=== PATIENT | female | born 1975 | race Two or more races ===

== ENCOUNTER 2020-03-28 20:01 | Emergency (ER) | payer MEDICAID, SELFPAY ==
[2020-03-28 20:16] VITALS: BP 134/70; PULSE 110; RESP 18; TEMP 36.2; O2SAT 98; BMI 27.4
--- NOTE | 2020-03-28 22:28 | XR_ITS ---
EXAMINATION: XR SOFT TISSUE NECK CLINICAL INDICATION: Foreign body, Fishbone. COMPARISON: None TECHNIQUE: 2 views of the soft tissue neck were obtained. FINDINGS: Soft tissue films of the neck demonstrate a normal larynx, pharynx and upper trachea. No soft tissue swelling or opaque foreign body is demonstrated. There is disc height narrowing and vertebral endplate spurring C5-C6 IMPRESSION: Unremarkable examination.
[2020-03-29 00:52] VITALS: BP 122/62; PULSE 101; RESP 15; TEMP 37; O2SAT 99
--- NOTE | 2020-03-29 00:56 | CT_ITS ---
EXAMINATION: CT SOFT TISSUE NECK WITHOUT CONTRAST CLINICAL INFORMATION: Pain, foreign body sensation right side COMPARISON: 03/28/2020 TECHNIQUE: Helical imaging was performed in the axial plane with generation of coronal and sagittal reformatted images. This CT examination was performed using dose optimization techniques as appropriate, variously including the following: *Automated exposure control *Adjustment of mA and/or kV according to patient size (this includes techniques or standardized protocols for targeted exams where dose is matched to indication/reason for exam; i.e. extremities or head) *Use of iterative reconstruction technique DLP: 535 mGy-cm FINDINGS: There is subtle tiny hyperdensity along the superficial medial aspect of the right palatine tonsil as seen on image 90/266 of series 3 for which a tiny foreign body cannot be excluded. This is a somewhat linear configuration when viewed on coronal images, and there is slight asymmetric prominence of the right palatine tonsil. No cervical adenopathy is identified. The parotid glands are homogeneous in attenuation. The submandibular glands are normal. No suspicious contour abnormality is seen within the oral cavity or pharyngeal mucosal space. The laryngeal structures are normal. The parapharyngeal fat is preserved. The carotid sheath vasculature opacify normally. No extra mucosal soft tissue mass or fluid collection is seen. No retropharyngeal fluid collection is seen. The thyroid gland is normal. The mastoid air cells are well-aerated. Partially visualized mucous retention cyst in the right maxillary sinus. The temporomandibular joints are normal. Endplate osteophytes are present in the cervical spine at C5-C6. The imaged portions of the brain parenchyma are unremarkable. IMPRESSION: Subtle tiny hyperdensity along the superficial aspect of the right palatine tonsil, which could reflect a tiny foreign body.
--- NOTE | 2020-03-29 00:58 | ED.SKABFB ---
HPI - Skin/Abscess/Foreign Bdy General Chief complaint: Skin/Abscess/Foreign Body Stated complaint: throat problem Time Seen by Provider: 03/29/20 00:56 Source: patient Mode of arrival: ambulatory Limitations: no limitations History of Present Illness HPI narrative: patient comes in complaining of a mole foreign body sensation on the right side of the neck. Patient states that 18:00 she swallowed a fishbone. Patient has ongoing sensation of the bone being stuck in her throat on the right side. Patient states that she tried swallowing bread, meld, eating bananas, drinking plenty of water but no results. MD complaint: foreign body Onset (ago): hour(s) Severity: mild Related Data Allergies Allergy/AdvReac Type Severity Reaction Status Date / Time sulfamethoxazole Allergy Unknown LIP Verified 03/29/20 03:29 [From BACTRIM] SWELLING trimethoprim [From BACTRIM] Allergy Unknown LIP Verified 03/29/20 03:29 SWELLING Review of Systems Review of Systems: Constitutional : No Weight loss, No Fever, No Chills, No Night Sweats, No Fatigue, No Malaise ENT/Mouth : No Hearing loss, No Ear Pain, No Nasal Congestion, No Sinus Pain, No Hoarseness, Mild pain on this right side of the throat with foreign body sensation, No Rhinorrhea, No Swallowing Difficulty Eyes: No Eye Pain, No Swelling, No Redness, No Foreign Body, No Discharge, No Vision Changes Cardiovascular : No Chest Pain, No SOB, No Dyspnea on Exertion, No Orthopnea, No Edema, No Palpitations Respiratory : No Cough, No Sputum, No Wheezing, No Smoke Exposure, No Dyspnea Gastrointestinal : No Nausea, No Vomiting, No Diarrhea, No Constipation, No abdominal Pain, No Hematochezia, No Melena Genitourinary : no irregular bleeding, No Dysuria, No Urinary Frequency, No Hematuria, No Urinary Incontinence, No Urgency, No Flank Pain, No Urinary Flow Changes, No Hesitancy Musculoskeletal : No joint pain, No Myalgias, No Joint Swelling Skin : No Skin Lesions, No rash Neuro : No Weakness, No Numbness, No Paresthesias, No Loss of Consciousness, No Dizziness, No Headache Psych : No Anxiety/Panic, No Depression, No SI/HI/AH/VH, No Social Issues, Heme/Lymph: No Bruising, No Bleeding,No Lymphadenopathy Endocrine : No Polyuria, No Polydipsia, No Temperature Intolerance [facility] Social History Social History Alcohol intake: never Smoking Status: Never smoker Use of substances other than those prescribed or required for medical reasons: No Advance Directives: No Advance Directives Information Provided: No Physical Exam Vital Signs: Vital Signs: Vital Signs Temp Pulse Resp BP Pulse Ox 03/29/20 00:52 98.6 F 101 H 15 122/62 99 03/28/20 20:16 97.2 F 110 H 18 134/70 98 Body Mass Index 27.4 Appearance: Alert. Oriented X3. No acute distress. Eyes: Pupils equal, round and reactive to light. ENT: Pharynx normal. Neck: Normal inspection. Neck supple. No lymph nodes noted. No crepitus CVS: Normal heart rate and rhythm. Pulses normal. Normal S1 and S2 Respiratory: No respiratory distress. Breath sounds normal. No Wheezing. No rales Abdomen: Soft and nontender. No rigidity. No distention. good BS x4 Skin: Skin warm and dry. Normal skin color. Normal skin turgor. Extremities: No lower extremity edema. No lower extremity edema. No Lacerations. No Rash Neuro: Oriented X 3. No motor deficit. No sensory deficit. Moving all extermities. No slurred speech. Course Reevaluation(s) Reevaluation #1: patient's x-ray shows no foreign body, patient is still complaining of a foreign body sensation, states something is poking her in her neck on the right side MDM - Skin/Abscess/Foreign Bdy MDM Narrative Medical decision making narrative: I discussed the CT scan with the patient, on physical exam she does not have anything visible on the tonsils. Patient instructed to follow-up with ENT, patient was provided with the phone number for follow-up. Medical Records Attestation: I reviewed the patient's medical records. Lab Data Attestation: I reviewed the patient's lab results. Imaging Data soft tissues of the neck CT scan: Radiologist's impression: Subtle tiny hyperdensity along the superficial aspect of the right palatine tonsil, which could reflect a tiny foreign body. Discharge Plan Discharge Clinical Impression: Feeling of foreign body in throat Patient Disposition: Home, Self-Care Instructions: Foreign Body in Pharynx (ED) Additional Instructions: please follow-up with the ears nose and throat doctor. [facility], phone number [phone] Interventions: ED Discharge Assessment Last Done: 03/29/20 03:31 Print Language: Romansh
[2020-03-29] MEDS: Lidocaine HCl Viscous 2 % 15 ML SOLUTION MUCOUS MEM (03:40)
== END 2020-03-29 03:55 | disposition home or self-care (01) ==
PROVIDERS: Emergency Provider Emergency Medicine
DX: R09.89 Other specified symptoms and signs involving the circulatory and respiratory systems (principal)
CPT/HCPCS: 70360; 70490; 99284

== ENCOUNTER 2020-05-30 11:49 | Outpatient (REF) | payer MEDICAID, SELFPAY | END 2020-05-30 11:50 | disposition home or self-care (01) | LOC: HO.LAB 11:49 | PROVIDERS: Visit Provider Internal Medicine | DX: Z20.828 Contact with and (suspected) exposure to other viral communicable diseases (principal) | CPT/HCPCS: C9803; U0003 ==

== ENCOUNTER 2020-06-01 10:44 | Emergency (ER) | payer MEDICAID, SELFPAY ==
[2020-06-01 10:50] VITALS: BP 136/84; PULSE 100; RESP 18; TEMP 37; O2SAT 99; BMI 29.2
--- NOTE | 2020-06-01 10:53 | ED_ITS ---
HPI - Skin/Abscess/Foreign Bdy General Chief complaint: Skin/Abscess/Foreign Body Stated complaint: rash 3 days Time Seen by Provider: 06/01/20 10:52 Source: patient Mode of arrival: ambulatory Limitations: no limitations History of Present Illness HPI narrative: 45 y/o female presenting with red, raised itching rash on her arms and legs for the last 3 days. She states she gets this rash occasionally but it usually is not this bad. She reports it starting on her left forearm and then spreading to her right arm and both of her upper and lower legs. No lesions on her abdomen, back or face. She has been taking Benadryl, Claritin, Zyrtex with no relief. She denies new soaps, detergents, lotions, creams or perfumes. She has a dog that she has had for >1 year. She denies SOB or wheezing. MD complaint: rash Onset (ago): day(s) (3) Tetanus up to date: unsure Location: LUE, RUE, LLE and RLE Severity: similar to previous episodes Severity scale (1-10): 7 Quality: burning and pruritic Pain Consistency: constant Relieving factors: cold therapy and medication Exacerbating factors: palpation Associated symptoms: denies other symptoms Treatments prior to arrival: Benadryl Related Data Previous Rx's Medication Instructions Recorded prednisone 60 mg PO DAILY #15 tab 06/01/20 Allergies Allergy/AdvReac Type Severity Reaction Status Date / Time sulfamethoxazole Allergy Unknown LIP Verified 06/01/20 10:50 [From BACTRIM] SWELLING trimethoprim [From BACTRIM] Allergy Unknown LIP Verified 06/01/20 10:50 SWELLING Review of Systems Review of Systems: Constitutional: No Fever, No Chills ENT/Mouth: No sore throat,, No Swallowing Difficulty Eyes: No Eye Pain, No Swelling, No Redness Cardiovascular: No Chest Pain, No SOB Respiratory: No Cough, No Wheezing, No dyspnea Gastrointestinal: No Nausea, No Vomiting, No Diarrhea, No abdominal Pain Musculoskeletal: No joint pain, No Myalgias Skin: +Skin Lesions, + rash Heme/Lymph: No Bruising PMFSH Social History Social History Alcohol intake: never Smoking Status: Never smoker Advance Directives: No Advance Directives Information Provided: No Physical Exam Vital Signs: Vital Signs: Last Vital Signs Temp 98.6 F 06/01/20 10:50 Pulse 100 06/01/20 10:50 Resp 18 06/01/20 10:50 BP 136/84 06/01/20 10:50 Pulse Ox 99 06/01/20 10:50 Body Mass Index 29.2 Appearance: Alert. Oriented X3. No acute distress. HEENT: normal inspection CVS: Normal heart rate and rhythm. No murmur appreciated. Respiratory: No respiratory distress. Lung sounds CTAB. Skin: Skin warm and dry. Normal skin color. Normal skin turgor. No rashes. Extremities: bilateral forearms with large erythematous circular raised lesions, confluent with mild excoriations, no pustules. Bilateral upper thighs with small raised circular erythematous lesions as well. No truck or back lesions. Neuro: Oriented X 3. Non-focal Course Course Course Narrative: 45 y/o female with recurrent erythematous, pruritis rash on extremities worsening over last 3 days. Unclear etiology. History of the same. Will treat with burst of prednisone and refer to Music Therapy Teacher for further workup. No respiratory complaints, no cellulitis. Stable for discharge. MDM - Skin/Abscess/Foreign Bdy Differential Diagnosis Differential diagnosis: Likely urticaria, allergic reaction to drug, cellulitis, eczema and contact dermatitis Critical Care Time Critical Care Time Critical Care Time: No Discharge Plan Discharge Clinical Impression: Contact dermatitis Qualifiers: Contact dermatitis type: unspecified Contact dermatitis trigger: unspecified trigger Qualified Code(s): L25.9 - Unspecified contact dermatitis, unspecified cause Patient Disposition: Home, Self-Care Instructions: Dermatitis (ED) Additional Instructions: Continue to take Benadryl every 6-8 hours as needed for itching. Continue to take Claritin or Zyrtec every day until resolved. Topical Benadryl spray or lotion may also help with itching. Take the prescribed steroids as directed. Recommend follow up with an crime data specialist for further workup. Prescriptions: New prednisone 20 mg tablet 60 mg PO DAILY Qty: 15 RF: 0 Referrals: Mango Fraire DO [Physician] - 2 days Discharge Date/Time: 06/01/20 11:11
== END 2020-06-01 11:11 | disposition home or self-care (01) ==
PROVIDERS: Emergency Provider Emergency Medicine Emergency Medical Services
DX: L25.9 Unspecified contact dermatitis, unspecified cause (principal); Z79.899 Other long term (current) drug therapy
CPT/HCPCS: 99283

== ENCOUNTER 2020-12-24 13:57 | Emergency (ER) | payer MEDICAID, SELFPAY ==
--- NOTE | ~2020-12-24 | CT_ITS ---
EXAMINATION: CT ABDOMEN AND PELVIS WITH CONTRAST CLINICAL INFORMATION: Right-sided pain COMPARISON: 07/01/2018 TECHNIQUE: Multidetector volumetric images were obtained from the superior aspect of the liver through the pubic symphysis following administration 85 mL of Omnipaque 350 intravenous contrast. Sagittal and coronal reformatted images were obtained on the technologist's workstation. Oral contrast: No This CT examination was performed using dose optimization techniques as appropriate, variously including the following: *Automated exposure control *Adjustment of mA and/or kV according to patient size (this includes techniques or standardized protocols for targeted exams where dose is matched to indication/reason for exam; i.e. extremities or head) *Use of iterative reconstruction technique DLP: 749 mGy-cm FINDINGS: LUNG BASES: The visualized lung bases are unremarkable. LIVER, GALLBLADDER, AND BILIARY TREE: Changes of diffuse hepatic steatosis. No biliary dilatation. Tiny gallstones within the gallbladder lumen. No acute inflammatory changes. PANCREAS: Unremarkable. SPLEEN: Unremarkable. ADRENAL GLANDS: Unremarkable. KIDNEYS AND URETERS: The kidneys are normal in size, shape, and attenuation. No hydronephrosis, hydroureter, or calculi seen. No perinephric stranding. BLADDER: Unremarkable. GASTROINTESTINAL TRACT: Relative thickening of the right colon and transverse colon consistent with nonspecific colitis. Scattered diverticula without acute inflammatory changes. Normal appendix. No small bowel pathology. ABDOMINAL WALL: No significant hernia is appreciated. LYMPH NODES: Normal. VASCULAR: Unremarkable. PELVIC VISCERA: Ovarian follicles noted bilaterally. OSSEOUS STRUCTURES: Unremarkable. CT/CT abdomen pelvis w con IMPRESSION: 1. Colon is decompressed but stable there are findings suspicious for right-sided colonic wall thickening consistent with nonspecific mild colitis. Appearance is similar to baseline. 2. Normal appendix. 3. No obstructive uropathy. No stones.
[2020-12-24 14:21] VITALS: BP 113/63; PULSE 82; RESP 18; TEMP 36.7; O2SAT 99; BMI 30.2
[2020-12-24 16:46] LABS: MANUAL DIFF FLAG NO
[2020-12-24 16:47] LABS: Basophils Percent Auto 0.2 % (0-2); Eosinophils Absolute Auto 0.1 X10*3/uL (0.0-0.4); Eosinophils Percent Auto 0.6 % (0-4); Hematocrit 38.8 % (37-47); Hemoglobin 12.6 g/dl (12.0-16.0); Imm Gran Abs Auto 0.04 X10*3/uL (0.00-0.03); Imm Gran Pct Auto 0.4 % (0.0-0.4); Lymphocytes Percent Auto 19.6 % (20-40); Mean Corpuscular HGB Conc 32.5 g/dl (31.0-35.0); Mean Corpuscular Hemoglobin 26.8 pg (27.0-33.0); Mean Corpuscular Volume 82.4 fL (80-98); Mean Platelet Volume 10.6 fL (9.4-12.3); Monocytes Absolute Auto 0.9 X10*3/uL (0.1-1.2); Monocytes Percent Auto 8.8 % (2-11); Neutrophils Absolute Auto 7.3 X10*3/uL (2.0-8.3); Neutrophils Percent Auto 70.4 % (45-73); Platelet Count 300 X10*3/uL (160-400); Red Blood Count 4.71 X10*6/uL (4.20-5.50); Red Cell Distribution Width 12.7 % (11.0-16.0); White Blood Count 10.3 X10*3/uL (4.8-10.8)
[2020-12-24 17:15] LABS: Alanine Aminotransferase 32 U/L (0-31); Albumin Level 4.2 g/dL (3.5-5.0); Alkaline Phosphatase 66 U/L (39-117); Anion Gap 13 (12-20); Aspartate Amino Transferase 26 U/L (5-31); Bilirubin Total 0.4 mg/dL (0.0-1.0); Blood Urea Nitrogen 9 mg/dL (9-16); Calcium 9.5 mg/dL (8.4-10.2); Carbon Dioxide 24 mmol/L (22-29); Chloride 106 mmol/L (96-108); Creatinine Clr Calc Pharmacy 105.7; Estimated Glomerular Filt Rate > 60; Glucose Random 97 mg/dL (60-115); Potassium 4.2 mmol/L (3.3-5.1); Sodium 139 mmol/L (135-145); Total Protein 7.5 g/dL (6.5-8.0)
--- NOTE | 2020-12-24 17:19 | ED_ITS ---
HPI - Abdominal Pain General Chief Complaint: Abdominal Pain Stated Complaint: FLANK PAIN Time Seen by Provider: 12/24/20 17:17 Source: patient Limitations: no limitations History of Present Illness HPI narrative: This is a 45-year-old female who complains of pain in her right flank for about a week, with worsening today. She notes some pain in her right abdomen. She says the pain overall is not bad, maybe a 5/10. Pain is dull and constant. She has noted urinary frequency but denies any dysuria. She denies fever. She denies any nausea or vomiting. She has not had any constipation or diarrhea. Related Data Previous Rx's Medication Instructions Recorded prednisone 60 mg PO DAILY #15 tab 06/01/20 Allergies Allergy/AdvReac Type Severity Reaction Status Date / Time sulfamethoxazole Allergy Unknown LIP Verified 06/01/20 10:50 [From BACTRIM] SWELLING trimethoprim [From BACTRIM] Allergy Unknown LIP Verified 06/01/20 10:50 SWELLING Review of Systems Review of Systems Yes all other systems are reviewed and are negative Constitutional: Reports as per HPI and Denies fever(s) Eyes: Reports as per HPI and Reports no additional eye complaints Reports system reviewed and no additional complaints, except as documented, Reports as per HPI, Denies nasal congestion, Denies nasal discharge and Denies sore throat Cardiovascular: Reports as per HPI, Denies chest pain and Denies dyspnea Respiratory: Reports as per HPI, Denies cough and Denies dyspnea Gastrointestinal: Reports as per HPI, Reports abdominal pain, Denies diarrhea and Denies vomiting Genitourinary: Reports as per HPI, Denies hematuria, Denies dysuria and Reports flank pain Comments: Urinary frequency Musculoskeletal: Reports no additional musculoskeletal complaints and Denies numbness Skin/Breast: Reports as per HPI and Denies rash Reports as per HPI, Denies focal weakness, Denies numbness and Denies Sensory deficit (Neuro) Psychiatric: Reports no additional psychiatric complaints and Reports as per HPI Endocrine: Reports no additional endocrine complaints and Reports as per HPI Hematologic/Lymphatic: Reports no additional hematologic/lymphatic complaints, Reports as per HPI and Reports other (No peripheral edema) Physical Exam Vital Signs: Vital Signs: Last Vital Signs Temp 98.1 F 12/24/20 14:21 Pulse 74 12/24/20 17:20 Resp 16 12/24/20 20:01 BP 128/76 12/24/20 17:20 Pulse Ox 99 12/24/20 17:20 Body Mass Index 30.2 Const: General: cooperative, no acute distress and alert Orientation/consciousness: patient oriented x3 HENMT: Head: Yes normal to inspection Eyes: General: appearance normal, both eyes and all related structures Eyelids: Yes eyelids normal Conjunctivae: conjunctivae normal Pupils: Equal, round and reactive pupils present Neck: Neck: Yes normal visual inspection and Yes supple Chest: Chest palpation & inspection: normal inspection of the chest Resp: Effort & Inspection: normal respiratory effort Auscultation: clear to auscultation bilaterally Cardio: Rate: regular rate Rhythm: regular rhythm Heart sounds: S1 normal heart sound present, S2 normal heart sound present, no gallops, no murmurs and no rubs GI: Palpation (GI): Soft to palpation, Tenderness to palpation present (GI) (Mild tenderness right lower quadrant, also right CVA) and Other GI palpation findings present (Non-distended) Auscultation: normal bowel sounds Skin: General skin exam: no rashes or lesions noted Neuro: General: patient oriented x3, no focal motor deficits and CN's II-XI intact bilaterally Cranial nerves: Yes Equal, round and reactive pupils present Cognition (Neuro): normal cognition Motor exam (neuro): 5/5 motor strength present throughout Sensory Exam: No Sensory deficit (Neuro) Extrem: General: Yes normal to inspection and Yes no pedal edema Psych: Appearance: grossly normal Affect: normal affect MDM - Abdominal Pain MDM Narrative Medical decision making narrative: Patient with right flank and some right lower quadrant pain, developing gradually over a week. Patient only mild tenderness on exam. Patient does not appear ill. Patient had urinary frequency but no other urinary symptoms. Urinalysis was negative. For this reason CT scan was done, given the mild right lower quadrant pain and tenderness, but was negative for any acute pathology except for mild thickening of the right colon, similar to a prior exam. Patient has not had any diarrhea or fever, doubt colitis clini toribio. Recommend ibuprofen and/or acetaminophen for pain, follow-up with the primary care physician, may need GI referral if pain persists Medical Records Attestation: I reviewed the patient's medical records. Lab Data Attestation: I reviewed the patient's lab results. Result diagrams: 12/24/20 16:36 12/24/20 16:36 Labs: Lab Results 12/24/20 12/24/20 12/24/20 Range/Units 16:36 16:36 17:19 WBC 10.3 (4.8-10.8) X10*3/uL RBC 4.71 (4.20-5.50) X10*6/uL Hgb 12.6 (12.0-16.0) g/dl Hct 38.8 (37-47) % MCV 82.4 (80-98) fL MCH 26.8 L (27.0-33.0) pg MCHC 32.5 (31.0-35.0) g/dl RDW 12.7 (11.0-16.0) % Plt Count 300 (160-400) X10*3/uL MPV 10.6 (9.4-12.3) fL Immature Gran % (Auto) 0.4 (0.0-0.4) % Neut % (Auto) 70.4 (45-73) % Lymph % (Auto) 19.6 L (20-40) % Whitley % (Auto) 8.8 (2-11) % Eos % (Auto) 0.6 (0-4) % Baso % (Auto) 0.2 (0-2) % Lymph # (Auto) 2.0 (1.2-4.9) X10*3/uL Whitley # (Auto) 0.9 (0.1-1.2) X10*3/uL Eos # (Auto) 0.1 (0.0-0.4) X10*3/uL Baso # (Auto) 0.0 (0.0-0.2) X10*3/uL Abs Immat Gran (auto) 0.04 H (0.00-0.03) X10*3/uL Absolute Neuts (auto) 7.3 (2.0-8.3) X10*3/uL Absolute Nucleated RBC 0.000 (0.0-0.012) X10*3/uL Nucleated RBC % (auto) 0.0 (0.0-0.2) /100WBC Sodium 139 (135-145) mmol/L Potassium 4.2 (3.3-5.1) mmol/L Chloride 106 (96-108) mmol/L Carbon Dioxide 24 (22-29) mmol/L Anion Gap 13 (12-20) BUN 9 (9-16) mg/dL Creatinine 0.65 (0.5-1.4) mg/dL Estim Creat Clear Calc 105.7 Estimated GFR > 60 Random Glucose 97 (60-115) mg/dL Calcium 9.5 (8.4-10.2) mg/dL Total Bilirubin 0.4 (0.0-1.0) mg/dL AST 26 (5-31) U/L ALT 32 H (0-31) U/L Alkaline Phosphatase 66 (39-117) U/L Total Protein 7.5 (6.5-8.0) g/dL Albumin 4.2 (3.5-5.0) g/dL Urine Color YELLOW Urine Appearance CLEAR Urine pH 6.0 (5.0-8.0) Ur Specific Britt 1.015 (1.005-1.025) Urine Protein NEG (NEG-TRACE) MG/DL Urine Glucose (UA) NEG (NEG) MG/DL Urine Ketones NEG (NEG) MG/DL Urine Blood TRACE (NEG) Urine Nitrite NEG (NEG) Ur Leukocyte Esterase NEG (NEG) Urine RBC 1-4 (0) /HPF Urine WBC 0-2 (0-4) /HPF Ur Squamous Epith Cells 1+ /LPF Urine Bacteria TRACE /LPF Imaging Data CT abdomen and pelvis with IV contrast: Radiologist's impression: 1. Colon is decompressed but stable there are findings suspicious for right-sided colonic wall thickening consistent with nonspecific mild colitis. Appearance is similar to baseline. 2. Normal appendix. 3. No obstructive uropathy. No stones. Discharge Plan Discharge Clinical Impression: Acute right flank pain Patient Disposition: Home, Self-Care Instructions: Abdominal Pain (ED), Flank Pain (ED) Additional Instructions: Use Tylenol or ibuprofen for pain. Drink plenty of fluids. Return for any new or worsened symptoms such as worse abdominal pain, fever. Follow-up with a primary care physician. If you have persistent pain you may need referral to a [employer] promotional sales. Prescriptions: No Action prednisone 20 mg tablet 60 mg PO DAILY Qty: 15 RF: 0 Referrals: Carmelo Dow MD [Physician] - 5 days [facility] Social History Social History Alcohol intake: never Advance Directives: No Advance Directives Information Provided: No
[2020-12-24 17:20] VITALS: BP 128/76; PULSE 74; RESP 16; O2SAT 99
[2020-12-24 17:26] LABS: Glucose Urine UA NEG (NEG); Leukocyte Esterase Urine NEG (NEG); Nitrite Urine NEG (NEG); Specific Gravity - Urine 1.015 (1.005-1.025); Urine Blood TRACE (NEG); Urine Ketones NEG (NEG); Urine Protein NEG (NEG-TRACE)
[2020-12-24] MEDS: Morphine Sulfate 4 MG/ML CARTRIDGE IVPUSH (17:27)
[2020-12-24] MEDS: Ketorolac Tromethamine 30 MG/ML VIAL IVPUSH (17:27)
[2020-12-24 17:31] LABS: Appearance Urine CLEAR; Color Urine YELLOW
[2020-12-24 17:39] LABS: Bacteria Urine TRACE /LPF; Squamous Epithelial Cell Urine 1+ /LPF; WBC Urine 0-2 /HPF (0-4)
[2020-12-24] MEDS: iohexoL 350 MG/ML 100 ML INFUS..BTL IV (19:11)
[2020-12-24 20:01] VITALS: RESP 16
== END 2020-12-24 20:29 | disposition home or self-care (01) ==
PROVIDERS: Emergency Provider Emergency Medicine
DX: R10.9 Unspecified abdominal pain (principal)
CPT/HCPCS: 36415; 74177; 80053; 81001; 85025; 96374; 96375; 99284; J1885; J2270; Q9967

== ENCOUNTER 2021-03-27 18:18 | Emergency (ER) | payer MEDICAID, SELFPAY ==
--- NOTE | 2021-03-27 18:34 | PC.NURSE ---
patient was not seen in triage, pt was brought to triage on ems stretcher, met pt in doorway and they left. pt left without being seen or triaged by this nurse.
[2021-03-27 18:35] VITALS: BP 128/78; PULSE 90; O2SAT 90
== END 2021-03-27 18:29 ==
PROVIDERS: Emergency Provider Emergency Medicine
DX: M25.539 Pain in unspecified wrist (principal)

== ENCOUNTER 2021-08-20 14:57 | Emergency (ER) | payer MEDICAID, SELFPAY ==
[2021-08-20 15:03] VITALS: BP 126/63; PULSE 86; RESP 18; TEMP 36.6; O2SAT 98; BMI 29.0
--- NOTE | 2021-08-20 15:36 | ED.BACK ---
HPI - Back Pain/Injury General Chief Complaint: Back Pain/Injury Stated Complaint: lower back pain Time Seen by Provider: 08/20/21 15:36 Source: patient Mode of arrival: ambulatory Limitations: no limitations History of Present Illness HPI Narrative: Patient is a 46-year-old female with past medical history of depression, cholelithiasis, obesity. She presents emergency department for evaluation of lower back pain. She states while bending forward today to pick her grandchild she felt a sudden burning pain across her lower back. The burning pain has subsided and is now aching, and made worse with any movement. Denies recent fevers, chills, burning with micturition, urinary frequency/urgency/hesitancy, bladder or bowel dysfunction, numbness or tingling of the perineum or bilateral legs. Denies any recent surgical procedures, any known immune compromising conditions, personal history of cancer, or IV drug usage. MD elicited complaint: back pain Related Data Previous Rx's Medication Instructions Recorded prednisone 20 mg tablet 60 mg PO DAILY #15 tab 06/01/20 tramadol 50 mg tablet 50 mg PO BID PRN #10 tab 08/20/21 Allergies Allergy/AdvReac Type Severity Reaction Status Date / Time sulfamethoxazole Allergy Unknown LIP Verified 06/01/20 10:50 [From BACTRIM] SWELLING trimethoprim [From BACTRIM] Allergy Unknown LIP Verified 06/01/20 10:50 SWELLING Review of Systems Review of Systems: Constitutional: No weight loss, fever, chills, weakness or fatigue. HEENT: No visual loss, blurred vision, double vision. No hearing loss, sneezing, congestion, runny nose or sore throat. Skin: No rash or itching. Cardiovascular: No chest pain, chest pressure or chest discomfort. No palpitations or pedal edema. Respiratory: No shortness of breath, cough or sputum production. Gastrointestinal: No anorexia, nausea, vomiting or diarrhea. No abdominal pain or blood in stool. Genitourinary: No burning micturition. No urinary frequency or incontinence. Neurologic: No headache, dizziness, syncope, unilateral weakness, ataxia, numbness or tingling in the extremities. No change in bowel or bladder control. Musculoskeletal: + Back pain as noted in HPI. No joint pain or stiffness. Hematologic: No bleeding or bruising. Lymphatics: No enlarged lymph nodes. Psychiatric:No depression or anxiety. Endocrine: No reports of sweating. No cold or heat intolerance. No polyuria or polydipsia. [facility] Past Medical History Attestation statement: The following information was validated with the patient. Source: old records reviewed Surgical History History of tubal ligation Social History Social History Alcohol intake: never Advance Directives: No Advance Directives Information Provided: No Patient : No Physical Exam Vital Signs: Vital Signs: Last Vital Signs Temp 98 F 08/20/21 15:03 Pulse 86 08/20/21 15:03 Resp 18 08/20/21 15:03 BP 126/63 08/20/21 15:03 Pulse Ox 98 08/20/21 15:03 BMI result Body Mass Index 29.0 Vital signs have been reviewed as normal and appeared to be correct. Blood pressure normal.? Heart rate normal.? Respiration rate normal. Temperature normal.? Oxygen saturation normal. Appearance: Alert.?Oriented to person, place and time. No acute distress.?Normal affect. Eyes: Pupils equal, round and reactive to light.? ENT: Pharynx normal.?? Neck: Normal inspection.? Neck supple.?? CVS: Heart sounds normal. Normal heart rate and rhythm.? Pulses normal; bilateral radial pulses 2+, bilateral posterior tibial/dorsalis pedis pulses 2+.? Respiratory: No respiratory distress.? Lung sounds clear to auscultation bilaterally?? Abdomen: Soft and non-tender. Normoactive bowel sounds. No pulsatile mass.?? Skin: Skin warm and dry.? Normal skin color.? Normal skin turgor.?? Extremities: No lower extremity edema.? No calf ttp? Back: + mild paraspinal muscular tenderness from lumbar region to coccyx. No CVA tenderness. No midline spinal tenderness, step-off's, or deformity. Full ROM intact in bilateral lower extremities. Straight leg test negative on right; Straight leg test negative on left. No rashes, lesions, areas of induration or fluctuance, or signs of infection noted. Neuro: Moves all extremities spontaneously. 5/5 strength in hip extension/flexion, abduction, adduction. Sensation to light touch intact bilaterally. Patellar and Achilles reflex 2+ bilaterally. No ataxia, gait normal and steady. No focal neuro deficits. Course Course Course Narrative: Patient is a 46-year-old female being evaluated for acute lumbar pain after bending forward today. Pain seems most consistent with muscular pain, although cannot completely exclude herniated disc. On neurological exam there are no deficits. Not consistent with spinal fracture, spinal infection, epidural abscess, AAA, epidural abscess, or dissection. No high risk past medical history including incontinence, fever, immunosuppression, recent surgery or lumbar puncture, coagulopathy, significant trauma, recent unintentional weight loss, pulsatile mass, history of cancer, history of TB, history of IV drug use that would warrant MRI or CT. Not consistent with ectopic , pyelonephritis, urinary tract infection, renal calculi, pelvic infection, appendicitis, diverticulitis. On exam no concern for cauda equina syndrome. No imaging is currently indicated at this time. Plan to order Toradol IM, and Flexeril and re-evaluate pain after, disposition pending results. Reevaluation(s) Reevaluation #1: Patient reports minimal improvement in her pain after receiving Toradol and Flexeril, discussed with patient alternative options including tramadol, and the addictive nature of this medication should only be used for severe pain Plan for discharge home with short course of tramadol, and follow-up with primary care provider on 1-3 days, discussed reasons to return to the emergency department, and patient agreed with plan. MDM - Back Pain/Injury Medical Records Attestation: I reviewed the patient's medical records. Discharge Plan Discharge Clinical Impression: Strain of lumbar region Patient Disposition: Home, Self-Care Instructions: Acute Low Back Pain (ED), Lower Back Exercises (ED) Additional Instructions: You were evaluated in the emergency department for your lower back pain. Your pain is most consistent with a musculoskeletal nature. You should engage in regular exercise and gentle stretching for increased motion to the lower back. You can apply a heating pad or ice pack for 15 minutes every 2-3 hours as needed. Recommend follow-up with your primary care provider in 1-3 days, you may need to consider a course of physical therapy. You can use Tylenol or ibuprofen as needed for pain. You have been given a new prescription for tramadol, this is an opiate medication, and can be addictive, you should not drive after taking this medication. Please free to return to the emergency department for any new or worsening symptoms or concerns. Prescriptions: New tramadol 50 mg tablet 50 mg PO BID PRN (Reason: pain) Qty: 10 0RF No Action prednisone 20 mg tablet 60 mg PO DAILY Qty: 15 0RF Interventions: ED Discharge Assessment Last Done: 08/20/21 17:56 Discharge Date/Time: 08/20/21 17:57
[2021-08-20] MEDS: Ketorolac Tromethamine 30 MG/ML VIAL IM (15:57)
[2021-08-20] MEDS: Cyclobenzaprine HCl 10 MG TABLET PO (15:57)
[2021-08-20] MEDS: traMADoL HCL 50 MG TABLET PO (17:01)
== END 2021-08-20 17:57 | disposition home or self-care (01) ==
PROVIDERS: Emergency Provider Emergency Medicine
DX: S39.012A Strain of muscle, fascia and tendon of lower back, initial encounter (principal); X50.0XXA Overexertion from strenuous movement or load, initial encounter; Y93.89 Activity, other specified; Y92.039 Unspecified place in apartment as the place of occurrence of the external cause; Y99.9 Unspecified external cause status
CPT/HCPCS: 96372; 99284; J1885

== ENCOUNTER 2021-10-24 08:32 | Emergency (ER) | payer MEDICAID, SELFPAY ==
[2021-10-24 08:46] VITALS: BP 150/99; PULSE 110; RESP 18; TEMP 37.1; O2SAT 99; BMI 29.2
[2021-10-24 09:33] LABS: COVID-19 Test Negative (Negative)
[2021-10-24 09:35] LABS: IDNOW Serial# 55D5AD1C; Influenza A Negative (Negative); Influenza B2 Negative (Negative)
--- NOTE | 2021-10-24 10:32 | ED.URI ---
HPI - URI/Sore Throat General Chief Complaint: Upper Respiratory Symptoms Stated Complaint: cough running nose lung pain Time Seen by Provider: 10/24/21 10:32 Source: patient and family ( at bedside) Mode of arrival: ambulatory Limitations: no limitations History of Present Illness HPI Narrative: 46-year-old female with a past medical history of obesity and depression presenting to the ED with her at bedside with similar complaints today presents to the ED with subjective fevers, chills, fatigue, malaise, intermittent headaches, nasal congestion/rhinorrhea with a productive cough with clear/yellow colored sputum and bilateral chest wall pain when she coughs. She reports that she is vaccinated to COVID. She is not vaccinated to the flu. She denies any measured fevers, dizziness, neck pain/stiffness, trouble swallowing or breathing, chest pain or shortness of breath, dyspnea on exertion, orthopnea, palpitations, paresthesias, nausea/vomiting/diarrhea constipation, abdominal pain, back pain, dysuria, rashes, lower extremity edema or calf tenderness or any other symptoms complaints or concerns at this time. MD elicited complaint: fever, cough, sore throat, rhinorrhea and nasal congestion Onset (ago): day(s) (4) Consistency: constant and progressively worsening Severity: mild Description of mucous: clear, watery and yellow Able to tolerate fluids by mouth: Yes Exacerbating factors: other (Coughing/deep breathing) Relieving factors: nothing Context: sick contacts ( has similar symptoms although no other sick contacts that they are aware of) Associated symptoms: fever, chills, myalgias, headache, rhinorrhea, nasal congestion and cough Treatments prior to arrival: none Related Data Previous Rx's Medication Instructions Recorded prednisone 20 mg tablet 60 mg PO DAILY #15 tab 06/01/20 tramadol 50 mg tablet 50 mg PO BID PRN #10 tab 08/20/21 albuterol sulfate 90 mcg/actuation 1 inh INHALATION QID PRN #8.5 g 10/24/21 aerosol inhaler azithromycin 250 mg tablet See Rx Instructions .ROUTE 10/24/21 .COMPLEX #6 tab codeine 10 mg-guaifenesin 100 mg/5 5 ml PO Q6H PRN #120 ml 10/24/21 mL oral liquid (Guaifenesin AC) prednisone 20 mg tablet 40 mg PO DAILY 5 Days #10 tab 10/24/21 Allergies Allergy/AdvReac Type Severity Reaction Status Date / Time sulfamethoxazole Allergy Unknown LIP Verified 06/01/20 10:50 [From BACTRIM] SWELLING trimethoprim [From BACTRIM] Allergy Unknown LIP Verified 06/01/20 10:50 SWELLING Review of Systems Review of Systems: Constitutional : + subjective fevers/chills/fatigue/malaise, No Weight loss, No Night Sweats ENT/Mouth : + nasal congestion/rhinorrhea, No Hearing loss, No Ear Pain, No Sinus Pain, No Hoarseness, No sore throat, No Swallowing Difficulty Eyes: No Eye Pain, No Swelling, No Redness, No Foreign Body, No Discharge, No Vision Changes Cardiovascular : No Chest Pain, No SOB, No Dyspnea on Exertion, No Orthopnea, No Edema, No Palpitations Respiratory : + Cough, + Sputum, No Wheezing, No Smoke Exposure, No Dyspnea Gastrointestinal : No Nausea, No Vomiting, No Diarrhea, No Constipation, No abdominal Pain, No Hematochezia, No Melena Genitourinary : no irregular bleeding, No Dysuria, No Urinary Frequency, No Hematuria, No Urinary Incontinence, No Urgency, No Flank Pain, No Urinary Flow Changes, No Hesitancy Musculoskeletal : No joint pain, + Myalgias, No Joint Swelling Skin : No Skin Lesions, No rash Neuro : No Weakness, No Numbness, No Paresthesias, No Loss of Consciousness, No Dizziness, No Headache Psych : No Anxiety/Panic, No Depression, No SI/HI/AH/VH, No Social Issues, Heme/Lymph: No Bruising, No Bleeding,No Lymphadenopathy Endocrine : No Polyuria, No Polydipsia, No Temperature Intolerance Yes all other systems are reviewed and are negative [facility] Past Medical History Attestation statement: The following information was validated with the patient. Surgical History History of tubal ligation Social History Social History Alcohol intake: never Advance Directives: No Advance Directives Information Provided: No Physical Exam Vital Signs: Vital Signs: Last Vital Signs Temp 98.8 F 10/24/21 08:46 Pulse 110 H 10/24/21 08:46 Resp 18 10/24/21 08:46 BP 150/99 H 10/24/21 08:46 Pulse Ox 99 10/24/21 08:46 BMI result Body Mass Index 29.2 vital signs have been reviewed as normal and appeared to be correct. Blood pressure 150/99. Heart rate 110 Respiration rate normal. Temperature normal. Oxygen saturation normal. Appearance: Alert. Oriented X3. No acute distress. Head: Normal external exam. Normocephalic. Atraumatic. Eyes: PERRLA. EOMI. Conjunctiva and sclera normal. Eyelids normal. ENT: EAC normal. TM's Normal. Pharynx normal. Uvula midline. Moist mucous membranes. No lesions/ulcerations or masses noted on the tongue. Normal voice. No trismus noted. No drooling noted. No muffled voice noted. Neck: Normal inspection. Neck supple. FROM. No adenopathy. Thyroid Normal. No meningeal signs. No neck mass noted. CVS: Normal heart rate and rhythm. Heart sound normal. Pulses normal throughout. No murmurs/rales/gallops. Respiratory: No respiratory distress. Painless inspiration. Breath sounds normal. No wheezes/rales/rhonchi noted. Chest nontender. No crepitus is noted. No signs of trauma noted. No accessory muscle usage noted or decreased air movement noted. Abdomen: Soft and nontender. Bowel sounds normal in all 4 quadrants. No distention noted. No organomegaly noted. No visible injury noted. Back: Full range of motion noted. Skin: Skin warm and dry. Normal skin color. Normal skin turgor. No rashes/lesions/lacerations noted. Extremities: No lower extremity edema. No calf tenderness is noted. Extremities exhibit normal range of motion and nontender. Neuro: Oriented X 3. No motor deficit. No sensory deficit. Reflexes normal. Normal steady gait. No focal neuro deficits noted. CN's II-XII intact bilaterally? Vascular: + radial pulses/+ 2 distal pedal pulses/+2 dorsalis pedis b/l. Normal cap refill. No cyanosis noted to upper extremity nails and lower extremity toes nails. Course Course Course Narrative: Patient negative for COVID/influenza. Although patient's who is at bedside is actually positive for influenza A. On exam they are alert and oriented x3. Not in any acute distress. Vital signs are stable within normal limits. Lungs clear to auscultation.CV RRR. No lower extremity edema noted. No additional labs or imaging indicated at this time. Will DC home with antibiotics and symptomatic treatment instructions return if any new or worsening symptoms to follow up with primary care provider. Patient and understand and agree this plan. MDM - URI/Sore Throat Medical Records Attestation: I reviewed the patient's medical records. Lab Data Attestation: I reviewed the patient's lab results. Labs: Lab Results 10/24/21 10/24/21 Range/Units 08:48 08:48 COVID-19 ([facility]TAG[facility]ACIA) Negative (Negative) COVID-19 Clin Com See Note Influenza Type A (TARA) Negative (Negative) Influenza Type B (TARA) Negative (Negative) Influenza A & B Note See Note Discharge Plan Discharge Clinical Impression: Bronchitis, Exposure to influenza Patient Disposition: Home, Self-Care Instructions: Acute Bronchitis (ED) Prescriptions: New azithromycin 250 mg tablet See Rx Instructions .ROUTE .COMPLEX Qty: 6 0RF Rx Instructions: take 500 mg today (day 1), then 250 mg for 4 days (days 2-5) prednisone 20 mg tablet 40 mg PO DAILY 5 Days Qty: 10 0RF codeine-guaifenesin [Guaifenesin AC] 10-100 mg/5 mL liquid 5 ml PO Q6H PRN (Reason: cold symptoms) Qty: 120 0RF albuterol sulfate 90 mcg/actuation HFA aerosol inhaler 1 inh inhalation QID PRN (Reason: shortness of breath or wheezing) Qty: 8.5 0RF No Action prednisone 20 mg tablet 60 mg PO DAILY Qty: 15 0RF tramadol 50 mg tablet 50 mg PO BID PRN (Reason: pain) Qty: 10 0RF Referrals: Stacy Boyd MD [Primary Care Provider] - 2 days Print Language: Angolan
== END 2021-10-24 10:54 | disposition home or self-care (01) ==
PROVIDERS: Emergency Provider Emergency Medicine; PCP Internal Medicine
DX: J40 Bronchitis, not specified as acute or chronic (principal); R50.9 Fever, unspecified; M79.10 Myalgia, unspecified site; R05.9 Cough, unspecified; R51.9 Headache, unspecified; Z20.822 Contact with and (suspected) exposure to COVID-19; Z79.899 Other long term (current) drug therapy
CPT/HCPCS: 87502; 87635; 99283

== ENCOUNTER 2021-10-26 10:20 | Emergency (ER) | payer MEDICAID, SELFPAY ==
[2021-10-26 10:22] VITALS: BP 139/76; PULSE 88; RESP 19; TEMP 36.1; O2SAT 98; BMI 29.2
--- NOTE | 2021-10-26 11:10 | ED_ITS ---
HPI - Skin/Abscess/Foreign Bdy General Chief complaint: Allergic Reaction Stated complaint: hives Time Seen by Provider: 10/26/21 11:10 Source: patient Mode of arrival: ambulatory Limitations: no limitations History of Present Illness HPI narrative: 46 y/o femjason presenting to the ER with hives x2 days. She reports a history of recurrent hives since 2018 and is working on getting a referral to an certified travel counselor. She reports the most current eruption of her rash started 2 days ago. The rash started after she started taking azithromycin, prednisone and Robitussin with codeine for bronchitis on 10/24. She stopped taking the medications yesterday after the rash developed. She reports itching and raised red lesions on her arms and legs. She has not taken any Benadryl yet today. She not take her prescribed prednisone yet today either. She denies any swelling of her lips or face. No airway involvement. No fever or chills. complaint: rash Onset (ago): day(s) (2) Tetanus up to date: unsure Location: LUE, RUE, LLE and RLE Severity: moderate Quality: pruritic Pain Consistency: constant Relieving factors: none Exacerbating factors: none Context: new medication and recent antibiotic Associated symptoms: itching and cough Treatments prior to arrival: none and corticosteroid Related Data Previous Rx's Medication Instructions Recorded prednisone 20 mg tablet 60 mg PO DAILY #15 tab 06/01/20 tramadol 50 mg tablet 50 mg PO BID PRN #10 tab 08/20/21 albuterol sulfate 90 mcg/actuation 1 inh INHALATION QID PRN #8.5 g 10/24/21 aerosol inhaler azithromycin 250 mg tablet See Rx Instructions .ROUTE 10/24/21 .COMPLEX #6 tab codeine 10 mg-guaifenesin 100 mg/5 5 ml PO Q6H PRN #120 ml 10/24/21 mL oral liquid (Guaifenesin AC) prednisone 20 mg tablet 40 mg PO DAILY 5 Days #10 tab 10/24/21 prednisone 20 mg tablet 60 mg PO DAILY 4 Days #12 tab 10/26/21 Allergies Allergy/AdvReac Type Severity Reaction Status Date / Time sulfamethoxazole Allergy Unknown LIP Verified 06/01/20 10:50 [From BACTRIM] SWELLING trimethoprim [From BACTRIM] Allergy Unknown LIP Verified 06/01/20 10:50 SWELLING Review of Systems Review of Systems: Constitutional: No Fever, No Chills ENT/Mouth: No sore throat, No Swallowing Difficulty Cardiovascular: No Chest Pain, No SOB, No Orthopnea, No Edema Respiratory: No Cough, No Sputum, No Wheezing, No dyspnea Gastrointestinal: No Nausea, No Vomiting Musculoskeletal: No joint pain, No Myalgias Skin: No Skin Lesions, + rash Neuro: No Weakness, No Dizziness, No Headache Psych: + Anxiety/Panic, No Depression Heme/Lymph: No Bruising, No Lymphadenopathy [facility] Past Medical History Surgical History History of tubal ligation Social History Social History Alcohol intake: never Advance Directives: No Advance Directives Information Provided: No Physical Exam Vital Signs: Vital Signs: Last Vital Signs Temp 97 F 10/26/21 10:22 Pulse 88 10/26/21 10:22 Resp 19 10/26/21 10:22 BP 139/76 10/26/21 10:22 Pulse Ox 98 10/26/21 10:22 BMI result Body Mass Index 29.2 Appearance: Alert. Oriented X3. No acute distress. HEENT: normal inspection. No swelling of the face or lips. Normal voice. CVS: Normal heart rate and rhythm. Pulses normal. Respiratory: No respiratory distress. Lungs are clear throughout. Skin: Skin warm and dry. Normal skin color. Normal skin turgor. There is a raised, erythematous, pruritic, urticarial type rash located on all 4 extremities, mostly the upper thighs and forearms. There are also some scattered areas of her right shoulder yes right ear lobe is also erythematous. There is no surrounding erythema, open excoriations or bleeding. No pustules or vesicles. Extremities: Urticarial type rash present on all 4 extremities, as described above. Normal range of motion. No swelling. No evidence of superimposed infection. Neuro: Oriented X 3. Grossly normal, nonfocal Course Course Course Narrative: 46-year-old female with a history of chronic urticaria, recent diagnosis of bronchitis was just started on azithromycin and Robitussin with codeine presents to the ER with new onset urticaria x2 days. She thinks the rash may have started after she started taking her antibiotic and cough medication, so she sto pped them yesterday. She reports today the rash is worsening. She has not taken Benadryl on a day and half. Examination reveals urticarial type rash on all 4 extremities, pruritic in nature. She has no airway involvement or facial involvement. Will plan to stop the azithromycin as well as the Robitussin with codeine, possible allergic reaction although she has a history of chronic and recurrent urticaria. Her primary care physician is working on getting her to see an certified travel counselor. Will continue oral prednisone, at increased dose for the next 4 days. Given a dose of oral prednisone and Benadryl now. She is stable for discharge home with plan for continued prednisone and increase of her Benadryl. Critical Care Time Critical Care Time Critical Care Time: No Discharge Plan Discharge Clinical Impression: Urticaria Patient Disposition: Home, Self-Care Instructions: Urticaria (ED) Additional Instructions: STOP the Azitrhomycin antibiotic. STOP the cough medication as well. STOP the previously prescribed Prednisone and start taking Prednisone 60 mg for the next 4 days, starting tomorrow. Increase your Benadryl to 50 mg every 6-8 hours until the rash is resolved. Continue taking Zyrtec. You can also try Benadryl spray or hydrocortizone 1% ointment to help with itching. Recommend following up with your doctor and an Cost Coordinator. If you develop new or worsening symptoms call 911 or come back to the ER for further evaluation. Prescriptions: New prednisone 20 mg tablet 60 mg PO DAILY 4 Days Qty: 12 0RF No Action prednisone 20 mg tablet 60 mg PO DAILY Qty: 15 0RF tramadol 50 mg tablet 50 mg PO BID PRN (Reason: pain) Qty: 10 0RF azithromycin 250 mg tablet See Rx Instructions .ROUTE .COMPLEX Qty: 6 0RF Rx Instructions: take 500 mg today (day 1), then 250 mg for 4 days (days 2-5) prednisone 20 mg tablet 40 mg PO DAILY 5 Days Qty: 10 0RF codeine-guaifenesin [Guaifenesin AC] 10-100 mg/5 mL liquid 5 ml PO Q6H PRN (Reason: cold symptoms) Qty: 120 0RF albuterol sulfate 90 mcg/actuation HFA aerosol inhaler 1 inh inhalation QID PRN (Reason: shortness of breath or wheezing) Qty: 8.5 0RF Referrals: Stacy Boyd MD [Primary Care Provider] - (Recurrent urticaria)
[2021-10-26] MEDS: diphenhydrAMINE HCL 25 MG TABLET 50 MG PO (11:50)
[2021-10-26] MEDS: predniSONE 20 MG TABLET 60 MG PO (11:50)
== END 2021-10-26 12:07 | disposition home or self-care (01) ==
PROVIDERS: Emergency Provider Emergency Medicine; PCP Internal Medicine
DX: L50.9 Urticaria, unspecified (principal)
CPT/HCPCS: 99283; Q0163

== ENCOUNTER 2022-01-31 21:27 | Emergency (ER) | payer MEDICAID, SELFPAY ==
[2022-01-31 21:48] VITALS: BP 129/74; PULSE 79; RESP 16; TEMP 36.6; O2SAT 99; BMI 29.2
--- NOTE | 2022-01-31 22:23 | ED.GENADULT ---
HPI - General Adult General Chief complaint: General Medical Stated complaint: Left side neck and shoulder pain Time Seen by Provider: 01/31/22 22:15 Source: patient Limitations: no limitations History of Present Illness HPI narrative: This is a 46-year-old female who yesterday had slipped on some water on the floor and jerked her body in order not to fall. She did not fall or catch herself on anything but she has had pain in her left posterior shoulder, left base of the neck since the slip occurred. Patient denies any numbness or tingling in her arms or legs. She notes the pain is worse with turning her head to the left. She denies any chest pain or shortness of breath. She did not hit her head. She did try ibuprofen this morning. Related Data Previous Rx's Medication Instructions Recorded prednisone 20 mg tablet 60 mg PO DAILY #15 tabs 06/01/20 tramadol 50 mg tablet 50 mg PO BID PRN pain #10 tabs 08/20/21 albuterol sulfate 90 mcg/actuation 1 inh inhalation QID PRN shortness 10/24/21 aerosol inhaler of breath or wheezing #8.5 grams azithromycin 250 mg tablet See Rx Instructions PO .COMPLEX #6 10/24/21 tabs codeine 10 mg-guaifenesin 100 mg/5 5 ml PO Q6H PRN cold symptoms #120 10/24/21 mL oral liquid (Guaifenesin AC) mL prednisone 20 mg tablet 40 mg PO DAILY rash 5 days #10 tabs 10/24/21 prednisone 20 mg tablet 60 mg PO DAILY 4 days #12 tabs 10/26/21 diazepam 5 mg tablet (Valium) 5 mg PO TID PRN muscle spasm #10 01/31/22 tabs ibuprofen 600 mg tablet 600 mg PO Q6H PRN pain #30 tabs 01/31/22 Allergies Allergy/AdvReac Type Severity Reaction Status Date / Time sulfamethoxazole Allergy Unknown LIP Verified 01/31/22 21:47 [From BACTRIM] SWELLING trimethoprim [From BACTRIM] Allergy Unknown LIP Verified 01/31/22 21:47 SWELLING Review of Systems Constitutional: Constitutional: Denies fever(s) Cardiovascular: Cardiovascular: Reports as per HPI Respiratory: Respiratory: Reports as per HPI Musculoskeletal: Musculoskeletal: Reports as per HPI Neurologic: Reports as per HPI [facility] Past Medical History Surgical History History of tubal ligation Social History Social History Alcohol intake: never Advance Directives: No Advance Directives Information Provided: No Physical Exam ED Vital Signs: Vital Signs - 24 hr 01/31/22 21:48 Temperature 97.9 F Pulse Rate 79 Respiratory Rate 16 Blood Pressure 129/74 Pulse Oximetry 99 Oxygen Delivery Method Room Air BMI result Body Mass Index 29.2 Const General: no acute distress Orientation/consciousness: patient oriented x3 HENMT Head: Yes normal to inspection General nose exam: Normal external nose present Mouth: moist mucous membranes Throat: Yes posterior oropharynx normal, Yes tonsils normal and Yes uvula midline Eyes Eyelids: Yes eyelids normal Conjunctivae: conjunctivae normal Pupils: Equal, round and reactive pupils present Neck Neck: Yes supple Resp Effort & Inspection: normal respiratory effort Auscultation: clear to auscultation bilaterally Cardio Rate: regular rate Rhythm: regular rhythm Heart sounds: S1 normal heart sound present, S2 normal heart sound present, no gallops, no murmurs and no rubs GI Inspection: No distended Palpation (GI): Soft to palpation and nontender Auscultation: normal bowel sounds Back/Spine/Pelvis Other: No cervical spine tenderness. Tender paraspinally at the left base the neck and posterior shoulder Skin General skin exam: other (Warm and dry) Neuro General: patient oriented x3 and CN's II-XI intact bilaterally Cranial nerves: Yes Equal, round and reactive pupils present Extrem General: Yes no pedal edema Psych Affect: normal affect Attitude: cooperative Discharge Plan Discharge Clinical Impression: Strain of neck muscle Patient Disposition: Home, Self-Care Instructions: Spasmodic Torticollis (ED) Additional Instructions: Use heat alternating with ice. Use ibuprofen and Valium as prescribed. Follow up with your primary care physician as needed. Prescriptions: New ibuprofen 600 mg tablet 600 mg PO Q6H PRN (Reason: pain) Qty: 30 0RF diazepam [Valium] 5 mg tablet 5 mg PO TID PRN (Reason: muscle spasm) Qty: 10 0RF No Action prednisone 20 mg tablet 60 mg PO DAILY Qty: 15 0RF prednisone 20 mg tablet 60 mg PO DAILY 4 Days Qty: 12 0RF tramadol 50 mg tablet 50 mg PO BID PRN (Reason: pain) Qty: 10 0RF azithromycin 250 mg tablet See Rx Instructions .ROUTE .COMPLEX Qty: 6 0RF Rx Instructions: take 500 mg today (day 1), then 250 mg for 4 days (days 2-5) prednisone 20 mg tablet 40 mg PO DAILY 5 Days Qty: 10 0RF codeine-guaifenesin [Guaifenesin AC] 10-100 mg/5 mL liquid 5 ml PO Q6H PRN (Reason: cold symptoms) Qty: 120 0RF albuterol sulfate 90 mcg/actuation HFA aerosol inhaler 1 inh inhalation QID PRN (Reason: shortness of breath or wheezing) Qty: 8.5 0RF
[2022-01-31] MEDS: diazePAM 2 MG TABLET 6 MG PO (22:43)
[2022-01-31] MEDS: Ibuprofen 600 MG TABLET PO (22:43)
--- NOTE | 2022-01-31 22:44 | PC.NURSE ---
medicated per provider order.
== END 2022-01-31 22:47 | disposition home or self-care (01) ==
PROVIDERS: Emergency Provider Emergency Medicine; PCP Internal Medicine
DX: S16.1XXA Strain of muscle, fascia and tendon at neck level, initial encounter (principal); X50.1XXA Overexertion from prolonged static or awkward postures, initial encounter; Y93.89 Activity, other specified; Y92.039 Unspecified place in apartment as the place of occurrence of the external cause; Y99.9 Unspecified external cause status
CPT/HCPCS: 99283

== ENCOUNTER 2023-01-10 10:43 | Outpatient (REF) | payer MEDICAID, SELFPAY ==
--- NOTE | ~2023-01-10 | MM_ITS ---
EXAMINATION: MM SCREENING DIGITAL BREAST TOMOSYNTHESIS, BILATERAL CLINICAL INFORMATION: Screening. Asymptomatic. The lifetime risk of breast cancer based on the Tyrer-Cuzick Model is 6.8%. COMPARISON: Mammography: This is a baseline examination TECHNIQUE: Digital breast tomosynthesis is performed in both the craniocaudal and mediolateral oblique views along with computer-aided detection (CAD). Synthesized 2D images are generated from the tomosynthesis. FINDINGS: There are scattered areas of fibroglandular density (ACR BI-RADS breast composition Category b). There are 2 groups of calcification in the upper outer quadrant of the right breast. They lie at middle and posterior depths. Additional mammographic imaging magnification is advised. The remainder of the right breast is normal. There is a subareolar focal asymmetry of the left breast. Additional mammographic imaging of this finding is advised. The remainder of the right breast is normal. MM/MM tomosynthesis screening BI IMPRESSION: 2 groups of calcifications in the right breast warrant additional mammographic imaging magnification. Subareolar focal asymmetry of the left breast warrants additional mammographic imaging. Sonography may be performed at the discretion of the diagnostic radiologist. ASSESSMENT: BI-RADS BI-RADS 0 - Incomplete: Needs additional Imaging. RECOMMENDATION: 1. Additional views of both breasts. 2. Targeted ultrasound if warranted after review of the additional views. 3. Radiology department staff will contact the patient for additional imaging. Additional Imaging required This examination should not preclude the clinical evaluation of a suspicious palpable abnormality. This patient's information was entered into a reminder system with a target due date for their next mammogram.
== END 2023-01-10 10:44 | disposition home or self-care (01) ==
LOC: HO.MAMMO 10:43
PROVIDERS: PCP Internal Medicine; Visit Provider Internal Medicine
DX: Z12.31 Encounter for screening mammogram for malignant neoplasm of breast (principal)
CPT/HCPCS: 77063; 77067

== ENCOUNTER → 2023-01-10 11:45 | Outpatient (BNV) | payer MEDICAID, SELFPAY | PROVIDERS: PCP Internal Medicine; Visit Provider Radiology Diagnostic Radiology | DX: Z12.31 Encounter for screening mammogram for malignant neoplasm of breast (principal) | CPT/HCPCS: 77063; 77067 ==

== ENCOUNTER 2023-03-06 12:35 | Outpatient (REF) | payer MEDICAID, SELFPAY ==
--- NOTE | ~2023-03-06 | US_ITS ---
EXAMINATION: MM DIAGNOSTIC DIGITAL BREAST TOMOSYNTHESIS, LEFT US BREAST LIMITED, LEFT MAMMOGRAPHY: CLINICAL INFORMATION: Callback diagnostic exam for 2 groups of calcification in the right breast, and subareolar focal asymmetry of the left breast. COMPARISON: Mammography: Performed concurrently, as well as 01/02/2023. TECHNIQUE: Digital breast tomosynthesis is performed in the right 2-D magnification CC views, MLO views, and ML views x2. In addition 3-D spot compression left CC and MLO views were performed, as well as a full-field left mediolateral view, along with computer-aided detection (CAD). Synthesized 2D images are generated from the tomosynthesis. FINDINGS: The breasts are heterogeneously dense, which may obscure small masses (ACR BI-RADS breast composition Category c). RIGHT BREAST: There are 2 groups of suspicious pleomorphic calcifications in the right breast, one located centrally, mid depth, and the second located in the outer slightly inferior right breast, posterior one third. Stereotactic biopsy of both sites recommended. LEFT BREAST: In the immediately retroareolar left breast, there is an in oval mass slightly lateral and superior to the left nipple, measuring 1.5 x 1.0 cm, circumscribed, and isodense. Just posterior to this is a similar smaller circumscribed mass measuring 0.8 cm in diameter. These will both be evaluated with ultrasound. ULTRASOUND: CLINICAL INFORMATION: Evaluate left retroareolar masses. COMPARISON: None TECHNIQUE: Targeted sonographic evaluation was performed left breast retroareolar region using a high frequency linear transducer. Selected archived documentation. FINDINGS: LEFT BREAST: There is a 1.4 x 0.6 x 1.5 cm retroareolar 3:00 mass which is hypoechoic, with good through transmission, slightly lobulated margins, and mild internal color Doppler flow. This is most likely a fibroadenoma, although remains indeterminant. Given size, ultrasonographic biopsy recommended. Immediately posterior to this is a smaller mass measuring 6 mm in diameter with similar characteristics, also likely a fibroadenoma. The patient would prefer a 6 month follow-up on this finding as opposed to another biopsy in this region. This seems a reasonable request, and 6 month interval follow-up will be recommended for the smaller mass. Findings and recommendations were discussed with the patient in detail about both breasts. US/US breast LT limited mamm only IMPRESSION: 2 site stereotactic biopsy right breast for grouped calcifications centrally and laterally as described above. 1 site ultrasound-guided biopsy retroareolar left breast hypoechoic circumscribed mass measuring 1.5 cm in maximal diameter. Smaller 0.6 cm mass in the more posterior retroareolar region will be followed in 6 months via ultrasound. OVERALL ASSESSMENT: Mammography: BI-RADS 4 - Suspicious finding Ultrasound: BI-RADS 4 - Suspicious finding RECOMMENDATION: Biopsy recommended
== END 2023-03-06 12:36 | disposition home or self-care (01) ==
LOC: HO.MAMMO 12:35
PROVIDERS: PCP Internal Medicine; Visit Provider Internal Medicine
DX: R92.1 Mammographic calcification found on diagnostic imaging of breast (principal); N64.89 Other specified disorders of breast
CPT/HCPCS: 76642; 77062; 77066

== ENCOUNTER → 2023-03-06 13:00 | Outpatient (BNV) | payer MEDICAID, SELFPAY | PROVIDERS: PCP Internal Medicine; Visit Provider Radiology Diagnostic Radiology | DX: R92.1 Mammographic calcification found on diagnostic imaging of breast (principal); D24.2 Benign neoplasm of left breast | CPT/HCPCS: 76642; 77062; 77066 ==

== ENCOUNTER 2023-03-17 08:32 | Outpatient (AMB) | payer MEDICAID, SELFPAY ==
--- NOTE | 2023-03-17 08:35 | A.OFFVIS_ITS ---
Intake Vital Signs 03/17/23 08:38 Height 5 ft 2 in Weight 138 lb BMI 25.2 BP 121/66 Blood Pressure Location Rt brachial Position Sitting Pulse 75 Intake Visit Reasons: LT US guided Bx R.A density, Rt Stereo Bx UOQ cals Intake Note: Patient here for Lt US guided bx ad Rt stereo bx for UOQ calc. C/o breast tenderness since recent mammo in 03-06-23. No personal or family hx of breast ca. Psychological Anthropologist Required: No Accompanied by: mother Sendy Esteban. Allergies sulfamethoxazole [From BACTRIM] Allergy (Unknown, Verified 03/17/23 08:41) LIP SWELLING trimethoprim [From BACTRIM] Allergy (Unknown, Verified 03/17/23 08:41) LIP SWELLING Medication List - Last Reviewed 03/17/23 by CONNIE Mckeon albuterol sulfate 90 mcg/actuation 1 inh inhalation QID PRN HPI HPI Comments History of Present Illness Details Patient presents with her mother for evaluation of recent screening mammogram and ultrasound findings. Patient has no breast complaints or issues or self. She does not do regular breast exams but has annual breast exams. She denies any mass, discharge, skin changes, or her other breast symptoms. Chart was reviewed patient evaluated. Right mammogram demonstrates 2 areas of microcalcifications of concern. Left mammogram/ultrasound demonstrated lesion of the left breast of concern as well. [facility] Medical History (Updated 03/17/23 @ 08:43 by CONNIE Mckeon) Hx of fracture of forearm Surgical History (Updated 03/17/23 @ 08:51 by Pancho Jimenez MD) History of tubal ligation Physical Exam Vital Signs: Last Vital Signs Pulse 75 03/17/23 08:38 BP 121/66 03/17/23 08:38 BMI result Body Mass Index 25.2 Chest Other: Breast exam bilaterally demonstrates no evidence of any mass, discharge, adenopathy, or skin changes. Negative cervical periclavicular axillary adenopathy bilaterally. Assessment & Plan Assessment & Plan (1) Breast calcification, right: Code(s): R92.1 - Mammographic calcification found on diagnostic imaging of breast Plan: Patient is scheduled for stereotactic biopsy right breast x2 and ultrasound- guided biopsy left breast x1. Patient will see me in proximal weeks time to review the results of the above- mentioned interventions and direct further therapy based on these. (2) Breast mass, left: Code(s): N63.20 - Unspecified lump in the left breast, unspecified quadrant Orders: Orders US breast ndl core biopsy LT Today N63.20 - Unspecified lump in the left breast, unspecified quadrant MM stereotactic biopsy RT Today R92.1 - Mammographic calcification found on diagnostic imaging of breast MM stereotactic biopsy RT Today N63.20 - Unspecified lump in the left breast, unspecified quadrant, R92.1 - Mammographic calcification found on diagnostic imaging of breast Coding Level of Care Code New Pt Level 5 (91025) Diagnoses Breast calcification, right R92.1 Breast mass, left N63.20
[2023-03-17 08:38] VITALS: BP 121/66; PULSE 75; BMI 25.2
== END 2023-03-17 08:53 | disposition home or self-care (01) ==
PROVIDERS: PCP Internal Medicine; Visit Provider Surgery
DX: R92.1 Mammographic calcification found on diagnostic imaging of breast (principal); N63.20 Unspecified lump in the left breast, unspecified quadrant
CPT/HCPCS: 99204

== ENCOUNTER 2023-03-17 08:56 | Outpatient (REF) | payer MEDICAID, SELFPAY ==
--- NOTE | ~2023-03-17 | MM_ITS ---
PROCEDURE: US GUIDED BREAST BIOPSY, LEFT CLINICAL INFORMATION: Oval hypoechoic vascular mass retroareolar left breast, 3:00 axis, measuring 1.5 x 1.4 x 0.6 cm, circumscribed with good through transmission, probable fibroadenoma but recommended for sampling due to size. COMPARISON: 03/06/2023 ultrasound and mammography. PROCEDURAL DETAILS: The details of the procedure, as well as the risks, benefits, and alternatives to the procedure were explained to the patient in detail and all of her questions were answered, after which written informed consent was obtained. Site and side were confirmed. Prior to the procedure, sonography revealed the 3:00 retroareolar oval circumscribed hypoechoic mass with good through transmission. A time-out was performed, the lesion intended for biopsy was targeted, and the skin of the left breast was then marked, prepped and draped in the usual sterile fashion. Using sonographic guidance, sterile technique, and 1% lidocaine without epinephrine for local anesthesia, multiple core biopsies were obtained through the targeted area with a 14G spring loaded [employer] core biopsy device. There was real-time confirmation of appropriate needle passage. Sampling was documented. At the completion of tissue sampling, a single butterfly-shaped metallic clip was deposited at the biopsy site. There was no evidence of immediate complication. SPECIMEN: An appropriate sample was obtained. DIGITAL POST-PROCEDURE MAMMOGRAPHY: Breast density: The tissue is heterogeneously dense which may obscure small masses. BI-RADS version 5, category C. There are no new mammographic findings demonstrated. The postprocedure 2-view direct digital mammogram reveals satisfactory and accurate positioning of the biopsy clip. No evidence of hematoma. The patient tolerated the procedure well and, after assuring adequate hemostasis, was discharged in good condition after reviewing postbiopsy breast care instructions. Final pathology results are pending. MM/MM tomosynthesis diagnostic LT IMPRESSION: 1. No immediate complication from ultrasound-guided percutaneous biopsy left breast 3:00 retroareolar mass. 2. Ultrasound was used to localize and guide marker clip placement. 3. The 2-view direct digital postprocedure mammogram reveals satisfactory and accurate positioning of the biopsy clip. There is no evidence of hematoma. 4. Final pathology results are pending. A separate report with final recommendations will be issued once these results are made available. 5. A smaller 6 mm oval circumscribed hypoechoic mass with good through transmission immediately posterior to the biopsied left 3:00 retroareolar mass will be followed in 6 months via ultrasound, presumably a benign fibroadenoma.
--- NOTE | ~2023-03-17 | MM_ITS ---
EXAMINATION: MM DIAGNOSTIC DIGITAL MAMMOGRAPHY, RIGHT CLINICAL INFORMATION: Patient scheduled for 2 site stereotactic right breast biopsy, and on upon further views, calcifications on prior diagnostic images appeared to possibly layer. We repeated the right ML mag view after a 2 minute duration to assess for further layering. COMPARISON: Mammography: 03/06/2023, 01/10/2023. TECHNIQUE: Digital mammography is performed in the following views: Right magnification 90 degree ML view FINDINGS: The breasts are heterogeneously dense, which may obscure small masses (ACR BI-RADS breast composition Category c). Upon review of the right 90 degree ML magnification view after 2 minutes in compression, it is noted that both anterior groups of calcifications are clearly layer, and are clearly milk of calcium. These findings are benign. Hence stereotactic biopsy of these groups was canceled. A more benign-appearing small posterior group of rounded calcifications barely meets biopsy criteria and also has a benign appearance. This will be followed in 6 months with standard magnification views. Findings and recommendations discussed with the patient in detail, with cancellation of 2 site stereotactic right-sided biopsy due to the above findings. MM/MM added views RT IMPRESSION: Benign calcifications anterior right breast. Probably benign tiny group of calcifications posterior right breast along the nipple line, 9:00 axis. Six-month interval follow-up recommended for assessment of stability to include standard magnification views. ASSESSMENT: BI-RADS BI-RADS 3 - Probably benign finding(s) - 6 month follow-up suggested RECOMMENDATION: 6 Month F/U This patient's information was entered into a reminder system with a target due date for their next mammogram.
[2023-03-17] MEDS: Sodium Bicarbonate 8.4% 50 MEQ/50 ML VIAL SUBCUT (10:48)
[2023-03-17] MEDS: Lidocaine HCl 1 % 20 ML VIAL 9 ML SUBCUT (10:49)
== END 2023-03-17 08:57 | disposition home or self-care (01) ==
LOC: HO.MAMMO 08:56
PROVIDERS: PCP Internal Medicine; Visit Provider Surgery
DX: N63.25 Unspecified lump in the left breast, overlapping quadrants (principal)
CPT/HCPCS: 19083; 77061; 77065; 88305

== ENCOUNTER → 2023-03-17 09:00 | Outpatient (BNV) | payer MEDICAID, SELFPAY | PROVIDERS: PCP Internal Medicine; Visit Provider Radiology Diagnostic Radiology | DX: R92.1 Mammographic calcification found on diagnostic imaging of breast (principal); D24.2 Benign neoplasm of left breast | CPT/HCPCS: 19083; 77061; 77066 ==

== ENCOUNTER 2023-03-25 09:02 | Outpatient (AMB) | payer MEDICAID, SELFPAY ==
--- NOTE | 2023-03-25 09:06 | MHC.OFFVIS ---
Intake Vital Signs 03/25/23 09:07 Height 5 ft 2 in Weight 137 lb BMI 25.1 BP 132/66 Blood Pressure Location Rt brachial Position Sitting Pulse 68 Intake Visit Reasons: Follow Up LT US Bx R, Rt Stereo Bx Intake Note: Patient here to f/u lt breast us guided stereo bx. Reports incision healing well. Denies bleeding or discomfort. Certified Lactation Educator Required: No Accompanied by: Mother Allergies sulfamethoxazole [From BACTRIM] Allergy (Unknown, Verified 03/25/23 09:08) LIP SWELLING trimethoprim [From BACTRIM] Allergy (Unknown, Verified 03/25/23 09:08) LIP SWELLING HPI HPI Comments History of Present Illness Details Patient presents with her mother and daughter. Status post stereotactic biopsy left breast. She has no wound post biopsy issues or complaints. Pathology is benign. [facility] Medical History Hx of fracture of forearm Surgical History History of tubal ligation Physical Exam Vital Signs: Last Vital Signs Pulse 68 03/25/23 09:07 BP 132/66 03/25/23 09:07 BMI result Body Mass Index 25.1 Chest Other: Breast exam negative. Biopsy site well healed. Assessment & Plan Assessment & Plan (1) Breast mass, left: Code(s): N63.20 - Unspecified lump in the left breast, unspecified quadrant Plan Current plan is to get a post procedure surveillance mammogram in 6 months time and see the patient after that, and then schedule her for regular surveillance. Coding Level of Care Code Est Pt Level 4 (54760) Diagnoses Breast mass, left N63.20
[2023-03-25 09:07] VITALS: BP 132/66; PULSE 68; BMI 25.1
== END 2023-03-25 09:19 | disposition home or self-care (01) ==
PROVIDERS: PCP Internal Medicine; Visit Provider Surgery
DX: N63.20 Unspecified lump in the left breast, unspecified quadrant (principal)
CPT/HCPCS: 99214

== ENCOUNTER → 2023-03-25 09:02 | Outpatient (BNVA) | payer MEDICAID, SELFPAY | PROVIDERS: PCP Internal Medicine; Visit Provider Surgery | DX: N63.20 Unspecified lump in the left breast, unspecified quadrant (principal); Z98.890 Other specified postprocedural states | CPT/HCPCS: 99212 ==

== ENCOUNTER 2023-09-15 12:11 | Outpatient (REF) | payer MEDICAID, SELFPAY ==
--- NOTE | ~2023-09-15 | XR_ITS ---
EXAMINATION: XR WRIST, RIGHT CLINICAL INFORMATION: Wrist pain, fracture status post ORIF COMPARISON: Finger radiographs 03/14/2011. TECHNIQUE: Four views of the right wrist. FINDINGS: No acute fracture or dislocation. Remote ulnar styloid avulsion fracture new from prior. Interval ORIF of the right wrist in anatomic alignment. No evidence of hardware fracture or complication. Joint spaces are maintained. Soft tissues are unremarkable. XR/XR wrist RT min 3V IMPRESSION: 1. Remote ulnar styloid avulsion fracture new from prior. Interval ORIF of the right wrist in anatomic alignment. No evidence of hardware fracture or complication.
== END 2023-09-15 12:12 | disposition home or self-care (01) ==
LOC: HO.HHCX 12:11
PROVIDERS: Visit Provider Internal Medicine
DX: M25.531 Pain in right wrist (principal)
CPT/HCPCS: 73110

== ENCOUNTER 2023-09-19 14:08 | Outpatient (REF) | payer MEDICAID, SELFPAY ==
--- NOTE | ~2023-09-19 | US_ITS ---
EXAMINATION: US DIAGNOSTIC ULTRASOUND BREAST, LEFT CLINICAL INFORMATION: Follow-up probably benign small mass posterior to the biopsied larger fibroadenoma left breast 3:00 axis retroareolar. COMPARISON: 03/06/2023 ultrasound, 03/17/2023 ultrasound guided core biopsy. TECHNIQUE: Ultrasound of the left breast is performed with real-time haines scale imaging and color Doppler. Attention was given to the 3:00 axis retroareolar. FINDINGS: There is a stable 6 mm oval mass just deep to the larger biopsied hypoechoic oval mass (pathology was fibroadenoma) at the 3:00 axis left breast retroareolar location. This is also likely a small fibroadenoma and is stable/unchanged. There is through transmission. No vascular flow. This finding remains probably benign. Results are discussed with the patient at time of visit. US/US breast LT limited mamm only IMPRESSION: Probably benign 6 mm oval mass 3:00 axis left breast retroareolar, just deep to the biopsied larger fibroadenoma. The smaller mass remains probably benign and is also likely a fibroadenoma. Recommend six-month follow-up with targeted left breast ultrasound when the patient is due for bilateral screening. ASSESSMENT: BI-RADS 3 - Probably benign finding(s) - 6 month follow-up suggested RECOMMENDATION: 6 Month F/U
--- NOTE | ~2023-09-19 | MM_ITS ---
EXAMINATION: MM DIAGNOSTIC DIGITAL BREAST TOMOSYNTHESIS, RIGHT CLINICAL INFORMATION: Follow-up calcifications posterior right breast. COMPARISON: Mammography: 03/17/2023, 03/06/2023, 01/02/2023, TECHNIQUE: Digital right breast tomosynthesis is performed in both the craniocaudal and mediolateral oblique views along with computer-aided detection (CAD). Synthesized 2D images are generated from the tomosynthesis. In addition, 2-D spot compression right ML view was obtained. FINDINGS: There are scattered areas of fibroglandular density (ACR BI-RADS breast composition Category b). There are 2 small groups of layering milk of calcium in the anterior mid right breast, as seen previously. These are benign. The more posterior group of which this was a follow-up do not persist as a discrete group of calcifications and appear to have partially resolved. Only 2 punctate calcifications are present, not meeting biopsy threshold. These are almost certainly benign. There are no new suspicious findings in the right breast. MM/MM tomosynthesis diagnostic RT IMPRESSION: There are no findings suspicious for malignancy in the right breast. Calcifications in the right breast are benign, and no further follow-up is deemed necessary. Recommend the patient return to routine annual screening. ASSESSMENT: BI-RADS BI-RADS 2 - Benign Findings RECOMMENDATION: 1 year F/U Results were provided to the patient at time of visit by the technologist. This patient's information was entered into a reminder system with a target due date for their next mammogram.
== END 2023-09-19 14:09 | disposition home or self-care (01) ==
LOC: HO.MAMMO 14:08
PROVIDERS: PCP Internal Medicine; Visit Provider Internal Medicine
DX: R92.1 Mammographic calcification found on diagnostic imaging of breast (principal); R92.2 Inconclusive mammogram
CPT/HCPCS: 76642; 77061; 77065

== ENCOUNTER → 2023-09-19 15:00 | Outpatient (BNV) | payer MEDICAID, SELFPAY | PROVIDERS: PCP Internal Medicine; Visit Provider Radiology Diagnostic Radiology | DX: R92.1 Mammographic calcification found on diagnostic imaging of breast (principal); N63.25 Unspecified lump in the left breast, overlapping quadrants | CPT/HCPCS: 76642; 77061; 77065 ==

== ENCOUNTER 2023-10-03 10:34 | Outpatient (AMB) | payer MEDICAID, SELFPAY ==
[2023-10-03 10:43] VITALS: BMI 25.1
--- NOTE | 2023-10-03 10:43 | A.OFFVIS_ITS ---
Vital Signs 10/03/23 10:43 Height 5 ft 2 in Weight 137 lb BMI 25.1 Intake Visit Reasons: Closed nondisplaced fx of styloid process RT ulna Intake Note: Lizzie 48 yr old right hand dominant female presents today with her mother for her right hand evaluation. States about 2 years ago while putting away groceries she fell at home. She fracture her right ulna styloid and had to have surgery. States she had on and off pain through the last 2 years but has worsen in the last 6 months. States her pain radiates to her elbow at times, has on and off numbness in her ring and pinky finger. She wears a brace that provides little relief. Allergies sulfamethoxazole [From BACTRIM] Allergy (Unknown, Verified 10/03/23 10:44) LIP SWELLING trimethoprim [From BACTRIM] Allergy (Unknown, Verified 10/03/23 10:44) LIP SWELLING Medication List - Last Reconciled 10/03/23 by Carlie Jaramillo PA-C albuterol sulfate 90 mcg/actuation 1 inh inhalation QID PRN HPI HPI Closed nondisplaced fx of styloid process RT ulna: Details: 48-year-old right hand dominant female who presents to the office today with her mother for evaluation of right ulna injury. She reports she sustained a fall at home while putting away groceries about 2 years ago and went under a right ulna styloid surgery at [facility]. She states she has intermittent pain in her wrist for 2 years which has been worse for about 6 months. Her pain occasionally radiates to her elbow and she experiences intermittent numbness in her ring and pinky finger. She wears a hand brace with mild relief. She had attended physical therapy in the past which provided her relief until recently. 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 No erythema or swelling. ROM full without pain. Tenderness over the lateral epicondyle and pain with resisted wrist extension. Positive Tinel?s over the carpal tunnel. NVI. Results Reviewed Results Reviewed: xrays of the right wrist obtained on 09/15/23 show intact orthopedic hardware Assessment & Plan Assessment & Plan (1) Right elbow tendonitis: Code(s): M77.8 - Other enthesopathies, not elsewhere classified Category: Medical Plan An order for occupational therapy was placed to work on ROM, stretching and strengthening of the right elbow. I also put in an EMG/nerve conduction study to evaluate the etiology of her numbness. I also stress the importance of modifications of activities to help with her pain. She will see me back to discuss the results once the results are back. Orders: Orders OT Evaluation and Treatment Today M77.8 - Other enthesopathies, not elsewhere classified NE electromyogram (EMG) Today R20.0 - Anesthesia of skin, R20.2 - Paresthesia of skin NE nerve conduction velocity Today R20.0 - Anesthesia of skin, R20.2 - Paresthesia of skin Patient Instructions: Scribed for Carlie Jaramillo PA-C, by Onel Hurtado medical operations supervisor, on 10/03/2023 at 10:45 AM JOCELIN. Carlie Green PA-C, have personally reviewed and agree with the information entered by the scribe.
== END 2023-10-03 11:18 | disposition home or self-care (01) ==
PROVIDERS: PCP Internal Medicine; Visit Provider Physician Assistant
DX: M77.8 Other enthesopathies, not elsewhere classified (principal)
CPT/HCPCS: 99203

== ENCOUNTER → 2023-10-03 10:34 | Outpatient (BNVA) | payer MEDICAID, SELFPAY | PROVIDERS: PCP Internal Medicine; Visit Provider Physician Assistant | DX: M77.8 Other enthesopathies, not elsewhere classified (principal) | CPT/HCPCS: 99212 ==

== ENCOUNTER 2023-10-13 08:45 | Outpatient (AMB) | payer MEDICAID, SELFPAY ==
[2023-10-13 08:52] VITALS: BP 119/66; PULSE 73; BMI 27.4
--- NOTE | 2023-10-13 08:52 | A.OFFVIS_ITS ---
Vital Signs 10/13/23 08:52 Height 5 ft 2 in Weight 150 lb BMI 27.4 BP 119/66 Blood Pressure Location Rt brachial Position Sitting Pulse 73 Intake Visit Reasons: 6 month f/u breast mass Intake Note: Patient here for 6m f/u Lt br mass. Lt br st bx: 03-17-2023. Patient c/o: denies any changes to breasts. MM/ Lt br US: 09-19-2023. Assistant Attorney General Required: No Accompanied by: mother Sendy Esteban Allergies sulfamethoxazole [From BACTRIM] Allergy (Unknown, Verified 10/13/23 08:54) LIP SWELLING trimethoprim [From BACTRIM] Allergy (Unknown, Verified 10/13/23 08:54) LIP SWELLING Medication List - Last Reconciled 10/13/23 by Pancho Jimenez MD albuterol sulfate 90 mcg/actuation 1 inh inhalation QID PRN HPI Comments Details: Patient presents for follow-up. Status post recent mammogram which was within normal limits. She presents with her mother. She has no breast issues or complaints. She does do occasional breast exams. 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 No periclavicular axillary or cervical adenopathy bilaterally. GI Other: Abdomen corpulent, soft, benign Assessment & Plan Assessment & Plan (1) Breast calcification, right: Code(s): R92.1 - Mammographic calcification found on diagnostic imaging of breast Category: Surgical Plan Current plan is see the patient in 1 year's time were follow-up mammography. She is encouraged to a self-breast exam. All questions answered. She will see me as noted above or p.r.n. Orders: Orders MM diagnostic mammo BI 6 Months R92.1 - Mammographic calcification found on diagnostic imaging of breast Coding Level of Care Code Est Pt Level 4 (31177) Diagnoses Breast calcification, right R92.1
== END 2023-10-13 09:01 | disposition home or self-care (01) ==
PROVIDERS: PCP Internal Medicine; Referring Provider Internal Medicine; Visit Provider Surgery
DX: R92.1 Mammographic calcification found on diagnostic imaging of breast (principal)
CPT/HCPCS: 99214

== ENCOUNTER → 2023-10-13 08:45 | Outpatient (BNVA) | payer MEDICAID, SELFPAY | PROVIDERS: PCP Internal Medicine; Visit Provider Surgery | DX: R92.1 Mammographic calcification found on diagnostic imaging of breast (principal) | CPT/HCPCS: 99212 ==

== ENCOUNTER 2023-10-23 12:48 | Outpatient (REF) | payer MEDICAID, SELFPAY ==
--- NOTE | 2023-10-23 12:54 | EMG_ITS ---
Chief complaint: Right elbow and wrist pain Reason for referral: Evaluate for entrapment neuropathy Referred by: Carlie CAR Procedure done: Right upper extremity NCS/EMG Precautions and/or limitations: None The limb temperature was monitored continuously and remained between 32-36 degrees C during the performance of the NCS. Nerve Conduction Studies Anti Sensory Summary Table ?Stim Site NR Onset (ms) Norm Onset (ms) Peak (ms) Norm Peak (ms) O-P Amp (?V) Norm O-P Amp Site1 Site2 Delta-0 (ms) Dist (cm) Rajiv (m/s) Norm Rajiv (m/s) Right Median Anti Sensory (2nd Digit) Wrist ? 2.4 3.2 <3.6 48.2 >10 Wrist 2nd Digit 2.4 14.0 58 Right Ulnar Anti Sensory (5th Digit) Wrist ? 1.9 2.5 <3.7 17.6 >15.0 Wrist 5th Digit 1.9 14.0 74 Motor Summary Table ?Stim Site NR Onset (ms) Norm Onset (ms) O-P Amp (mV) Norm O-P Amp iAmp (mV) Amp (1st) (%) Site1 Site2 Delta-0 (ms) Dist (cm) Rajiv (m/s) Norm Rajiv (m/s) Right Median Motor (Abd Poll Brev) Wrist ? 3.0 <3.9 12.7 >4.5 16.0 100.0 Elbow Wrist 3.5 20.0 57 >45 Elbow ? 6.5 12.5 15.6 98.4 Right Ulnar Motor (Abd Dig Minimi) Wrist ? 2.3 <3.0 8.5 >5 10.9 100.0 B Elbow Wrist 3.2 18.0 56 >45 B Elbow ? 5.5 8.1 10.7 95.3 A Elbow B Elbow 1.4 10.0 71 >45 A Elbow ? 6.9 7.7 10.2 90.6 Comparison Summary Table ?Stim Site NR Peak (ms) Norm Peak (ms) P-T Amp (?V) Site1 Site2 Delta-P (ms) Norm Delta (ms) Right Median/Radial Dig I Comparison (Digit 1 - 10cm) Median ? 2.7 <2.9 77.5 Median Radial 0.4 Radial ? 2.3 <2.8 27.1 EMG ?Side Muscle Nerve Root Ins Act Fibs Psw Amp Dur Poly Recrt Int Pat Comment Right 1stDorInt Ulnar C8-T1 Nml Nml Nml Nml Nml 0 Nml Complete Right FlexCarRad Median C6-7 Nml Nml Nml Nml Nml 0 Nml Complete Right Biceps Musculocut C5-6 Nml Nml Nml Nml Nml 0 Nml Complete Right Triceps Radial C6-7-8 Nml Nml Nml Nml Nml 0 Nml Complete Right Deltoid Axillary C5-6 Nml Nml Nml Nml Nml 0 Nml Complete FINDINGS: All motor and sensory nerves tested showed normal latencies, amplitudes and conduction velocities. Concentric needle EMG was performed in selected muscles of the right upper extremity. Study did not reveal signs of electric abnormalities as shown in the table below. IMPRESSION: 1. This is a normal study. 2. There is no electrodiagnostic evidence for median neuropathy, ulnar neuropathy, brachial plexopathy, or cervical radiculopathy. Thank you for your kind referral. Mireya Barrera MD, ROXANA Board Certified, [place] Board of Physical Medicine and Rehabilitation (ABPMR) Board Certified, [place] Board of Electrodiagnostic Medicine (ABEM) CODIN [id number] MTDD
== END 2023-10-23 12:49 | disposition home or self-care (01) ==
LOC: HO.NEURO 12:48
PROVIDERS: PCP Internal Medicine; Visit Provider Physician Assistant
DX: R20.0 Anesthesia of skin (principal); R20.2 Paresthesia of skin
CPT/HCPCS: 95886; 95909

== ENCOUNTER → 2023-10-23 12:54 | Outpatient (BNV) | payer MEDICAID, SELFPAY | PROVIDERS: PCP Internal Medicine; Visit Provider Physical Medicine & Rehabilitation | DX: M25.521 Pain in right elbow (principal); M25.531 Pain in right wrist | CPT/HCPCS: 95886; 95909 ==

== ENCOUNTER 2023-11-19 11:00 | Outpatient (RCR) | payer MEDICAID, SELFPAY ==
--- NOTE | 2023-10-29 13:33 | MHC.OT.EP ---
[address] [phone] Occupational Therapy Plan of Care Patient Name: Lizzie Esteban Date of Evaluation: 10/29/23 Diagnosis: R wrist & elbow pain Pain Location: Radial & ulnar side of wrist which radiates to her R elbow (lateral and medial) 2/10 Tony 8/10 at worst in the last week due to overuse at the end of the day Pain Score: Pain Scale Used: Now 2-3/10 at worst (end of day) 7/10 Aggravating Factors: Overuse of her wrist; pt reports performing ADLs and IADLs w/ out modifications and pushing through the pain Alleviating Factors: Pt reports sometimes she takes tylenol to alleviate sx;s Assessment: Pt is a 48 yr. old R hand dominant female who reports an original injury 2 + years ago of a R distal radius fracture. She reports having ORIF surgery and then completing skilled OT therapy. She returned to her PLOF (too soon) and now has pain along the ulnar and radial side of her wrist which has worsened over the last year. Pt reports she has been overusing her hand and wrist despite the pain,. She had an EMG which was negative. She has pain w/ AROM and resistive ROM of her R wrist. She has a (+) Brandon dunn and reported pain w/ palpation of her 1st DC, as well as the ulnar side of her wrist (increased pain w/ wrist extension). She has no pain reported w/ palpation of her carpal bones today. Pt has been referred to skilled OT therapy for increased ROM (pain free), strength, and functional use of her dominant wrist and hand 2 visits a week for 4 weeks Frequency and Duration: The patient will be seen 2 visits wk. 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 Thank you once again for your referral.
== END 2024-01-02 09:10 | disposition home or self-care (01) ==
LOC: HO.OT 11:00
PROVIDERS: Absent Provider Physician Assistant; PCP Internal Medicine; Referring Provider Physician Assistant; Visit Provider Internal Medicine
DX: M77.8 Other enthesopathies, not elsewhere classified (principal)
CPT/HCPCS: 97110; 97112; 97140; 97166; 97535

== ENCOUNTER 2023-12-01 14:52 | Outpatient (AMB) | payer MEDICAID, SELFPAY ==
--- NOTE | 2023-12-01 15:10 | A.OFFVIS_ITS ---
Vital Signs 12/01/23 15:16 Height 5 ft 2 in Weight 150 lb BMI 27.4 Intake Visit Reasons: F/U, Nerve Conduction study R wrist/elbow Intake Note: Lizzie is a 48 year old female who presents today for a EMG review of her right wrist. Patient reports no changes in her symptoms. Allergies sulfamethoxazole [From BACTRIM] Allergy (Unknown, Verified 12/01/23 15:16) LIP SWELLING trimethoprim [From BACTRIM] Allergy (Unknown, Verified 12/01/23 15:16) LIP SWELLING Medication List - Last Reconciled 12/01/23 by Carlie Jaramillo PA-C albuterol sulfate 90 mcg/actuation 1 inh inhalation QID PRN HPI HPI F/U, Nerve Conduction study R wrist/elbow: Details: 48-year-old female who returns to the office today for an EMG review of right wrist. She states she has no changes in her symptoms since the last visit. 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 Mild Tenderness over the medial aspect of the elbow and Positive Tinel?s along the cubital tunnel.? He has good ROM of the elbow, no pain with supination or pronation. Negative Tinel?s along the carpal tunnel. Numbness and tingling over the ulnar nerve distribution of the left hand.? Able to make a full fist and fully extend all fingers. Results Reviewed Results Reviewed: IMPRESSION: 1. This is a normal study. 2. There is no electrodiagnostic evidence for median neuropathy, ulnar neuropathy, brachial plexopathy, or cervical radiculopathy. Assessment & Plan Assessment & Plan (1) Right elbow tendonitis: Code(s): M77.8 - Other enthesopathies, not elsewhere classified Category: Medical Plan Given her persistent symptoms and negative EMG results I would like her to meet with Dr. Rea to determine further treatment options and see if she is a candidate for cubital tunnel or not. She is content with this plan and will follow-up as planned. Patient Instructions: Scribed for Carlie Jaramillo PA-C, by Onel Hurtado medical records auditor, on 12/01/2023 at 2:45 PM EST.? I, Carlie Jaramillo PA-C, have personally reviewed and agree with the information entered by the scribe. Coding Level of Care Code Est Pt Level 3 (08239) Diagnoses Right elbow tendonitis M77.8
[2023-12-01 15:16] VITALS: BMI 27.4
== END 2023-12-01 15:46 | disposition home or self-care (01) ==
PROVIDERS: PCP Internal Medicine; Visit Provider Physician Assistant
DX: M77.8 Other enthesopathies, not elsewhere classified (principal)
CPT/HCPCS: 99213

== ENCOUNTER → 2023-12-01 14:52 | Outpatient (BNVA) | payer MEDICAID, SELFPAY | PROVIDERS: PCP Internal Medicine; Visit Provider Physician Assistant | DX: M77.8 Other enthesopathies, not elsewhere classified (principal) | CPT/HCPCS: 99212 ==

== ENCOUNTER 2023-12-03 22:40 | Emergency (ER) | payer MEDICAID, SELFPAY ==
--- NOTE | ~2023-12-03 | CT_ITS ---
EXAMINATION: CT ABDOMEN AND PELVIS WITHOUT CONTRAST CLINICAL INFORMATION: Flank pain. COMPARISON: 12/24/2020 TECHNIQUE: Multidetector volumetric imaging was performed from the superior aspect of the liver through the pubic symphysis. Sagittal and coronal reformatted images were obtained on the technologist's workstation. This CT examination was performed using dose optimization techniques as appropriate, variously including the following: *Automated exposure control *Adjustment of mA and/or kV according to patient size (this includes techniques or standardized protocols for targeted exams where dose is matched to indication/reason for exam; i.e. extremities or head) *Use of iterative reconstruction technique DLP: 549 mGy-cm FINDINGS: LUNG BASES: The visualized lung bases are unremarkable. LIVER, GALLBLADDER, AND BILIARY TREE: The liver is normal in size, shape, and attenuation. No focal hepatic lesion or biliary ductal dilatation is present. Numerous small gallstones are noted. PANCREAS: Unremarkable. SPLEEN: Unremarkable. ADRENAL GLANDS: Unremarkable. KIDNEYS AND URETERS: The kidneys are normal in size, shape, and attenuation. No hydronephrosis, hydroureter, or calculi seen. No perinephric stranding. BLADDER: Unremarkable. GASTROINTESTINAL TRACT: The small and large bowel are unremarkable. The appendix is unremarkable. ABDOMINAL WALL: No significant hernia is appreciated. LYMPH NODES: Normal. VASCULAR: Unremarkable. PELVIC VISCERA: Unremarkable. OSSEOUS STRUCTURES: Unremarkable. CT/CT abdomen pelvis wo IV con IMPRESSION: 1. No significant abnormality. 2. Cholelithiasis. Fleischner guidelines were followed.
--- NOTE | ~2023-12-03 | XR_ITS ---
EXAMINATION: XR CHEST CLINICAL INFORMATION: Chest pain. COMPARISON: 10/18/2014. TECHNIQUE: Frontal view of the chest was obtained. FINDINGS: No significant abnormality is noted involving the heart, lungs, mediastinum, bony thorax or soft tissues. XR/XR chest 1V IMPRESSION: Unremarkable examination.
[2023-12-03 22:41] VITALS: BP 116/66; PULSE 86; RESP 20; TEMP 36.4; O2SAT 100; BMI 29.3
--- NOTE | 2023-12-03 22:41 | ECG_ITS ---
Test Reason : CHEST PAIN Blood Pressure : / mmHG Vent. Rate : 089 BPM Atrial Rate : 089 BPM P-R Int : 176 ms QRS Dur : 086 ms QT Int : 370 ms P-R-T Axes : 049 042 033 degrees QTc Int : 450 ms Normal sinus rhythm Normal ECG When compared with ECG of 18-OCT-2014 10:59, No significant change was found Referred By: Generic ED Physician Electronically Signed By:Bang Higuera
[2023-12-03 23:02] LABS: MANUAL DIFF FLAG NO
[2023-12-03 23:05] LABS: Basophils Percent Auto 0.1 % (0-2); Eosinophils Percent Auto 0.1 % (0-4); Hematocrit 36.5 % (37.0-47.0); Hemoglobin 12.5 g/dl (12.0-16.0); Imm Gran Abs Auto 0.05 X10*3/uL (0.00-0.03); Imm Gran Pct Auto 0.4 % (0.0-0.4); Lymphocytes Absolute Auto 0.6 X10*3/uL (1.2-4.9); Lymphocytes Percent Auto 4.4 % (20-40); Mean Corpuscular HGB Conc 34.2 g/dl (31.0-35.0); Mean Corpuscular Hemoglobin 27.2 pg (27.0-33.0); Mean Corpuscular Volume 79.5 fL (80.0-98.0); Mean Platelet Volume 10.4 fL (9.4-12.3); Monocytes Absolute Auto 0.7 X10*3/uL (0.1-1.2); Monocytes Percent Auto 5.2 % (2-11); Neutrophils Absolute Auto 12.4 x10*3/uL (2.0-8.3); Neutrophils Percent Auto 89.8 % (45-73); Platelet Count 301 X10*3/uL (160-400); Red Blood Count 4.59 X10*6/uL (4.20-5.50); Red Cell Distribution Width 13.1 % (11.0-16.0); White Blood Count 13.8 X10*3/uL (4.8-10.8)
[2023-12-03 23:21] LABS: Anion Gap 12 (12-20); Blood Urea Nitrogen 13 mg/dL (9-16); Calcium 8.9 mg/dL (8.4-10.2); Carbon Dioxide 22 mmol/L (22-29); Chloride 109 mmol/L (96-108); Creatinine Clr Calc Pharmacy 102.4; Estimated Glomerular Filt Rate > 60; Glucose Random 143 mg/dL (60-115); Potassium 3.8 mmol/L (3.3-5.1); Sodium 139 mmol/L (135-145)
--- NOTE | 2023-12-03 23:26 | ED.GENADULT ---
HPI - General Adult General Chief complaint: General Medical Stated complaint: Chest pain Time Seen by Provider: 12/03/23 23:26 Source: patient Mode of arrival: ambulatory Limitations: no limitations History of Present Illness ED Provider: nehemias TUCKER narrative: Patient's history of tiny gallstone healthy comes here for pain in the left upper abdomen , started about 2 hours prior to arrival had multiple episodes of vomiting which started 1st then the pain , vomited about 15 times in last 2hrs also had 4 loose bowels no fever no chills patient never had similar pain in the past no history of kidney stone no urinary complaints Related Data Previous Rx's ?Medication ?Instructions ?Recorded albuterol sulfate 90 mcg/actuation 1 inh inhalation QID PRN shortness 10/24/21 aerosol inhaler of breath or wheezing #8.5 grams ondansetron 4 mg disintegrating 4 mg PO Q6-8H PRN nausea and 12/04/23 tablet vomiting #7 tabs Allergies Allergy/AdvReac Type Severity Reaction Status Date / Time sulfamethoxazole Allergy Unknown LIP Verified 12/03/23 22:50 [From BACTRIM] SWELLING trimethoprim [From BACTRIM] Allergy Unknown LIP Verified 12/03/23 22:50 SWELLING Review of Systems Review of Systems: Yes all other systems are reviewed and are negative PMFSH Past Medical History Medical History Hx of fracture of forearm Surgical History History of tubal ligation Social History Social History Advance Directives: No Advance Directives Information Provided: Yes Do you have a plan to hurt others: No Plan Current occupational status: employed 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 Oriented X3. In moderate distress. Eyes: No pallor or icterus ENT: Pharynx normal. Oral Mucosa moist Neck: Normal inspection. Neck supple. CVS: Normal heart rate and rhythm. Pulses normal. Respiratory: No respiratory distress. Equal air entry bilateral, no wheezing/rales/rhonchi Abdomen: Soft and tenderness left upper quadrant with guarding no rebound tenderness Bowel sounds are present, no mass palpable, L CVA tenderness Skin: Skin warm and dry. Normal skin color. Normal skin turgor. Extremities: No lower extremity edema. No calf tenderness Neuro: Oriented X 3. Medications Administered Discontinued Medications Generic Name Dose Route Start Last Admin Trade Name Karol PRN Reason Stop Dose Admin Sodium Chloride 1,000 mls @ 999 mls/hr 12/03/23 23:31 12/04/23 00:52 Ns IV 12/04/23 00:31 Infused .Q1H1M ONE Infusion Morphine Sulfate 4 mg 12/03/23 23:31 12/04/23 00:04 Morphine Sulfate 4 Mg/Ml Cartridge IVPUSH 12/03/23 23:32 4 mg ONCE ONE Administration Protocol Ondansetron HCl 4 mg 12/03/23 23:31 12/04/23 00:04 Ondansetron Hcl 4 Mg/2 Ml Vial IVPUSH 12/03/23 23:32 4 mg ONCE ONE Administration Medical Decision Making Medical Decision Making [facility] Narrative: Patient has acute vomiting with abdominal pain workup is negative CT scan negative for acute patient felt better after IV fluids and pain medication taking p.o. fluids will discharge patient home on Zofran Differential Diagnosis Differential Diagnoses: The differential diagnosis associated with the presentation includes Gastroenteritis/pancreatitis/kidney stone/UTI/gallstone Lab Data [facility] Lab Attestation statement: I reviewed the patient's lab results. 12/03/23 22:57 12/03/23 22:57 Labs: Lab Results 12/03/23 12/03/23 Range/Units 22:57 23:45 WBC 13.8 H (4.8-10.8) X10*3/uL RBC 4.59 (4.20-5.50) X10*6/uL Hgb 12.5 (12.0-16.0) g/dl Hct 36.5 L (37.0-47.0) % MCV 79.5 L (80.0-98.0) fL MCH 27.2 (27.0-33.0) pg MCHC 34.2 (31.0-35.0) g/dl RDW 13.1 (11.0-16.0) % Plt Count 301 (160-400) X10*3/uL MPV 10.4 (9.4-12.3) fL Immature Gran % (Auto) 0.4 (0.0-0.4) % Neut % (Auto) 89.8 H (45-73) % Lymph % (Auto) 4.4 L (20-40) % [place] % (Auto) 5.2 (2-11) % Eos % (Auto) 0.1 (0-4) % Baso % (Auto) 0.1 (0-2) % Lymph # (Auto) 0.6 L (1.2-4.9) X10*3/uL [place] # (Auto) 0.7 (0.1-1.2) X10*3/uL Eos # (Auto) 0.0 (0.0-0.4) X10*3/uL Baso # (Auto) 0.0 (0.0-0.2) X10*3/uL Abs Immat Gran (auto) 0.05 H (0.00-0.03) X10*3/uL Absolute Neuts (auto) 12.4 H (2.0-8.3) x10*3/uL Absolute Nucleated RBC 0.000 (0.0-0.012) X10*3/uL Nucleated RBC % (auto) 0.0 (0.0-0.2) /100WBC Sodium 139 (135-145) mmol/L Potassium 3.8 (3.3-5.1) mmol/L Chloride 109 H (96-108) mmol/L Carbon Dioxide 22 (22-29) mmol/L Anion Gap 12 (12-20) BUN 13 (9-16) mg/dL Creatinine 0.64 (0.5-1.4) mg/dL Estim Creat Clear Calc 102.4 Estimated GFR > 60 Random Glucose 143 H (60-115) mg/dL Calcium 8.9 D (8.4-10.2) mg/dL Total Bilirubin 0.8 (0.0-1.0) mg/dL Direct Bilirubin 0.3 (0.0-0.5) mg/dL AST 13 (5-31) U/L ALT 12 (0-31) U/L Alkaline Phosphatase 60 (39-117) U/L Troponin I High Sens < 2.7 (<3.5-17.0) ng/L Total Protein 7.7 (6.5-8.0) g/dL Albumin 4.1 (3.5-5.0) g/dL Lipase 23 (8-78) U/L Urine Color Yellow Urine Appearance Clear Urine pH 7.5 (5.0-9.0) Ur Specific [place] 1.025 (1.005-1.025) Urine Protein Trace (Neg-Trace) mg/dL Urine Glucose (UA) Negative (Negative) mg/dL Urine Ketones 80 (Negative) mg/dL Urine Blood Trace H (Negative) Urine Nitrite Negative (Negative) Ur Leukocyte Esterase Negative (Negative) Urine RBC 6-10 H (0-2) /HPF Urine WBC 0-5 (0-5) /HPF Ur Squamous Epith Cells 0-2 (0-2) /HPF Urine Bacteria None Seen (None Seen) Hyaline Casts 0-2 (0-2) /LPF Independent Interpretation I performed an independent interpretation of an: CT Scan Radiology Impression Discussion of test interpretation with radiology: I have reviewed the radiologist's reading. Radiologist Impression: [place] [id number] CT Scan Report Signed Patient: Lizzie Esteban MR#: [id number] : 1975 Acct:[id number] Age/Sex: 48 / F ADM Date: 12/03/23 Loc: .ED Attending Dr: Ordering Physician: Dinesh Amezquita MD Date of Service: 12/03/23 Procedure(s): CT abdomen pelvis wo IV con Accession Number(s): [id number] cc: Stacy Boyd MD; Dinesh Amezquita MD~ EXAMINATION: CT ABDOMEN AND PELVIS WITHOUT CONTRAST CLINICAL INFORMATION: Flank pain. COMPARISON: 12/24/2020 TECHNIQUE: Multidetector volumetric imaging was performed from the superior aspect of the liver through the pubic symphysis. Sagittal and coronal reformatted images were obtained on the technologist's workstation. This CT examination was performed using dose optimization techniques as appropriate, variously including the following: *Automated exposure control *Adjustment of mA and/or kV according to patient size (this includes techniques or standardized protocols for targeted exams where dose is matched to indication/reason for exam; i.e. extremities or head) *Use of iterative reconstruction technique DLP: 549 mGy-cm FINDINGS: LUNG BASES: The visualized lung bases are unremarkable. LIVER, GALLBLADDER, AND BILIARY TREE: The liver is normal in size, shape, and attenuation. No focal hepatic lesion or biliary ductal dilatation is present. Numerous small gallstones are noted. PANCREAS: Unremarkable. SPLEEN: Unremarkable. ADRENAL GLANDS: Unremarkable. KIDNEYS AND URETERS: The kidneys are normal in size, shape, and attenuation. No hydronephrosis, hydroureter, or calculi seen. No perinephric stranding. BLADDER: Unremarkable. GASTROINTESTINAL TRACT: The small and large bowel are unremarkable. The appendix is unremarkable. ABDOMINAL WALL: No significant hernia is appreciated. LYMPH NODES: Normal. VASCULAR: Unremarkable. PELVIC VISCERA: Unremarkable. OSSEOUS STRUCTURES: Unremarkable. CT/CT abdomen pelvis wo IV con IMPRESSION: 1. No significant abnormality. 2. Cholelithiasis. Fleischner guidelines were followed. Discharge Plan Discharge Clinical Impression: Acute gastroenteritis Patient Disposition: Home, Self-Care Instructions: Gastroenteritis (ED) Additional Instructions: Drink plenty of fluids Medication for nausea as prescribed Follow with your PCP if not better Prescriptions: New ondansetron 4 mg tablet,disintegrating 4 mg PO Q6-8H PRN (Reason: nausea and vomiting) Qty: 7 0RF No Action albuterol sulfate 90 mcg/actuation HFA aerosol inhaler 1 inh inhalation QID PRN (Reason: shortness of breath or wheezing) Qty: 8.5 0RF Print Language: Omani
[2023-12-03 23:31] LABS: Troponin-I High Sensitivity < 2.7 ng/L (<3.5-17.0)
[2023-12-03 23:35] LABS: Alanine Aminotransferase 12 U/L (0-31); Albumin Level 4.1 g/dL (3.5-5.0); Alkaline Phosphatase 60 U/L (39-117); Aspartate Amino Transferase 13 U/L (5-31); Bilirubin Direct 0.3 mg/dL (0.0-0.5); Bilirubin Total 0.8 mg/dL (0.0-1.0); Lipase 23 U/L (8-78); Total Protein 7.7 g/dL (6.5-8.0)
[2023-12-03 23:40] VITALS: BP 121/67; PULSE 76; RESP 18; TEMP 36.7; O2SAT 99
--- NOTE | 2023-12-03 23:41 | MHC.EDTECH ---
Hourly rounds and vitals completed,patient ambulated to the bathroom with a steady gait,urine sample obtained and sent to lab.
[2023-12-03] MEDS: 0.9 % Sodium Chloride 1,000 ML 999 ML IV (23:59)
[2023-12-04] MEDS: Morphine Sulfate 4 MG/ML CARTRIDGE IVPUSH (00:04)
[2023-12-04] MEDS: ondansetron HCL 4 MG/2 ML VIAL IVPUSH (00:04)
[2023-12-04 00:09] LABS: Appearance Urine Clear; Color Urine Yellow; Glucose Urine UA Negative (Negative); Leukocyte Esterase Urine Negative (Negative); Nitrite Urine Negative (Negative); PH 7.5 (5.0-9.0); Specific Gravity - Urine 1.025 (1.005-1.025); UMIC TRIGGER UACC YES; Urine Blood Trace (Negative); Urine Ketones 80 mg/dL (Negative); Urine Protein Trace mg/dL (Neg-Trace)
[2023-12-04 00:10] LABS: Bacteria Urine None Seen (None Seen); Hyaline Casts Urine 0-2 /LPF (0-2); Squamous Epithelial Cell Urine 0-2 /HPF (0-2); WBC Urine 0-5 /HPF (0-5)
[2023-12-04 01:50] VITALS: BP 121/67; PULSE 76; RESP 18; TEMP 36.7; O2SAT 99
--- OUTSIDE RECORDS SUMMARY | 2023-12-11 06:07 | XMS_ITS | Continuity of Care Document ---
Author Organization [facility] florian Address [address] [place] [address] [address] [place] [address]- Care Team Providers Care Group Supervisor Yard Name Role Phone Oliver NIXON, Stacy Samuel Primary Care Physician Encounter [facility] [place] Date(s): 09/06/21 - 10/06/[address] [place], [place] [address] Attending Physician: Admtr, Ar8 Admitting Physician: Admtr, Ar8 Referring Physician: Admtr, Ar8 Allergies, Adverse Reactions, Alerts Substance Reaction Severity Status Bactrim Unknown Active Immunizations Given and Recorded Vaccine Date Status Refusal Reason SARS-CoV-2 (COVID-19) mRNA BNT-162b2 vac 11/10/20 Given SARS-CoV-2 (COVID-19) mRNA BNT-162b2 vac 10/20/20 Given Medications Colace sodium 100 mg oral capsule 100 mg, 1, capsule, By Mouth, 2 times a day, PRN, # 20 capsule, Refills 0, Tot. Refills 0, Maintenance, for constipation, 04/04/21 13:38:00 EDT, Route to Pharmacy Electronically, [facility]/pharmacy #[id number], Partial fill upon patient request if the prescriptio... Start Date: 04/04/21 Status: Ordered
--- OUTSIDE RECORDS SUMMARY | 2023-12-11 06:07 | XMS_ITS | Continuity of Care Document ---
Author Organization [facility] Rigoberto florian Address [address] [place] [address] [address] [place] [address]- Care Team Providers Care Chief Engineering Division Name Role Phone Stacy Boyd MD Primary Care Physician Encounter [facility] Date(s): 04/19/21 - 06/16/21 [facility] [address] [place], [place] [address] Attending Physician: Halley Luna MD Referring Physician: Stacy Boyd MD Allergies, Adverse Reactions, Alerts Substance Reaction Severity [...] 04/04/21 13:38:00 EDT, Route to Pharmacy Electronically, [facility]/pharmacy #[id number], Partial fill upon patient request if the prescriptio... Start Date: 04/04/21 Status: Ordered
--- OUTSIDE RECORDS SUMMARY | 2023-12-11 06:07 | XMS_ITS | Continuity of Care Document ---
Author Organization [facility] Rigoberto florian Address [address] [place] [address] [address] [place] [address]- Care Team Providers Care Account Assistant Name Role Phone Oliver NIXON, Stacy Samuel Primary Care Physician Encounter [facility] Date(s): 03/28/21 - 05/05/21 [facility] [address] [place], [place] [address] Attending Physician: Halley Luna MD Referring Physician: Not on Staff, Referring MD Allergies, Adverse Reactions, Alerts Substance Reaction [...] 04/04/21 13:38:00 EDT, Route to Pharmacy Electronically, [facility]/pharmacy #[id number], Partial fill upon patient request if the prescriptio... Start Date: 04/04/21 Status: Ordered
--- OUTSIDE RECORDS SUMMARY | 2023-12-11 06:07 | XMS_ITS | Continuity of Care Document ---
Author Organization [facility] Rigoberto florian Address [address] [place] [address] [address] [place] [address]- Care Team Providers Care Pattern Worker Name Role Phone Stacy oByd MD Primary Care Physician [place] [facility] 04/19[place]21 - 04/26/21 [facility] [address] [place], [place] [address] Attending Physician: Halley Luna MD Referring Physician: [...] 04/04/21 13:38:00 EDT, Route to Pharmacy Electronically, [facility]/pharmacy #[id number], Partial fill upon patient request if the prescriptio... Start Date: 04/04/21 Status: Ordered Vital Signs Most recent to oldest [Reference Range]: 1 Height 15 cm (04/19/21 11:14 AM) Weight 71.8 kg (04/19/21 11:14 AM) Temperature [96.8-100.4 DegF] 97.1 DegF (04/19/21 11:14 AM) Temperature Route Temporal (04/19/21 11:14 AM) Dry Weight 71.8 kg (04/19/21 11:14 AM) Weight Obtained Via Standing scale (04/19/21 11:14 AM) Dry Weight Obtained Via Standing scale (04/19/21 11:14 AM)
--- OUTSIDE RECORDS SUMMARY | 2023-12-11 06:07 | XMS_ITS | Continuity of Care Document ---
Author Organization [facility] Address [address] [place] [address]- Care Team Providers Care Minilab Operator Name Role Phone Not on Staff, PCP Primary Care Physician Unavail able Encounter [facility] Date(s): 03/27/21 - 03/27/[address] [address]- Encounter Diagnosis Radius fracture(Final) - 03/27/21 Discharge Disposition: A-D/C Home Attending Physician: Madelaine Nelson MD Admitting Physician: Madelaine Nelson MD Referring Physician: Not on Staff, Referring MD Allergies, Adverse Reactions, Alerts No Known Medication Allergies Immunizations Given and Recorded Vaccine Date Status Refusal Reason SARS-CoV-2 (COVID-19) mRNA BNT-162b2 vac 11/10/20 Given SARS-CoV-2 (COVID-19) mRNA BNT-162b2 vac 10/20/20 Given Medications Dilaudid Inj 1 mg, Injection, IV Push Slowly, Every 15 minutes for 3 doses/times, PRN for Pain , Moderate, and SBP greater than 100, STAT, 03/27/21 20:19:00 EDT, Stop date Limited # of times Start Date: 03/27/21 Status: Ordered Results Radiology Reports * Exam Date Time Procedure Performing Provider Status 03/27/21 10:06 PM Wrist Comp Min 3 Views Right Viviana Boucher; Natanael (Verified) Notes: (Wrist Comp Min 3 Views Right) Reason For Exam: Post-Reduction RESULT: Wrist Comp Min 3 Views Right Wrist Comp Min 3 Views Right INDICATION: Fall on outstretched hand, wrist deformity, post reduction COMPARISON: X-ray from earlier today TECHNIQUE: AP, lateral and oblique views. FINDINGS: Cast overlies much of the imaged extremity. Improved alignment of previously reported comminuted intra-articular distal radial fracture, with persistent dorsal displacement by up to 0.4 cm but no significant angulation. IMPRESSION: Improved alignment of the comminuted intraarticular distal radial fracture, with persistent mild dorsal displacement but reduction in angulation. I have personally reviewed the images and I agree with this report. WSN: [id number] Ordering Physician: Sal Agosto Dictated By: Jese Ivan DO Dictated Date/Time: 03/27/21 10:10 p Reviewed By: Elia Sifuentes MD Signed By: Elia Sifuentes MD Signed Date/Time: 03/27/21 10:15 pm Transcribed By: ALTAGRACIA Transcribed Date/Time: 03/27/21 10:09 pm * Exam Date Time Procedure Performing Provider Status 03/27/21 7:34 PM Wrist Comp Min 3 Views Right Fernanda Pichardo; Natanael (Verified) Notes: (Wrist Comp Min 3 Views Right) Reason For Exam: Pain RESULT: Wrist Comp Min 3 Views Right Wrist Comp Min 3 Views Right Hx of Present Illness: Fell on outstretched hand. Right wrist deformed.; Reason: Pain; Clinical Question(s): Fracture COMPARISON: None. FINDINGS: There is a comminuted, impacted, dorsally-angulated and displaced intra-articular fracture of the distal right radius. Soft tissue swelling of the dorsal right wrist is noted. The distal right ulna is intact. IMPRESSION: Comminuted intra-articular fracture of the distal right radius width dorsal displacement and angulation. Soft tissue swelling. WSN: [id number] Ordering Physician: Madelaine Nelson Dictated By: Raman Drake MD Dictated Date/Time: 03/27/21 7:39 pm Reviewed By: Raman Darke MD Signed By: Raman Drake MD Signed Date/Time: 03/27/21 7:39 pm Transcribed By: ALTAGRACIA Transcribed Date/Time: 03/27/21 7:37 pm Vital Signs Most recent to oldest [Reference Range]: 1 2 3 Oxygen Saturation [94-100 %] 98 % (03/27/21 10:36 PM) 100 % (03/27/21 9:18 PM) 100 % (03/27/21 6:53 PM) Pulse Rate [55-90 bpm] 89 bpm (03/27/21 10:36 PM) 106 bpm *H* (03/27/21 9:18 PM) 90 bpm (03/27/21 6:53 PM) Blood Pressure [90-138/55-84 mm Hg] 124/62mm Hg (03/27/21 10:36 PM) 135/71mm Hg (03/27/21 9:18 PM) 105/88mm Hg (03/27/21 6:55 PM) Respiratory Rate [16-30 br/min] 16 br/min (03/27/21 10:36 PM) 18 br/min (03/27/21 9:18 PM) 18 br/min (03/27/21 9:15 PM) Temperature [96.8-100.4 DegF] 98.2 DegF (03/27/21 6:55 PM) Mode of Delivery (Oxygen) Room air (03/27/21 10:36 PM) Room air (03/27/21 9:18 PM) Room air (03/27/21 6:53 PM) Blood pressure sites Arm, left (03/27/21 10:36 PM) Arm, left (03/27/21 9:18 PM) Arm, right (03/27/21 6:55 PM) Temperature Route Oral (03/27/21 6:55 PM)
--- OUTSIDE RECORDS SUMMARY | 2023-12-11 06:07 | XMS_ITS | Continuity of Care Document ---
Author Organization [facility] florian Address [address] [place] [address] [address] [place] [address]- Care Team Providers Care Recycling Collections Driver Name Role Phone Oliver NIXON, Stacy Samuel Primary Care Physician Encounter [facility] Date(s): 06/14/21 - 10/06/21 [facility] [address] [place], [place] [address] Attending Physician: Halley Luna MD Allergies, Adverse Reactions, Alerts Substance Reaction [...] 04/04/21 13:38:00 EDT, Route to Pharmacy Electronically, [facility]/pharmacy #[id number], Partial fill upon patient request if the prescriptio... Start Date: 04/04/21 Status: Ordered
--- OUTSIDE RECORDS SUMMARY | 2023-12-11 06:07 | XMS_ITS | Continuity of Care Document ---
Author Organization [facility] Rigoberto florian Address [address] [place] [address] [address] [place] [address]- Care Team Providers Care Equities Analyst Name Role Phone Stacy Boyd MD Primary Care Physician Encounter [facility] [place] Date(s): 03/29/21 - 04/05/21 [facility] [address] [place] [address]- Attending Physician: Halley Luna MD Referring Physician: Not on Staff, Referring MD Allergies, Adverse Reactions, Alerts Substance Reaction Severity Status Bactrim Unknown Active Immunizations Given and Recorded Vaccine Date Status Refusal Reason SARS-CoV-2 (COVID-19) mRNA BNT-162b2 vac 11/10/20 Given SARS-CoV-2 (COVID-19) mRNA BNT-162b2 vac 10/20/20 Given Medications acetaminophen-HYDROcodone 325 mg-5 mg oral tablet 1 tablet, By Mouth, Every 6 hours, PRN Pain , Severe, for 5 days, # 18 tablet, 0 Refills, Acute 04/09/21 13:37:00 EDT, 04/04/21 13:37:00 EDT, Tablet, [facility]/pharmacy #[id number], Partial fill upon patient request if the prescription is for a schedule II opioid... Start Date: 04/04/21 Stop Date: 04/09/21 Status: Ordered Colace sodium 100 mg oral capsule 100 mg, 1, capsule, By Mouth, 2 times a day, PRN, # 20 capsule, Refills 0, Tot. Refills 0, Maintenance, for constipation, 04/04/21 13:38:00 EDT, Route to Pharmacy Electronically, [facility]acy [facility][id number], Partial fill upon patient request if the prescriptio... Start Date: 04/04/21 Status: Ordered Vital Signs Most recent to oldest [Reference Range]: 1 2 Weight 68 kg (03/29/21 1:34 PM) Temperature [96.8-100.4 DegF] 95.6 DegF *L* (03/29/21 1:34 PM) 95.6 DegF *L* (03/29/21 1:32 PM) Temperature Route Temporal (03/29/21 1:34 PM) Temporal (03/29/21 1:32 PM) Dry Weight 68 kg (03/29/21 1:34 PM) Weight Obtained Via Standing scale (03/29/21 1:34 PM) Dry Weight Obtained Via Standing scale (03/29/21 1:34 PM)
--- OUTSIDE RECORDS SUMMARY | 2023-12-11 06:07 | XMS_ITS | Continuity of Care Document ---
Author Organization [facility] Address [address] [place] [address]- Care Team Providers Care Leach Tank Tender Name Role Phone Stacy Body MD Primary Care Physician [place] [facility] 04/04/21 - 04/04/[address] [address]- Discharge Disposition: A-D/C Home Attending Physician: Halley Luna MD Admitting Physician: Halley Luna MD Referring Physician: Halley Luna MD Allergies, Adverse Reactions, [...] 04/09/21 13:37:00 EDT, 04/04/21 13:37:00 EDT, Tablet, [facility]/pharmacy #[id number], Partial fill upon patient request if [...] to oldest [Reference Range]: 1 2 3 Height 15 cm (04/04/21 10:42 AM) Oxygen Saturation [94-100 %] 97 % (04/04/21 3:30 PM) 96 % (04/04/21 3:00 PM) 96 % (04/04/21 2:30 PM) Pulse Rate [55-90 bpm] 84 bpm (04/04/21 10:42 AM) Blood Pressure [90-138/55-84 mm Hg] 132/60mm Hg (04/04/21 3:30 PM) 132/60mm Hg (04/04/21 3:00 PM) 157/55mm Hg *H* (04/04/21 2:30 PM) Respiratory Rate [16-30 br/min] 18 br/min (04/04/21 3:30 PM) 16 br/min (04/04/21 3:00 PM) 19 br/min (04/04/21 2:30 PM) Temperature [96.8-100.4 DegF] 98.2 DegF (04/04/21 3:30 PM) 97.8 DegF (04/04/21 2:00 PM) 97.4 DegF (04/04/21 1:40 PM) Liters per Minute 5 L/min (04/04/21 2:15 PM) 5 L/min (04/04/21 2:00 PM) 5 L/min (04/04/21 1:50 PM) Mode of Delivery (Oxygen) Room air (04/04/21 3:30 PM) Room air (04/04/21 3:00 PM) Room air (04/04/21 2:30 PM) Blood pressure sites Arm, left (04/04/21 3:30 PM) Arm, left (04/04/21 3:00 PM) Arm, left (04/04/21 2:30 PM) Temperature Route Temporal (04/04/21 3:30 PM) Temporal (04/04/21 2:00 PM) Temporal (04/04/21 1:40 PM) Dry Weight 70.7 kg (04/04/21 10:42 AM) Dry Weight Obtained Via Standing scale (04/04/21 10:42 AM)
--- OUTSIDE RECORDS SUMMARY | 2023-12-11 06:07 | XMS_ITS | Continuity of Care Document ---
Author Organization [facility] Rigoberto florian Address [address] [place] [address] [address] [place] [address]- Care Team Providers Care Quill Reamer Name Role Phone Stacy Boyd MD Primary Care Physician [place] [facility] [place] 06[place]21/[place] [facility] [address] [place], [place] [address] Attending Physician: Halley Luna MD [...] 04/04/21 13:38:00 EDT, Route to Pharmacy Electronically, [facility]/pharmacy #[id number], Partial fill upon patient request if the prescriptio... Start Date: 04/04/21 Status: Ordered Vital Signs Most recent to oldest [Reference Range]: 1 Height 15 cm (06/14/21 10:00 AM) Weight 71 kg (06/14/21 10:00 AM) Temperature [96.8-100.4 DegF] 96.9 DegF (06/14/21 10:00 AM) Temperature Route Temporal (06/14/21 10:00 AM) Dry Weight 71 kg (06/14/21 10:00 AM) Dry Weight Obtained Via Standing scale (06/14/21 10:00 AM)
== END 2023-12-04 01:51 | disposition home or self-care (01) ==
PROVIDERS: Student in an Organized Health Care Education/Training Program; Emergency Provider Internal Medicine; PCP Internal Medicine
DX: K52.9 Noninfective gastroenteritis and colitis, unspecified (principal); R10.12 Left upper quadrant pain
CPT/HCPCS: 36415; 71045; 74176; 80048; 80076; 81001; 81003; 83690; 84484; 85025; 93005; 96361; 96374; 96375; 99284; J2270; J2405

== ENCOUNTER → 2023-12-03 22:41 | Outpatient (BNV) | payer MEDICAID, SELFPAY | PROVIDERS: Emergency Provider Internal Medicine; PCP Internal Medicine; Visit Provider Internal Medicine Cardiovascular Disease | DX: R07.9 Chest pain, unspecified (principal) | CPT/HCPCS: 93010 ==

== ENCOUNTER 2023-12-09 09:09 | Outpatient (AMB) | payer MEDICAID, SELFPAY ==
--- NOTE | 2023-12-09 09:13 | MHC.OFFVIS ---
Vital Signs 12/09/23 09:20 Height 5 ft 2 in Weight 158 lb 4.67 oz BMI 28.9 BP 114/58 L Blood Pressure Location Lt brachial Position Sitting Pulse 64 Pulse Source Pulse Oximeter Pulse Oximetry (%) 97 Oxygen Delivery Method Room Air Intake Visit Reasons: pre colonoscopy Intake Note: Lizzie presents in office today for a scheduled initial assessment / colo scrn; CC; Lizzie was seen recently in the [facility] ED 12/04/2023 for gastroenteritis. Pt reports having a lot of abdominal pain recently, UQ B/L but worse on the left. Pt also reports that her BMs have been irregular for the last few weeks. Pt reports having intermittent diarrhea and constipation. Pt denies any noticeable melena. Pt denies any previous hx of colo s/p. Director Of Institutional Giving Required: Yes Director Of Institutional Giving Services: Director Of Institutional Giving Offered & Declined Allergies sulfamethoxazole [From BACTRIM] Allergy (Unknown, Verified 12/09/23 09:19) LIP SWELLING trimethoprim [From BACTRIM] Allergy (Unknown, Verified 12/09/23 09:19) LIP SWELLING HPI HPI pre colonoscopy: Details: 48 year old? female is here today for pre colonoscopy screening.? Patient was sent to us by her PCP.? This is her first colonoscopy screening.? Denies any personal or family history of gastrointestinal disease, colon polyps, or CRC.? Denies history of difficulty with sedation or anesthesia in the past.? Negative for history of sleep apnea.? Denies any history of cardiac, renal, pulmonary, or hepatic disease.?? No history of infectious? diseases like hepatitis A, B, C, HIV or tuberculosis.? Patient is not on any anticoagulation. Patient reports epigastric pain postprandially. Patient also feel bloated and full frequently after meals. Patient is not on any PPI or H2 tina. Reports constipation. No bowel movements for 2-3 days. Patient feels postprandial abdominal bloating. Mainly eats Maced[place] food. Patient does not eat fiber. Does not drink enough fluids. Patient denies any nausea or vomiting reports dyspepsia without dysphagia or odynophagia. Patient denies melena, hematochezia, unintentional weight loss or ribbon like stools. 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 / [employer] Review of Systems Const Denies weight gain and Denies weight loss ENT Reports no additional complaints, Denies dysphagia and Denies odynophagia Card Reports no additional complaints Resp Reports no additional complaints GI Denies abdominal pain, Denies belching, Denies melena, Reports bloating, Reports constipation, Reports GI cramping, Denies dysphagia, Denies excessive flatus, Reports dyspepsia, Reports heartburn, Denies diarrhea, Denies loose stools, Denies nausea, Denies odynophagia and Denies vomiting Reports no additional complaints Musc Reports no additional complaints Neuro Reports no additional complaints Psych Reports no additional complaints Endo Reports no additional complaints Physical Exam Vital Signs: Last Vital Signs Pulse 64 12/09/23 09:20 BP 114/58 L 12/09/23 09:20 Pulse Ox 97 12/09/23 09:20 Oxygen Delivery Method Room Air 12/09/23 09:20 BMI result Body Mass Index 28.9 Const General: healthy appearing, no acute distress and well developed Nutritional Appearance: well nourished Orientation/consciousness: patient oriented x3 Resp Effort & Inspection: normal respiratory effort, able to speak in complete sentences, no tracheal deviation and symmetric chest movement Auscultation: clear to auscultation bilaterally Cardio Rate: regular rate GI Inspection: Yes normal to inspection and No distended Palpation (GI): Soft to palpation, not firm, nontender and No hepatosplenomegaly present Auscultation: normal bowel sounds General: Yes no CVA tenderness Back/Spine/Pelvis Back: no CVA tenderness Skin General skin exam: elasticity normal, turgor normal and dry skin Neuro General: patient oriented x3 Psych Appearance: grossly normal Mental Status: mental status grossly normal Results Reviewed Results Reviewed: ABDOMINAL ULTRASOUND 12/03/23 FINDINGS: LUNG BASES: The visualized lung bases are unremarkable. LIVER, GALLBLADDER, AND BILIARY TREE: The liver is normal in size, shape, and attenuation. No focal hepatic lesion or biliary ductal dilatation is present. Numerous small gallstones are noted. PANCREAS: Unremarkable. SPLEEN: Unremarkable. ADRENAL GLANDS: Unremarkable. KIDNEYS AND URETERS: The kidneys are normal in size, shape, and attenuation. No hydronephrosis, hydroureter, or calculi seen. No perinephric stranding. BLADDER: Unremarkable. GASTROINTESTINAL TRACT: The small and large bowel are unremarkable. The appendix is unremarkable. ABDOMINAL WALL: No significant hernia is appreciated. LYMPH NODES: Normal. VASCULAR: Unremarkable. PELVIC VISCERA: Unremarkable. OSSEOUS STRUCTURES: Unremarkable. Assessment & Plan Assessment & Plan (1) Screen for colon cancer: Code(s): Z12.11 - Encounter for screening for malignant neoplasm of colon (2) GERD (gastroesophageal reflux disease): Code(s): K21.9 - Gastro-esophageal reflux disease without esophagitis Qualifiers: Esophagitis presence: esophagitis presence not specified Qualified Code(s): K21.9 - Gastro-esophageal reflux disease without esophagitis (3) Cholelithiasis: Code(s): K80.20 - Calculus of gallbladder without cholecystitis without obstruction Category: Medical Qualifiers: Cholelithiasis location: gallbladder Cholecystitis presence: without cholecystitis Biliary obstruction: without biliary obstruction Qualified Code(s): K80.20 - Calculus of gallbladder without cholecystitis without obstruction (4) Constipation: Code(s): K59.00 - Constipation, unspecified (5) Postprandial abdominal bloating: Code(s): R14.0 - Abdominal distension (gaseous) Plan Patient denies any cardiac or respiratory symptoms.? Patient reports postprandial epigastric pain with almost anything that she eats. Patient reports feeling full early. Patient reports constipation. Not moving her bowels daily. Sometimes no BM for 2-3 days. Cramping left upper and left lower quadrant. History of cholelithiasis. Patient seen in the ER on for epigastric pain. Patient will return in 2 months to go over colonoscopy prep. Patient will start taking omeprazole before breakfast. Patient will avoid dietary triggers and late night snacking. Staying upright for minimum 3 hours after meals discussed with patient. Patient will take Senokot in the evening to help her move her bowels. Increase fluid intake and activity to promote better bowel motility. Patient will call the office if she will have any GI concerning symptoms. She is agreeable to this plan and verbalizes understanding of instructions. She was given the opportunity to ask questions and all questions answered. Thank you for allowing me participate in her care Medications: New omeprazole 20 mg PO DAILY 30 caps 3RF K21.9 - Gastro-esophageal reflux disease without esophagitis sennosides (Natural Senna Laxative) 17.2 mg (2 x 8.6 mg) PO BEDTIME 60 tabs 3RF constipation K59.00 - Constipation, unspecified Coding Level of Care Code New Pt Level 4 (80416) Diagnoses Screen for colon cancer Z12.11 Gastroesophageal reflux disease, unspecified whether esophagitis present K21.9 Esophagitis presence: esophagitis presence not specified Calculus of gallbladder without cholecystitis without obstruction K80.20 Cholelithiasis location: gallbladder Cholecystitis presence: without cholecystitis Biliary obstruction: without biliary obstruction Constipation K59.00 Postprandial abdominal bloating R14.0 Time Spent (min) 45 Comment 30 minutes spent with patient and additional 15 minutes spent reviewing her records
[2023-12-09 09:20] VITALS: BP 114/58; PULSE 64; O2SAT 97; BMI 28.9
== END 2023-12-09 10:23 | disposition home or self-care (01) ==
PROVIDERS: PCP Internal Medicine; Visit Provider Nurse Practitioner Family
DX: Z12.11 Encounter for screening for malignant neoplasm of colon (principal); K21.9 Gastro-esophageal reflux disease without esophagitis; K80.20 Calculus of gallbladder without cholecystitis without obstruction; K59.00 Constipation, unspecified; R14.0 Abdominal distension (gaseous); Z01.818 Encounter for other preprocedural examination
CPT/HCPCS: 99204

== ENCOUNTER → 2023-12-09 09:09 | Outpatient (BNVA) | payer MEDICAID, SELFPAY | PROVIDERS: PCP Internal Medicine; Visit Provider Nurse Practitioner Family | DX: Z01.818 Encounter for other preprocedural examination (principal); K21.9 Gastro-esophageal reflux disease without esophagitis; K80.20 Calculus of gallbladder without cholecystitis without obstruction; R14.0 Abdominal distension (gaseous) | CPT/HCPCS: 99212 ==

== ENCOUNTER 2024-02-03 10:19 | Outpatient (AMB) | payer MEDICAID, SELFPAY ==
--- NOTE | 2024-02-03 10:39 | A.OFFVIS_ITS ---
Vital Signs 02/03/24 10:40 Height 5 ft 2 in Weight 163 lb 2.273 oz BMI 29.8 BP 106/54 L Blood Pressure Location Lt brachial Position Sitting Pulse 73 Intake Visit Reasons: 2 month follow up Intake Note: Lizzie presents in the office as a 2 month follow up. CC: She states that she is feeling okay and not having any concerns at this time. Allergies sulfamethoxazole [From BACTRIM] Allergy (Unknown, Verified 02/03/24 10:42) LIP SWELLING trimethoprim [From BACTRIM] Allergy (Unknown, Verified 02/03/24 10:42) LIP SWELLING HPI HPI 2 month follow up: Details: LAST VISIT: Screen for colon cancer GERD (gastroesophageal reflux disease) Cholelithiasis Constipation Postprandial abdominal bloating Plan Patient denies any cardiac or respiratory symptoms.? Patient reports postprandial epigastric pain with almost anything that she eats. Patient reports feeling full early. Patient reports constipation. Not moving her bowels daily. Sometimes no BM for 2-3 days. Cramping left upper and left lower quadrant. History of cholelithiasis. Patient seen in the ER on for epigastric pain. Patient will return in 2 months to go over colonoscopy prep. Patient will start taking omeprazole before breakfast. Patient will avoid dietary triggers and late night snacking. Staying upright for minimum 3 hours after meals discussed with patient. Patient will take Senokot in the evening to help her move her bowels. Increase fluid intake and activity to promote better bowel motility. Patient will call the office if she will have any GI concerning symptoms. She is agreeable to this plan and verbalizes understanding of instructions. She was given the opportunity to ask questions and all questions answered. ? Thank you for allowing me participate in her care Medications New omeprazole 20 mg PO DAILY 30 caps 3RF K21.9 sennosides (Natural Senna Laxative) 17.2 mg (2 x 8.6 mg) PO BEDTIME 60 tabs 3RF constipation K59.00 TODAY'S VISIT Patient is here today for follow-up and to discuss going for colonoscopy. Patient has colonoscopy and upper endoscopy booked in April. Patient reports that she is taking omeprazole daily and her symptoms for the most part are good. Patient reports that in the last 3 days she has been having acid reflux at night time. Patient does admit to be eating pizza late at night. Patient denies any nausea or vomiting. Denies dyspepsia, dysphagia or odynophagia. Patient reports to be moving her bowels better now that she is taking Senokot. Patient denies melena, hematochezia, unintentional weight loss or ribbon like stools. Patient denies any abdominal pain or discomfort. Patient denies any issues with anesthesia in the past. No history of sleep apnea. Not on any anticoagulation medication. No family history of colorectal cancer. 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 Review of Systems Const Denies weight gain and Denies weight loss ENT Reports no additional complaints, Denies dysphagia and Denies odynophagia Card Reports no additional complaints Resp Reports no additional complaints GI Denies abdominal pain, Denies belching, Denies melena, Reports bloating, Reports constipation, Reports GI cramping, Denies dysphagia, Denies excessive flatus, Reports dyspepsia, Reports heartburn, Denies diarrhea, Denies loose stools, Denies nausea, Denies odynophagia and Denies vomiting Reports no additional complaints Musc Reports no additional complaints Neuro Reports no additional complaints Psych Reports no additional complaints Endo Reports no additional complaints Physical Exam Vital Signs: Last Vital Signs Pulse 73 02/03/24 10:40 BP 106/54 L 02/03/24 10:40 BMI result Body Mass Index 13.5 Const General: healthy appearing and no acute distress Nutritional Appearance: well nourished Orientation/consciousness: patient oriented x3 Resp Effort & Inspection: normal respiratory effort, able to speak in complete sentences, no tracheal deviation and symmetric chest movement Auscultation: clear to auscultation bilaterally Cardio Rate: regular rate GI Inspection: Yes normal to inspection and No distended Palpation (GI): Soft to palpation, not firm, nontender and No hepatosplenomegaly present Auscultation: normal bowel sounds General: Yes no CVA tenderness Back/Spine/Pelvis Back: no CVA tenderness Skin General skin exam: elasticity normal, turgor normal and dry skin Neuro General: patient oriented x3 Psych Appearance: grossly normal Mental Status: mental status grossly normal Assessment & Plan Assessment & Plan (1) Cholelithiasis: Code(s): K80.20 - Calculus of gallbladder without cholecystitis without obstruction Category: Medical Qualifiers: Biliary obstruction: without biliary obstruction Cholecystitis presen ce: without cholecystitis Cholelithiasis location: gallbladder Qualified Code(s): K80.20 - Calculus of gallbladder without cholecystitis without obstruction (2) Screen for colon cancer: Code(s): Z12.11 - Encounter for screening for malignant neoplasm of colon (3) GERD (gastroesophageal reflux disease): Code(s): K21.9 - Gastro-esophageal reflux disease without esophagitis Qualifiers: Esophagitis presence: esophagitis presence not specified Qualified Code(s): K21.9 - Gastro-esophageal reflux disease without esophagitis (4) Constipation: Code(s): K59.00 - Constipation, unspecified Qualifiers: Constipation type: slow transit constipation Qualified Code(s): K59.01 - Slow transit constipation (5) Postprandial abdominal bloating: Code(s): R14.0 - Abdominal distension (gaseous) Plan Continue omeprazole daily. Avoid dietary triggers and late night snacking. Staying upright for minimum 3 hours after meals discussed with patient. Patient will take Pepcid on as needed basis at bedtime. What to expect before during and after procedure discussed with patient. She can continue taking Senokot at this time daily or on as needed basis. Discussed the importance of good bowel prep and clear liquid diet day before procedure. I will see patient after the procedure, sooner on as needed basis. Patient is agreeable to this plan and verbalizes understanding of instructions. She was given the opportunity to ask questions and all questions answered. Thank you for allowing me to participate in her care Medications: New polyethylene glycol 3350 (Miralax) As directed by gastroenterology department at [facility] 238 grams PO ONCE 238 grams 0RF Z12.11 - Encounter for screening for malignant neoplasm of colon bisacodyl (Dulcolax (bisacodyl)) take 4 tabs at noon the day before your colonoscopy 20 mg (4 x 5 mg) PO ONCE 1 day 4 tabs 0RF Z12.11 - Encounter for screening for malignant neoplasm of colon Refilled sennosides (Natural Senna Laxative) 17.2 mg (2 x 8.6 mg) PO BEDTIME 60 tabs 3RF constipation K59.00 - Constipation, unspecified omeprazole 20 mg PO DAILY 30 caps 3RF K21.9 - Gastro-esophageal reflux disease without esophagitis Coding Level of Care Code Est Pt Level 3 (82144) Diagnoses Calculus of gallbladder without cholecystitis without obstruction K80.20 Biliary obstruction: without biliary obstruction Cholecystitis presence: without cholecystitis Cholelithiasis location: gallbladder Screen for colon cancer Z12.11 Gastroesophageal reflux disease, unspecified whether esophagitis present K21.9 Esophagitis presence: esophagitis presence not specified Slow transit constipation K59.01 Constipation type: slow transit constipation Postprandial abdominal bloating R14.0 Time Spent (min) 30 Comment 20 minutes spent with patient and additional 10 minutes spent reviewing her records
[2024-02-03 10:40] VITALS: BP 106/54; PULSE 73; BMI 29.8
== END 2024-02-03 11:30 | disposition home or self-care (01) ==
LOC: HO.HGI 10:19
PROVIDERS: PCP Internal Medicine; Visit Provider Nurse Practitioner Family
DX: K80.20 Calculus of gallbladder without cholecystitis without obstruction (principal); Z12.11 Encounter for screening for malignant neoplasm of colon; K21.9 Gastro-esophageal reflux disease without esophagitis; K59.01 Slow transit constipation; R14.0 Abdominal distension (gaseous)
CPT/HCPCS: 99213

== ENCOUNTER → 2024-02-03 10:19 | Outpatient (BNVA) | payer MEDICAID, SELFPAY | PROVIDERS: PCP Internal Medicine; Visit Provider Nurse Practitioner Family | DX: Z12.11 Encounter for screening for malignant neoplasm of colon (principal); K21.9 Gastro-esophageal reflux disease without esophagitis; K80.20 Calculus of gallbladder without cholecystitis without obstruction; K59.01 Slow transit constipation; R14.0 Abdominal distension (gaseous) | CPT/HCPCS: 99212 ==

== ENCOUNTER 2024-02-04 09:47 | Outpatient (AMB) | payer MEDICAID, SELFPAY ==
--- NOTE | 2024-02-04 10:25 | A.OFFVIS_ITS ---
Vital Signs 02/04/24 10:26 Height 5 ft 2 in Weight 163 lb BMI 29.8 Intake Visit Reasons: OV-CTS Eval syndrome-left wrist Intake Note: Lizzie is a 48 yo right hand dominant female who presents today for evaluation of RIGHT wrist pain. Patient explains her left hand does bother her a bit but she is mainly concerned about the right hand. Patient reports numbness and tingling that occurs most days, on and off. Patient reports she is able to occupational therapy aide and squeeze. Denies locking of finger. Patient states pain is worse when she overuses her right hand. Reports prior injury to the right hand for which she had surgery, about 2 years ago. Per patient she has plates and screws. Patient did PT for the right hand but stopped going because her pain is worsening. EMG of the right side done 10/23/23. Patient takes Motrin PRN. Allergies sulfamethoxazole [From BACTRIM] Allergy (Unknown, Verified 02/04/24 10:31) LIP SWELLING trimethoprim [From BACTRIM] Allergy (Unknown, Verified 02/04/24 10:31) LIP SWELLING HPI HPI OV-CTS Eval syndrome-left wrist: Details: Lizzie is a 48 year old right hand dominant [place] speaking woman who presents with complaints of right hand pain & numbness. She speaks some guatemalan and was able to participate without a assembler installer general today. She complains of numbness in her ring & small fingers, as well as the ulnar aspect of her hand. Symptoms intermittent, several times weekly, worse at night. She finds her numbness worse with activities. She denies any locking or catching She has been seen by JOCELINE Sexton for right elbow tendinitis & small finger numbness. She has tried PT in the past but stopped as she found this painful. She has been trying to perform exercises at home She reports a hx of a previous wrist surgery in 2021, at an outside clinic. She is unsure what specific surgery, but says she has retained hardware. 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 Review of Systems Const All systems reviewed & are unremarkable except as noted in HPI and below Physical Exam Vital Signs: BMI result Body Mass Index 29.8 Const General: cooperative, healthy appearing and no acute distress Orientation/consciousness: patient oriented x3 HEENT Head: Yes normocephalic and Yes atraumatic Eyes EOM: EOMs intact bilaterally Resp Effort & Inspection: normal respiratory effort and able to speak in complete sentences Cardio Jugular venous distension: no JVD Skin General skin exam: turgor normal Rashes: no rashes Neuro General: patient oriented x3 Extrem Other: Evaluation of Right Upper Extremity: The patient is alert, oriented, and in no acute distress Neuro: Median, Ulnar, Radial nerves motor and sensory intact and sensation is normal to the tips of all digits today in clinic No thenar or intrinsic wasting Good APB muscle belly firing and good finger cross Vascular: Cap refill brisk ROM: She can make a fist and extend all her digits No locking or catching Skin: No lacerations or abrasions. General: No Ecchymosis. No Erythema or evidence of infection. She has an ache in the ulnar side of her elbow and forearm Longitudinal incision over the volar aspect of the distal radius from a repair Nerve Conduction Study: IMPRESSION: 1. This is a normal study. 2. There is no electrodiagnostic evidence for median neuropathy, ulnar neuropathy, brachial plexopathy, or cervical radiculopathy. Mireya Barrera MD, ROXANA 10/23/23 Psych Appearance: grossly normal Affect: normal affect Attitude: cooperative Assessment & Plan Assessment & Plan (1) Numbness of right hand: Code(s): R20.0 - Anesthesia of skin Category: Medical Plan Assessment & Plan: 1. Right hand numbness In the ulnar nerve distribution Symptoms intermittent & occasional, worse at night or with activities NCS from 10/23/23 negative for cubital tunnel syndrome I educated her about this condition I discussed operative and non-operative treatment options I recommend activity modification at this time and she be mindful of her sensation She should avoid hyperflexion of her elbow, or leaning on her elbow She will follow up in 2-3 months, if her symptoms increase in frequency or severity she can follow up sooner. We may consider a repeat NCS at her next appointment Scribed for Viviana Rea, MD by Omid Houston, medical records clerk, on 02/04/24 at 11:20 AM, EST. Coding Level of Care Code Est Pt Level 3 (92168) Diagnoses Numbness of right hand R20.0
[2024-02-04 10:26] VITALS: BMI 29.8
== END 2024-02-04 11:23 | disposition home or self-care (01) ==
PROVIDERS: PCP Internal Medicine; Referring Provider Internal Medicine; Visit Provider Orthopaedic Surgery
DX: R20.0 Anesthesia of skin (principal)
CPT/HCPCS: 99213

== ENCOUNTER → 2024-02-04 09:47 | Outpatient (BNVA) | payer MEDICAID, SELFPAY | PROVIDERS: PCP Internal Medicine; Visit Provider Orthopaedic Surgery | DX: R20.0 Anesthesia of skin (principal) | CPT/HCPCS: 99212 ==

== ENCOUNTER 2024-03-19 11:25 | Outpatient (REF) | payer MEDICAID, SELFPAY ==
[2024-03-19 13:11] LABS: Hematocrit 38.6 % (37.0-47.0); Hemoglobin 12.5 g/dl (12.0-16.0)
[2024-03-19 13:34] LABS: Estimated Average Glucose 103 mg/dL; Hemoglobin A1C 99.3521 umol/L; Hemoglobin A1c % 5.2 % (<6.0); Total Hemoglobin (HGBA1C) 3004.6559 umol/L
[2024-03-19 14:05] LABS: Anion Gap 13 (12-20); Blood Urea Nitrogen 9 mg/dL (9-16); Calcium 9.8 mg/dL (8.4-10.2); Carbon Dioxide 25 mmol/L (22-29); Chloride 106 mmol/L (96-108); Estimated Glomerular Filt Rate > 60; Glucose Random 100 mg/dL (60-115); Potassium 4.3 mmol/L (3.3-5.1); Sodium 140 mmol/L (135-145)
[2024-03-19 14:38] LABS: Free T4 (Free Thyroxine) 1.06 ng/dL (0.71-1.85); T4 Thyroxine 8.3 ug/dL (4.5-12.0); Thyroid Stimulating Hormone 2.11 uIU/mL (0.32-4.0); Vitamin D 25-OH Total 35.8 ng/mL (>30)
[2024-03-22 02:08] LABS: TS Negative Control Passed; TS Panel A 0; TS Panel B 0; TS Positive Control Passed; TSpotTB Negative (Negative)
[2024-03-22 04:11] LABS: Syphilis Screen Nonreactive (Nonreactive)
[2024-03-22 04:32] LABS: HBS Num1 0.28 mIU/mL (0-7.99); HBc Num1 0.18 S/CO (0.00-0.79); HBsAGNum1 0.26 S/CO (0.00-0.99); HIV AB/AG Nonreactive (Nonreactive); HIV Num 1 0.05 S/CO (0.00-0.99); Hepatitis A Antibody IgM 0.15 Index (0-0.79); Hepatitis B Core Antibody Nonreactive (Nonreactive); Hepatitis B Surface Antigen Negative (Negative); ~HepC Num1 0.11 S/CO (0.00-0.79); ~Hepatitis A Antibody IgM Nonreactive (Nonreactive); ~Hepatitis B Surface Antibody NONREACTIVE (Nonreactive); ~Hepatitis C Antibody Nonreactive (Nonreactive)
[2024-03-22 20:29] LABS: Triiodothyronine T3 Total 138 ng/dL (76-181)
== END 2024-03-19 11:26 | disposition home or self-care (01) ==
LOC: HO.HHCL 11:25
PROVIDERS: Visit Provider Internal Medicine
DX: Z00.00 Encounter for general adult medical examination without abnormal findings (principal); R53.83 Other fatigue; Z11.3 Encounter for screening for infections with a predominantly sexual mode of transmission; R73.9 Hyperglycemia, unspecified
CPT/HCPCS: 36415; 80048; 82306; 83036; 84436; 84439; 84443; 84480; 84481; 85014; 85018; 86481; 86704; 86706; 86709; 86780; 86803; 87340; 87389

== ENCOUNTER 2024-03-31 10:35 | Outpatient (REF) | payer MEDICAID, SELFPAY ==
--- NOTE | ~2024-03-31 | MM_ITS ---
EXAMINATION: MM DIAGNOSTIC DIGITAL BREAST TOMOSYNTHESIS, BILATERAL US BREAST LIMITED, LEFT MAMMOGRAPHY: CLINICAL INFORMATION: Patient due for six-month ultrasound follow-up of 7 mm mass (for 1 year stability) posterior to a larger previously biopsied fibroadenoma in the retroareolar left breast. Patient also due for yearly. COMPARISON: Mammography: 09/19/2023, 03/17/2023, 03/06/2023, 01/10/2023 (BI-RADS 0). Ultrasound-guided left breast biopsy 03/17/2023 (benign fibroadenoma). Left breast ultrasounds 09/19/2023, 03/06/2023. TECHNIQUE: Digital breast tomosynthesis is performed in both the craniocaudal and mediolateral oblique views along with computer-aided detection (CAD). Synthesized 2D images are generated from the tomosynthesis. FINDINGS: There are scattered areas of fibroglandular density (ACR BI-RADS breast composition Category b). There is a stable subareolar mass with internal biopsy clip, consistent with previously biopsied fibroadenoma. Posterior to this there is a stable and unchanged smaller 7 mm mass. There are calcifications in the upper outer quadrant of the right breast, which are benign milk of calcium, previously worked up. Otherwise there are no suspicious masses, suspicious grouped calcifications, or areas of architectural distortion in either breast. The parenchymal pattern is stable from prior exams. There is no skin or axillary abnormality. ULTRASOUND: CLINICAL INFORMATION: Follow-up for 7 mm probably benign mass 3:00 axis, 1 cm from the nipple, posterior to a previously biopsied fibroadenoma. This will be a one-year follow-up. COMPARISON: Ultrasound-guided left breast biopsy 03/17/2023 (benign fibroadenoma). Left breast ultrasounds 09/19/2023, 03/06/2023. TECHNIQUE: Targeted sonographic evaluation left breast was performed using a high frequency linear transducer. Attention was given to the retroareolar region 3:00 axis. Selected archived documentation. FINDINGS: LEFT BREAST: There is a stable and unchanged oval hypoechoic nodule measuring 6 x 3 x 4 mm at the 3:00 axis of the left breast, 1 cm from the nipple, directly posterior to the previously biopsied fibroadenoma which is also stable size and appearance. There are no additional abnormalities identified. MM/MM tomosynthesis diagnostic BI IMPRESSION: -There are no findings suspicious for malignancy in either breast. -There are benign findings as above bilaterally. -7 mm oval mass remains probably benign into the 3:00 axis left breast, 1 cm from the nipple. One-year follow-up ULTRASOUND recommended (to establish two-year stability and benignity) when the patient is due for bilateral mammography. OVERALL ASSESSMENT: Mammography: BI-RADS 3 - Probably benign finding(s) - 12 month follow-up suggested Ultrasound: BI-RADS 3 - Probably benign finding(s) - 12 month follow-up suggested RECOMMENDATION: 12 month diagnostic follow up This patient's information was entered into a reminder system with a target due date for their next mammogram. Electronically signed by: Varun Ruiz MD 03/31/2024 12:23 PM EDT
== END 2024-03-31 10:36 | disposition home or self-care (01) ==
LOC: HO.MAMMO 10:35
PROVIDERS: Absent Provider Surgery; PCP Internal Medicine; Visit Provider Internal Medicine
DX: R92.2 Inconclusive mammogram (principal)
CPT/HCPCS: 76642; 77062; 77066

== ENCOUNTER → 2024-03-31 11:30 | Outpatient (BNV) | payer MEDICAID, SELFPAY | PROVIDERS: Absent Provider Surgery; PCP Internal Medicine; Visit Provider Radiology Diagnostic Radiology | DX: D24.2 Benign neoplasm of left breast (principal); R92.1 Mammographic calcification found on diagnostic imaging of breast | CPT/HCPCS: 76642; 77062; 77066 ==

== ENCOUNTER 2024-05-04 08:12 | Day surgery (SDC) | payer MEDICAID, SELFPAY ==
[2024-04-30 08:10] VITALS: BMI 29.8
--- NOTE | 2024-04-30 14:34 | HO.ANESPROP2 ---
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 Allergies Allergy/AdvReac Type Severity Reaction Status Date / Time sulfamethoxazole Allergy Unknown LIP Verified 02/04/24 10:31 [From BACTRIM] SWELLING trimethoprim [From BACTRIM] Allergy Unknown LIP Verified 02/04/24 10:31 SWELLING Home Medications ?Medication ?Instructions ?Recorded ?Confirmed ?Last Taken ?Type diphenhydramine HCl 25 mg capsule mg PO 12/09/23 Unknown History (Banophen) ergocalciferol (vitamin D2) 1,250 1,250 mcg PO QWEEK 12/09/23 Unknown History mcg (50,000 unit) capsule loratadine 10 mg tablet 10 mg PO DAILY PRN allergies 12/09/23 Unknown History triamcinolone acetonide 0.1 % appl topical 12/09/23 Unknown History topical cream cyclobenzaprine 5 mg tablet 5 mg PO BEDTIME PRN neck pain 02/03/24 Unknown History lidocaine-prilocaine 2.5 %-2.5 % topical BID PRN pain 02/03/24 Unknown History topical cream naproxen 500 mg tablet 500 mg PO BID PRN pain 02/03/24 Unknown History Exam Height,Weight and Vital Signs: Height 5 ft 2 in Weight 73.998 kg Assessment and Plan Assessment Anesthesia Assessment: Chart Reviewed
[2024-05-04 09:02] VITALS: BP 125/72; PULSE 95; RESP 18; TEMP 36.8; O2SAT 98
[2024-05-04] MEDS: Lactated Ringers 1,000 ML 100 ML IVCONT (09:13)
--- NOTE | 2024-05-04 10:02 | HO.ANESPROP2 ---
[facility] Active Problems Active Problems: All Active Problems Numbness of right hand (Acute) Cholelithiasis (Acute) Right elbow tendonitis (Acute) Breast calcification, right (Acute) Breast mass, left (Acute) Depression (Acute) Gallstones (Acute) Obesity (Acute) Past Medical History Medical History Cholelithiasis Hx of fracture of forearm Functional capacity: independent ambulation Patient : No Family History Family history of problems with anesthesia: No Surgical History Surgical History History of tubal ligation History of Problems with Anesthesia: No Social History Social History Advance Directives: No Advance Directives Information Provided: Yes Current occupational status: employed 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 Allergies Allergy/AdvReac Type Severity Reaction Status Date / Time sulfamethoxazole Allergy Unknown LIP Verified 02/04/24 10:31 [From BACTRIM] SWELLING trimethoprim [From BACTRIM] Allergy Unknown LIP Verified 02/04/24 10:31 SWELLING Active Medications: Current Medications Lactated Ringer's (Lr) 1,000 mls @ 100 mls/hr IVCONT .Q10H MAINE Last Admin: 05/04/24 09:13 Dose: 100 mls/hr Home Medications ?Medication ?Instructions ?Recorded ?Confirmed ?Last Taken ?Type diphenhydramine HCl 25 mg capsule mg PO 12/09/23 Unknown History (Banophen) ergocalciferol (vitamin D2) 1,250 1,250 mcg PO QWEEK 12/09/23 Unknown History mcg (50,000 unit) capsule loratadine 10 mg tablet 10 mg PO DAILY PRN allergies 12/09/23 Unknown History triamcinolone acetonide 0.1 % appl topical 12/09/23 Unknown History topical cream cyclobenzaprine 5 mg tablet 5 mg PO BEDTIME PRN neck pain 02/03/24 Unknown History lidocaine-prilocaine 2.5 %-2.5 % topical BID PRN pain 02/03/24 Unknown History topical cream naproxen 500 mg tablet 500 mg PO BID PRN pain 02/03/24 Unknown History Exam Height,Weight and Vital Signs: Height 5 ft 2 in Weight 73.998 kg Last Vital Signs Temp 98.3 F 05/04/24 09:02 Pulse 95 05/04/24 09:02 Resp 18 05/04/24 09:02 BP 125/72 05/04/24 09:02 Pulse Ox 98 05/04/24 09:02 O2 Del Method Room Air 05/04/24 09:02 Airway Mallampati Class: II TM Dist: >3cm Neck ROM: Full Heart: RRR Lungs: CTA Assessment and Plan Assessment Anesthesia Assessment: Anesthesia Plan Discussed and Chart Reviewed Final Anesthetic Review Family History of Problems with Anesthesia: No History of Problems with Anesthesia: No NPO: Yes ASA Class: II Final Preanesthetic Review: Meds/Allgs Chart Reviewed, Consent Obtained/Reviewed and Anes Risks/Benef Reviewed Patient Risk: Low Procedure Risk: Low Anesthetic Plan Anesthetic Plan: MAC: Disposition: Standard PACU
--- NOTE | 2024-05-04 10:16 | MHC.SHP ---
Pre-Procedural Eval Section A - 24 Hr Update-Section A only Date of Service: 05/04/24 Section B - Complete if H&P > 30 days Chief Complaint: GERD, Screening Details of Present Illness: Cholelithiasis Hx of fracture of forearm Surgical History History of tubal ligation Present Medications: see Short Stay Collaborative assessment Allergies: Allergies Allergy/AdvReac Type Severity Reaction Status Date / Time sulfamethoxazole Allergy Unknown LIP Verified 02/04/24 10:31 [From BACTRIM] SWELLING trimethoprim [From BACTRIM] Allergy Unknown LIP Verified 02/04/24 10:31 SWELLING Review of Systems Review of Systems Comment: 10 point ROS negative Exam Surgical H&P Exam: Normal: HEENT, Normal: Heart, Normal: Lungs, Normal: Extremities, Normal: Abdomen, Normal: Skin and Normal: Neurological Plan Diagnosis/Plan: Unchanged I have reviewed the history and physical and performed a pertinent physical examination on my patient. No changes have occurred unless specified. Time Spent With Patient Time: Total time managing care of this patient today ____ minutes.
[2024-05-04 11:30] VITALS: BP 127/75; PULSE 80; RESP 16; TEMP 36.3; O2SAT 98
--- NOTE | 2024-05-04 11:33 | P.OPN-COLO_ITS ---
Colonoscopy Operative Note Operative Note Date of Service: 05/04/24 Narrative: Procedure: Upper endoscopy and colonoscopy Indication: GERD, screening Endoscopist: Anne Street MD Anesthesia Provider: Dr Ginette Escobar Anesthesia type: MAC Instrument: [id number] and [id number] EGD Procedure:?? The procedure, indications, preparation and potential complications were reviewed with the patient, who indicated understanding and gave written informed consent to proceed with the help of a traffic i manager. The endoscope was introduced through the mouth, and advanced to the 2nd part of the duodenum. The mucosa was carefully examined on slow withdrawal of the endoscope. The patient tolerated the procedure well. There were no immediate complications.? EGD Findings:? * Esophagus:? Normal esophageal mucosa was noted. The Z-line was at 39 cm. Cold forceps biopsies were taken from middle and lower esophagus to rule out eosinophilic esophagitis. * Stomach:? Normal gastric mucosa. Retroflexion was performed in the cardia. Random cold forceps biopsies were taken from the stomach. * Duodenum:? Normal duodenal mucosa. Cold forceps biopsies were taken from the duodenal bulb and 2nd portion of the duodenum to rule out celiac sprue. Colonoscopy Procedure:? The patient was then turned for the colonoscopy. A digital rectal exam was performed which was normal.? A distal attachment cap was affixed to the tip of the scope and the colonoscope was then inserted through the anus and advanced through the colon and advanced to the cecum at 70 cm and terminal ileum.? Appendiceal orifice and ileocecal valve were identified. Mucosa was carefully examined under high definition white light as the instrument was slowly withdrawn in a retrograde panoramic fashion. Retroflexion was performed in ascending colon and rectum. The procedure was not difficult. The quality of the prep was BBPS: 2+3+2 = adequate Withdrawal time 9 minutes Limitations: No limitations Findings: Mucosa: Normal colon and terminal ileum mucosa. Protruding lesions: * 1 sessile polyp of size 3 mm in sigmoid colon. Cold forceps polypectomy was performed. The polyp was completely removed and retrieved. * Small internal hemorrhoids without stigmata of recent bleeding. Impression: 1. Normal esophagus (biopsy) 2. Normal stomach (biopsy) 3. Normal duodenum (biopsy) 4. Normal colon and terminal ileum mucosa 5. One polyp removed 5. Internal hemorrhoids Recommendations:?? * GERD appears well controlled on current regimen as no erosive esophagitis on exam. If pt continues to report sx, consider Kwok study. * Follow-up path results * Avoid NSAIDs * H Pylori treatment if biopsies + * Repeat colonoscopy for CRC screening in 7-10 years.
[2024-05-04 11:45] VITALS: BP 128/74; PULSE 82; RESP 16; O2SAT 98
[2024-05-04 12:00] VITALS: BP 113/65; PULSE 81; RESP 16; TEMP 36.3; O2SAT 98
== END 2024-05-04 12:26 | disposition home or self-care (01) ==
PROVIDERS: PCP Internal Medicine; Visit Provider Internal Medicine
PROC: (CPT 43239; principal; 2024-05-04 10:10)
DX: K21.9 Gastro-esophageal reflux disease without esophagitis (principal); Z12.11 Encounter for screening for malignant neoplasm of colon; K63.5 Polyp of colon; K57.30 Diverticulosis of large intestine without perforation or abscess without bleeding; K64.8 Other hemorrhoids
CPT/HCPCS: 43239; 45380; 88305; J2003; J2704

== ENCOUNTER → 2024-05-04 08:12 | Outpatient (BNV) | payer MEDICAID, SELFPAY | PROVIDERS: PCP Internal Medicine; Visit Provider Internal Medicine | DX: Z12.11 Encounter for screening for malignant neoplasm of colon (principal); K63.5 Polyp of colon; K64.8 Other hemorrhoids; K21.9 Gastro-esophageal reflux disease without esophagitis | CPT/HCPCS: 43239; 45380 ==

== ENCOUNTER 2024-05-17 09:33 | Outpatient (AMB) | payer MEDICAID, SELFPAY ==
--- NOTE | 2024-05-17 09:39 | A.OFFVIS_ITS ---
Vital Signs 05/17/24 09:43 Weight 165 lb BP 120/74 Blood Pressure Location Rt brachial Position Sitting Pulse 78 Intake Visit Reasons: Breast exam~ discuss US results Intake Note: Patient here for follow up breast exam. Recent Lt br US and MM 03-31-2024. Patient c/o: no concerns. Denies lumps, nipple discharge, rash. Yrly mammo & br US scheduled on 04-05-2025. Commercial Installer Required: No Accompanied by: Feli daughter Allergies sulfamethoxazole [From BACTRIM] Allergy (Unknown, Verified 05/17/24 09:43) LIP SWELLING trimethoprim [From BACTRIM] Allergy (Unknown, Verified 05/17/24 09:43) LIP SWELLING HPI Comments Details: Patient presents for follow-up status post right breast biopsy. Pathology is benign. She has no breast issues or complaints. Patient presents with a family member. 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 Benign. 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 She is encouraged to do occasional breast exams. All questions answered. 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
[2024-05-17 09:43] VITALS: BP 120/74; PULSE 78
== END 2024-05-17 09:51 | disposition home or self-care (01) ==
PROVIDERS: PCP Internal Medicine; Visit Provider Surgery
DX: D24.9 Benign neoplasm of unspecified breast (principal)
CPT/HCPCS: 99213

== ENCOUNTER → 2024-05-17 09:33 | Outpatient (BNVA) | payer MEDICAID, SELFPAY | PROVIDERS: PCP Internal Medicine; Visit Provider Surgery | DX: D24.9 Benign neoplasm of unspecified breast (principal); Z98.890 Other specified postprocedural states | CPT/HCPCS: 99212 ==

== ENCOUNTER 2024-05-18 12:12 | Outpatient (AMB) | payer MEDICAID, SELFPAY ==
--- NOTE | 2024-05-18 12:15 | A.OFFVIS_ITS ---
Vital Signs 05/18/24 12:16 Height 5 ft 2 in Weight 166 lb 3.657 oz BMI 30.4 BP 104/50 L Blood Pressure Location Lt brachial Position Sitting Pulse 78 Pulse Source Pulse Oximeter Pulse Oximetry (%) 99 Oxygen Delivery Method Room Air Intake Visit Reasons: s/p egd/colon Intake Note: Relevant Flags or Indicators ? Requires Parole Officer? Rosalba Samuel presents in office today for a scheduled s/p double FUV. Relevant GI Sx or significant changes since last visit? No significant changes per pt. Parole Officer Required: Yes Parole Officer Services: Parole Officer Offered & Declined Parole Officer Name: Family Allergies sulfamethoxazole [From BACTRIM] Allergy (Unknown, Verified 06/12/24 08:09) LIP SWELLING trimethoprim [From BACTRIM] Allergy (Unknown, Verified 06/12/24 08:09) LIP SWELLING HPI HPI s/p egd/colon: Details: LAST VISIT: Cholelithiasis Screen for colon cancer GERD (gastroesophageal reflux disease) Constipation Postprandial abdominal bloating Plan Continue omeprazole daily. Avoid dietary triggers and late night snacking. Staying upright for minimum 3 hours after meals discussed with patient. Patient will take Pepcid on as needed basis at bedtime. What to expect before during and after procedure discussed with patient. She can continue taking Senokot at this time daily or on as needed basis. Discussed the importance of good bowel prep and clear liquid diet day before procedure. I will see patient after the procedure, sooner on as needed basis. Patient is agreeable to this plan and verbalizes understanding of instructions. She was given the opportunity to ask questions and all questions answered. ? Thank you for allowing me to participate in her care Medications New polyethylene glycol 3350 (Miralax) As directed by gastroenterology department at [facility] 238 grams PO ONCE 238 grams 0RF Z12.11 bisacodyl (Dulcolax (bisacodyl)) take 4 tabs at noon the day before your colonoscopy 20 mg (4 x 5 mg) PO ONCE 1 day 4 tabs 0RF Z12.11 Refilled sennosides (Natural Senna Laxative) 17.2 mg (2 x 8.6 mg) PO BEDTIME 60 tabs 3RF constipation K59.00 omeprazole 20 mg PO DAILY 30 caps 3RF K21.9 ENDOSCOPY AND COLONOSCOPY: EGD Findings:? * Esophagus:? Normal esophageal mucosa was noted. The Z-line was at 39 cm. Cold forceps biopsies were taken from middle and lower esophagus to rule out eosin ophilic esophagitis. * Stomach:? Normal gastric mucosa. Retroflexion was performed in the cardia. Random cold forceps biopsies were taken from the stomach. * Duodenum:? Normal duodenal mucosa. Cold forceps biopsies were taken from the duodenal bulb and 2nd portion of the duodenum to rule out celiac sprue. Colonoscopy Procedure:? The patient was then turned for the colonoscopy. A digital rectal exam was performed which was normal.? A distal attachment cap was affixed to the tip of the scope and the colonoscope was then inserted through the anus and advanced through the colon and advanced to the cecum at 70 cm and terminal ileum.? Appendiceal orifice and ileocecal valve were identified. Mucosa was carefully examined under high definition white light as the instrument was slowly withdrawn in a retrograde panoramic fashion. Retroflexion was performed in ascending colon and rectum. The procedure was not difficult. The quality of the prep was BBPS: 2+3+2 = adequate Withdrawal time 9 minutes Limitations: No limitations Findings: Mucosa: Normal colon and terminal ileum mucosa. Protruding lesions: * 1 sessile polyp of size 3 mm in sigmoid colon. Cold forceps polypectomy was performed. The polyp was completely removed and retrieved. * Small internal hemorrhoids without stigmata of recent bleeding.Impression: 1. Normal esophagus (biopsy) 2. Normal stomach (biopsy) 3. Normal duodenum (biopsy) 4. Normal colon and terminal ileum mucosa 5. One polyp removed 5. Internal hemorrhoids Recommendations:?? * GERD appears well controlled on current regimen as no erosive esophagitis on exam. If pt continues to report sx, consider Kwok study. * Follow-up path results * Avoid NSAIDs * H Pylori treatment if biopsies + * Repeat colonoscopy for CRC screening in 7-10 years. PATHOLOGY: Diagnosis A. Esophagus, lower, biopsy: Squamous epithelium within normal limits; no inflammation seen. B. Esophagus, middle, biopsy: Squamous epithelium within normal limits; no inflammation seen. C. Colon, sigmoid, polypectomy: Colonic mucosa with prominent lymphoid aggregate TODAY'S VISIT Patient is here today for follow-up and to discuss upper endoscopy colonoscopy results. Patient had normal endoscopy no esophagitis, gastritis or duodenitis found. Sigmoid polypectomy showed colonic mucosa with lymphoid aggregate. No dysplasia found. Patient denies any ill effects from the prep, anesthesia or procedure itself. Patient has no family history of CRC. Patient denies melena, hematochezia, unintentional weight loss or ribbon like stools. Patient denies any dyspepsia, dysphagia or odynophagia. Patient reports that she for the most part feeling well. Uses omeprazole daily and her symptoms of acid reflux are suppressed for the most part. Patient is taking senna and she is able to move her bowels. Patient denies any GI concerning symptoms today. 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 Review of Systems Const Denies weight gain and Denies weight loss ENT Reports no additional complaints, Denies dysphagia and Denies odynophagia Card Reports no additional complaints Resp Reports no additional complaints GI Denies abdominal pain, Denies belching, Denies melena, Denies bloating, Denies change in bowel habits, Denies dysphagia, Denies excessive flatus, Denies dyspepsia, Denies heartburn, Denies diarrhea, Denies loose stools, Denies nausea, Denies odynophagia and Denies vomiting Reports no additional complaints Musc Reports no additional complaints Neuro Reports no additional complaints Psych Reports no additional complaints Endo Reports no additional complaints Physical Exam Vital Signs: Last Vital Signs Pulse 78 05/18/24 12:16 BP 104/50 L 05/18/24 12:16 Pulse Ox 99 05/18/24 12:16 Oxygen Delivery Method Room Air 05/18/24 12:16 BMI result Body Mass Index 30.4 Const General: healthy appearing and no acute distress Nutritional Appearance: obese Orientation/consciousness: patient oriented x3 Resp Effort & Inspection: normal respiratory effort, able to speak in complete sentences, no tracheal deviation and symmetric chest movement Auscultation: clear to auscultation bilaterally Cardio Rate: regular rate GI Inspection: Yes normal to inspection, No distended and Yes obesity Palpation (GI): Soft to palpation, not firm, nontender and No hepatosplenomegaly present Auscultation: normal bowel sounds General: Yes no CVA tenderness Back/Spine/Pelvis Back: no CVA tenderness Skin General skin exam: elasticity normal, turgor normal and dry skin Neuro General: patient oriented x3 Psych Appearance: grossly normal Mental Status: mental status grossly normal Assessment & Plan Assessment & Plan (1) Cholelithiasis: Code(s): K80.20 - Calculus of gallbladder without cholecystitis without obstruction Category: Medical Qualifiers: Cholelithiasis location: gallbladder Cholecystitis presence: without cholecystitis Biliary obstruction: without biliary obstruction Qualified Code(s): K80.20 - Calculus of gallbladder without cholecystitis without obstruction (2) GERD (gastroesophageal reflux disease): Code(s): K21.9 - Gastro-esophageal reflux disease without esophagitis Qualifiers: Esophagitis presence: esophagitis presence not specified Qualified Code(s): K21.9 - Gastro-esophageal reflux disease without esophagitis (3) Constipation: Code(s): K59.00 - Constipation, unspecified Qualifiers: Constipation type: slow transit constipation Qualified Code(s): K59.01 - Slow transit constipation (4) Postprandial abdominal bloating: Code(s): R14.0 - Abdominal distension (gaseous) Plan Colonoscopy in asymptomatic adult without family history of CRC in 10 years. Continue senna on as-needed basis. Increase fluid intake and activity to promote better bowel motility. Continue low FODMAP diet avoid dietary triggers and late night snacking. Staying upright for minimum 3 hours after meals discussed with patient. Continue omeprazole daily. Follow-up in 6 months. Patient will call if she will have any GI concerning symptoms. She is agreeable to this plan and verbalizes understanding of instructions. She was given the opportunity to ask questions and all questions answered. Thank you for allowing me to participate in her care Coding Level of Care Code Est Pt Level 3 (66483) Diagnoses Calculus of gallbladder without cholecystitis without obstruction K80.20 Cholelithiasis location: gallbladder Cholecystitis presence: without cholecystitis Biliary obstruction: without biliary obstruction Gastroesophageal reflux disease, unspecified whether esophagitis present K21.9 Esophagitis presence: esophagitis presence not specified Slow transit constipation K59.01 Constipation type: slow transit constipation Postprandial abdominal bloating R14.0 Time Spent (min) 30 Comment 20 minutes spent with patient and additional 10 minutes spent reviewing her records
[2024-05-18 12:16] VITALS: BP 104/50; PULSE 78; O2SAT 99; BMI 30.4
== END 2024-05-18 13:25 | disposition home or self-care (01) ==
PROVIDERS: PCP Internal Medicine; Visit Provider Nurse Practitioner Family
DX: K80.20 Calculus of gallbladder without cholecystitis without obstruction (principal); K21.9 Gastro-esophageal reflux disease without esophagitis; K59.01 Slow transit constipation; R14.0 Abdominal distension (gaseous)
CPT/HCPCS: 99213

== ENCOUNTER → 2024-05-18 12:12 | Outpatient (BNVA) | payer MEDICAID, SELFPAY | PROVIDERS: PCP Internal Medicine; Visit Provider Nurse Practitioner Family | DX: K21.9 Gastro-esophageal reflux disease without esophagitis (principal); K80.20 Calculus of gallbladder without cholecystitis without obstruction; K59.01 Slow transit constipation; R14.0 Abdominal distension (gaseous); Z98.890 Other specified postprocedural states | CPT/HCPCS: 99212 ==

== ENCOUNTER 2024-06-12 07:51 | Emergency (ER) | payer MEDICAID, SELFPAY ==
[2024-06-12 08:08] VITALS: BMI 25.6
[2024-06-12 08:11] VITALS: BP 127/69; PULSE 82; RESP 18; TEMP 36.6; O2SAT 99
--- NOTE | 2024-06-12 09:06 | ED_ITS ---
HPI - General Adult General Chief complaint: Allergic Reaction Stated complaint: allergies ? Time Seen by Provider: 06/12/24 09:01 Source: patient Mode of arrival: ambulatory Limitations: no limitations History of Present Illness ED Provider: Sidra Christianson PA-C HPI narrative: Patient is a 49 year old assigned female at with a history of depression, fibroadenoma of the breast, gallstones, and urticaria presenting to the emergency department today with urticaria. Patient states that she has had a week of hives to both of her arms and legs. Patient states that she has followed up with an animal daycare provider for this and they tell her she has a long list of allergies that cause this. Patient states that she is using topical creams, taking Benadryl, and using a daily allergy medicine but the symptoms persist. Patient denies any dizziness, lightheadedness, abdominal pain, nausea, vomiting, fever, chills, blurry vision, double vision, loss of vision, chest pain, difficulty breathing, shortness of breath, back pain, night sweats, pain with urination, increased urinary frequency, increased urinary urgency, blood in her urine or stool, syncope or a near syncopal episode, recent trauma or falls, bowel incontinence, bladder incontinence, or any other complaints at this time. Onset (ago): week(s) (1) Relieving factors: none Exacerbating factors: none Associated symptoms: rash Treatments prior to arrival: other (creams, benadryl, allergy medicine) Related Data Home Medications ?Medication ?Instructions ?Recorded ?Confirmed diphenhydramine HCl 25 mg capsule mg PO 12/09/23 05/17/24 (Banophen) ergocalciferol (vitamin D2) 1,250 1,250 mcg PO QWEEK 12/09/23 05/17/24 mcg (50,000 unit) capsule loratadine 10 mg tablet 10 mg PO DAILY PRN allergies 12/09/23 05/17/24 triamcinolone acetonide 0.1 % appl topical 12/09/23 05/17/24 topical cream cyclobenzaprine 5 mg tablet 5 mg PO BEDTIME PRN neck pain 02/03/24 05/17/24 lidocaine-prilocaine 2.5 %-2.5 % topical BID PRN pain 02/03/24 05/17/24 topical cream naproxen 500 mg tablet 500 mg PO BID PRN pain 02/03/24 05/17/24 Previous Rx's ?Medication ?Instructions ?Recorded ondansetron 4 mg disintegrating 4 mg PO Q6-8H PRN nausea and 12/04/23 tablet vomiting #7 tabs omeprazole 20 mg capsule,delayed 20 mg PO DAILY #30 caps 02/03/24 release sennosides 8.6 mg tablet (Natural 17.2 mg (2 x 8.6 mg) PO BEDTIME 02/03/24 Senna Laxative) constipation #60 tabs prednisone 20 mg tablet See Rx Instructions .Route 06/12/24 .COMPLEX 12 days #26 tabs Allergies Allergy/AdvReac Type Severity Reaction Status Date / Time sulfamethoxazole Allergy Unknown LIP Verified 06/12/24 08:09 [From BACTRIM] SWELLING trimethoprim [From BACTRIM] Allergy Unknown LIP Verified 06/12/24 08:09 SWELLING Review of Systems Constitutional: Constitutional: Reports no additional constitutional complaints, Denies chills, Denies fever(s) and Denies night sweats Eyes: Eyes: Reports no additional eye complaints, Denies blurry vision, Denies change in vision, Denies diplopia, Denies eye discharge, Denies loss of vision and Denies eye pain ENT: Denies dizziness Cardiovascular: Cardiovascular: Reports no additional cardiovascular complaints, Denies chest pain, Denies lightheadedness, Denies Loss of Consciousness and Denies dyspnea Respiratory: Respiratory: Reports no additional respiratory complaints and Denies dyspnea Gastrointestinal: Gastrointestinal: Reports no additional gastrointestinal complaints, Denies abdominal pain, Denies melena, Denies hematochezia, Denies change in bowel habits and Denies change in stool character Genitourinary: Genitourinary: Denies hematuria, Denies urinary frequency, Denies dysuria, Denies urinary incontinence, Denies urinary hesitancy and Denies urinary urgency Musculoskeletal: Musculoskeletal: Reports no additional musculoskeletal complaints, Denies numbness and Denies tingling Integumentary/Breasts: Skin/Breast: Reports rash Neurologic: Denies dizziness, Denies loss of vision, Denies numbness and Denies tingling Psychiatric: Psychiatric: Reports no additional psychiatric complaints Endocrine: Endocrine: Reports no additional endocrine complaints Hematologic/Lymphatic: Hematologic/Lymphatic: Reports no additional h ematologic/lymphatic complaints Allergic/Immunologic: Allergic/Immunologic: Reports no additional allergic/immunologic complaints [facility] Past Medical History Attestation statement: The following information was validated with the patient. 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 [employer] Physical Exam ED Vital Signs: Vital Signs - 24 hr 06/12/24 08:11 06/12/24 09:36 Temperature 97.9 F 97.9 F Pulse Rate 82 82 Respiratory Rate 18 18 Blood Pressure 127/69 127/69 Pulse Oximetry 99 98 Oxygen Delivery Method Room Air Room Air BMI result Body Mass Index 25.6 Const General: cooperative, no acute distress, alert and awake Nutritional Appearance: well nourished Orientation/consciousness: patient oriented x3 Limitations: no limitations HENMT Head: Yes normal to inspection and Yes atraumatic Ears: hearing grossly normal bilaterally and external ears normal General nose exam: Normal external nose present, no nasal discharge noted and no epistaxis Face and sinus: Yes normal facial exam, No abrasion and No laceration Mouth: Normal oral and palatal mucosa present, no drooling and no muffled voice Eyes General: appearance normal, both eyes and all related structures Periorbital: periorbital findings normal Eyelids: Yes eyelids normal Conjunctivae: conjunctivae normal Pupils: Equal, round and reactive pupils present EOM: EOMs intact bilaterally Neck Neck: Yes normal visual inspection, Yes full ROM and Yes no lymphadenopathy Chest Chest palpation & inspection: normal inspection of the chest Resp Effort & Inspection: normal respiratory effort and able to speak in complete sentences GI Inspection: Yes normal to inspection Skin Other: urticaria present to the posterior bilateral arms and legs Neuro General: patient oriented x3 and moves all extremities Cranial nerves: Yes Equal, round and reactive pupils present Cognition (Neuro): normal cognition Extrem General: Yes normal to inspection, Yes full ROM and Yes capillary refill normal Psych Appearance: grossly normal Mental Status: mental status grossly normal Affect: normal affect Attitude: cooperative Thought process: Normal thought process present Thought content: Normal thought content present Insight: Good insight present (Psych) Medications Administered Discontinued Medications Generic Name Dose Route Start Last Admin Trade Name Karol PRN Reason Stop Dose Admin Methylprednisolone Sodium Succinate 60 mg 06/12/24 09:20 06/12/24 09:34 Methylprednisolone Sod Succ 125 Mg/2 Ml Vial IM 06/12/24 09:21 60 mg ONCE ONE Administration Medical Decision Making Medical Decision Making MDM Narrative: Patient is a 49 year old assigned female at with a history of depression, fibroadenoma of the breast, gallstones, and urticaria presenting to the emergency department today with urticaria. Patient's physical exam was as noted in the physical exam portion of this note. I explained my physical exam findings to the patient. I answered all questions asked by the patient. I stressed the importance of the patient taking her medication as directed (either prescribed or as the over the counter packaging recommends). I stressed the importance of the patient following up with her primary care provider and back up with her animal daycare provider as well as journaling exposures. I stressed the importance of the patient returning to the emergency department immediately if her symptoms were to worsen or if she were to develop any dizziness, shortness of breath, difficulty breathing, chest pain, blurry vision, loss of vision, nausea, vomiting, abdominal pain, fever, chills, back pain, or any other complaints. Patient verbalized agreement and understanding with this treatment plan and discharge. Differential Diagnosis Differential Diagnoses: The differential diagnosis associated with the presentation includes Idiopathic urticaria Urticaria MAST Admission/Observation Consideration of admission/observation: Escalation of care including admissio n/observation considered Patient would have been admitted to the hospital had her clinical presentation warranted hospital admission. Discharge Plan Discharge Clinical Impression: Urticaria Patient Disposition: Home, Self-Care Instructions: Urticaria (ED) Additional Instructions: Follow up with your primary care provider. Return to the emergency department immediately if your symptoms worsen or if you develop any dizziness, shortness of breath, difficulty breathing, chest pain, blurry vision, loss of vision, nausea, vomiting, abdominal pain, fever, chills, back pain, or any other complaints. Yamile?seguimiento?con moura m?dico de atenci?n primaria. Acuda inmediatamente al servicio de urgencias si stephanie s?ntomas empeoran o si presenta falta de aliento, dificultad para respirar, dolor tor?cico, mareos, aturdimiento, dolor de espalda, dolor abdominal, fiebre, escalofr?os o cualquier otro s?ntoma. Prescriptions: New prednisone 20 mg tablet See Rx Instructions .ROUTE .COMPLEX 12 Days Qty: 26 0RF Rx Instructions: 20 mg orally, Take 3 tablets for 5 days THEN; Take 2 tablets for 4 days THEN; Take 1 tablet for 3 days No Action ondansetron 4 mg tablet,disintegrating 4 mg PO Q6-8H PRN (Reason: nausea and vomiting) Qty: 7 0RF loratadine 10 mg tablet 10 mg PO DAILY PRN (Reason: allergies) triamcinolone acetonide 0.1 % cream topical diphenhydramine HCl [Banophen] 25 mg capsule PO ergocalciferol (vitamin D2) 1,250 mcg (50,000 unit) capsule 1,250 mcg PO QWEEK lidocaine-prilocaine 2.5-2.5 % cream topical BID PRN (Reason: pain) naproxen 500 mg tablet 500 mg PO BID PRN (Reason: pain) cyclobenzaprine 5 mg tablet 5 mg PO BEDTIME PRN (Reason: neck pain) omeprazole 20 mg capsule,delayed release(DR/EC) 20 mg PO DAILY Qty: 30 3RF sennosides [Natural Senna Laxative] 8.6 mg tablet 17.2 mg PO BEDTIME Qty: 60 3RF Referrals: Stacy Boyd MD [Primary Care Provider] - Interventions: ED Discharge Assessment Last Done: 06/12/24 09:36 Discharge Date/Time: 06/12/24 09:37 Print Language: Khmer
[2024-06-12] MEDS: methylPREDNISolone Sod Succ 125 MG/2 ML VIAL 60 MG IM (09:34)
[2024-06-12 09:36] VITALS: BP 127/69; PULSE 82; RESP 18; TEMP 36.6; O2SAT 98
== END 2024-06-12 09:37 | disposition home or self-care (01) ==
PROVIDERS: Emergency Provider Emergency Medicine; PCP Internal Medicine
DX: L50.9 Urticaria, unspecified (principal)
CPT/HCPCS: 96372; 99282; 99284; J2919

== ENCOUNTER 2024-06-24 13:20 | Outpatient (REF) | payer MEDICAID, SELFPAY | END 2024-06-24 13:21 | disposition home or self-care (01) | LOC: HO.HHCL 13:20 | PROVIDERS: Visit Provider Internal Medicine | DX: Z13.89 Encounter for screening for other disorder (principal) ==

== ENCOUNTER 2024-06-25 09:17 | Outpatient (REF) | payer MEDICAID, SELFPAY ==
[2024-06-25 11:59] LABS: C Reactive Protein 0.95 mg/dL (< or = 0.50); Cholesterol 214 mg/dL (<200); HDL Cholesterol 58 mg/dL (>40); LDL Cholesterol Calculated 141 mg/dL (<100); Triglycerides 77 mg/dL (<150)
[2024-06-25 12:14] LABS: Reflex LDLD? No
[2024-06-25 12:27] LABS: Erythrocyte Sedimentation Rate 17 MM/HR (0-20)
[2024-06-30 06:29] LABS: Immunoglobulin E 162 kU/L (<OR=114)
== END 2024-06-25 09:18 | disposition home or self-care (01) ==
LOC: HO.HHCL 09:17
PROVIDERS: Visit Provider Internal Medicine
DX: L50.9 Urticaria, unspecified (principal)
CPT/HCPCS: 36415; 80061; 82785; 85652; 86140

== ENCOUNTER → 2024-07-20 14:55 | Outpatient (BNV) | payer MEDICAID, SELFPAY | PROVIDERS: Visit Provider Radiology Diagnostic Radiology | DX: R07.89 Other chest pain (principal) | CPT/HCPCS: 71046 ==

== ENCOUNTER 2024-09-24 13:27 | Outpatient (REF) | payer MEDICAID, SELFPAY ==
--- OUTSIDE RECORDS SUMMARY | 2024-09-24 13:49 | XMS_ITS | Encounter Summary ---
Author Organization [employer] Address [address] [place] [address] Care Team Providers Care Purchasing/Receiving Name Role Phone Stacy Boyd MD Primary Care Provider + Encounter Details Date Type Department Care Team ([facility] st Contact Info) Description 03/27/2023 Orders Only [facility] MEDICINE [address] [place], [place] [id number] Provider, MD Griselda Social History Tobacco Use Types Packs/Day Years Used Date Smoking Tobacco: Never Smokeless Tobacco: Never Alcohol Use Standard Drinks/Week Comments Never 0 (1 standard drink = 0.6 oz pur e alcohol) PHQ-2 Answer Date Recorded Patient Health Questionnaire-2 Score 0 09/26/2022 Housing Stability Answer Date Recorded What is your housing situation today? I have melanie cuellar 03/26/[address] you li ve. Do you have problems with any of the following? None of the above 03/26/2023 Food Insecurity Answer Date Recorded Within the past 12 months, y ou worried that your food would run out before you got money to buy more: Never True 03/26/2023 Within the past 12 months,th e food you bought just didn't last and you didn't have enough money to get more: Never True 04/2023 Transportation Answer Date Recorded In the past 12 months, has l ack of transportation kept you from medical appts, meetings, work or from getting things needed for daily living? No 03/26/2023 Utilities Answer Date Recorded In the past 12 months, has t he electric, gas, oil or water company threatened to shut off services in your home? No 03/26/2023 Depression Answer Date Recorded Patient Health Questionnaire-2 Score 0 09/26/2022 Comments Unknown Sex and Gender Information Value Date Recorded Sex Assigned at Female 04/15/2022 10:16 AM EDT Legal Sex Female 10:16 AM EDT Gender Identity Female 04/15/2022 10:16 AM EDT Sexual Orientation Straight 04/15/2022 10 :16 AM EDT documented as of this encounter Plan of Treatment Not on file documented as of this encounter Procedures Procedure Name Priority Date/Time Associated Diagnosis Comments US BREAST BIOPSY LEFT Routine 03/17/2023 documented in this encounter Results * US Breast Biopsy Left (03/17/2023) Anatomical Region Laterality Modality Ultrasound us Historical Provider MD T[facility] US PROCEDURES Final R esult documented in this encounter Visit Diagnoses Not on filedocumented in this encounter Care Teams Purchasing/Receiving Relationship Specialty Start Date End Date Stacy Boyd MD [address] [place] [id number] PCP - General Family Medicine 05/20/16 documented as of this encounter
--- OUTSIDE RECORDS SUMMARY | 2024-09-24 13:49 | XMS_ITS | Clinical Summary ---
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 45 g 3 Active cyclobenzaprine (Flexeril) 5 MG tablet Take 1 tab orally at bedtime prn neck pain 15 tablet 4 Active lidocaine-prilo claire (Emla) 2.5-2.5 % cream Apply topically bid on affected area prn pain 30 g 1 4 Active diphenhydrAMINE (BENADryl) 25 MG capsuleIndicati ons:Urticaria 1-2 capsules by mouth as needed up to every 6 hours for rash, itching 45 capsule 5 Active omeprazole (PriLOSEC) [address] capsule TAKE 1 CAPSULE BY MOUTH EVERY DAY 90 capsule 5 Active levocetirizine (Xyzal) 5 MG tabletIndicatio ns:Urticaria/ [employer] As[employer]er Jacek Tejada 5 mg in the evening. Active valACYclovir (Valtrex) 1 g tablet Take 2 tablets (2,000 mg) by mouth 1 (one) time for 1 dose. 2 tablet 3 5 09/25/19 25 Active valACYclovir (Valtrex) 1 g tablet Take 1 tablet (1,000 mg) by mouth 2 times daily for 7 days. 14 tablet 5 09/21/19 25 Active Problems Problem Noted Date Diagnosed Date Herpes stomatitis 09/13/2024 Assessment & Plan (09/13/2024 11:11 AM EDT): First episode, start valacyclovir 1G x 7 days FAZAL. Mouthwash with honey and water, can use Orajel to affected area AC meals. If symptoms recur, she needs to notify or come to walk In Center FAZAL. Follow-up with PCP Class 1 obesity due to exces s calories with serious comorbidity and body mass index (BMI) of 31.0 to 31.9 in adult 08/19/2024 Assessment & Plan (08/19/2024 2:25 PM EST): Discussed re weight reduction options including exercise, life style modifications, diet. Recommended to decrease soda and sugary beverage consumption, increase protein intake with meals (at least 1 portion of protein with each meal) to assist with satiety, increase dietary fiber Recommended at least 150 min/week of moderate intensity exercise. Declined/wants a referral to dietitian today, follow-up in 6 months. Tiredness 03/19/2024 Assessment & Plan (03/19/2024 11:00 AM EDT): R/o IFG Order labs and follow up with me after labs. Encounter for preventive health examination 09/2023 Assessment & Plan (03/19/2024 11:03 AM EDT): Discussed with patient re increase fresh fruit and vegetable intake. Counseled re moderate exercise as tolerated, up to 20min/d Patient feels safe at home. PAP smear: UTD, next one due 2027 Mammogram: UTD, next one due 2024 Eye exam: Overdue, has appt 03/22/2024 CRC screen: has appointment in a few weeks. Lipids/FBS: UTD, next one due 09/2024 Vaccinations: She will get TD today, declined flue and covid, will get at earliest convenience. Will order TB test all other immunizations UTD. Dental visit: Overdue, advised to make an appointment with dentist. 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 Assessment & Plan (09/15/2023 9:21 AM EDT): S/p left breast biopsy on March 2023 Continue routine mammogram Right wrist pain 09/15/2023 Assessment & Plan (03/19/2024 10:59 AM EDT): Residual from fracture. Prescription for right wrist brace sent again to DME supplier, gave information to follow up with supplier. Use brace for most activities that involve lifting and driving if needed. 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 Order X-rays of right wrist. Right rist immobilized with splint; recommended to use qhc and prn for pain during the daytime. Refer to OT. Breast calcification, right 09/15/2023 Assessment & Plan (06/24/2024 2:11 PM EST): S/P mammogram birads 3 on 03/31/24, needs FU yearly + breast US x 2 years. Assessment & Plan (09/15/2023 10:26 AM EDT): Will need diagnostic and Ultrasound every 6 months x 2 years. Hyperglycemia 09/15/2023 Assessment & Plan (03/19/2024 11:00 AM EDT): R/o IFG I have discussed with patient regarding increasing physicial activity and decrease calorie intake I'll check FBS with next set of labs. To check RBS at next visit. FU with me in 6 months. Assessment & Plan (09/15/2023 10:26 AM EDT): RBS last year was 110. Will recheck RBS and HbA1C. Screening mammogram for breast cancer 12/11/2022 Encounter for cervical Pap smear with pelvic exa m 12/11/2022 Assessment & Plan (12/11/2022 9:38 AM EDT): Pelvic exam today wnl FU pap smear results/HPV/STI testing and will call back PRN positive results or FU in 6 months Pt feels safe at home no concern for DV Counseled regarding STI prevention If today's pap smear/co testing is normal next one will be due in 5 years. Stress incontinence of urine 12/11/2022 Assessment & Plan (12/11/2022 9:38 AM EDT): I gave information about kegel's exercise and FU in PRN Skin rash 11/21/2022 Assessment & Plan (11/21/2022 9:18 AM EDT): Pt with 7 days of herpetiform rash in left arm w no systemic symptoms and no pain associated only itching -appears most likely dermatitis and given no chronic GI symptoms reported and no hx of anemia celiac dx seems unlikely so no concern for herpetiform dermatitis , low concern for herpes zoster with no pain -advised pt to try triamcinolone cream BID x 7 to 10 days -alarm signs and symptoms discussed in case needs to come back to [facility] -also will hold on valacyclovir given no suspicion for herpes zoster and given already on day 7 of symptoms -so not indicated -advised to cover area and avoid sun exposure -pt has already schedule apt w her PCP for end of this month -can monitor rash then Closed fracture of forearm 09/25/2022 Assessment & Plan (09/26/2022 12:45 PM EDT): Resolved. No need for further fu will scheduled appointment for PAP smear with me Colitis 09/25/2022 Dental calculus 09/19/2022 Periodontal disease 09/19/2022 Gingival bleeding 09/19/2022 Localized gingival recession 09/19/2022 Dizziness 06/21/2022 Sweating abnormality 06/21/2022 Urticaria 12/29/2017 Assessment & Plan (09/13/2024 11:12 AM EDT): On the right thigh, recurrent, mild. Call alterations supervisor to restart medications as needed Assessment & Plan (08/19/2024 2:22 PM EST): Seen by alterations supervisor already, OV note to follow, not available to me at this time. Doing well on Xyzal, use Benadryl as needed severe urticaria. Follow-up with alterations supervisor Assessment & Plan (06/24/2024 2:11 PM EST): Will give med pack today and pt to continue on Zyrtec daily + Benadryl QHS PRN urticaria. Refer to alterations supervisor. Order labs and FU with me in 1 month. Assessment & Plan (09/26/2022 12:45 PM EDT): Partially controlled. continue loratidine + benadryl FU with alterations supervisor Vitamin D deficiency 09/16/2014 Assessment & Plan (09/26/2022 12:46 PM EDT): Check vit d levels FU with me to discuss supplementation Recurrent major depressive episodes, moderate Resolved Problems Problem Noted Date Diagnosed Date Resolved Date Decreased vision in both eyes 09/15/2023 03/22/2024 Assessment & Plan (09/15/2023 10:17 AM EDT): Referral placed to Ophthalmology. Encounters Date Type Department Care Team Description 09/24/2024 12:00 PM EDT Office Visit [facility] [address] [place] [id number] Stacy Boyd MD Oral ulcer (Primary Dx) 09/24/2024 Travel 09/22/[address] [phone] Stacy Boyd MD Chart prep 09/21/2024 Patient Outreach [address] [address] Stacy Boyd MD Care Coordination (C3/CM Outreach) 09/13/2024 11:20 AM EDT Office Visit [facility] [address] [place] [phone] Stacy Boyd MD Herpes stomatitis (Primary Dx); Urticaria 09/08/2024 Patient Outreach [facility] [address] [place] [phone] Stacy Boyd MD Care Coordination (Outreach) 08/27/2024 Population Health Risk Score [facility] Department [address] [place] [phone] Provider, Population Health Generic 08/25/2024 Patient Outreach [facility] [address] [place] [address] Stacy Boyd MD Care Coordination (Outreach) 08/19/2024 9:00 AM EST Office Visit [address] [address] Stacy Boyd MD Urticaria (Primary Dx); Class 1 obesity due to excess calories with serious comorbidity and body mass index (BMI) of 31.0 to 31.9 in adult; Exercise counseling; Dietary counseling; Decreased vision in both eyes 08/19/2024 Travel 08/17/[address] [address] Stacy Boyd MD Chart prep 08/12/2024 Telephone [facility] [address] [place] [address] Stacy Boyd MD Care Coordination (C3 initial assessment/ enrollment) 08/10/2024 Patient Outreach [facility] [address] [place] [address] Stacy Boyd MD Care Coordination (Outreach) 08/06/2024 Patient Outreach [facility] [address] [place] [address] Stacy Boyd MD Care Coordination (Outreach) 07/28/2024 Patient Outreach [facility] [address], [place] [phone] Stacy Boyd MD Care Coordination (Outreach) 07/21/2024 Patient Outreach [facility] [address] [place] [address] Stacy Boyd MD Care Coordination (Outreach) 07/20/2024 1:40 PM EST Office Visit [facility] [address] [place], [place] [phone] Any Martin MD Precordial pain (Primary Dx) 07/13/2024 Telephone [facility] [address] [place], [place] [phone] Stacy Boyd MD Results from Last 3 Months Immunizations Name Administration Dates Next Due Hep B, adult 09/27/2011,04/19/2009,02/14/2009 Pfizer Covid-19 Vaccine 12+ 01/09/2022,,10/20/2020 Pfizer Covid-19 Vaccine 12+ demetrius-sucrose (Burnett Cap) 01/09/2022 Tdap 03/19/2024,10/25/2013 Social History Tobacco Use Types Packs/Day Years Used Date Smoking Tobacco: Never Smokeless Tobacco: Never Tobacco Cessation:Counseling Given: Not Answered Alcohol Use Standard Drinks/Week Comments Never 0 (1 standard drink = 0.6 oz pur e alcohol) Alcohol Answer Date Recorded Frequency of Alcohol Consumption Not on file 09/15/2023 Average Number of Drinks Not on file 024 Frequency of Binge Drinking Not on file 06/2023 Score 0 09/15/2023 Depression Answer Date Recorded Patient Health Questionnaire-9 Score 0 09/15/2023 Patient Health Questionnaire-9 Score 0 09/15/2023 Last PHQ-9: Questionnaire Data Not on file 0 09/15/2023 Housing Stability Answer Date Recorded What is your housing situation today? I have melanie cuellar 04/02/[address] you li ve. Do you have problems with any of the following? None of the above 04/02/2023 Food Insecurity Answer Date Recorded Within the past 12 months, y ou worried that your food would run out before you got money to buy more: Never True 04/02/2023 Within the past 12 months,th e food you bought just didn't last and you didn't have enough money to get more: Never True Transportation Answer Date Recorded In the past 12 months, has l ack of transportation kept you from medical appts, meetings, work or from getting things needed for daily living? No 04/02/2023 Utilities Answer Date Recorded In the past 12 months, has t he electric, gas, oil or water company threatened to shut off services in your home? No 04/02/2023 Depression Answer Date Recorded Patient Health Questionnaire-2 Score 0 09/15/2023 Internet Access Answer Date Recorded Internet Access Q1 Yes 06/17/2024 Internet Access Q2 Not on file 06/17/2024 Comments No Sex and Gender Information Value Date Recorded Sex Assigned at Female 04/15/2022 10:16 AM EDT Legal Sex Female 10:16 AM EDT Gender Identity Female 04/15/2022 10:16 AM EDT Sexual Orientation Straight 04/15/2022 10 :16 AM EDT Last Filed Vital Signs Vital Sign Reading Time Taken Comments Blood Pressure 123/70 09/24/2024 12:03 PM EDT Pulse 81 09/24/2024 12:03 PM EDT Temperature 36.6 ??C (97.8 ??F) 09/24/2024 12:03 PM E DT Respiratory Rate 20 09/24/2024 12:03 PM EDT Oxygen Saturation 98% 09/24/2024 12:03 PM EDT Inhaled Oxygen Concentration - - Weight 77.7 kg (171 lb 6 oz) 09/24/2024 12:03 PM EDT Height 157.5 cm (5' 2 ) 09/24/2024 12:03 PM EDT Body Mass Index 31.34 09/24/2024 12:03 PM EDT Plan of Treatment Health Maintenance Due Date Last Done Comments CT Colonography 1977 FIT DNA/Cologuard 1977 FIT 1977 FOBT 1975 Sigmoidoscopy 1977 Alcohol/Substance Use Screening 1989 Dental Oral Exam 01/15/2023 07/17/2022 Dental Prophylaxis 03/22/2023 09/19/2022 Dental X-Ray: Bitewings 07/18/2023 07/17/2022 COVID-19 Vaccine ( season) 2024 01/09/2022, 01/09/2022, 11/10/2020, Additional history exists Influenza Vaccine (#1) 2024 Depression Screening 09/14/2024 09/15/2023, 09/15/19 24 Diagnostic Breast Imaging 09/29/20242023, 03/31/2024, 09/19/2023, Additional history exists Dental X-Ray: Full Mouth 07/18/2025 07/17/2022 SDOH Screening 07/28/2025 07/28/2024 Family Planning (PISQ) 08/19/2025 08/19/2024 Tobacco Screening 09/24/2025 09/24/2024 Zoster Vaccines (1 of 2) 2027 Cervical Cancer Screening 12/12/2027 HPV/Cotest 12/12/2027 12/11/2022, 12/11/2022 Pap Smear 12/12/2027 12/11/2022, 11/15, 12/11/2022 Lipid Panel 06/25/2029 06/25/2024 DTaP/Tdap/Td Vaccines (3 - Td or Tdap) 03/19/2034 03/19/2024, 10/25/2013 Colonoscopy 05/04/2034 05/04/2024 Colorectal Cancer Screening 05/04/2034 RSV Patients and Patients Aged 60 years or older (1 - 1-dose 75+ series) 2052 Hepatitis B Vaccines Completed 09/27/2011, 04/19/2009, 02/14/2009 HIV Screening Completed 03/19/2024 Hepatitis C Screening Completed 03/19/2024 HIB Vaccines Aged Out No longer eligi ble based on patient's age to complete this topic HPV Vaccines Aged Out No longer eligi ble based on patient's age to complete this topic Hepatitis A Vaccines Aged Out No long er eligible based on patient's age to complete this topic IPV Vaccines Aged Out No longer eligi ble based on patient's age to complete this topic Meningococcal Vaccine Aged Out No victorino db eligible based on patient's age to complete this topic Pneumococcal Vaccine: Pediatrics (0 to 5 Years) and At-Risk Patients (6 to 49) Years) Aged Out No longer eligible based on patient's age to complete this topic RSV under 20 months Aged Out No longe r eligible based on patient's age to complete this topic Rotavirus Vaccines Aged Out No longer eligible based on patient's age to complete this topic Procedures Procedure Name Priority Date/Time Associated Diagnosis Comments ECG 12-LEAD Routine 07/20/2024 4:42 PM EST Precordial pain POCT HEMOGLOBIN Routine 07/20/2024 3:00 PM EST Precordial pain XR CHEST 2 VIEWS STAT 07/20/2024 2:55 PM EST Precordial pain LIPID PANEL WITH REFLEX TO DIRECT LDL Routine 06/25/2024 9:18 AM EST Urticaria HM COLONOSCOPY Routine 05/04/2024 BI US BREAST LIMITED LEFT Routine 03/31/2024 11:15 AM EDT HEPATITIS PANEL, GENERAL Routine 03/19/2024 11:25 AM EDT Screen for STD (sexually transmitted disease) HIV 1/2 ANTIGEN/ANTIBODY, FOURTH GENERATION W/RFL Routine 03/19/2024 11:25 AM EDT Screen for STD (sexually transmitted disease) THINPREP IMAGING PAP AND HPV MRNA E6/E7 WITH REFLEX TO HPV 16,18/45 Routine 12/11/2022 9:20 AM EDT Encounter for cervical Pap smear with pelvic exam PROPHYLAXIS - ADULT Routine 09/19/2022 1 0:00 AM EDT Dental calculus Periodontal disease Gingival bleeding Localized gingival recession INTRAORAL - COMPLETE SERIES OF RADIOGRAPHIC IMAGES Routine 07/17/2022 9:30 AM EST Periodontal disease Dental calculus Dental caries COMPREHENSIVE ORAL EVALUATION - NEW OR ESTABLISHED PATIENT Routine 07/17/2022 9:30 AM EST Periodontal disease Dental calculus Dental caries from Last 3 Months or Most Recently Relevant to Health Maintenance Results * ECG 12 lead (07/20/2024 4:42 PM EST) Narrative Any Martin MD - 07/20/2024 4:42 PM EST Sinus rhythm at 80 bpm with one PVC us Any Martin MD ECG ORDERABLES Final Result * (ABNORMAL) POCT Hemoglobin (07/20/2024 3:00 PM EST) [facility] Hemoglobin 10.0(A) 12.0 - 15.0 Blood 07/20/2024 3:00 PM EST us Any Martin MD POINT OF CARE TEST ENTER/EDIT ORDERABLES Final Result * XR Chest 2 Views (07/20/2024 2:55 PM EST) Anatomical Region Laterality Modality Chest Radiographic Cindy ging 07/20/2024 2:55 PM EST Narrative 07/20/2024 3:53 PM EST ?[facility] ?[address] ?[place] [address] ?XRay Report ? Signed ? Patient: Lizzie Esteban ?MR#: [id number] ?? [id number] ? : 1975 ?Acct:[id number] ? Age/Sex: 49 / F ?ADM Date: 07/20/24 ? Loc: HO.HHCX ? Attending Dr: Any Martin MD ? Ordering Physician: Any Martin MD ?? Date of Service: 07/20/24 ?? Procedure(s): XR chest 2V ?? Accession Number(s): [id number] ? cc: Any Martin MD ? EXAMINATION: ??XR CHEST 2 VIEWS ? HISTORY: Constant substernal chest pressure ? COMPARISON: Comparison is made with the prior examination dated ?? 12/03/2023. ? FINDINGS: ??PA and lateral views of the chest are submitted. The lungs ?? are expanded and clear. ??There is no pleural effusion, pneumothorax, or ?? pulmonary vascular congestion. ??The heart is normal in size. ??There is ?? mild degenerative disc disease of the spine. ? XR/XR chest 2V ?? IMPRESSION: ?? No acute cardiopulmonary abnormality. ? Electronically signed by: ??Carmelo Lujan MD ??07/20/2024 03:50 PM EST ?? RP ? Dictated By: ?Carmelo Lujan MD ? Signed By: ?<Electronically signed by Carmelo Lujan MD in OV> ?07/20/24 1550 ? DD/ 1455 ? TD/TT: 07/20/24 1500 ? Electrician Wiring: ? Procedure Note Donotuseinterpreter, Image - 07/20/[address] [address] XRay Report Signed Patient: Lizzie Esteban LMR#: [id number] : 1975Acct:[id number] Age/Sex: 49 / FADM Date: 07/20/24 Loc: HO.HHCX Attending Dr: Any Martin MD Ordering Physician: Any Martin MD Date of Service: 07/20/24 Procedure(s): XR chest 2V Accession Number(s): [id number] cc: Any Martin MD EXAMINATION: XR CHEST 2 VIEWS HISTORY: Constant substernal chest pressure COMPARISON: Comparison is made with the prior examination dated 12/03/2023. FINDINGS: PA and lateral views of the chest are submitted. The lungs are expanded and clear. There is no pleural effusion, pneumothorax, or pulmonary vascular congestion. The heart is normal in size. There is mild degenerative disc disease of the spine. XR/XR chest 2V IMPRESSION: No acute cardiopulmonary abnormality. Electronically signed by: Carmelo Lujan MD 07/20/2024 03:50 PM EST Dictated By: Carmelo Lujan MD Signed By: <Electronically signed by Carmelo Lujan MD in OV> 07/20/24 1550 DD/ 1455 TD/TT: 07/20/24 1500 Electrician Wiring: Any Martin MD IMG XR PROCEDURES Final Resul t * (ABNORMAL) Lipid Panel with Reflex to Direct LDL (06/25/2024 9:18 AM EST) Triglycerides 77 <150 mg/dL [facility] Comment:Desirable Triglyceri de: less than 150 mg/dLBorderline High Triglyceride 150-199 mg/dLHigh Triglyceride: 200-499 mg/dLVery High Triglyceride: greater than or equal to 5OO mg/dL Cholesterol 214(H) <200 mg/dL [facility] Comment:Desirable Cholestero l: less than 200 mg/dLBorderline High Cholesterol: 200-239 mg/dLHigh Cholesterol: greater than 239 mg/dL LDL Cholesterol Calculated 141(H) <100 mg/dL [facility] Comment:Desirable LDL: less than 100 mg/dLNear Optimal/Above Optimal LDL: 110- 129 mg/dLBorderline High LDL: 130-159 mg/dLHigh LDL: 160-189 mg/dLVery High LDL: greater than or equal to 190 mg/dL HDL Cholesterol 58 >40 mg/dL [facility] Comment:Desirable HDL: great er than 40 mg/dL Note: This HDL assay may give artificially low results in patients with liver disease. Blood 06/25/2024 9:18 AM EST 06/25/2024 11:34 AM EST us Stacy Boyd MD LAB BLOOD ORDERABLES Fin al Result Performing Organization Address [facility] de Phone Number [facility] [address] [place] [address] [phone] * Colonoscopy (05/04/2024) Colonoscopy Normal Normal [facility] Comment:benign polyp us Stacy Boyd MD HEALTH MAINTENANCE Final Result Performing Organization Address [facility] Co de Phone Number [facility] [address] [place] [address] [phone] * BI US Breast Limited Left (03/31/2024 11:15 AM EDT) Anatomical Region Laterality Modality Breast Left Ultrasound 03/31/2024 11:1 5 AM EDT Narrative 03/31/2024 12:26 PM EDT ? [facility] ? [address] ?[place] [address] ? Ultrasound Report ? Signed ? Patient: Carlito,Geetha ?MR#: [id number] ?? [id number] ? : 1975 ?Acct:[id number] ? Age/Sex: 48 / F ?ADM Date: 03/31/24 ? Loc: HO.MAMMO ? Attending Dr: Stacy Boyd MD ? Ordering Physician: Stacy Boyd MD ?? Date of Service: 03/31/24 ?? Procedure(s): US breast LT limited mamm only ?? Accession Number(s): [id number] ? cc: Stacy Boyd MD ? EXAMINATION: ?? MM DIAGNOSTIC DIGITAL BREAST TOMOSYNTHESIS, BILATERAL ?? US BREAST LIMITED, LEFT ? MAMMOGRAPHY: ?? CLINICAL INFORMATION: ? Patient due for six-month ultrasound follow-up of 7 mm mass (for 1 year ?? stability) posterior to a larger previously biopsied fibroadenoma in ?? the retroareolar left breast. Patient also due for yearly. ? COMPARISON: ?? Mammography: 09/19/2023, 03/17/2023, 03/06/2023, 01/10/2023 (BI-RADS 0). ?? Ultrasound-guided left breast biopsy 03/17/2023 (benign fibroadenoma). ?? Left breast ultrasounds 09/19/2023, 03/06/2023. ? TECHNIQUE: ?? Digital breast tomosynthesis is performed in both the craniocaudal and ?? mediolateral oblique views along with computer-aided detection (CAD). ?? Synthesized 2D images are generated from the tomosynthesis. ? FINDINGS: ?? There are scattered areas of fibroglandular density (ACR BI-RADS breast ?? composition Category b). ? There is a stable subareolar mass with internal biopsy clip, consistent ?? with previously biopsied fibroadenoma. Posterior to this there is a ?? stable and unchanged smaller 7 mm mass. There are calcifications in the ?? upper outer quadrant of the right breast, which are benign milk of ?? calcium, previously worked up. ? Otherwise there are no suspicious masses, suspicious grouped ?? calcifications, or areas of architectural distortion in either breast. ?? The parenchymal pattern is stable from prior exams. There is no skin or ?? axillary abnormality. ? ULTRASOUND: ?? CLINICAL INFORMATION: ?? Follow-up for 7 mm probably benign mass 3:00 axis, 1 cm from the ?? nipple, posterior to a previously biopsied fibroadenoma. This will be a ?? one-year follow-up. ? COMPARISON: ?? Ultrasound-guided left breast biopsy 03/17/2023 (benign fibroadenoma). ?? Left breast ultrasounds 09/19/2023, 03/06/2023. ? TECHNIQUE: ?? Targeted sonographic evaluation left breast was performed using a high ?? frequency linear transducer. Attention was given to the retroareolar ?? region 3:00 axis. ??Selected archived documentation. ? FINDINGS: ? LEFT BREAST: ?? There is a stable and unchanged oval hypoechoic nodule measuring 6 x 3 ?? x 4 mm at the 3:00 axis of the left breast, 1 cm from the nipple, ?? directly posterior to the previously biopsied fibroadenoma which is ?? also stable size and appearance. ? There are no additional abnormalities identified. ? US/US breast LT limited mamm only ?? IMPRESSION: ?? -There are no findings suspicious for malignancy in either breast. ? -There are benign findings as above bilaterally. ? -7 mm oval mass remains probably benign into the 3:00 axis left breast, ?? 1 cm from the nipple. One-year follow-up ULTRASOUND recommended (to ?? establish two-year stability and benignity) when the patient is due for ?? bilateral mammography. ? OVERALL ASSESSMENT: ?? Mammography: BI-RADS 3 - Probably benign finding(s) - 12 month ?? follow-up suggested ?? Ultrasound: BI-RADS 3 - Probably benign finding(s) - 12 month follow-up ?? suggested ? RECOMMENDATION: ?? 12 month diagnostic follow up ? This patient's information was entered into a reminder system with a ?? target due date for their next mammogram. ? Electronically signed by: ??Varun Ruiz MD ??03/31/2024 12:23 PM EDT RP ? Dictated By: ?Varun Ruiz MD ? Signed By: ?<Electronically signed by Varun Ruiz MD in OV> ?10/16/24 1223 ? DD/DT: /16/24 1115 ? TD/TT: 03/31/24 1127 ? Electrician Wiring: ? Procedure Note Donotuseinterpreter, Image - 03/31/2024 [facility] [address] [place], [place] [address] Ultrasound Report Signed Patient: Lizzie Esteban LMR#: [id number] : 1975Acct:[id number] Age/Sex: 48 / FADM Date: 03/31/24 Loc: HO.MAMMO Attending Dr: Stacy Boyd MD Ordering Physician: Stacy Boyd MD Date of Service: 03/31/24 Procedure(s): US breast LT limited mamm only Accession Number(s): [id number] cc: Stacy Boyd MD EXAMINATION: MM DIAGNOSTIC DIGITAL BREAST TOMOSYNTHESIS, BILATERAL US BREAST LIMITED, LEFT MAMMOGRAPHY: CLINICAL INFORMATION: Patient due for six-month ultrasound follow-up of 7 mm mass (for 1 year stability) posterior to a larger previously biopsied fibroadenoma in the retroareolar left breast. Patient also due for yearly. COMPARISON: Mammography: 09/19/2023, 03/17/2023, 03/06/2023, 01/10/2023 (BI-RADS 0). Ultrasound-guided left breast biopsy 03/17/2023 (benign fibroadenoma). Left breast ultrasounds 09/19/2023, 03/06/2023. TECHNIQUE: Digital breast tomosynthesis is performed in both the craniocaudal and mediolateral oblique views along with computer-aided detection (CAD). Synthesized 2D images are generated from the tomosynthesis. FINDINGS: There are scattered areas of fibroglandular density (ACR BI-RADS breast composition Category b). There is a stable subareolar mass with internal biopsy clip, consistent with previously biopsied fibroadenoma. Posterior to this there is a stable and unchanged smaller 7 mm mass. There are calcifications in the upper outer quadrant of the right breast, which are benign milk of calcium, previously worked up. Otherwise there are no suspicious masses, suspicious grouped calcifications, or areas of architectural distortion in either breast. The parenchymal pattern is stable from prior exams. There is no skin or axillary abnormality. ULTRASOUND: CLINICAL INFORMATION: Follow-up for 7 mm probably benign mass 3:00 axis, 1 cm from the nipple, posterior to a previously biopsied fibroadenoma. This will be a one-year follow-up. COMPARISON: Ultrasound-guided left breast biopsy 03/17/2023 (benign fibroadenoma). Left breast ultrasounds 09/19/2023, 03/06/2023. TECHNIQUE: Targeted sonographic evaluation left breast was performed using a high frequency linear transducer. Attention was given to the retroareolar region 3:00 axis. Selected archived documentation. FINDINGS: LEFT BREAST: There is a stable and unchanged oval hypoechoic nodule measuring 6 x 3 x 4 mm at the 3:00 axis of the left breast, 1 cm from the nipple, directly posterior to the previously biopsied fibroadenoma which is also stable size and appearance. There are no additional abnormalities identified. US/US breast LT limited mamm only IMPRESSION: -There are no findings suspicious for malignancy in either breast. -There are benign findings as above bilaterally. -7 mm oval mass remains probably benign into the 3:00 axis left breast, 1 cm from the nipple. One-year follow-up ULTRASOUND recommended (to establish two-year stability and benignity) when the patient is due for bilateral mammography. OVERALL ASSESSMENT: Mammography: BI-RADS 3 - Probably benign finding(s) - 12 month follow-up suggested Ultrasound: BI-RADS 3 - Probably benign finding(s) - 12 month follow-up suggested RECOMMENDATION: 12 month diagnostic follow up This patient's information was entered into a reminder system with a target due date for their next mammogram. Electronically signed by: Varun Ruiz MD 03/31/2024 12:23 PM EDT Dictated By: Varun Ruiz MD Signed By: <Electronically signed by Varun Ruiz MD in OV> 03/31/24 1223 DD/ 1115 TD/TT: 03/31/24 1127 Electrician Wiring: us Stacy Boyd MD IMG US PROCEDURES Final Result * Hepatitis Panel, General (03/19/2024 11:25 AM EDT) Hepatitis A IgM Nonreactive Nonreactive [facility] Comment:IgM antibodies to FUNES V not detected; does not exclude earlyacute or recovered HAV infection. ~Hepatitis B Surface Antibody NONREACTIVE Nonreactive [facility] Comment:Nonreactive: < 8.00 mIU/mL Hepatitis B Core Antibody Nonreactive Nonreactive [facility] Hepatitis C Antibody Nonreactive Nonreactive [facility] Comment:Antibodies to HCV no t detected; does not exclude early acuteHCV infection. Hepatitis B Surface Ag Negative Negative [facility] Blood 03/19/2024 11:2 5 AM EDT 03/19/2024 12:57 PM EDT Stacy Boyd MD LAB BLOOD ORDERABLES Fin al Result Performing Organization Address [facility] Co de Phone Number [facility] [address] [place] [phone] * HIV-1/2 Antigen and Antibodies, Fourth Generation, with Reflexes (03/19/2024 11:25 AM EDT) HIV AB/AG Nonreactive Nonreactive [facility] Comment:HIV-1 p24 Ag and/or HIV-1/HIV-2 Ab not detected.A test result that is nonreactive does not exclude thepossibility of exposure to or infection with HIV-1 and/orHIV-2. Nonreactive results in this assay for individualswith prior exposure to HIV-1 and/or HIV-2 may be due toantigen and antibody levels that are below the limit ofdetection of this assay.The [employer] HIV Ag/Ab Combo assay result andsupplemental assay results should be interpreted inconjunction with the patient's clinical presentation,history and other laboratory results. If the results areinconsistent with clinical evidence, additional testing issuggested to confirm the result. Blood Venous blood specimen / Unknown 03/19/2024 11:25 AM EDT 03/19/2024 12:57 PM EDT us Stacy Boyd MD LAB BLOOD ORDERABLES Fin al Result Performing Organization Address City/[facility]/ZIP Co de Phone Number [facility] [address] [place] [phone] * Thinprep TIS PAP And HPV mRNA E6/E7 With Reflex To HPV 16,18/45 (12/11/2022 9:20 AM EDT) Clinical Information: Routine exam [facility] LMP: NONE GIVEN [facility] [place] [facility] Prev. PAP: NONE GIVEN [facility] [place] [employer] Prev. BX: NO [facility] [place] [facility] SOURCE: None given [facility] [place] [facility] Statement Of Adequacy: [facility] [employer] Comment: Satisfactory for evaluation. Endocervical/transformation zone component present. Interpretation/ Result: Negative for intraepithelial lesion or malignancy. [facility] [facility] COMMENT: This Pap test has been evaluated with computer assisted technology. [facility] Cytotechnologis t: [facility] Comment: BK,CT(ASCP) CT screening location: [address] (Always Message) [facility] Comment: EXPLANATORY NOTE: The Pap is a screening test for cervical cancer. It is not a diagnostic test and is subject to false negative and false positive results. It is most reliable when a satisfactory sample, regularly obtained, is submitted with relevant clinical findings and history, and when the Pap result is evaluated along with historic and current clinical information. HPV nRNA E6/E7 Not Detected Not Detected [facility] Comment: Methodology: Travel Clerk-Mediated Amplification This assay detects E6/E7 viral messenger RNA (mRNA) from 14 high-risk HPV types (16,18,31,33,35,39,45,51,52,56,58,59,66,68). Cervical sources are required for HPV testing. If a vaginal source from a patient who has had a total hysterectomy with removal of cervix was submitted, please contact the testing laboratory for alternative testing options. For additional information, please refer to http://education.WellMet[employer]/faq/ZXL808s3 (This link if provided for information/ educational purposes only.) Genital 12/11/2022 9:20 AM EDT 12/12/2022 1:15 AM EDT Stacy Boyd MD LAB PATHOLOGY ORDERABLES Final Result [facility] [address] [facility], [facility], [place] [address] [facility] [address] [place] [address] from Last 3 Months or Most Recently Relevant to Health Maintenance Insurance [facility] C3 HSN FULL DENTAL-[facility] MEDICAID STAND ADULT Care Teams Peoplesoft Financial Developer Relationship Specialty Start Date End Date Stacy Boyd MD [address] [place] [phone] PCP - General Family Medicine 05/20/16
--- OUTSIDE RECORDS SUMMARY | 2024-09-24 13:49 | XMS_ITS | Clinical Summary ---
Author Organization [facility] ity Address [address] [place] [address] Care Team Providers Care Clinical Services Consultant Name Role Phone Unavailable Primary Care Provider Unavailabl e Social History Tobacco Use Types Packs/Day Years Used Date Smoking Tobacco: Never Assessed Comments Unknown Sex and Gender Information Value Date Recorded Sex Assigned at Not on file Legal Sex Female 4:55 AM EST Gender Identity Not on file Sexual Orientation Not on file Plan of Treatment Health Maintenance Due Date Last Done Comments Breast Cancer Screening 1975 DTaP,Tdap,and Td Vaccines (1 - Tdap) 1996 Hepatitis B Vaccines (1 of 3 - 19+ 3-dose series) 1996 Cervical Cancer Screening: P ap Smear 1998 Colorectal Cancer Screening: Colonoscopy 07/15/2023 Depression Screening 07/15/2023 HIV Screening 07/15/2023 Hepatitis C Screening 07/15/2023 Social Influencers of Health Screening 07/15/2023 COVID-19 Vaccine ( - 2023-2 5 season) 2024 Influenza Vaccine (Season Ended) 2025 HIB Vaccines Aged Out No longer eligi [...] on patient's age to complete this topic MMR Vaccines Aged Out No longer eligi ble based on patient's age to complete this topic Meningococcal ACWY Vaccine Aged Out N o longer eligible based on patient's age to complete this topic Meningococcal B Vaccine Aged Out No l onger eligible based on patient's age to complete this topic Pneumococcal Vaccine: Pediat rics (0 to 5 Years) and At-Risk Patients (6 to 64 Years) Aged Out No longer eligible b ased on patient's age to complete this topic RSV Immunization Patients Un effie 20 months Aged Out No longer eligible b ased on patient's age to complete this topic Varicella Vaccines Aged Out No longer eligible based on patient's age to complete this topic
--- OUTSIDE RECORDS SUMMARY | 2024-09-24 13:49 | XMS_ITS | Encounter Summary ---
Author Organization [employer] Address [address] [place] [address] Care Team Providers Care Yard Supervisor Name Role Phone Stacy Boyd MD Primary Care Provider + Encounter Details Date Type Department Care Team (Latest Contact Info) Description 09/24/2024 Travel Social History Tobacco Use Types Packs/Day Years [...] on file documented as of this encounter Visit Diagnoses Not on filedocumented in this encounter Additional Health Concerns Assessment Noted Time PHQ-9 Depression Total Score: 0 09/15/19 24 9:28 AM EDT documented as of this encounter Care Teams Yard Supervisor Relationship Specialty Start Date End Date Stacy Boyd MD [address] [place] [address] PCP - General Family Medicine 05/20/16 documented as of this encounter
--- OUTSIDE RECORDS SUMMARY | 2024-09-24 13:49 | XMS_ITS | Encounter Summary ---
Author Organization [facility] Address [address] [facility] [address]t [place] [address] Care Team Providers Care Cementer Hand Name Role Phone Stacy Boyd MD Primary Care Provider + Encounter Details Date Type Department Care Team (Late st Contact Info) Description 10/18/2022 Abstract [facility] [address] [place], [place] [phone] Maria Eugenia Alba [address] [place] [phone] Social History Tobacco Use Types Packs/Day Years Used Date Smoking Tobacco: Never Smokeless Tobacco: Never Alcohol Use Standard Drinks/Week Comments Never 0 (1 standard drink = 0.6 oz pur e alcohol) PHQ-2 Answer Date Recorded Patient Health Questionnaire-2 Score 0 09/26/2022 Depression Answer Date Recorded Patient Health Questionnaire-2 Score 0 09/26/2022 Comments Unknown Sex and Gender Information Value Date Recorded Sex Assigned at Female 04/15/2022 10:16 AM EDT Legal Sex Female 10:16 AM EDT Gender Identity Female 04/15/2022 10:16 AM EDT Sexual Orientation Straight 04/15/2022 10 :16 AM EDT COVID-19 Exposure Response Date Recorded In the last 10 days, have yo u been in contact with someone who was confirmed or suspected to have Coronavirus/COVID-19? No / Unsure 09/26/2022 11:37 AM EDT documented as of this encounter Plan of Treatment Not on file documented as of this encounter Visit Diagnoses Not on filedocumented in this encounter Care Teams Cementer Hand Relationship Specialty Start Date End Date Stacy Boyd MD [address] [place] [address] PCP - General Family Medicine 05/20/16 documented as of this encounter
--- OUTSIDE RECORDS SUMMARY | 2024-09-24 13:49 | XMS_ITS | Encounter Summary ---
Author Organization [employer] [facility] Address [address] [facility] 7t [place] [address] Care Team Providers Care Packaging Machine Supplies Distributor Name Role Phone Stacy Boyd MD Primary Care Provider + Encounter Details Date Type Department Care Team (Late st Contact Info) Description 10/04/2022 Abstract [facility] [address] [place], [place] [phone] Maria Eugenia Alba [address] [place] [address] Social History Tobacco Use Types Packs/Day Years [...] on filedocumented in this encounter Care Teams Packaging Machine Supplies Distributor Relationship Specialty Start Date End Date Stacy Boyd MD [address] [place] [address] PCP - General Family Medicine 05/20/16 documented as of this encounter
--- OUTSIDE RECORDS SUMMARY | 2024-09-24 13:49 | XMS_ITS | Encounter Summary ---
Author Organization [employer] Address [address] [place] [address] Care Team Providers Care Fly Tier Name Role Phone Stacy Boyd MD Primary Care Provider + Reason for Visit * Reason Onset Date Comments Chart prep 09/22/2024 Encounter Details Date Type Department Care Team ([facility] st Contact Info) Description 09/22/2024 Telephone [facility] [address] [place], [place] [phone] Stacy Boyd MD [address] [place] [address] Chart prep Social History Tobacco Use Types Packs/Day Years Used Date Smoking Tobacco: Never Smokeless Tobacco: Never Alcohol Use Standard Drinks/Week Comments Never 0 (1 standard drink = 0.6 oz pur e alcohol) Alcohol Answer Date Recorded Frequency of Alcohol Consumption Not on file 09/15/2023 Average Number of Drinks Not on file 024 Frequency of Binge Drinking Not on file 0406/2023 Score 0 09/15/2023 Depression Answer Date Recorded [...] AM EDT documented as of this encounter Miscellaneous Notes * Telephone Encounter - Feli Colón [place] - 09/22/2024 11:01 AM EDT Chart Prep Labs: done Images: done Vaccines due: yes Referrals: complete Screenings: not applicable Overdue care gaps: Not applicable documented in this encounter Plan of Treatment Not on file documented as of this encounter Visit Diagnoses Not on filedocumented in this encounter Additional Health Concerns Assessment Noted Time PHQ-9 Depression Total Score: 0 09/15/19 24 9:28 AM EDT documented as of this encounter Care Teams Fly Tier Relationship Specialty Start Date End Date Stacy Boyd MD [address] [place] [phone] PCP - General Family Medicine 05/20/16 documented as of this encounter
--- OUTSIDE RECORDS SUMMARY | 2024-09-24 13:49 | XMS_ITS | Encounter Summary ---
Author Organization [employer] Address [address] [place] [address] Care Team Providers Care Rn Med Surg Name Role Phone Stacy Boyd MD Primary Care Provider + Reason for Visit * Reason Comments Follow-up Encounter Details Date Type Department Care Team ([facility] st Contact Info) Description 09/24/2024 12:00 PM EDT Office Visit [facility] [address] [place], [place] [phone] Stacy Boyd MD [address] [place] [address] Oral ulcer (Primary Dx) Social History Tobacco Use Types Packs/Day Years [...] AM EDT documented as of this encounter Last Filed Vital Signs Vital Sign Reading [...] Mass Index 31.34 09/24/2024 12:03 PM EDT documented in this encounter Plan of Treatment Scheduled Orders Name Type Priority Associated Diagnoses Orde r Schedule Herpes Simplex Virus 1 and 2 (IgG), Type-Specific Antibodies Lab Routine Oral ulcer Expected: 09/24/2024 (Approximate), Expires: 09/24/2025 Herpes Simplex Virus 1/2 Antibody (IgM), IFA with Reflex to Titer, Serum Lab Routine Oral ulcer Expected: 09/24/2024 (Approximate), Expires: 09/24/2025 Syphilis Screen Lab Routine Oral ulcer Expected: 09/24/2024 (Approximate), Expires: 09/24/2025 documented as of this encounter Visit Diagnoses Diagnosis Oral ulcer- Primary Other and unspecified diseases of the oral soft tissues documented in this encounter Additional Health Concerns Assessment Noted Time PHQ-9 Depression Total Score: 0 09/15/19 24 9:28 AM EDT documented as of this encounter Care Teams Rn Med Surg Relationship Specialty Start Date End Date Stacy Boyd MD [address] [place] [phone] PCP - General Family Medicine 05/20/16 documented as of this encounter
--- OUTSIDE RECORDS SUMMARY | 2024-09-24 13:49 | XMS_ITS | Encounter Summary ---
Author Organization [employer] Address [address] [place] [address] Care Team Providers Care Proposal Manager Writer Name Role Phone Stacy Boyd MD Primary Care Provider + Reason for Visit * Reason Comments Care Coordination C3/CM Outreach Encounter Details Date Type Department Care Team (Latest Contact Info) Description 09/21/2024 Patient Outreach [facility] [address] [place], [place] [phone] Stacy Boyd MD [address] [place], [place] [phone] Care Coordination (C3/CM Outreach) Social History Tobacco Use Types Packs/Day Years [...] the past 12 months, has t he Cyan, gas, oil or water Pollen threatened to shut off services in your [...] AM EDT documented as of this encounter Progress Notes * Mary Jo Palmer - 09/21/2024 10:27 AM EDT CHW Mary Jo Palmer placed outbound call to patient to follow up on SDOH needs. Patient's name, and address confirmed. Patient states is doing well. No further questions or concerns. CHW reinforced direct contact information or CM for any additional questions or concerns and extended clinic hours on Mondays and Wednesdays, and Walk-In Urgent Care Located in [facility]. Patient provided with after-hours line for [facility], , which offer night time triage service and option to transfer to collections assistant provider if needed. Patient verbalizes understanding, and able to repeat back to adjusto writer operator. A follow up call willbe placed within 10 days, patient agrees with plan. documented in this encounter Plan of Treatment Not on file documented as of this encounter Visit Diagnoses Not on filedocumented in this encounter Additional Health Concerns Assessment Noted Time PHQ-9 Depression Total Score: 0 09/15/19 24 9:28 AM EDT documented as of this encounter Care Teams Proposal Manager Writer Relationship Specialty Start Date End Date Stacy Boyd MD [address] [place] [address] PCP - General Family Medicine 05/20/16 documented as of this encounter
[2024-09-27 07:54] LABS: Syphilis Screen Nonreactive (Nonreactive)
[2024-09-27 22:13] LABS: Herpes Simplex Type 2 IgG <0.90 index
== END 2024-09-24 13:28 | disposition home or self-care (01) ==
LOC: HO.HHCL 13:27
PROVIDERS: Visit Provider Internal Medicine
DX: K12.1 Other forms of stomatitis (principal)
CPT/HCPCS: 36415; 86695; 86696; 86780

== ENCOUNTER 2024-12-05 09:16 | Emergency (ER) | payer MEDICAID, SELFPAY ==
[2024-12-05 09:27] VITALS: BP 114/74; PULSE 71; RESP 16; TEMP 36; O2SAT 98; BMI 26.8
--- NOTE | 2024-12-05 10:13 | ED_ITS ---
HPI - Neck Pain/Injury General Chief Complaint: Neck Pain/Injury Stated Complaint: arm/back pain Time Seen by Provider: 12/05/24 09:32 Source: patient Mode of arrival: ambulatory Limitations: language barrier History of Present Illness ED Provider: HPI Narrative: 49-year-old woman was bending down and then felt sharp pain in her left upper back over the trapezius and along her shoulder blade, no numbness or tingling in her hands, no chest pain or shortness of breath. Tongan-speaking court interpreter was utilized MD complaint: neck pain Related Data Home Medications ?Medication ?Instructions ?Recorded ?Confirmed diphenhydramine HCl 25 mg capsule mg PO 12/09/2305/17 (Banophen) ergocalciferol (vitamin D2) 1,250 1,250 mcg PO QWEEK 0 12/09/23 05/17/24 mcg (50,000 unit) capsule loratadine 10 mg tablet 10 mg PO DAILY PRN allergies 12/09/23 05/17/24 triamcinolone acetonide 0.1 % appl topical 12/09/23 topical cream cyclobenzaprine 5 mg tablet 5 mg PO BEDTIME PRN neck p ain 02/03/24 05/17/24 lidocaine-prilocaine 2.5 %-2.5 % topical BID PRN pain 02/03/24 05/17/24 topical cream naproxen 500 mg tablet 500 mg PO BID PRN pain 02/0205/17/24 Previous Rx's ?Medication ?Instructions ?Recorded ondansetron 4 mg disintegrating 4 mg PO Q6-8H PRN naus ea and 12/04/23 tablet vomiting #7 tabs omeprazole 20 mg capsule,delayed 20 mg PO DAILY #30 ca ps 02/03/24 release sennosides 8.6 mg tablet (Natural 17.2 mg (2 x 8.6 mg) PO BEDTIME 02/03/24 Senna Laxative) constipation #60 tabs prednisone 20 mg tablet See Rx Instructions .Route 1 08/13/23 .COMPLEX 12 days #26 tabs diazepam 2 mg tablet (Valium) 2 mg PO TID PRN spasms 2 days #6 12/05/24 tabs lidocaine 5 % topical patch 1 patch topical DAILY #15 ea 12/05/24 naproxen 500 mg tablet 500 mg PO BID 5 days #10 tab s 12/05/24 Allergies Allergy/AdvReac Type Severity Reaction Status Date / Time sulfamethoxazole (From Allergy Unknown LIP Verified 12/05/24 09:29 BACTRIM) SWELLING trimethoprim (From BACTRIM) Allergy Unknown LIP Verified 12/05/24 09:29 SWELLING Review of Systems Constitutional: Constitutional: Reports as per HPI [facility] Past Medical History Medical History Cholelithiasis Hx of fracture of forearm Surgical History History of tubal ligation Social History Social History Advance Directives: No Advance Directives Information Provided: No Current occupational status: employed 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 Physical Exam Vital Signs: Vital Signs: Last Vital Signs Temp 96.8 F 12/05/24 09:27 Pulse 71 12/05/24 09:27 Resp 16 12/05/24 09:27 BP 114/74 12/05/24 09:27 Pulse Ox 98 12/05/24 09:27 O2 Del Method Room Air 12/05/24 09:27 BMI result Body Mass Index 26.8 Const: Other: * Gen: ?Overall well-appearing patient * HEENT: PERRLA, EOMI, MMM, * Neck: Decreased range of motion with limited rotation to the right * CV: RRR, no obvious murmurs appreciated * Resp: ?No wheezing rales rhonchi no stridor moving air well * MSK: Full range of motion of both shoulders, significant tenderness along left upper trapezius and along the border of her shoulder blade no back pain tenderness no step-offs no rashes in the area * Skin: Warm, dry, intact, * Neuro: ?Alert and oriented x3, moving upper and lower extremities symmetrically, no obvious facial asymmetry noted Medical Decision Making Medical Decision Making MDM Narrative: Presenting with torticollis without any further trauma I do not feel that with the necessitate further imaging such as CT of the cervical spine, this is not cardiac related, she has reproducible trigger points all along her left side, verbal consent with the japanese interpreter was obtained for trigger point injections Procedure: 5 trigger points identified along the border of her scapula and trapezius, area was cleaned with alcohol and injected 2% lidocaine without epinephrine to a total of 10 cc, patient tolerated procedure well, there was no bleeding, she felt relief of pain Discharge Plan Discharge Clinical Impression: Acquired torticollis Instructions: Neck Pain (ED) Additional Instructions: Ice packs and heat packs to the area, Naprosyn 500 mg twice a day Tylenol 975 mg for additional pain control, lidocaine patches to the area that hurts the most, and Valium as a muscle relaxer, we will make you drowsy take it and then laid down with a heat pack to rest, gentle [id number] exercises with the neck to prevent stiffness, for additional pain control re-evaluation follow up with the PCP you may need physical therapy if this does not improve in the next week or so Prescriptions: New diazepam [Valium] 2 mg tablet 2 mg PO TID PRN (Reason: spasms) 2 Days Qty: 6 0RF naproxen 500 mg tablet 500 mg PO BID 5 Days Qty: 10 0RF lidocaine 5 % adhesive patch,medicated 1 patch topical DAILY Qty: 15 0RF Rx Instructions: leave on most painful area for up to 12 hrs No Action ondansetron 4 mg tablet,disintegrating 4 mg PO Q6-8H PRN (Reason: nausea and vomiting) Qty: 7 0RF prednisone 20 mg tablet See Rx Instructions .ROUTE .COMPLEX 12 Days Qty: 26 0RF Rx Instructions: 20 mg orally, Take 3 tablets for 5 days THEN; Take 2 tablets for 4 days THEN; Take 1 tablet for 3 days loratadine 10 mg tablet 10 mg PO DAILY PRN (Reason: allergies) triamcinolone acetonide 0.1 % cream topical diphenhydramine HCl [Banophen] 25 mg capsule PO ergocalciferol (vitamin D2) 1,250 mcg (50,000 unit) capsule 1,250 mcg PO QWEEK lidocaine-prilocaine 2.5-2.5 % cream topical BID PRN (Reason: pain) naproxen 500 mg tablet 500 mg PO BID PRN (Reason: pain) cyclobenzaprine 5 mg tablet 5 mg PO BEDTIME PRN (Reason: neck pain) omeprazole 20 mg capsule,delayed release(DR/EC) 20 mg PO DAILY Qty: 30 3RF sennosides [Natural Senna Laxative] 8.6 mg tablet 17.2 mg PO BEDTIME Qty: 60 3RF Print Language: Tongan
[2024-12-05] MEDS: Lidocaine HCl 1 % 20 ML VIAL 10 ML INFILTRATI (10:21)
[2024-12-05] MEDS: Ketorolac Tromethamine 15 MG/ML VIAL IM (10:21)
[2024-12-05] MEDS: Lidocaine 4 % Patch ADH..PATCH 1 PATCH TRANSDERMA (10:21)
[2024-12-05 10:58] VITALS: BP 128/67; PULSE 64; RESP 16; TEMP 36.1; O2SAT 99
--- NOTE | 2024-12-05 11:39 | PC.NURSE ---
Called for Cuban staff medical technologist chemistry to review discharge instructions. Awaiting meeting manager.
[2024-12-05 11:48] VITALS: BP 128/67; PULSE 64; RESP 16; TEMP 36.1; O2SAT 99
== END 2024-12-05 11:48 | disposition home or self-care (01) ==
PROVIDERS: Emergency Provider Emergency Medicine
DX: M43.6 Torticollis (principal); M54.50 Low back pain, unspecified; M54.6 Pain in thoracic spine; Z79.899 Other long term (current) drug therapy
CPT/HCPCS: 96372; 99283; 99284; J1885; J2003

== ENCOUNTER 2025-01-09 10:08 | Emergency (ER) | payer MEDICAID, SELFPAY ==
[2025-01-09 10:25] VITALS: BP 128/68; PULSE 86; RESP 16; TEMP 36.3; O2SAT 97; BMI 30.4
--- NOTE | 2025-01-09 10:40 | PC.NURSE ---
patient a&ox3, swabs obtained, pt c/o 11/23 sore throat. vss, plan of care ongoing
--- OUTSIDE RECORDS SUMMARY | 2025-01-09 10:44 | XMS_ITS | Clinical Summary ---
Author Organization [facility] ity Address [address] [place] [address] Care Team Providers Care Laborer Tanbark Name Role Phone Unavailable Primary Care Provider [...] Smear 1998 Colorectal Cancer Screening: Colonoscopy 07/15/2023 HIV Screening 07/15/2023 Hepatitis C Screening 07/15/2023 Social Influencers of Health Screening 07/15/2023 COVID-19 Vaccine ( - 2023-2 5 season) 2024 Depression Screening 06/16/2024 Influenza Vaccine (#1) 2025 HIB Vaccines Aged Out No longer [...] 5 Years) and At-Risk Patients (6 to 49 Years) Aged Out No longer eligible b ased on patient's age to complete this topic RSV Immunization Patients Un effie 20 months Aged Out No longer eligible b ased on patient's age to complete this topic Varicella Vaccines Aged Out No longer eligible based on patient's age to complete this topic
--- OUTSIDE RECORDS SUMMARY | 2025-01-09 10:44 | XMS_ITS | Encounter Summary ---
Author Organization [employer] [employer] Address [address] [place] [address] Care Team Providers Care Desk Pen Set Assembler Name Role Phone Stacy Boyd MD Primary Care Provider + Encounter Details Date Type Department Care Team ([facility] st Contact Info) Description 03/27/2023 Orders Only [facility] MEDICINE [address] [place], [place] [id number] Provider, MD Griselda Social History Tobacco Use Types Packs/Day Years Used Date Smoking Tobacco: Never Smokeless Tobacco: Never Alcohol Use Standard Drinks/Week Comments Never 0 (1 standard drink = 0.6 oz pur e alcohol) PHQ-2 Answer Date Recorded Patient Health Questionnaire-2 Score 0 09/26/2022 Housing Stability Answer Date Recorded What is your housing situation today? I have melanieramon cuellar 03/26/[address] you [...] as of this encounter Plan of Treatment Upcoming Encounters Date Type Department Care Team (Late st Contact Info) Description 01/31/2025 11:15 AM EDT Office Visit [facility] [address] [place] [address] Stacy Boyd MD [address] [place] [address] documented as of this encounter Procedures Procedure Name Priority Date/Time Associated Diagnosis Comments US BREAST BIOPSY LEFT Routine 03/17/2023 documented in this encounter Results * US Breast Biopsy Left (03/17/2023) Anatomical Region Laterality Modality Ultrasound us Historical Provider MD [place] US PROCEDURES Final R esult documented in this encounter Visit Diagnoses Not on filedocumented in this encounter Care Teams Desk Pen Set Assembler Relationship Specialty Start Date End Date Stacy Boyd MD [address] [place] [address] PCP - General Family Medicine 05/20/16 Evelyne Pemberton Classified Advertising SupervisorFirer Watertender 12/15/24 documented as of this encounter
--- NOTE | 2025-01-09 10:50 | ED.URI ---
HPI - URI/Sore Throat General Chief Complaint: Upper Respiratory Symptoms Stated Complaint: throat hurts and coughing Time Seen by Provider: 01/09/25 10:29 Source: patient Mode of arrival: ambulatory Limitations: language barrier (Nigerien-speaking livestock counter utilized) History of Present Illness ED Provider: Lesley Durham NP HPI Narrative: Patient is a 49 year female who presents emergency department for evaluation she has been experiencing a sore throat, discomfort with swallowing but still able to tolerate solids and liquids and nonproductive cough for the past 3 days. Denies any known sick contacts. Denies fevers, chills, headache, dizziness, neck pain, neck stiffness, chest pain, shortness of breath, difficulty breathing, nausea, vomiting, abdominal pain, numbness or tingling of the extremities, genitourinary symptoms. Related Data Home Medications ?Medication ?Instructions ?Recorded ?Confirmed diphenhydramine HCl 25 mg capsule mg PO 12/09/23 05/17/24 (Banophen) ergocalciferol (vitamin D2) 1,250 1,250 mcg PO QWEEK 12/09/23 05/17/24 mcg (50,000 unit) capsule loratadine 10 mg tablet 10 mg PO DAILY PRN allergies 12/09/23 05/17/24 triamcinolone acetonide 0.1 % appl topical 12/09/23 05/17/24 topical cream cyclobenzaprine 5 mg tablet 5 mg PO BEDTIME PRN neck pain 02/03/24 05/17/24 lidocaine-prilocaine 2.5 %-2.5 % topical BID PRN pain 02/03/24 05/17/24 topical cream naproxen 500 mg tablet 500 mg PO BID PRN pain 02/03/24 05/17/24 Previous Rx's ?Medication ?Instructions ?Recorded ondansetron 4 mg disintegrating 4 mg PO Q6-8H PRN nausea and 12/04/23 tablet vomiting #7 tabs omeprazole 20 mg capsule,delayed 20 mg PO DAILY #30 caps 02/03/24 release sennosides 8.6 mg tablet (Natural 17.2 mg (2 x 8.6 mg) PO BEDTIME 02/03/24 Senna Laxative) constipation #60 tabs prednisone 20 mg tablet See Rx Instructions .Route 06/12/24 .COMPLEX 12 days #26 tabs diazepam 2 mg tablet (Valium) 2 mg PO TID PRN spasms 2 days #6 12/05/24 tabs lidocaine 5 % topical patch 1 patch topical DAILY #15 ea 12/05/24 naproxen 500 mg tablet 500 mg PO BID 5 days #10 tabs 12/05/24 Allergies Allergy/AdvReac Type Severity Reaction Status Date / Time sulfamethoxazole (From Allergy Unknown LIP Verified 01/09/25 10:26 BACTRIM) SWELLING trimethoprim (From BACTRIM) Allergy Unknown LIP Verified 01/09/25 10:26 SWELLING Review of Systems Review of Systems: Yes all other systems are reviewed and are negative [facility] Past Medical History Attestation statement: The following information was validated with the patient. 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 No acute distress.?Normal affect. Eyes: Pupils equal, round and reactive to light.? ENT: TM normal bilaterally. Pharynx erythematous 2+ tonsillar hypertrophy bilaterally. Uvula midline. No trismus. No drooling. No hoarseness. Soft gauze without induration. Neck: Normal inspection.? Neck supple.??No cervical adenopathy CVS: Heart sounds normal. Normal heart rate and rhythm.? Pulses normal.?? Respiratory: No respiratory distress.? Lung sounds clear to auscultation bilaterally?? Abdomen: Soft and non-tender. Normoactive bowel sounds. Skin: Skin warm and dry.? Normal skin color.? ? Extremities: No lower extremity edema.? Neuro: Moves all extremities spontaneously. Sensation intact bilaterally. No motor deficits. Ambulates with normal steady gait. Medical Decision Making Medical Decision Making [facility] Narrative: Patient is a 49-year-old female presenting for evaluation of upper respiratory symptoms: Sore throat and cough. COVID-19 testing negative. Influenza testing negative. Group A strep testing negative. Examination not consistent with RPA/RADIO FREQUENCY TECHNICIAN. At this time history and physical exam not consistent with ACS/PE/pneumonia. Well-appearing, nontoxic, afebrile, no tachycardia or tachypnea/hypoxia. Speaking clear full sentences, ambulatory with steady gait. Discussed conservative treatment including rest, hydration, Tylenol/ibuprofen as needed for fever and body aches, saline nasal spray, humidifier, grjk-vua-[id number] cold medication. Advised to follow-up with primary care provider as needed, discussed reasons to return back to the emergency department. All questions were answered. Patient discharged home in stable condition. Differential Diagnosis Differential Diagnoses: The differential diagnosis associated with the presentation includes ( See narrative above) Admission/Observation Consideration of admission/observation: Escalation of care including admission/observation considered ( see narrative above) Lab Data [facility] Lab Attestation statement: I reviewed the patient's lab results. ( see narrative above) Labs: Lab Results 01/09/25 Range/Units 10:34 Influenza Type A (PCR) NEGATIVE (Negative) Influenza Type B (PCR) NEGATIVE (Negative) RSV RNA Qual (PCR) NEGATIVE (Negative) SARS-CoV-2 RNA (RT-PCR) NEGATIVE (Negative) S. pyogenes GrpA TARA Negative (Negative) External Record Review External record reviewed: Outpatient record Tests considered The following testing was considered but not selected: Deferred CXR, history and physical examination not consistent with pneumonia Prescription Management I considered prescription management with: Pain Medication ( acetaminophen/ibuprofen) and Antibiotic Discharge Plan Discharge Clinical Impression: Acute upper respiratory infection Patient Disposition: Home, Self-Care Instructions: Pharyngitis (ED), Upper Respiratory Infection (ED) Additional Instructions: Testing for COVID flu and strep throat infection when negative today. Be sure to rest, stay well hydrated drinking plenty of fluids, eat small frequent meals. Tylenol/ibuprofen can be used as needed for fever/pain. Odnk-ztz-iveymqs cold medications may be helpful as well for symptoms. Saline nasal spray, humidifier may be helpful for nasal congestion. You may return to the emergency department with any new or worsening symptoms or concerns. Follow-up with your primary care provider as needed. Should remain out of school/ work until symptoms have resolved and have been without a fever for 24 hours without the use of Tylenol or ibuprofen. Prescriptions: No Action ondansetron 4 mg tablet,disintegrating 4 mg PO Q6-8H PRN (Reason: nausea and vomiting) Qty: 7 0RF prednisone 20 mg tablet See Rx Instructions .ROUTE .COMPLEX 12 Days Qty: 26 0RF Rx Instructions: 20 mg orally, Take 3 tablets for 5 days THEN; Take 2 tablets for 4 days THEN; Take 1 tablet for 3 days diazepam [Valium] 2 mg tablet 2 mg PO TID PRN (Reason: spasms) 2 Days Qty: 6 0RF naproxen 500 mg tablet 500 mg PO BID 5 Days Qty: 10 0RF lidocaine 5 % adhesive patch,medicated 1 patch topical DAILY Qty: 15 0RF Rx Instructions: leave on most painful area for up to 12 hrs loratadine 10 mg tablet 10 mg PO DAILY PRN (Reason: allergies) triamcinolone acetonide 0.1 % cream topical diphenhydramine HCl [Banophen] 25 mg capsule PO ergocalciferol (vitamin D2) 1,250 mcg (50,000 unit) capsule 1,250 mcg PO QWEEK lidocaine-prilocaine 2.5-2.5 % cream topical BID PRN (Reason: pain) naproxen 500 mg tablet 500 mg PO BID PRN (Reason: pain) cyclobenzaprine 5 mg tablet 5 mg PO BEDTIME PRN (Reason: neck pain) omeprazole 20 mg capsule,delayed release(DR/EC) 20 mg PO DAILY Qty: 30 3RF sennosides [Natural Senna Laxative] 8.6 mg tablet 17.2 mg PO BEDTIME Qty: 60 3RF Referrals: Stacy Boyd MD [Primary Care Provider, Internal Medicine] Print Language: Nigerien
[2025-01-09 10:51] LABS: IDNOW Serial# 6674DD1D
[2025-01-09 10:52] LABS: Strep A Nucleic Acid Negative (Negative)
[2025-01-09 11:30] LABS: Resp Syncy Virus RNA Qual PCR NEGATIVE (Negative); SARS COV2 PCR INHOUSE NEGATIVE (Negative)
[2025-01-09 12:57] VITALS: BP 122/66; PULSE 88; RESP 16; TEMP 36.7; O2SAT 98
== END 2025-01-09 12:58 | disposition home or self-care (01) ==
PROVIDERS: Emergency Provider Emergency Medicine; PCP Internal Medicine
DX: J06.9 Acute upper respiratory infection, unspecified (principal); Z03.818 Encounter for observation for suspected exposure to other biological agents ruled out
CPT/HCPCS: 87637; 87651; 99283

== ENCOUNTER 2025-01-14 13:13 | Emergency (ER) | payer MEDICAID, SELFPAY ==
[2025-01-14 13:33] VITALS: BP 126/72; PULSE 86; RESP 17; TEMP 36.8; O2SAT 97; BMI 26.7
--- OUTSIDE RECORDS SUMMARY | 2025-01-14 13:46 | XMS_ITS | Clinical Summary ---
Author Organization [facility] ity Address [address] [place] [address] Care Team Providers Care Leather Goods Ii Assembler Name Role Phone Unavailable Primary Care Provider [...]
--- OUTSIDE RECORDS SUMMARY | 2025-01-14 13:46 | XMS_ITS | Encounter Summary ---
Author Organization [employer] Address [address] [place] [address] Care Team Providers Care Waste Hand Name Role Phone Stacy Boyd MD Primary Care Provider + Mary Jo Palmer Unavailable Encounter Details Date Type Department Care Team ([facility] st Contact Info) Description 03/27/2023 Orders Only [facility] MED[facility] [address] [place] [address] Provider, MD Griselda Social History Tobacco Use [...] Description 01/31/2025 11:15 AM EDT Office Visit [facility] [address] [place] [address] Stacy Boyd MD [address] [place] [address] documented as of this encounter Procedures Procedure Name Priority Date/Time Associated Diagnosis Comments US BREAST BIOPSY LEFT Routine 03/17/2023 documented in this encounter Results * US Breast Biopsy Left (03/17/2023) Anatomical Region Laterality Modality Ultrasound us Historical Provider IMG US PROCEDURES Final R esult documented in this encounter Visit Diagnoses Not on filedocumented in this encounter Care Teams Waste Hand Relationship Specialty Start Date End Date Stacy Boyd MD [address] [place] [address] PCP - General Family Medicine 05/20/16 Mary Jo Palmer 01/10/25 Evelyne Pemberton Lease AnalystCommunity Relations Director 12/15/24 documented as of this encounter
--- NOTE | 2025-01-14 14:11 | ED.FEMALEGU ---
HPI - Female Genitourinary General Chief complaint: Urogenital-Female Stated complaint: Vaginal discomfort Time Seen by Provider: 01/14/25 14:11 Source: patient, RN notes reviewed, old records reviewed and commodity broker Mode of arrival: ambulatory Limitations: language barrier History of Present Illness ED Provider: Brian TUCKER Narrative: Patient is a 49-year-old Georgian speaking female presenting to the ED with complaint of vaginal irritation. Patient states that she recently had a toothache and began using amoxicillin that she purchased [id number]. She then developed diarrhea for 2 days which aggravated her known hemorrhoids. She then purchased preparation H but was unsure how to apply this, so she applied it from front to back including her genital area. Since that time she has had significant vaginal burning and discomfort. Her symptoms worsened with urination. She denies any vaginal bleeding or other abnormal vaginal discharge. Denies any back or flank pain. Denies fevers. Denies any abdominal pain, nausea, vomiting. States diarrhea has since resolved. Denies concern for STIs. MD elicited complaint: genital itching Related Data Home Medications ?Medication ?Instructions ?Recorded ?Confirmed diphenhydramine HCl 25 mg capsule mg PO 12/09/23 05/17/24 (Banophen) ergocalciferol (vitamin D2) 1,250 1,250 mcg PO QWEEK 12/09/23 05/17/24 mcg (50,000 unit) capsule loratadine 10 mg tablet 10 mg PO DAILY PRN allergies 12/09/23 05/17/24 triamcinolone acetonide 0.1 % appl topical 12/09/23 05/17/24 topical cream cyclobenzaprine 5 mg tablet 5 mg PO BEDTIME PRN neck pain 02/03/24 05/17/24 lidocaine-prilocaine 2.5 %-2.5 % topical BID PRN pain 02/03/24 05/17/24 topical cream naproxen 500 mg tablet 500 mg PO BID PRN pain 02/03/24 05/17/24 Previous Rx's ?Medication ?Instructions ?Recorded ondansetron 4 mg disintegrating 4 mg PO Q6-8H PRN nausea and 12/04/23 tablet vomiting #7 tabs omeprazole 20 mg capsule,delayed 20 mg PO DAILY #30 caps 02/03/24 release sennosides 8.6 mg tablet (Natural 17.2 mg (2 x 8.6 mg) PO BEDTIME 02/03/24 Senna Laxative) constipation #60 tabs prednisone 20 mg tablet See Rx Instructions .Route 06/12/24 .COMPLEX 12 days #26 tabs diazepam 2 mg tablet (Valium) 2 mg PO TID PRN spasms 2 days #6 12/05/24 tabs lidocaine 5 % topical patch 1 patch topical DAILY #15 ea 12/05/24 naproxen 500 mg tablet 500 mg PO BID 5 days #10 tabs 12/05/24 hydrocortisone 1 % topical cream 1 appl topical BID PRN vaginal 01/14/25 irritation #28.4 grams Allergies Allergy/AdvReac Type Severity Reaction Status Date / Time sulfamethoxazole (From Allergy Unknown LIP Verified 01/14/25 13:37 BACTRIM) SWELLING trimethoprim (From BACTRIM) Allergy Unknown LIP Verified 01/14/25 13:37 SWELLING Review of Systems Review of Systems: As per HPI Yes all other systems are reviewed and are negative Constitutional: Constitutional: Reports as per HPI PMFSH Past Medical History Medical History Cholelithiasis Hx of fracture of forearm Surgical History History of tubal ligation Social History Social History Use of substances other than those prescribed or required for medical reasons: Unknown Advance Directives: No Advance Directives Information Provided: No Current occupational status: employed 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 Blood pressure normal. Heart rate normal. Respiratory rate normal. Temperature normal. Oxygen saturation normal. Const: General: cooperative, healthy appearing and no acute distress Orientation/consciousness: oriented to person, oriented to place, oriented to time and patient oriented x3 Limitations: no limitations HEENT: Head: Yes normocephalic and Yes atraumatic Ears: external ears normal General nose exam: Normal external nose present Face and sinus: Yes face symmetric Mouth: oropharynx normal and moist mucous membranes Throat: Yes uvula midline Eyes: Pupils: Equal, round and reactive pupils present Neck: Neck: Yes normal visual inspection and Yes supple Resp: Effort & Inspection: normal respiratory effort and able to speak in complete sentences Auscultation: clear to auscultation bilaterally Cardio: Rate: regular rate Rhythm: regular rhythm Heart sounds: S1 normal heart sound present and S2 normal heart sound present GI: Palpation (GI): Soft to palpation and nontender Auscultation: normoactive bowel sounds : Other: Pelvic exam chaperoned by NORMA Grajeda. General: Yes no CVA tenderness Back/Spine/Pelvis: Back: no CVA tenderness Skin: General skin exam: elasticity normal and turgor normal Neuro: General: oriented to person, oriented to place, oriented to time, patient oriented x3, moves all extremities, no focal motor deficits and CN's II-XI intact bilaterally Cranial nerves: Yes Equal, round and reactive pupils present Cognition (Neuro): normal cognition Extrem: General: Yes full ROM, Yes no pedal edema and Yes no calf tenderness Psych: Mental Status: mental status grossly normal Affect: normal affect Thought process: Normal thought process present Medical Decision Making Medical Decision Making [facility] Narrative: Patient is a 49-year-old Georgian speaking female presenting to the ED with complaint of vaginal irritation. On exam patient is awake, A+Ox3, VS WNL, afebrile, normal neurological exam without focal deficits, physical exam findings as above. Given reported symptoms and physical exam findings, initial differential includes but is not limited to vulvovaginal contact dermatitis, BV, vulvovaginal candidiasis, UTI. Urinalysis is without evidence of infection. BV panel negative. Will prescribe short course of topical hydrocortisone cream. Follow up with DELICATESSEN GOODS STOCK CLERK or PCP. Return precautions discussed. Patient verbalized understanding of and agreement with plan. In-person zipper measurer was utilized for all interactions, assessments, and discussions. Differential Diagnosis Differential Diagnoses: The differential diagnosis associated with the presentation includes As per [facility] Admission/Observation Consideration of admission/observation: Escalation of care including admission/observation considered Patient would have been admitted to the hospital had their clinical presentation warranted hospital admission. Lab Data [facility] Lab Attestation statement: I reviewed the patient's lab results. As per [facility] Labs: Lab Results 01/14/25 01/14/25 Range/Units 15:11 16:03 Urine Color Yellow Urine Appearance Clear Urine pH 5.5 (5.0-9.0) Ur Specific Taylor 1.010 (1.005-1.025) Urine Protein Negative (Neg-Trace) mg/dL Urine Glucose (UA) Negative (Negative) mg/dL Urine Ketones Negative (Negative) mg/dL Urine Blood Trace H (Negative) Urine Nitrite Negative (Negative) Ur Leukocyte Esterase Negative (Negative) Urine RBC 0-2 (0-2) /HPF Urine WBC 0-5 (0-5) /HPF Ur Squamous Epith Cells 0-2 (0-2) /HPF Urine Bacteria None Seen (None Seen) Hyaline Casts 0-2 (0-2) /LPF T. vaginalis (PCR) NOT DETECTED (Not Detect) Bact vaginosis (PCR) NEGATIVE (Negative) C. krusei/glabrata (PCR) NOT DETECTED (Not Detect) Gissell group (PCR) NOT DETECTED (Not Detect) External Record Review External record reviewed: Inpatient record, Office record and Outpatient record Prescription Management I considered prescription management with: Pain Medication Discharge Plan Discharge Clinical Impression: Vulvovaginal discomfort Patient Disposition: Home, Self-Care Additional Instructions: You were evaluated in the emergency department today for vaginal irritation after applying preparation H to this area. Your urinalysis did not show evidence of infection. You tested negative for bacterial vaginosis and vulvovaginal candidiasis (yeast infection). You are being prescribed hydrocortisone cream which you can apply twice daily to decrease irritation. In the future, apply preparation H to the rectal area only. Follow up with your primary care provider or assembler convertible top for ongoing symptoms. Return to the emergency department if you develop worsening pain, thick yellow drainage or discharge, fever or any other new or concerning symptoms. Prescriptions: New hydrocortisone 1 % cream 1 appl topical BID PRN (Reason: vaginal irritation) Qty: 28.4 0RF No Action ondansetron 4 mg tablet,disintegrating 4 mg PO Q6-8H PRN (Reason: nausea and vomiting) Qty: 7 0RF prednisone 20 mg tablet See Rx Instructions .ROUTE .COMPLEX 12 Days Qty: 26 0RF Rx Instructions: 20 mg orally, Take 3 tablets for 5 days THEN; Take 2 tablets for 4 days THEN; Take 1 tablet for 3 days diazepam [Valium] 2 mg tablet 2 mg PO TID PRN (Reason: spasms) 2 Days Qty: 6 0RF naproxen 500 mg tablet 500 mg PO BID 5 Days Qty: 10 0RF lidocaine 5 % adhesive patch,medicated 1 patch topical DAILY Qty: 15 0RF Rx Instructions: leave on most painful area for up to 12 hrs loratadine 10 mg tablet 10 mg PO DAILY PRN (Reason: allergies) triamcinolone acetonide 0.1 % cream topical diphenhydramine HCl [Banophen] 25 mg capsule PO ergocalciferol (vitamin D2) 1,250 mcg (50,000 unit) capsule 1,250 mcg PO QWEEK lidocaine-prilocaine 2.5-2.5 % cream topical BID PRN (Reason: pain) naproxen 500 mg tablet 500 mg PO BID PRN (Reason: pain) cyclobenzaprine 5 mg tablet 5 mg PO BEDTIME PRN (Reason: neck pain) omeprazole 20 mg capsule,delayed release(DR/EC) 20 mg PO DAILY Qty: 30 3RF sennosides [Natural Senna Laxative] 8.6 mg tablet 17.2 mg PO BEDTIME Qty: 60 3RF Print Language: Georgian
[2025-01-14 15:21] LABS: Appearance Urine Clear; Glucose Urine UA Negative (Negative); PH 5.5 (5.0-9.0); Specific Gravity - Urine 1.010 (1.005-1.025); UMIC TRIGGER UACC YES
[2025-01-14 17:22] LABS: Bacterial Vaginosis PCR NEGATIVE (Negative); Candida Group PCR NOT DETECTED (Not Detect); Candida glab krusei PCR NOT DETECTED (Not Detect); Trichomonas vaginalis PCR NOT DETECTED (Not Detect)
[2025-01-14 17:43] VITALS: BP 108/61; PULSE 80; RESP 18; TEMP 36.8; O2SAT 98
[2025-01-14 18:36] VITALS: BP 128/59; PULSE 73; RESP 18; TEMP 36.8; O2SAT 99
== END 2025-01-14 18:37 | disposition home or self-care (01) ==
PROVIDERS: Registered Nurse Emergency; Emergency Provider Emergency Medicine Emergency Medical Services; PCP Internal Medicine
DX: N89.8 Other specified noninflammatory disorders of vagina (principal); R20.8 Other disturbances of skin sensation; K64.9 Unspecified hemorrhoids; R19.7 Diarrhea, unspecified; K08.89 Other specified disorders of teeth and supporting structures; Z79.899 Other long term (current) drug therapy
CPT/HCPCS: 81001; 81515; 99283; 99284

== ENCOUNTER 2025-01-31 19:42 | Outpatient (REF) | payer MEDICAID, SELFPAY ==
--- OUTSIDE RECORDS SUMMARY | 2025-01-31 19:44 | XMS_ITS | Clinical Summary ---
Author Organization [facility] ity Address [address] [place] [address] Care Team Providers Care Processing Specialist Name Role Phone Unavailable Primary Care Provider [...]
[2025-01-31 21:32] LABS: Bacterial Vaginosis PCR NEGATIVE (Negative); Candida Group PCR NOT DETECTED (Not Detect); Candida glab krusei PCR NOT DETECTED (Not Detect); Trichomonas vaginalis PCR NOT DETECTED (Not Detect)
[2025-01-31 21:51] LABS: CT PCR NOT DETECTED (Not Detect.); NG PCR NOT DETECTED (Not Detect.)
== END 2025-01-31 19:43 | disposition home or self-care (01) ==
LOC: HO.HHCLNP 19:42
PROVIDERS: Visit Provider Internal Medicine
DX: Z11.3 Encounter for screening for infections with a predominantly sexual mode of transmission (principal); Z11.8 Encounter for screening for other infectious and parasitic diseases; Z11.2 Encounter for screening for other bacterial diseases; N76.1 Subacute and chronic vaginitis; L30.9 Dermatitis, unspecified
CPT/HCPCS: 81515; 87491; 87591

== ENCOUNTER 2025-02-28 09:29 | Emergency (ER) | payer MEDICAID, SELFPAY ==
--- OUTSIDE RECORDS SUMMARY | 2025-02-25 13:00 | XMS_ITS | Encounter Summary ---
Author Organization [email or web address] Address [address] [place] [address] Care Team Providers Care Natural Science Curator Name Role Phone Stacy Boyd MD Primary Care Provider + Reason for Visit * Reason Comments Dental Pain Pt came in as an henny rgency with pain all over her mouth for the pass year. Panorex taken Encounter Details Date Type Department Care Team (Late st Contact Info) Description 02/25/2025 1:00 PM EDT Office Visit [facility] ADULT DENTAL [address], [place] [phone] Javed Castillo, DDS [address], [place] [phone] Dental caries (Primary Dx); Pain, dental; Periodontal disease Social History Tobacco Use Types Packs/Day Years [...] Sign Reading Time Taken Comments Blood Pressure 128/74 02/25/2025 1:02 PM EDT Pulse 68 02/25/2025 1:02 PM EDT Temperature - - Respiratory Rate - - Oxygen Saturation - - Inhaled Oxygen Concentration - - Weight - - Height - - Body Mass Index - - documented in this encounter Progress Notes * Javed Castillo DDS - 02/25/2025 1:00 PM EDT Dental procedures in this visit [id number] - PANORAMIC RADIOGRAPHIC IMAGE (Completed) Service provider: Javed Castillo DDS Billing provider: Javed Castillo DDS [id number] - PERIODIC ORAL EVALUATION - ESTABLISHED PATIENT (Completed) Service provider: Javed Castillo DDS Billing provider: Javed Castillo DDS [id number] - CASE PRESENTATION, DETAILED AND EXTENSIVE TREATMENT PLANNING (Completed) Service provider: Javed Castillo DDS Billing provider: Javed Castillo DDS Patient ID: Geetha Carlito is a 49 y.o. female. Time Out: Timeout Date: 02/25/25, Timeout Time: 1256 (pt vame in as an emergency with pain all over her mouthfor the ass year. panorex taken) Location: [facility] Tooth: Maxilla and Mandible Procedure: Exam and X-rays Verified the above with patient, psychology assistant, and provider. Confirmed via patient's chart, intraorally and by radiographs. Photographer Portrait: not applicable Chief Complaint Patient presents with Dental Pain Pt came in as an emergency with pain all over her mouth for the pass year. Panorex taken Medical Hx: Vitals: Blood pressure 128/74, pulse 68. Medical History[1] Medications: Encounter Medications[2] Objective HPI Symptomatic lower left and right Head and Neck Exam: Lymph Nodes, Lips, Palate, Buccal Mucosa, Floor of Mouth, Tongue, Tonsils, Alveolar Ridges, Oropharynx, Salivary Ducts, and Vestibules Details: Skin NSF OCS: negative Dental Exam As charted Caries Calculus subgingival Bone loss High impacted # 1 Renzo. Centrals mobility T # 19 distal bone / radiopacity on distal root Reference tooth chart for additional findings. Oral Cancer Risk: Low Risk Oral Hygiene Instructions: [place] two times daily, modified mcclelland technique, Floss daily, Electric toothbrush, Soft bristle toothbrush, [place] Tongue Caries Risk Assessment: Low- no risk factor Assessment/Plan EOE Prescription to control pain and infection Per pt request, would like to see specialist instead of proceeding with previously DX and planned SRP Engineering Intern's referral 6 mos recall Patient tolerated procedure well, all questions answered and expressed understanding. Dismissed in good condition. [place]: Perio specialist / up to Lizzie =Adiel Darnell or Unique Metal Furniture Assembly Supervisor: Christal Negrete Dentist: Javed Castillo DDS [1] Past Medical History: Diagnosis Date Allergies Bleeding gums Periodontal disease [2] Outpatient Encounter Medications as of 02/25/2025 Medication Sig Dispense Refill clotrimazole-betamethasone (Lotrisone) cream Apply topically 2 times daily for 28 days. 30 g 0 cyclobenzaprine (Flexeril) 5 MG tablet Take 1 tab orally at bedtime prn neck pain (Patient not taking: Reported on 02/25/2025) 15 tablet 0 diphenhydrAMINE (BENADryl) 25 MG capsule 1-2 capsules by mouth as needed up to every 6 hours for rash, itching (Patient not taking: Reported on 02/25/2025) 45 capsule 0 levocetirizine (Xyzal) 5 MG tablet 5 mg in the evening. (Patient not taking: Reported on 02/25/2025) omeprazole (PriLOSEC) [address] capsule TAKE 1 CAPSULE BY MOUTH EVERY DAY (Patient not taking: Reported on 02/25/2025) 90 capsule 0 No facility-administered encounter medications on file as of 02/25/2025. documented in this encounter Plan of Treatment Upcoming Encounters Date Type Department Care Team (Late st Contact Info) Description 2025 11:15 AM EST Office Visit [facility] MEDICINE [address] [place] [phone] Stacy Boyd MD [address] [place] [phone] Scheduled Orders Name Type Priority Associated Diagnoses Orde r Schedule 2 O 2 O RESIN-BASED COMPOSITE - 1 SURF, POSTERIOR Dental Routine [address] arting 02/25/2025 documented as of this encounter Procedures Procedure Name Priority Date/Time Associated Diagnosis Comments PERIODIC ORAL EVALUATION - ESTABLISHED PATIENT Routine 02/25/2025 1:00 PM EDT PANORAMIC RADIOGRAPHIC IMAGE Routine 02/25/2025 1:00 PM EDT CASE PRESENTATION, DETAILED AND EXTENSIVE TREATMENT PLANNING Routine 02/25/2025 1:00 PM EDT documented in this encounter Visit Diagnoses Diagnosis Dental caries- Primary Unspecified dental caries Pain, dental Periodontal disease Unspecified gingival and periodontal disease documented in this encounter Additional Health Concerns Assessment Noted Time PHQ-9 Depression Total Score: 0 09/15/19 24 9:28 AM EDT documented as of this encounter Care Teams Natural Science Curator Relationship Specialty Start Date End Date Stacy Boyd MD [address] [place] [phone] PCP - General Family Medicine 05/20/16 Evelyne Pemberton Functional Support AnalystSet Illustrator 12/15/24 documented as of this encounter
--- NOTE | ~2025-02-28 | CT_ITS ---
EXAMINATION: CT ABDOMEN AND PELVIS WITH CONTRAST CLINICAL INFORMATION: Left-sided abdominal pain COMPARISON: November 1923 TECHNIQUE: Multidetector volumetric images were obtained from the superior aspect of the liver through the pubic symphysis following administration 85 mL of Omnipaque 350 intravenous contrast. Sagittal and coronal reformatted images were obtained on the technologist's workstation. Oral contrast: No This CT examination was performed using dose optimization techniques as appropriate, variously including the following: *Automated exposure control *Adjustment of mA and/or kV according to patient size (this includes techniques or standardized protocols for targeted exams where dose is matched to indication/reason for exam; i.e. extremities or head) *Use of iterative reconstruction technique DLP: 530 mGy*cm FINDINGS: LUNG BASES: The visualized lung bases are unremarkable. LIVER, GALLBLADDER, AND BILIARY TREE: There is low attenuation is noted throughout the liver with focal sparing in the inferior right hepatic lobe. Faint hypodensity in the gallbladder is consistent with cholelithiasis. PANCREAS: Unremarkable. SPLEEN: Unremarkable. ADRENAL GLANDS: Unremarkable. KIDNEYS AND URETERS: The kidneys are normal in size, shape, and attenuation. No hydronephrosis, hydroureter, or calculi seen. No perinephric stranding. BLADDER: Unremarkable. GASTROINTESTINAL TRACT: The small and large bowel are unremarkable. The appendix is unremarkable. ABDOMINAL WALL: No significant hernia is appreciated. LYMPH NODES: Normal. VASCULAR: Unremarkable. PELVIC VISCERA: Uterus and ovaries are unremarkable. OSSEOUS STRUCTURES: Unremarkable. CT/CT abdomen pelvis w IV con IMPRESSION: Cholelithiasis. Hepatic steatosis. Fleischner guidelines were followed. Electronically signed by: Fabiano Nielson MD 02/28/2025 04:04 PM EDT
[2025-02-28 09:54] VITALS: BP 132/65; PULSE 99; RESP 20; TEMP 37.1; O2SAT 100
--- NOTE | 2025-02-28 09:59 | ED.GENADULT ---
HPI - General Adult General Chief complaint: General Medical Stated complaint: multiple symptoms Time Seen by Provider: 02/28/25 14:08 History of Present Illness ED Provider: Jessi TUCKER narrative: The patient is a 49-year-old woman who says that she has been having gradually worsening left-sided abdominal pain for about a week. She says that the pain is mostly in the left side but go somewhat to the right lower quadrant as well and also across her lower back. No definite fever but she has had chills. Nausea but no vomiting. No diarrhea. She also says that she has been having hives over the last month for reasons that are not clear. She says that she saw a dentist recently and was told that she has a bone infection in her jaw. She also says that she has had nasal congestion and a cough for several days. Related Data Home Medications ?Medication ?Instructions ?Recorded ?Confirmed diphenhydramine HCl 25 mg capsule mg PO 12/09/23 05/17/24 (Banophen) ergocalciferol (vitamin D2) 1,250 1,250 mcg PO QWEEK 12/09/23 05/17/24 mcg (50,000 unit) capsule loratadine 10 mg tablet 10 mg PO DAILY PRN allergies 12/09/23 05/17/24 triamcinolone acetonide 0.1 % appl topical 12/09/23 05/17/24 topical cream cyclobenzaprine 5 mg tablet 5 mg PO BEDTIME PRN neck pain 02/03/24 05/17/24 lidocaine-prilocaine 2.5 %-2.5 % topical BID PRN pain 02/03/24 05/17/24 topical cream naproxen 500 mg tablet 500 mg PO BID PRN pain 02/03/24 05/17/24 Previous Rx's ?Medication ?Instructions ?Recorded ondansetron 4 mg disintegrating 4 mg PO Q6-8H PRN nausea and 12/04/23 tablet vomiting #7 tabs omeprazole 20 mg capsule,delayed 20 mg PO DAILY #30 caps 02/03/24 release sennosides 8.6 mg tablet (Natural 17.2 mg (2 x 8.6 mg) PO BEDTIME 02/03/24 Senna Laxative) constipation #60 tabs prednisone 20 mg tablet See Rx Instructions .Route 06/12/24 .COMPLEX 12 days #26 tabs diazepam 2 mg tablet (Valium) 2 mg PO TID PRN spasms 2 days #6 12/05/24 tabs lidocaine 5 % topical patch 1 patch topical DAILY #15 ea 12/05/24 naproxen 500 mg tablet 500 mg PO BID 5 days #10 tabs 12/05/24 hydrocortisone 1 % topical cream 1 appl topical BID PRN vaginal 01/14/25 irritation #28.4 grams acetaminophen 500 mg capsule 1,000 mg (2 x 500 mg) PO Q8H PRN 02/28/25 fever or pain #14 caps cyclobenzaprine 10 mg tablet 10 mg PO TID PRN muscle spasm #14 02/28/25 tabs ibuprofen 400 mg tablet 400 mg PO Q6H PRN pain #14 tabs 02/28/25 sucralfate 1 gram tablet 1 g PO TID PRN abdominal 02/28/25 discomfort #60 tabs Allergies Allergy/AdvReac Type Severity Reaction Status Date / Time sulfamethoxazole (From Allergy Unknown LIP Verified 02/28/25 10:01 BACTRIM) SWELLING trimethoprim (From BACTRIM) Allergy Unknown LIP Verified 02/28/25 10:01 SWELLING Review of Systems Review of Systems: Yes all other systems are reviewed and are negative [facility] Past Medical History Medical History Cholelithiasis Hx of fracture of forearm Surgical History History of tubal ligation Social History Social History Current occupational status: employed 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 She is a well-developed 49-year-old who seemed uncomfortable in his somewhat histrionic manner. The patient is primarily Uzbek speaking and was interviewed with a Uzbek civil engineering manager. HENMT Other: The face is symmetrical. Mucous membranes moist. Posterior pharynx is normal. Eyes Other: Pupils are round equal, conjunctivae are clear, extraocular movements intact Neck Neck: Yes normal visual inspection, Yes full ROM and Yes no lymphadenopathy Resp Effort & Inspection: normal respiratory effort Auscultation: clear to auscultation bilaterally Cardio Rate: regular rate Rhythm: regular rhythm Heart sounds: S1 normal heart sound present and S2 normal heart sound present GI Other: There was left-sided abdominal tenderness. General: Yes no CVA tenderness Back/Spine/Pelvis Back: no CVA tenderness Skin Other: The skin is dry. She had a few scattered lesions over her body that may be hives. There were not many of these lesions. They were very nonspecific. Neuro Other: The patient was awake and alert although she seemed uncomfortable. I felt she had a histrionic demeanor. Cranial nerves are grossly intact. She moves her extremities normally and appropriately. No focal neurological deficits appreciated. Extrem Other: There is no calf swelling or tenderness. No asymmetry. No peripheral edema. Course Course Course Narrative: This is a rapid medical exam performed by Clair Torres NP: Additional HPI, ROS, PE not included below will be deferred to primary provider. Patient is a 49-year-old F presenting with complaint of diffuse hives for over one month, as well as LUQ abdominal pain which radiates across her RUQ and around to her back. Also notes that she was told she has a dental infection that has spread to the bone on Friday and was started on abx. Rash present prior to abx. Plan: viral serology, labs, UA Medications Administered Discontinued Medications Generic Name Dose Route Start Last Admin Trade Name Karol PRN Reason Stop Dose Admin Diphenhydramine HCl 25 mg 02/28/25 14:23 02/28/25 14:53 Diphenhydramine Hcl 50 Mg/Ml Vial IVPUSH 02/28/25 14:24 25 mg ONCE ONE Administration Diphenhydramine HCl 50 mg 02/28/25 15:23 02/28/25 15:31 Diphenhydramine Hcl 50 Mg/Ml Vial IVPUSH 02/28/25 15:24 50 mg ONCE ONE Administration Sodium Chloride 1,000 mls @ 999 mls/hr 02/28/25 14:30 02/28/25 16:48 Ns IV 02/28/25 15:30 Infused .Q1H1M MAINE Infusion Iohexol 85 ml 02/28/25 15:43 02/28/25 15:43 Iohexol 350 Mg/Ml 100 Ml Infus..Btl IV 02/28/25 15:44 85 ml ONCE ONE Administration Ketorolac Tromethamine 15 mg 02/28/25 14:23 02/28/25 14:54 Ketorolac Tromethamine 15 Mg/Ml Vial IVPUSH 02/28/25 14:24 15 mg ONCE ONE Administration Metoclopramide HCl 10 mg 02/28/25 14:23 02/28/25 14:53 Metoclopramide Hcl 10 Mg/2 Ml Vial IVPUSH 02/28/25 14:24 10 mg ONCE ONE Administration Medical Decision Making Medical Decision Making [facility] Narrative: The patient is a 49-year-old female who presents with multiple complaints. I felt her primary complaint was her left-sided abdominal pain however. Overall the patient's presentation was very nonspecific. The patient's workup included a CBC that showed a white count of 8.9 with 78.6% neutrophils. Her basic metabolic panel showed normal electrolytes and renal function. Glucose was normal. LFTs show minor transaminitis. Lipase normal. test negative. CRP mildly elevated at 2.07. Serology for COVID and influenza negative. A CT scan of the abdomen and pelvis shows some dependent hypodensities in the gallbladder consistent with cholelithiasis but no sign of acute inflammation. no Garcia's sign on exam. I think these gallstones are an incidental finding. The patient is treated symptomatically with ketorolac, metoclopramide, and diphenhydramine. Unfortunately I think she had an akathisia reaction to the metoclopramide. She was given additional diphenhydramine with improvement. She was given IV fluids. Ultimately she seemed to feel considerably better. I explained I was not certain of the source of all of her symptoms but that overall I felt her workup was reassuring. I think she may be discharged. She will be prescribed cyclobenzaprine in case there is a musculoskeletal component to her pain. Also sucralfate that she may use in addition to her current omeprazole in case there is a gastritis component to her symptoms. She should follow up with her PCP. Lab Data 02/28/25 10:31 02/28/25 10:31 Labs: Lab Results 02/28/25 02/28/25 Range/Units 10:31 10:55 WBC 8.9 (4.8-10.8) X10*3/uL RBC 4.51 (4.20-5.50) X10*6/uL Hgb 12.0 (12.0-16.0) g/dl Hct 36.5 L (37.0-47.0) % MCV 80.9 (80.0-98.0) fL MCH 26.6 L (27.0-33.0) pg MCHC 32.9 (31.0-35.0) g/dl RDW 13.1 (11.0-16.0) % Plt Count 262 (160-400) X10*3/uL MPV 10.6 (9.4-12.3) fL Immature Gran % (Auto) 0.2 (0.0-0.4) % Neut % (Auto) 78.6 H (45-73) % Lymph % (Auto) 13.6 L (20-40) % [place] % (Auto) 5.7 (2-11) % Eos % (Auto) 1.8 (0-4) % Baso % (Auto) 0.1 (0-2) % Lymph # (Auto) 1.2 (1.2-4.9) X10*3/uL [place] # (Auto) 0.5 (0.1-1.2) X10*3/uL Eos # (Auto) 0.2 (0.0-0.4) X10*3/uL Baso # (Auto) 0.0 (0.0-0.2) X10*3/uL Abs Immat Gran (auto) 0.02 (0.00-0.03) X10*3/uL Absolute Neuts (auto) 7.0 (2.0-8.3) x10*3/uL Absolute Nucleated RBC 0.000 (0.0-0.012) X10*3/uL Nucleated RBC % (auto) 0.0 (0.0-0.2) /100WBC ESR 27 H (0-20) MM/HR Sodium 141 (135-145) mmol/L Potassium 4.2 (3.3-5.1) mmol/L Chloride 108 (96-108) mmol/L Carbon Dioxide 28 (22-29) mmol/L Anion Gap 9 L (12-20) BUN 9 (9-16) mg/dL Creatinine 0.64 (0.5-1.4) mg/dL Estim Creat Clear Calc 102.6 Estimated GFR > 60 Random Glucose 100 (60-115) mg/dL Calcium 9.5 (8.4-10.2) mg/dL Magnesium 1.8 (1.6-2.6) mg/dL Total Bilirubin 0.6 (0.0-1.0) mg/dL AST 32 H (5-31) U/L ALT 38 H (0-31) U/L Alkaline Phosphatase 74 (39-117) U/L C-Reactive Protein 2.07 H (< or = 0.50) mg/dL Total Protein 7.2 (6.5-8.0) g/dL Albumin 4.0 (3.5-5.0) g/dL Lipase 21 (8-78) U/L Beta HCG, Quant < 2 mIU/mL Urine Color Yellow Urine Appearance Clear Urine pH 5.5 (5.0-9.0) Ur Specific [place] 1.020 (1.005-1.025) Urine Protein Negative (Neg-Trace) mg/dL Urine Glucose (UA) Negative (Negative) mg/dL Urine Ketones Negative (Negative) mg/dL Urine Blood Small (1+) H (Negative) Urine Nitrite Negative (Negative) Ur Leukocyte Esterase Negative (Negative) Urine RBC 0-2 (0-2) /HPF Urine WBC 0-5 (0-5) /HPF Ur Squamous Epith Cells 0-2 (0-2) /HPF Urine Bacteria None Seen (None Seen) Hyaline Casts 0-2 (0-2) /LPF COVID-19 (ALTAGRACIA) Negative (Negative) COVID-19 Clin Com See Note Influenza Type A (TARA) Negative (Negative) Influenza Type B (TARA) Negative (Negative) Influenza A & B Note See Note Discharge Plan Discharge Clinical Impression: Left sided abdominal pain Patient Disposition: Home, Self-Care Additional Instructions: Your CT scan does not show any concerning findings for any dangerous process. I am not sure if your symptoms are related to a musculoskeletal problem or whether this is more of a stomach acid problem. Please continue your omeprazole. I have sent a prescription for a medication called sucralfate which you may use on an as-needed basis to see if it helps. If the pain is related to a stomach acid problem the sucralfate may be affected. I have also sent a prescription for the muscle relaxant cyclobenzaprine. You may try this medication as well if the sucralfate does not help. This medication should help if the pain is muscular. Additionally I have sent prescriptions for ibuprofen and acetaminophen that you may use as well for pain. Please follow up soon with your regular doctor. Return to the emergency room if significantly worse. Prescriptions: New sucralfate 1 gram tablet 1 g PO TID PRN (Reason: abdominal discomfort) Qty: 60 0RF cyclobenzaprine 10 mg tablet 10 mg PO TID PRN (Reason: muscle spasm) Qty: 14 0RF ibuprofen 400 mg tablet 400 mg PO Q6H PRN (Reason: pain) Qty: 14 0RF acetaminophen 500 mg capsule 1,000 mg PO Q8H PRN (Reason: fever or pain) Qty: 14 0RF No Action ondansetron 4 mg tablet,disintegrating 4 mg PO Q6-8H PRN (Reason: nausea and vomiting) Qty: 7 0RF prednisone 20 mg tablet See Rx Instructions .ROUTE .COMPLEX 12 Days Qty: 26 0RF Rx Instructions: 20 mg orally, Take 3 tablets for 5 days THEN; Take 2 tablets for 4 days THEN; Take 1 tablet for 3 days diazepam [Valium] 2 mg tablet 2 mg PO TID PRN (Reason: spasms) 2 Days Qty: 6 0RF naproxen 500 mg tablet 500 mg PO BID 5 Days Qty: 10 0RF lidocaine 5 % adhesive patch,medicated 1 patch topical DAILY Qty: 15 0RF Rx Instructions: leave on most painful area for up to 12 hrs hydrocortisone 1 % cream 1 appl topical BID PRN (Reason: vaginal irritation) Qty: 28.4 0RF loratadine 10 mg tablet 10 mg PO DAILY PRN (Reason: allergies) triamcinolone acetonide 0.1 % cream topical diphenhydramine HCl [Banophen] 25 mg capsule PO ergocalciferol (vitamin D2) 1,250 mcg (50,000 unit) capsule 1,250 mcg PO QWEEK lidocaine-prilocaine 2.5-2.5 % cream topical BID PRN (Reason: pain) naproxen 500 mg tablet 500 mg PO BID PRN (Reason: pain) cyclobenzaprine 5 mg tablet 5 mg PO BEDTIME PRN (Reason: neck pain) omeprazole 20 mg capsule,delayed release(DR/EC) 20 mg PO DAILY Qty: 30 3RF sennosides [Natural Senna Laxative] 8.6 mg tablet 17.2 mg PO BEDTIME Qty: 60 3RF Discharge Date/Time: 02/28/25 17:43 Print Language: Uzbek
[2025-02-28 10:37] LABS: MANUAL DIFF FLAG NO
[2025-02-28 10:38] LABS: Hematocrit 36.5 % (37.0-47.0); Hemoglobin 12.0 g/dl (12.0-16.0); Imm Gran Abs Auto 0.02 X10*3/uL (0.00-0.03); Imm Gran Pct Auto 0.2 % (0.0-0.4); Lymphocytes Absolute Auto 1.2 X10*3/uL (1.2-4.9); Mean Corpuscular HGB Conc 32.9 g/dl (31.0-35.0); Mean Corpuscular Hemoglobin 26.6 pg (27.0-33.0); Mean Corpuscular Volume 80.9 fL (80.0-98.0); NRBC Abs Auto 0.000 X10*3/uL (0.0-0.012); NRBC Pct Auto 0.0 /100WBC (0.0-0.2); Platelet Count 262 X10*3/uL (160-400); Red Blood Count 4.51 X10*6/uL (4.20-5.50); White Blood Count 8.9 X10*3/uL (4.8-10.8)
--- NOTE | 2025-02-28 10:38 | MHC.EDTECH ---
Patient brought into triage area,labs, covid,and flu obtained and sent to lab. Patient unable to give a urine at this time
--- NOTE | 2025-02-28 10:54 | MHC.EDTECH ---
Urine sample collected and sent to lab.
[2025-02-28 10:57] LABS: Alanine Aminotransferase 38 U/L (0-31); Albumin Level 4.0 g/dL (3.5-5.0); Alkaline Phosphatase 74 U/L (39-117); Anion Gap 9 (12-20); Aspartate Amino Transferase 32 U/L (5-31); Blood Urea Nitrogen 9 mg/dL (9-16); Calcium 9.5 mg/dL (8.4-10.2); Carbon Dioxide 28 mmol/L (22-29); Chloride 108 mmol/L (96-108); Creatinine Clr Calc Pharmacy 102.6; Estimated Glomerular Filt Rate > 60; Lipase 21 U/L (8-78); Magnesium 1.8 mg/dL (1.6-2.6); Potassium 4.2 mmol/L (3.3-5.1); Sodium 141 mmol/L (135-145); Total Protein 7.2 g/dL (6.5-8.0)
[2025-02-28 11:03] LABS: COVID-19 Test Negative (Negative); IDNOW Serial# 08D9AD1C; IDNOW Serial# 55D5AD1C; Influenza B2 Negative (Negative)
[2025-02-28 11:04] LABS: Appearance Urine Clear; Glucose Urine UA Negative (Negative); PH 5.5 (5.0-9.0); Specific Gravity - Urine 1.020 (1.005-1.025); UMIC TRIGGER UACC YES
--- OUTSIDE RECORDS SUMMARY | 2025-02-28 13:34 | XMS_ITS | Encounter Summary ---
Author Organization [employer] Address [address] [place] [address] Care Team Providers Care Coat Tailor Name Role Phone Stacy Boyd MD Primary Care Provider + Mary Jo Palmer Unavailable Encounter Details Date Type Department Care Team ([facility] st Contact Info) Description 03/27/2023 Orders Only [facility] [address] [place] [address] Provider, MD Griselda Social History Tobacco Use [...] Description 2025 11:15 AM EST Office Visit [facility] [address] [place] [address] Stacy Boyd MD [address] [place], [place] [id number] documented as of this encounter Procedures Procedure Name Priority Date/Time Associated Diagnosis Comments US BREAST BIOPSY LEFT Routine 03/17/2023 documented in this encounter Results * US Breast Biopsy Left (03/17/2023) Anatomical Region Laterality Modality Ultrasound us Historical Provider IMG US PROCEDURES Final R esult documented in this encounter Visit Diagnoses Not on filedocumented in this encounter Care Teams Coat Tailor Relationship Specialty Start Date End Date Stacy Boyd MD [address] [place] [id number] PCP - General Family Medicine 05/20/16 Mary Jo Palmer 01/10/25 01/27/25 Evelyne Pemberton [employer] 12/15/24 documented as of this encounter
--- OUTSIDE RECORDS SUMMARY | 2025-02-28 13:34 | XMS_ITS | Clinical Summary ---
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 Operator Name Role Phone Stacy Boyd MD Primary Care Provider + Allergies Active Allergy Reactions Criticality Noted Date Comments Sulfamethoxazole Rash Low 04/17/2021 Sulfamethoxazole-Trimethoprim 2022 Trimethoprim Rash Low 04/17/2021 Medications cyclobenzaprin e (Flexeril) 5 MG tablet Take 1 tab orally at bedtime prn neck pain 15 tablet 4 Active Additional Information Patient not taking.Reported on 02/25/2025 diphenhydrAMIN E (BENADryl) 25 MG capsuleIndicat ions:Urticaria 1-2 capsules by mouth as needed up to every 6 hours for rash, itching 45 capsule 5 Active Additional Information Patient not taking.Reported on 02/25/2025 levocetirizine (Xyzal) 5 MG tabletIndicati ons:Urticaria/ [employer]venile Court Liaison Jacek Tejada 5 mg in the evening. Active omeprazole (PriLOSEC) [address] capsule TAKE 1 CAPSULE BY MOUTH EVERY DAY 90 capsule 5 Active Additional Information Patient not taking.Reported on 02/25/2025 clotrimazole-b etamethasone (Lotrisone) cream Apply topically 2 times daily for 28 days. 30 g 5 02/29/20 25 Active acetaminophen (Tylenol 8 Hour) 650 MG ER tablet Take 1 tablet (650 mg) by mouth every 8 (eight) hours if needed for mild pain. Do not crush, chew, or split. 30 tablet 5 Active ibuprofen 600 MG tablet Take 1 tablet (600 mg) by mouth every 6 (six) hours if needed for mild pain. 15 tablet 5 Active amoxicillin (Amoxil) 500 MG capsule Take 1 capsule (500 mg) by mouth every 8 (eight) hours for 7 days. 21 capsule 5 03/04/20 25 Active triamcinolone (Kenalog) 0.1 % creamIndicatio ns:Urticaria Apply topically if needed in the morning and at bedtime for rash. 45 g 3 02/01/20 25 Discontin ued(Ineff ective) lidocaine-pril ocaine (Emla) 2.5-2.5 % cream Apply topically bid on affected area prn pain 30 g 1 4 02/01/20 25 Discontin ued(Thera py completed ) Active Problems Problem Noted Date Diagnosed Date Dental caries 02/25/2025 Pain, dental 02/25/2025 Subacute vaginitis 01/31/2025 Assessment & Plan (01/31/2025 5:41 PM EDT): Recent vaginal swab is negative, will repeat complete vaginal swab, if negative will treat for NG vaginitis Discussed importance of avoid using vaginal douches, pantiliners Herpes stomatitis 09/13/2024 Assessment & Plan (01/31/2025 5:39 PM EDT): Resolved, no recurrent episode so far. Reminded patient to take Valtrex as needed FAZAL at onset of symptoms and follow- up with me Assessment & Plan (09/13/2024 11:11 AM EDT): [...] to dietitian today, follow-up in 6 months. Encounter for preventive health examination 09/2023 Assessment [...] about kegel's exercise and FU in PRN Closed fracture of forearm 09/25/2022 Assessment & Plan (09/26/2022 12:45 PM EDT): Resolved. No need for further fu will scheduled appointment for PAP smear with me Dental calculus 09/19/2022 Periodontal disease 09/19/2022 Gingival bleeding 09/19/2022 Localized gingival recession 09/19/2022 Sweating abnormality 06/21/2022 Urticaria 12/29/2017 Assessment & Plan (09/13/2024 11:12 AM EDT): On the right thigh, recurrent, mild. Call envelope fold operator to restart medications as needed Assessment & Plan (08/19/2024 2:22 PM EST): Seen by envelope fold operator already, OV note to follow, not available to me at this time. Doing well on Xyzal, use Benadryl as needed severe urticaria. Follow-up with envelope fold operator Assessment & Plan (06/24/2024 2:11 PM EST): Will give med pack today and pt to continue on Zyrtec daily + Benadryl QHS PRN urticaria. Refer to envelope fold operator. Order labs and FU with me in 1 month. Assessment & Plan (09/26/2022 12:45 PM EDT): Partially controlled. continue loratidine + benadryl FU with envelope fold operator Vitamin D deficiency 09/16/2014 Assessment & Plan (09/26/2022 12:46 PM EDT): Check vit d levels FU with me to discuss supplementation Recurrent major depressive episodes, moderate Resolved Problems Problem Noted Date Diagnosed Date Resolved Date Oral ulcer 09/24/2024 01/31/2025 Assessment & Plan (09/24/2024 4:07 PM EDT): Likely HSV lesion, ordered serology and will call back as needed abnormal results Rx Valtrex 2 g x 1 dose to take as needed within 48 hours of onset of symptoms Follow-up with me in 4 to 6 months Tiredness 03/19/2024 01/31/2025 Assessment & Plan (03/19/2024 11:00 AM EDT): R/o IFG Order labs and follow up with me after labs. Decreased vision in both eyes 09/15/2023 03/22/2024 Assessment & Plan (09/15/2023 10:17 AM EDT): Referral placed to Ophthalmology. Skin rash 11/21/2022 01/31/2025 Assessment & Plan (11/21/2022 9:18 AM EDT): [...] in case needs to come back to [facility] -also will hold on valacyclovir given no suspicion for herpes zoster and given already on day 7 of symptoms -so not indicated -advised to cover area and avoid sun exposure -pt has already schedule apt w her PCP for end of this month -can monitor rash then Colitis 09/25/2022 01/31/2025 Dizziness 06/21/2022 01/31/2025 Encounters Date Type Department Care Team Description 02/28/2025 Orders Only GENERIC EXTERNAL DATA DEPARTMENT Provider, Generic External Data 02/25/2025 1:00 PM EDT Office Visit [facility] [address] [place] [address] Javed Castillo DDS Dental caries (Primary Dx); Pain, dental; Periodontal disease 02/15/2025 Telephone [facility] [address] [place] [address] Stacy Boyd MD April01/31/2025 11:15 AM EDT Office Visit [facility] [address] [place] [address] Stacy Boyd MD Dermatitis (Primary Dx); Subacute vaginitis; Herpes stomatitis 01/31/2025 Orders Only [facility] [address] [place] [address] Stacy Boyd MD 01/31/2025 Travel 01/28/2025 Telephone [facility] [address] [place] [address] Stacy Boyd MD Chart Prep 01/27/2025 Patient Outreach [facility] [address] [place] [address] Stacy Boyd MD 01/21/2025 Patient Outreach [address] [address] Stacy Boyd MD Pre-visit Planning (SDOH screening completed on 07/28/2024) 01/14/2025 Orders Only GENERIC EXTERNAL DATA DEPARTMENT Provider, Generic External Data 01/11/2025 Patient Outreach [facility] [address] [place] [address] Stacy Boyd MD Care Coordination ([facility] ED F/U) 01/11/2025 Patient Outreach [facility] [address] [place] [address] Stacy Boyd MD Care Coordination (C3/CHW Chart Review) 01/10/2025 Patient Outreach [address] [address] Stacy Boyd MD 01/09/2025 Orders Only GENERIC EXTERNAL DATA DEPARTMENT Provider, Generic External Data 12/15/2024 Telephone [facility] [address] [place] [address] Stacy Boyd MD Care Coordination (ICP Care Plan) from Last 3 Months Immunizations Immunization Administration Dates Next Due Hep B, adult [...] your housing situation today? I have melanie polo 04/02/[address] you li [...] Q2 Not on file 06/17/2024 Comments No Intention Date Recorded No desire to become (finding) 0 08/19/2024 Sex and Gender Information Value Date Recorded Sex Assigned at Female 04/15/2022 10:16 AM EDT Legal Sex Female 10:16 AM EDT Gender Identity Female 04/15/2022 10:16 AM EDT Sexual Orientation Straight 04/15/2022 10 :16 AM EDT Last Filed Vital Signs Vital Sign Reading Time Taken Comments Blood Pressure 128/74 02/25/2025 1:02 PM EDT Pulse 68 02/25/2025 1:02 PM EDT Temperature 36.3 C (97.4 F) 01/31/2025 11:20 AM EDT Respiratory Rate 20 01/31/2025 11:20 AM EDT Oxygen Saturation 98% 01/31/2025 11:20 AM EDT Inhaled Oxygen Concentration - - Weight 74.8 kg (165 lb) 01/31/2025 11:20 AM EDT Height 157.5 cm (5' 2 ) 01/31/2025 11:20 AM EDT Body Mass Index 30.18 01/31/2025 11:20 AM EDT Plan of Treatment Upcoming Encounters Date Type Department Care Team (Late st Contact Info) Description 2025 11:15 AM EST Office Visit [facility] [address] [place] [address] Stacy Boyd MD [address] [place], [place] [phone] Health Maintenance Due Date Last Done Comments CT Colonography 1977 FIT DNA/Cologuard 1977 FIT 1977 FOBT 1977 Sigmoidoscopy 1977 Disability Screening 1977 Alcohol/Substance Use Screening 1989 Dental Prophylaxis 03/22/2023 09/19/2022 Dental X-Ray: Bitewings 07/18/2023 07/17/2022 Depression Screening 09/14/2024 09/15/2023, 09/15/19 24 Diagnostic Breast Imaging 09/29/20242023, 03/31/2024, 09/19/2023, Additional history exists COVID-19 Vaccine ( season) 2025 01/09/2022, 01/09/2022, 11/10/2020, Additional history exists Influenza Vaccine (#1) 2025 SDOH Screening 07/28/2025 07/28/2024 Family Planning (PISQ) 08/19/2025 08/19/2024 Dental Oral Exam 08/26/2025 02/25/2025, 07/17/2022 Tobacco Screening 02/25/2026 02/25/2025 Zoster Vaccines (1 of 2) 2027 Cervical Cancer Screening 12/12/2027 HPV/Cotest 12/12/2027 12/11/2022, 12/11/2022 Pap Smear 12/12/2027 12/11/2022, 06/01/2023, 12/11/2022 Dental X-Ray: Full Mouth 02/27/2028 02/25/2025, 02/0 06/2022 Lipid Panel 06/25/2029 06/25/2024 DTaP/Tdap/Td Vaccines (3 [...] Years) and At-Risk Patients (6 to 49) Years Aged Out No longer eligible based on patient's age to complete this topic RSV under 20 months Aged Out No longe r eligible based on patient's age to complete this topic Rotavirus Vaccines Aged Out No longer eligible based on patient's age to complete this topic Procedures Procedure Name Priority Date/Time Associated Diagnosis Comments URINALYSIS, COMPLETE, WITH REFLEX TO CULTURE Routine 02/28/2025 10:55 AM EDT HCG, TOTAL, QN Routine 02/28/2025 10:31 AM EDT COVID-19 ID NOW (KHAN) Routine 02/28/2025 10:31 AM EDT LIPASE Routine 02/28/2025 10:31 AM EDT MAGNESIUM Routine 02/28/2025 10:31 AM EDT COMPREHENSIVE METABOLIC PANEL Routine 02/28/2025 10:31 AM EDT CBC WITH AUTO DIFFERENTIAL Routine 02/28/2025 10:31 AM EDT INFLUENZA A B2 ID NOW (KHAN) Routine 02/28/2025 10:31 AM EDT CASE PRESENTATION, DETAILED AND EXTENSIVE TREATMENT PLANNING Routine 02/25/2025 1:00 PM EDT PERIODIC ORAL EVALUATION - ESTABLISHED PATIENT Routine 02/25/2025 1:00 PM EDT PANORAMIC RADIOGRAPHIC IMAGE Routine 02/25/2025 1:00 PM EDT BACTERIAL VAGINOSIS PANEL Routine 01/31/2025 10:00 AM EDT CHLAMYDIA/N. GONORRHOEAE RNA, TMA, UROGENITAL Routine 01/31/2025 10:00 AM EDT Subacute vaginitis BACTERIAL VAGINOSIS PANEL Routine 01/14/2025 4:03 PM EDT URINALYSIS, COMPLETE, WITH REFLEX TO CULTURE Routine 01/14/2025 3:11 PM EDT SARS COV2/INFLUENZA A/B AND RSV RNA QL NAAT Routine 01/09/2025 10:34 AM EDT STREP A NUCLEIC ACID Routine 01/09/2025 10:34 AM EDT LIPID PANEL WITH REFLEX TO DIRECT LDL [...] Recently Relevant to Health Maintenance Results * (ABNORMAL) Urinalysis, Complete, with Reflex to Culture (02/28/2025 10:55 AM EDT) Only the most recent of2 resultswithin the time period is included. Color Urine Yellow [facility] Appearance Urine Clear [facility] PH 5.5 5.0 - 9.0 [facility] Glucose Urine UA Negative Negative mg/dL [facility] Urine Blood Small (1+)(A) Negative [facility] Specific [place] - Urine 1.020 1.005 - 1.025 [facility] Urine Protein Negative Neg-Trace mg/dL [facility] Urine Ketones Negative Negative mg/dL [facility] Nitrite Urine Negative Negative [facility] Leukocyte Esterase Urine Negative Negative [facility] RBC Urine 0-2 0 - 2 /HPF [facility] Urine WBC 0-5 0 - 5 /HPF [facility] Urine Squamous Epithelial Cell 0-2 0 - 2 /HPF [facility] Urine Bacteria None Seen None Seen [facility] Hyaline Casts, Urine 0-2 0 - 2 /LPF [facility] 02/28/2025 10:5 5 AM EDT 02/28/2025 11:00 AM EDT Narrative [facility] - 02/28/2025 11:15 AM EDT [id number], Clean Catch Generic External Data Provider LAB URINE ORDERAB LES Final Result Performing Organization Address [facility] Co de Phone Number [facility] [address] [place] [phone] * Influenza A B2 ID NOW (Khan) (02/28/2025 10:31 AM EDT) IDNOW SERIAL# [id number] [facility] Influenza A Negative Negative [facility] Influenza B2 Negative Negative [facility] Influenza A B2 Note See Note [facility] Comment:The Khan ID NOW In fluenza A B2 test is used for thequalitative detection of influenza A and B from patientswith signs and symptoms of respiratory infection.Negative results do not preclude influenza virus infectionand should not be used as the sole basis for diagnosis,treatment or other patient management decisions.There is a risk of false negative results due to thepresence of variants in the viral targets of the assay, lowlevels of virus in the specimen and co- infection withRespiratory Syncytial Virus. 02/28/2025 10:3 1 AM EDT 02/28/2025 10:36 AM EDT Generic External Data Provider LAB MICROBIOLOGY - GENERAL ORDERABLES Final Result Performing Organization Address [facility] Co de Phone Number [facility] [address] [place] [phone] * COVID-19 ID NOW (KHAN) (02/28/2025 10:31 AM EDT) IDNOW SERIAL# [id number] [facility] COVID-19 TEST Negative Negative [facility] COVID-19 NOTE See Note [facility] Comment: Results are for the identification of SARS-CoV2 RNA. TheSARS-CoV2 RNA is generally detectable in respiratory samplesduring the acute phase of infection. Positive results areindicative of the presence of SARS-CoV-2 RNA; clinicalcorrelation with patient history and other diagnosticinformation is necessary to determine patient infectionstatus. Positive results do not rule out bacterial infectionor co- infection with other viruses.Testing facilities within the [facility] and [facility] are required to report all positive results tothe appropriate public health authorities.Negative results should be treated as presumptive and, ifinconsistent with clinical signs and symptoms or necessaryfor patient management, should be tested with differentauthorized or cleared molecular tests. Negative results donot preclude SARS-CoV2 RNA infection and should not be usedas the sole basis for patient management decisions. Negativeresults should be considered in the context of a patient'srecent exposures, history and the presence of clinical signsand symptoms consistent with COVID-19.This test has been authorized by the FDA under an EmergencyUse Authorization (EUA) for use by authorized laboratories.Testing performed on the [place] NOW utilizing NAAT. 02/28/2025 10:3 1 AM EDT 02/28/2025 10:36 AM EDT us Generic External Data Provider LAB MOLECULAR ABDIAS GNOSTICS ORDERABLES Final Result [facility] [address] [place] [phone] * (ABNORMAL) CBC auto differential (02/28/2025 10:31 AM EDT) White Blood Count 8.9 4.8 - 10.8 X10*3/uL [facility] Red Blood Count 4.51 4.20 - 5.50 X10*6/uL [facility] Hemoglobin 12.0 12.0 - 16.0 g/dl [facility] Hematocrit 36.5(L) 37.0 - 47.0 % [facility] Mean Corpuscular Volume 80.9 80.0 - 98.0 fL [facility] Mean Corpuscular Hemoglobin 26.6(L) 27.0 - 33.0 pg [facility] Mean Corpuscular HGB Conc 32.9 31.0 - 35.0 g/dl [facility] Red Cell Distribution Width 13.1 11.0 - 16.0 % [facility] Platelet Count 262 160 - 400 X10*3/uL [facility] Mean Platelet Volume 10.6 9.4 - 12.3 fL [facility] Neutrophils Percent Auto 78.6(H) 45 - 73 % [facility] Imm Gran Pct Auto 0.2 0.0 - 0.4 % [facility] Lymphocytes Percent Auto 13.6(L) 20 - 40 % [facility] Monocytes Percent Auto 5.7 2 - 11 % [facility] Eosinophils Percent Auto 1.8 0 - 4 % [facility] Basophils Percent Auto 0.1 0 - 2 % [facility] NRBC Pct Auto 0.0 0.0 - 0.2 /100WBC [facility] Neutrophils Absolute Auto 7.0 2.0 - 8.3 x10*3/uL [facility] Imm Gran Abs Auto 0.02 0.00 - 0.03 X10*3/uL [facility] Lymphocytes Absolute Auto 1.2 1.2 - 4.9 X10*3/uL [facility] Monocytes Absolute Auto 0.5 0.1 - 1.2 X10*3/uL [facility] Eosinophils Absolute Auto 0.2 0.0 - 0.4 X10*3/uL [facility] Basophils Absolute Auto 0.0 0.0 - 0.2 X10*3/uL [facility] NRBC Abs Auto 0.000 0.0 - 0.012 X10*3/uL [facility] 02/28/2025 10:3 1 AM EDT 02/28/2025 10:36 AM EDT us Generic External Data Provider LAB BLOOD ORDERAB LES Final Result [facility] [address] [place] [phone] * hCG, Total, Quantitative (02/28/2025 10:31 AM EDT) HCG Quantitative <2 mIU/mL [facility] Comment:Weeks post LMP Appro ximate hCG(Last Menstrual Period) Range (mIU/ml)3 - 4 weeks 9 - 1304 - 5 weeks 75 - 2,6005 - 6 weeks 850 - 20,8006 - 7 weeks 4000 - 100,2007 - 12 weeks 11,500 - 289,85677 - 16 weeks 18,300 - 137,82309 - 29 weeks (2nd trimester) 1,400 - 53,54089 - 41 weeks (3rd trimester) 940 - 60,000The Khan B- hCG assay is used for the early detection ofpregnancy; it cannot be used to diagnose any conditionunrelated to . If a B-hCG level is not supportedby the clinical evidence, results should be confirmed by analternative method (qualitative urine hCG, for example). 02/28/2025 10:3 1 AM EDT 02/28/2025 10:36 AM EDT Generic External Data Provider LAB BLOOD ORDERAB LES Final Result Performing Organization Address City/[facility]/ZIP Co de Phone Number [facility] [address] [place] [phone] * Magnesium (02/28/2025 10:31 AM EDT) Magnesium 1.8 1.6 - 2.6 mg/dL [facility] 02/28/2025 10:3 1 AM EDT 02/28/2025 10:36 AM EDT Generic External Data Provider LAB BLOOD ORDERAB LES Final Result Performing Organization Address [facility] Co de Phone Number [facility] [address] [place] [phone] * Lipase (02/28/2025 10:31 AM EDT) Lipase 21 8 - 78 U/L [facility] 02/28/2025 10:3 1 AM EDT 02/28/2025 10:36 AM EDT us Generic External Data Provider LAB BLOOD ORDERAB LES Final Result [facility] [address] [place] [phone] * (ABNORMAL) Comprehensive Metabolic Panel (02/28/2025 10:31 AM EDT) Sodium 141 135 - 145 mmol/L [facility] Potassium 4.2 3.3 - 5.1 mmol/L [facility] Chloride 108 96 - 108 mmol/L [facility] Carbon Dioxide 28 22 - 29 mmol/L [facility] Anion Gap 9(L) 12 - 20 [facility] Urea Nitrogen (BUN) 9 9 - 16 mg/dL [facility] Creatinine, Serum 0.64 0.5 - 1.4 mg/dL [facility] Creatinine Clr Calc Pharmacy 102.6 [facility] Comment:Provided height and weight: 157.48 cm,74.4 kg.eGFR (calculated from the MDRD study equation) and eCrCl(calculated from the Cockcroft-Gault equation) are based ondifferent parameters and may not yield comparable results.If eCrCl result is absurd, please check patient'sheight/weight. Estimated Glomerular Filt Rate >60 [facility] Comment:Chronic Kidney Disea se: Estimated GFR < 60 mL/min/1.00x8Gvtlxc Kidney Disease: Estimated GFR < 15 mL/min/1.73m2 Glucose 100 60 - 115 mg/dL [facility] Calcium 9.5 8.4 - 10.2 mg/dL [facility] Bilirubin, Total 0.6 0.0 - 1.0 mg/dL [facility] Aspartate Amino Transferase 32(H) 5 - 31 U/L [facility] Alanine Aminotransferase 38(H) 0 - 31 U/L [facility] Total Protein 7.2 6.5 - 8.0 g/dL [facility] Albumin Level 4.0 3.5 - 5.0 g/dL [facility] Alkaline Phosphatase 74 39 - 117 U/L [facility] 02/28/2025 10:3 1 AM EDT 02/28/2025 10:36 AM EDT us Generic External Data Provider LAB BLOOD ORDERAB LES Final Result Performing Organization Address [facility] Co de Phone Number [facility] [address] [place] [phone] * Bacterial Vaginosis (01/31/2025 10:00 AM EDT) Only the most recent of2 resultswithin the time period is included. Pathologist [facility] TRICHOMONAS VAGINALIS DETECTION BY PCR NOT DETECTED Not Detect [facility] BACTERIAL VAGINOSIS DETECTION BY PCR NEGATIVE Negative [facility] Comment:The BV organism targ ets of the Xpert Xpress MVP test can becommensal in women; Xpert Xpress MVP positive results forbacterial vaginosis should be considered in conjunction withother clinical and patient information to determine thedisease status. Organisms that are not detected by the XpertXpress MVP test have also been reported to be associatedwith BV and aerobic vaginitis.The Xpert Xpress MVP test performance has not been evaluatedin patients under the age of 14. GISSELL GROUP DETECTION BY PCR NOT DETECTED Not Detect [facility] Gissell glab krusei PCR NOT DETECTED Not Detect [facility] 01/31/2025 10:0 0 AM EDT 01/31/2025 7:44 PM EDT us Stacy Boyd MD LAB MICROBIOLOGY - GENER AL ORDERABLES Final Result Performing Organization Address [facility] Co de Phone Number [facility] [address] [place] [phone] * Chlamydia/N. Gonorrhoeae RNA, TMA, Urogenitial (01/31/2025 10:00 AM EDT) Pathologist [facility] CT PCR NOT DETECTED Not Detect. [facility] Comment:A not detected test result does not exclude the possibilityof infection because test results can be affected byimproper specimen collection, concurrent antibiotic therapy,or the number of organisms in the specimen which may bebelow the sensitivity of the test. As with many diagnostictests, results from the Xpert CT/NG assay should beinterpreted in conjunction with other laboratory andclinical data available to the clinician.Xpert CT/NG performance has not been evaluated in patientsless than 14 years of age. The assay should not be used forthe evaluationof suspected sexual abuse or for other medico-legalindications. Additional testing is recommended in anycircumstance when false positive or false negative resultscould lead to adverse medical, social or psychologicalconsequences. NG PCR NOT DETECTED Not Detect. [facility] Comment:A not detected test result does not exclude the possibilityof infection because test results can be affected byimproper specimen collection, concurrent antibiotic therapy,or the number of organisms in the specimen which may bebelow the sensitivity of the test. As with many diagnostictests, results from the Xpert CT/NG assay should beinterpreted in conjunction with other laboratory andclinical data available to the clinician.Xpert CT/NG performance has not been evaluated in patientsless than 14 years of age. The assay should not be used forthe evaluationof suspected sexual abuse or for other medico-legalindications. Additional testing is recommended in anycircumstance when false positive or false negative resultscould lead to adverse medical, social or psychologicalconsequences. Urine (Urine, Random) 01/31/2025 10:00 AM EDT 01/31/2025 7:44 PM EDT us Stacy Boyd MD LAB MICROBIOLOGY - GENER AL ORDERABLES Final Result [facility] [address] [place] [phone] * Strep A Nucleic Acid (01/09/2025 10:34 AM EDT) IDNOW SERIAL# [id number] [facility] Strep A Nucleic Acid Negative Negative [facility] Comment:All test results mus t be correlated with clinical findings.This test has not been evaluated for monitoring treatment ofinfection.Additional follow-up testing using the culture method isrequired if the result is negative and clinical symptomspersist, or in the event of an acute rheumatic feveroutbreak. 01/09/2025 10:3 4 AM EDT 01/09/2025 10:37 AM EDT Generic External Data Provider LAB MICROBIOLOGY - GENERAL ORDERABLES Final Result Performing Organization Address [facility] Co de Phone Number [facility] [address] [place] [phone] * SARS-CoV-2 RNA, Influenza A/B, and RSV RNA, Ql NAAT (01/09/2025 10:34 AM EDT) Influenza A PCR NEGATIVE Negative [facility] Influenza B PCR NEGATIVE Negative [facility] Resp Syncy Virus RNA Qual PCR NEGATIVE Negative [facility] SARS COV2 PCR NEGATIVE Negative [facility] Comment:All test results mus t be correlated with clinical findings.Negative results do not preclude SARS-CoV2, influenza Avirus, influenza B virus and/or RSV infectionand should not be used as the sole basis for treatment orother patient management decisions. Negative results must becombined with clinical observations, patient history, andepidemiological information.This test has not been evaluated for monitoring treatment ofinfection.This test has been authorized by the FDA under an EmergencyUse Authorization (EUA) for use by authorized laboratories.Testing performed on the [employer] GeneXpert utilizingreal-time RT-PCR.All SARS CoV2 and positive influenza A/B results arereported to [facility]. 01/09/2025 10:3 4 AM EDT 01/09/2025 10:37 AM EDT Generic External Data Provider LAB MICROBIOLOGY - GENERAL ORDERABLES Final Result Performing Organization Address [facility]/ZIP Co de Phone Number [facility] [address] [place] [address] [phone] * (ABNORMAL) Lipid Panel with Reflex to Direct LDL (06/25/2024 9:18 AM EST) Triglycerides 77 <150 mg/dL [facility] Comment:Desirable Triglyceri de: less than 150 mg/dLBorderline High Triglyceride 150-199 mg/dLHigh Triglyceride: 200-499 mg/dLVery High Triglyceride: greater than or equal to 5OO mg/dL Cholesterol 214(H) <200 mg/dL [facility] Comment:Desirable Cholestero l: less than 200 mg/dLBorderline High Cholesterol: 200-239 mg/dLHigh Cholesterol: greater than 239 mg/dL LDL Cholesterol Calculated 141(H) <100 mg/dL [facility] Comment:Desirable LDL: less than 100 mg/dLNear Optimal/Above Optimal LDL: 110- 129 mg/dLBorderline High LDL: 130-159 mg/dLHigh LDL: 160-189 mg/dLVery High LDL: greater than or equal to 190 mg/dL HDL Cholesterol 58 >40 mg/dL [facility] Comment:Desirable HDL: great er than 40 mg/dL Note: This HDL assay may give artificially low results in patients with liver disease. Blood 06/25/2024 9:18 AM EST 06/25/2024 11:34 AM EST us Stacy Boyd MD LAB BLOOD ORDERABLES Fin al Result [facility] [address] [place] [address] [phone] * Hm Colonoscopy (05/04/2024) Colonoscopy Normal Normal [facility] Comment:benign polyp us Stacy Boyd MD HEALTH MAINTENANCE Final Result [facility] [address] [place] [address] [phone] * BI US Breast Limited Left (03/31/2024 11:15 AM EDT) Anatomical Region Laterality Modality Breast Left Ultrasound 03/31/2024 11:1 5 AM EDT Narrative 03/31/2024 12:26 PM EDT [facility] [address] [place] [address] Ultrasound Report Signed Patient: Lizzie Esteban MR#: [id number] : 1975 Acct:[id number] Age/Sex: 48 / F ADM Date: 03/31/24 Loc: HO.MAMMO Attending Dr: Stacy Boyd MD Ordering Physician: Stacy Boyd MD Date of Service: 03/31/24 Procedure(s): US breast LT limited mamm only Accession Number(s): [id number] cc: Stacy Boyd MD EXAMINATION: MM DIAGNOSTIC [...] 03/31/24 1223 DD/ 1115 TD/TT: 03/31/24 1127 Insulation Estimator: Procedure Note Donotuseinterpreter, Image - 03/31/2024 [facility] [address] [place], [place] [address] Ultrasound Report Signed Patient: Lizzie Esteban LMR#: [id number] : 1975Acct:[id number] Age/Sex: 48 / FADM Date: 03/31/24 Loc: HO.MAMMO Attending Dr: Stacy Boyd MD Ordering Physician: Stacy Boyd MD Date of Service: 03/31/24 Procedure(s): US breast LT limited mamm only Accession Number(s): [id number] cc: Stacy Boyd MD EXAMINATION: MM DIAGNOSTIC [...] 03/31/24 1223 DD/ 1115 TD/TT: 03/31/24 1127 Insulation Estimator: us Stacy Boyd MD IMG US PROCEDURES Final Result * Hepatitis Panel, General (03/19/2024 11:25 AM EDT) Hepatitis A IgM Nonreactive Nonreactive [facility] Comment:IgM antibodies to FUNES V not detected; does not exclude earlyacute or recovered HAV infection. ~Hepatitis B Surface Antibody NONREACTIVE Nonreactive [facility] Comment:Nonreactive: < 8.00 mIU/mL Hepatitis B Core Antibody Nonreactive Nonreactive [facility] Hepatitis C Antibody Nonreactive Nonreactive [facility] Comment:Antibodies to HCV no t detected; does not exclude early acuteHCV infection. Hepatitis B Surface Ag Negative Negative [facility] Blood 03/19/2024 11:2 5 AM EDT 03/19/2024 12:57 PM EDT Stacy Boyd MD LAB BLOOD ORDERABLES Fin al Result Performing Organization Address [facility] Co de Phone Number [facility] [address] [place] [phone] * HIV-1/2 Antigen and Antibodies, Fourth Generation, with Reflexes (03/19/2024 11:25 AM EDT) HIV AB/AG Nonreactive Nonreactive [facility] Comment:HIV-1 p24 Ag and/or HIV-1/HIV-2 Ab not detected.A test result that is nonreactive does not exclude thepossibility of exposure to or infection with HIV-1 and/orHIV-2. Nonreactive results in this assay for individualswith prior exposure to HIV-1 and/or HIV-2 may be due toantigen and antibody levels that are below the limit ofdetection of this assay.The SRL Global HIV Ag/Ab Combo assay result andsupplemental assay results should be interpreted inconjunction with the patient's clinical presentation,history and other laboratory results. If the results areinconsistent with clinical evidence, additional testing issuggested to confirm the result. Blood Venous blood specimen / Unknown 03/19/2024 11:25 AM EDT 03/19/2024 12:57 PM EDT us Stacy Boyd MD LAB BLOOD ORDERABLES Fin al Result Performing Organization Address [facility]/ZIP Co de Phone Number [facility] [address] [place] [address] [phone] * Thinprep TIS PAP And HPV mRNA E6/E7 With Reflex To HPV 16,18/45 (12/11/2022 9:20 AM EDT) Clinical Information: Routine exam [facility] LMP: NONE GIVEN [facility] [place] [facility] Prev. PAP: NONE GIVEN [facility] [place] [facility] Prev. BX: NO [facility] [place] [facility] SOURCE: None given [facility] [place] [facility] Statement Of Adequacy: [facility] [place] [facility] Comment: Satisfactory for evaluation. Endocervical/transformation zone component present. Interpretation/ Result: Negative for intraepithelial lesion or malignancy. [facility] [place] [facility] COMMENT: This Pap test has been evaluated with computer assisted technology. [facility] [place] [facility] Cytotechnologis t: [facility] [place] [facility] Comment: BK,CT(ASCP) CT screening location: [address] (Always Message) [facility] [place] [facility] Comment: EXPLANATORY NOTE: The Pap is a [...] HPV nRNA E6/E7 Not Detected Not Detected [facility] Comment: Methodology: Credentialing Assistant-Mediated Amplification This assay detects E6/E7 viral messenger RNA (mRNA) from 14 high-risk HPV types (16,18,31,33,35,39,45,51,52,56,58,59,66,68). Cervical sources are required for HPV testing. If a vaginal source from a patient who has had a total hysterectomy with removal of cervix was submitted, please contact the testing laboratory for alternative testing options. For additional information, please refer to http://education.[employer]/faq/SFU331d1 (This link if provided for information/ educational purposes only.) Genital 12/11/2022 9:20 AM EDT 12/12/2022 1:15 AM EDT Stacy Boyd MD LAB PATHOLOGY ORDERABLES Final Result [facility] [address], [place] [address] [facility] [place] [facility] [phone] from Last 3 Months or Most Recently Relevant to Health Maintenance Insurance [facility] C3 HSN FULL DENTAL-[facility] MEDICAID STAND ADULT Care Teams Band Bias Machine Operator Relationship Specialty Start Date End Date Stacy Boyd MD [address] [place] [address] PCP - General Family Medicine 05/20/16 Evelyne Pemberton Manager ChannelTransport Operations Inspector 12/15/24
--- OUTSIDE RECORDS SUMMARY | 2025-02-28 13:34 | XMS_ITS | Encounter Summary ---
Author Organization [employer] Address [address] [facility] 7t [place] [address] Care Team Providers Care Latexer Name Role Phone Stacy Boyd MD Primary Care Provider + Mary Jo Palmer Unavailable Encounter Details Date Type Department Care Team (Late st Contact Info) Description 10/04/2022 Abstract [facility] [address] [place] [address] Maria Eugenia, Alba [address] [place] [address] Social History Tobacco Use Types Packs/Day Years [...] Description 2025 11:15 AM EST Office Visit [facility] [address] [place] [address] Stacy Boyd MD [address] [place] [address] documented as of this encounter Visit Diagnoses Not on filedocumented in this encounter Care Teams Latexer Relationship Specialty Start Date End Date Stacy Boyd MD [address] [place] [phone] PCP - General Family Medicine 05/20/16 Mary Jo Palmer 01/10/25 01/27/25 Evelyne Pemberton Furnace CheckerTeacher Instrumental 12/15/24 documented as of this encounter
--- OUTSIDE RECORDS SUMMARY | 2025-02-28 13:34 | XMS_ITS | Clinical Summary ---
Author Organization [facility] ity Address [address] [place] [address] Care Team Providers Care Commodity Industry Analyst Name Role Phone Unavailable Primary Care Provider [...] 07/15/2023 Social Influencers of Health Screening 07/15/2023 Depression Screening 06/16/2024 COVID-19 Vaccine ( - 2023-2 5 season) 2025 Influenza Vaccine (#1) 2025 HIB Vaccines Aged [...]
--- OUTSIDE RECORDS SUMMARY | 2025-02-28 13:34 | XMS_ITS | Encounter Summary ---
Author Organization [employer] Address [address] [facility] [facility] [address] [place] [address] Care Team Providers Care Ui Programmer Name Role Phone Stacy Boyd MD Primary Care Provider + Encounter Details Date Type Department Care Team (Late st Contact Info) Description 02/28/2025 Orders Only GENERIC EXTERNAL DATA DEPARTMENT Provider, Generic External Data Social History Tobacco Use Types Packs/Day Years [...] Upcoming Encounters Date Type Department Care Team ([facility] st Contact Info) Description 2025 11:15 AM EST Office Visit [facility] [address] [place] [address] Stacy Boyd MD [address] [place] [address] documented as of this encounter Procedures Procedure Name Priority Date/Time Associated Diagnosis Comments URINALYSIS, COMPLETE, WITH REFLEX TO CULTURE Routine 02/28/2025 10:55 AM EDT INFLUENZA A B2 ID NOW (KHAN) Routine 02/28/2025 10:31 AM EDT COVID-19 ID NOW (KHAN) Routine 02/28/2025 10:31 AM EDT CBC WITH AUTO DIFFERENTIAL Routine 02/28/2025 10:31 AM EDT HCG, TOTAL, QN Routine 02/28/2025 10:31 AM EDT MAGNESIUM Routine 02/28/2025 10:31 AM EDT LIPASE Routine 02/28/2025 10:31 AM EDT COMPREHENSIVE METABOLIC PANEL Routine 02/28/2025 10:31 AM EDT documented in this encounter Results * (ABNORMAL) Urinalysis, Complete, with Reflex to Culture (02/28/2025 10:55 AM EDT) Color Urine Yellow [facility] Appearance Urine Clear [facility] PH 5.5 5.0 - 9.0 [facility] Glucose Urine UA Negative Negative mg/dL [facility] Urine Blood Small (1+)(A) Negative [facility] Specific [place] - Urine 1.020 1.005 - 1.025 [facility] Urine Protein Negative Neg-Trace mg/dL [facility] Urine Ketones Negative Negative mg/dL [facility] Nitrite Urine Negative Negative [facility] Leukocyte Esterase Urine Negative Negative [facility] RBC Urine 0-2 0 - 2 /HPF [facility] Urine WBC 0-5 0 - 5 /HPF [facility] Urine Squamous Epithelial Cell 0-2 0 - 2 /HPF [facility] Urine Bacteria None Seen None Seen [facility] Hyaline Casts, Urine 0-2 0 - 2 /LPF [facility] 02/28/2025 10:5 5 AM EDT 02/28/2025 11:00 AM EDT Narrative [facility] - 02/28/2025 11:15 AM EDT [id number], Clean Catch us Generic External Data Provider LAB URINE ORDERAB LES Final Result [facility] [address] [place] [address] [phone] * hCG, Total, Quantitative (02/28/2025 10:31 AM EDT) HCG Quantitative <2 mIU/mL [facility] Comment:Weeks post LMP Appro ximate hCG(Last Menstrual Period) Range (mIU/ml)3 - 4 weeks 9 - 1304 - 5 weeks 75 - 2,6005 - 6 weeks 850 - 20,8006 - 7 weeks 4000 - 100,2007 - 12 weeks 11,500 - 289,28980 - 16 weeks 18,300 - 137,80746 - 29 weeks (2nd trimester) 1,400 - 53,99981 - 41 weeks (3rd trimester) 940 - [...] Provider LAB BLOOD ORDERAB LES Final Result [facility] [address] [place] [phone] * COVID-19 ID NOW (KHAN) (02/28/2025 10:31 AM EDT) IDNOW SERIAL# [id number] [facility] COVID-19 TEST Negative Negative [facility] COVID-19 NOTE See Note [facility] Comment: Results are for the identification of SARS-CoV2 RNA. TheSARS-CoV2 RNA is generally detectable in respiratory samplesduring the acute phase of infection. Positive results areindicative of the presence of SARS-CoV-2 RNA; clinicalcorrelation with patient history and other diagnosticinformation is necessary to determine patient infectionstatus. Positive results do not rule out bacterial infectionor co- infection with other viruses.Testing facilities within the [facility] and itsterritories are required to report all positive results [...] use by authorized laboratories.Testing performed on the Khan ID NOW utilizing NAAT. 02/28/2025 10:3 1 AM EDT 02/28/2025 10:36 AM EDT Generic External Data Provider LAB MOLECULAR ABDIAS GNOSTICS ORDERABLES Final Result Performing Organization Address [facility] Co de Phone Number [facility] [address] [place] [phone] * Influenza A B2 ID NOW (Khan) (02/28/2025 10:31 AM EDT) IDNOW SERIAL# [id number] [facility] Influenza A Negative Negative [facility] Influenza B2 Negative Negative [facility] Influenza A B2 Note See Note [facility] Comment:The Khan ID NOW In [...] GENERAL ORDERABLES Final Result Performing Organization Address [facility] Co de Phone Number [facility] [address] [place] [phone] * Lipase (02/28/2025 10:31 AM EDT) Lipase 21 8 - 78 U/L [facility] 02/28/2025 10:3 1 AM EDT 02/28/2025 10:36 AM EDT us Generic External Data Provider LAB BLOOD ORDERAB LES Final Result Performing Organization Address City/[facility]/ZIP Co de Phone Number [facility] [address] [place] [phone] * Magnesium (02/28/2025 10:31 AM EDT) Magnesium 1.8 1.6 - 2.6 mg/dL [facility] 02/28/2025 10:3 1 AM EDT 02/28/2025 10:36 AM EDT Generic External Data Provider LAB BLOOD ORDERAB LES Final Result Performing Organization Address [facility]/ZIP Co de Phone Number [facility] [address] [place] [phone] * (ABNORMAL) Comprehensive Metabolic Panel (02/28/2025 10:31 AM EDT) Sodium 141 135 - 145 mmol/L [facility] Potassium 4.2 3.3 - 5.1 mmol/L [facility] Chloride 108 96 - 108 mmol/L [facility] Carbon Dioxide 28 22 - 29 mmol/L [facility] Anion Gap 9(L) 12 - 20 [facility] Urea Nitrogen (BUN) 9 9 - 16 mg/dL [facility] Creatinine, Serum 0.64 0.5 - 1.4 mg/dL [facility] Creatinine Clr Calc Pharmacy 102.6 [facility] Comment:Provided height and weight: 157.48 cm,74.4 kg.eGFR (calculated from the MDRD study equation) and eCrCl(calculated from the Cockcroft-Gault equation) are based ondifferent parameters and may not yield comparable results.If eCrCl result is absurd, please check patient'sheight/weight. Estimated Glomerular Filt Rate >60 [facility] Comment:Chronic Kidney Disea se: Estimated GFR < 60 mL/min/1.38c8Rtunql Kidney Disease: Estimated GFR < 15 mL/min/1.73m2 Glucose 100 60 - 115 mg/dL [facility] Calcium 9.5 8.4 - 10.2 mg/dL [facility] Bilirubin, Total 0.6 0.0 - 1.0 mg/dL [facility] Aspartate Amino Transferase 32(H) 5 - 31 U/L [facility] Alanine Aminotransferase 38(H) 0 - 31 U/L [facility] Total Protein 7.2 6.5 - 8.0 g/dL [facility] Albumin Level 4.0 3.5 - 5.0 g/dL [facility] Alkaline Phosphatase 74 39 - 117 U/L [facility] 02/28/2025 10:3 1 AM EDT 02/28/2025 10:36 AM EDT us Generic External Data Provider LAB BLOOD ORDERAB LES Final Result [facility] [address] [place] [phone] * (ABNORMAL) CBC auto differential (02/28/2025 10:31 AM EDT) White Blood Count 8.9 4.8 - 10.8 X10*3/uL [facility] Red Blood Count 4.51 4.20 - 5.50 X10*6/uL [facility] Hemoglobin 12.0 12.0 - 16.0 g/dl [facility] Hematocrit 36.5(L) 37.0 - 47.0 % [facility] Mean Corpuscular Volume 80.9 80.0 - 98.0 fL [facility] Mean Corpuscular Hemoglobin 26.6(L) 27.0 - 33.0 pg [facility] Mean Corpuscular HGB Conc 32.9 31.0 - 35.0 g/dl [facility] Red Cell Distribution Width 13.1 11.0 - 16.0 % [facility] Platelet Count 262 160 - 400 X10*3/uL [facility] Mean Platelet Volume 10.6 9.4 - 12.3 fL [facility] Neutrophils Percent Auto 78.6(H) 45 - 73 % [facility] Imm Gran Pct Auto 0.2 0.0 - 0.4 % [facility] Lymphocytes Percent Auto 13.6(L) 20 - 40 % [facility] Monocytes Percent Auto 5.7 2 - 11 % [facility] Eosinophils Percent Auto 1.8 0 - 4 % [facility] Basophils Percent Auto 0.1 0 - 2 % [facility] NRBC Pct Auto 0.0 0.0 - 0.2 /100WBC [facility] Neutrophils Absolute Auto 7.0 2.0 - 8.3 x10*3/uL [facility] Imm Gran Abs Auto 0.02 0.00 - 0.03 X10*3/uL [facility] Lymphocytes Absolute Auto 1.2 1.2 - 4.9 X10*3/uL [facility] Monocytes Absolute Auto 0.5 0.1 - 1.2 X10*3/uL [facility] Eosinophils Absolute Auto 0.2 0.0 - 0.4 X10*3/uL [facility] Basophils Absolute Auto 0.0 0.0 - 0.2 X10*3/uL [facility] NRBC Abs Auto 0.000 0.0 - 0.012 X10*3/uL [facility] 02/28/2025 10:3 1 AM EDT 02/28/2025 10:36 AM EDT us Generic External Data Provider LAB BLOOD ORDERAB LES Final Result [facility] [address] [place] [phone] documented in this encounter Visit Diagnoses Not on filedocumented in this encounter Additional Health Concerns Assessment Noted Time PHQ-9 Depression Total Score: 0 09/15/19 24 9:28 AM EDT documented as of this encounter Care Teams Ui Programmer Relationship Specialty Start Date End Date Stacy Boyd MD [address] [place] [phone] PCP - General Family Medicine 05/20/16 Evelyne Pemberton Affiliate Marketing SpecialistEvp North America 12/15/24 documented as of this encounter
--- OUTSIDE RECORDS SUMMARY | 2025-02-28 13:34 | XMS_ITS | Encounter Summary ---
Author Organization [employer] Address [address] [facility] [address]t [place] [address] Care Team Providers Care Senior Sales Engineer Name Role Phone Stacy Boyd MD Primary Care Provider + Mary Jo Palmer Unavailable Encounter Details Date Type Department Care Team (Late st Contact Info) Description 10/18/2022 Abstract [facility] [address] [place] [address] Maria Eugenia, Alba [address] [place] [address] Social History Tobacco Use Types Packs/Day Years [...] Description 2025 11:15 AM EST Office Visit [facility] [address] [place] [address] Stacy Boyd MD [address] [place] [address] documented as of this encounter Visit Diagnoses Not on filedocumented in this encounter Care Teams Senior Sales Engineer Relationship Specialty Start Date End Date Stacy Boyd MD [address] [place] [phone] PCP - General Family Medicine 05/20/16 Mary Jo Palmer 01/10/25 01/27/25 Evelyne Pemberton Grill AssociateAirline Pilot Flight Instructor 12/15/24 documented as of this encounter
[2025-02-28] MEDS: iohexoL 350 MG/ML 100 ML INFUS..BTL 85 ML IV (15:43)
[2025-02-28 17:36] VITALS: BP 99/52; PULSE 90; RESP 16; TEMP 36.6; O2SAT 98
== END 2025-02-28 17:43 | disposition home or self-care (01) ==
PROVIDERS: Registered Nurse Emergency; Emergency Provider Emergency Medicine; PCP Internal Medicine
DX: R10.32 Left lower quadrant pain (principal); K80.20 Calculus of gallbladder without cholecystitis without obstruction; R21 Rash and other nonspecific skin eruption
CPT/HCPCS: 36415; 74177; 80053; 81001; 83690; 83735; 84702; 85025; 85652; 86140; 87502; 87635; 96361; 96374; 96375; 96376; 99284; 99285; J1200; J1885; J2765; Q9967

== ENCOUNTER → 2025-02-28 14:22 | Outpatient (BNV) | payer MEDICAID, SELFPAY | PROVIDERS: Emergency Provider Emergency Medicine; PCP Internal Medicine; Visit Provider Radiology Diagnostic Radiology | DX: K80.20 Calculus of gallbladder without cholecystitis without obstruction (principal); K76.0 Fatty (change of) liver, not elsewhere classified | CPT/HCPCS: 74177 ==

== ENCOUNTER 2025-03-02 09:38 | Emergency (ER) | payer MEDICAID, SELFPAY ==
--- OUTSIDE RECORDS SUMMARY | 2025-02-25 13:00 | XMS_ITS | Encounter Summary ---
Author Organization [employer] Address [address] [place] [address] Care Team Providers Care Rail Tractor Operator Name Role Phone Stacy Boyd MD Primary Care Provider + Reason for Visit * Reason Comments Dental Pain Pt came in as an henny rgency with pain all over her mouth for the pass year. Panorex taken Encounter Details Date Type Department Care Team (Late st Contact Info) Description 02/25/2025 1:00 PM EDT Office Visit [facility] ADULT DENTAL [address], [place] [phone] Javed Castillo, DDS [address], [place] [phone] Dental caries (Primary Dx); Pain, dental; Periodontal [...] Service provider: Javed Castillo DDS Billing provider: Jvaed Castillo DDS [id number] - CASE PRESENTATION, DETAILED AND EXTENSIVE TREATMENT PLANNING (Completed) Service provider: Javed Castillo DDS Billing provider: Javed Castillo DDS Patient ID: Geetha Carlito is a 49 y.o. female. Time Out: Timeout Date: 02/25/25, Timeout Time: 1256 (pt vame in as an emergency with pain all over her mouthfor the ass year. panorex taken) Location: [facility] Tooth: Maxilla and Mandible Procedure: Exam and X-rays Verified the above with patient, application assistant, and provider. Confirmed via patient's chart, intraorally and by radiographs. Stone Layer: not applicable Chief Complaint Patient presents with [...] Cancer Risk: Low Risk Oral Hygiene Instructions: [place] two times daily, modified mcclelland technique, Floss daily, Electric toothbrush, Soft bristle toothbrush, [place] Tongue Caries Risk Assessment: Low- no risk factor Assessment/Plan EOE Prescription to control pain and infection Per pt request, would like to see specialist instead of proceeding with previously DX and planned SRP Activity Aide's referral 6 mos recall Patient tolerated procedure well, all questions answered and expressed understanding. Dismissed in good condition. [place]: Perio specialist / up to Lizzie =Adiel Darnell or Unique Transmission Operator: Christal Negrete Dentist: Javed Castillo DDS [1] [...] Description 2025 11:15 AM EST Office Visit [facility] MEDICINE [address] [place] [phone] Stacy Boyd MD [address] [place] [phone] Scheduled Orders Name Type Priority Associated Diagnoses [...] documented as of this encounter Care Teams Rail Tractor Operator Relationship Specialty Start Date End Date Stacy Boyd MD [address] [place] [id number] PCP - General Family Medicine 05/20/16 Evelyne Pemberton [employer] Fishing Boat CrewmanAger Operator 12/15/24 documented as of this encounter
[2025-03-02 09:46] VITALS: BP 121/83; PULSE 96; RESP 16; TEMP 36.4; O2SAT 97; BMI 24.2
--- NOTE | 2025-03-02 10:10 | PC.NURSE ---
Addendum entered by Sanam Thomson RN 03/02/25 10:11: Patient is a 49-year-old woman recently evaluated in this facility for gradually worsening left-sided abdominal pain for about a week. MSE completed and patient discharged on tylenol, motrin, flexeril and carafate. Today she presents with generalized blotch hives to all 4 extremities with assoc burning and itching. Respirations even and non-labored. Abdomen soft, non-tender with positive bowel sounds. No LE edema noted. Original Note: Medical History Cholelithiasis Hx of fracture of forearm
--- NOTE | 2025-03-02 10:54 | ED.ALLEREA ---
HPI - Allergic Reaction General Chief complaint: Allergic Reaction Stated complaint: reaction to meds Time Seen by Provider: 03/02/25 10:41 Source: patient and old records reviewed Mode of arrival: ambulatory Limitations: no limitations History of Present Illness ED Provider: RUPERTO TUCKER narrative: 49 yo female with PMH of gallstones, GERD, severe allergies for which she takes xyzal. She notes she was just treated for abdominal pain on 02/28 and started on carafate, flexeril, motrin and tylenol. She notes she has recurrent bouts of burning itching hives on her body. This bout started yesterday. She tries OTC meds no relief. No oral swelling, no dyspnea. I did ask given the hive issue that started in 2018 along with some joint pains if there is a fam hx of lupus or RA and if the patient was worked up for it. She tells me she has only seen her PCP for this and an gospel worker but does not remember labs. I did not find any immunology labs in her chart. complaint: hives Onset (ago): day(s) (1) Exposure: other Symptoms: itching Severity: mild Treatment prior to arrival: none Previous Allergic Reaction History: prior ED visit(s) Related Data Home Medications ?Medication ?Instructions ?Recorded ?Confirmed diphenhydramine HCl 25 mg capsule mg PO 12/09/23 05/17/24 (Banophen) ergocalciferol (vitamin D2) 1,250 1,250 mcg PO QWEEK 12/09/23 05/17/24 mcg (50,000 unit) capsule loratadine 10 mg tablet 10 mg PO DAILY PRN allergies 12/09/23 05/17/24 triamcinolone acetonide 0.1 % appl topical 12/09/23 05/17/24 topical cream cyclobenzaprine 5 mg tablet 5 mg PO BEDTIME PRN neck pain 02/03/24 05/17/24 lidocaine-prilocaine 2.5 %-2.5 % topical BID PRN pain 02/03/24 05/17/24 topical cream naproxen 500 mg tablet 500 mg PO BID PRN pain 02/03/24 05/17/24 Previous Rx's ?Medication ?Instructions ?Recorded ondansetron 4 mg disintegrating 4 mg PO Q6-8H PRN nausea and 12/04/23 tablet vomiting #7 tabs omeprazole 20 mg capsule,delayed 20 mg PO DAILY #30 caps 02/03/24 release sennosides 8.6 mg tablet (Natural 17.2 mg (2 x 8.6 mg) PO BEDTIME 02/03/24 Senna Laxative) constipation #60 tabs prednisone 20 mg tablet See Rx Instructions .Route 06/12/24 .COMPLEX 12 days #26 tabs diazepam 2 mg tablet (Valium) 2 mg PO TID PRN spasms 2 days #6 12/05/24 tabs lidocaine 5 % topical patch 1 patch topical DAILY #15 ea 12/05/24 naproxen 500 mg tablet 500 mg PO BID 5 days #10 tabs 12/05/24 hydrocortisone 1 % topical cream 1 appl topical BID PRN vaginal 01/14/25 irritation #28.4 grams acetaminophen 500 mg capsule 1,000 mg (2 x 500 mg) PO Q8H PRN 02/28/25 fever or pain #14 caps cyclobenzaprine 10 mg tablet 10 mg PO TID PRN muscle spasm #14 02/28/25 tabs ibuprofen 400 mg tablet 400 mg PO Q6H PRN pain #14 tabs 02/28/25 sucralfate 1 gram tablet 1 g PO TID PRN abdominal 02/28/25 discomfort #60 tabs prednisone 10 mg tablet See Taper PO DAILY #30 tabs 03/02/25 Allergies Allergy/AdvReac Type Severity Reaction Status Date / Time sulfamethoxazole (From Allergy Unknown LIP Verified 03/02/25 09:48 BACTRIM) SWELLING trimethoprim (From BACTRIM) Allergy Unknown LIP Verified 03/02/25 09:48 SWELLING Review of Systems Review of Systems: Constitutional : No Fever, No Chills ENT/Mouth : positive oral swelling, No Hoarseness, No Swallowing Difficulty Cardiovascular : No Chest Pain, No SOB Respiratory : No Cough, No dyspnea Gastrointestinal : No Nausea, No Vomiting, No Diarrhea, No abdominal Pain Musculoskeletal : No joint pain, No Myalgias, No Joint Swelling Skin : No Skin Lesions, positive rash Neuro : No Weakness, No Numbness, No Headache All other systems reviewed and are negative Yes all other systems are reviewed and are negative PMFSH Past Medical History Attestation statement: The following information was validated with the patient. 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 Oriented X3. No acute distress. Eyes: Pupils equal, round and reactive to light. ENT: Pharynx normal. no angioedema Neck: Normal inspection. Neck supple. CVS: Normal heart rate and rhythm. Pulses normal. Respiratory: No respiratory distress. Breath sounds normal. Abdomen: Soft and nontender. Skin: Skin warm and dry. Normal skin color. Hives noted large and confluent on lower extremities as well as some on anterior chest, no signs of open wounds or secondary infection Extremities: No lower extremity edema. Neuro: Oriented X 3. No motor deficit. No sensory deficit. CN2-12 intact Course Course Course Narrative: Jay CAR will review the labs and likely DC Home with patient to follow up with rest of labs as I discussed with her. Reevaluation(s) Reevaluation #1: On reevaluation, this is a 49 year old female with chronic hives she has been seeing her PCP/ gospel worker for since 2018. Hives are pruritic in nature and located on the RLE, without evidence of cellulitis or airway involvement. Patient was medicated with 25mg IV benadryl and 60mg solumedrol which had good effect on pruritis. Labs were significant for elevated CRP at 1.63 and ESR at 33. Patient understands she needs to follow up with PCP for RICHARD/DNA immunology labs. I counseled patient on strict return precautions. She is in agreement with the plan. Time: 13:03 Medications Administered Discontinued Medications Generic Name Dose Route Start Last Admin Trade Name Freq PRN Reason Stop Dose Admin Diphenhydramine HCl 25 mg 03/02/25 10:53 03/02/25 11:25 Diphenhydramine Hcl 50 Mg/Ml Vial IVPUSH 03/02/25 10:54 25 mg ONCE ONE Administration Methylprednisolone Sodium Succinate 60 mg 03/02/25 10:53 03/02/25 11:23 Methylprednisolone Sod Succ 125 Mg/2 Ml Vial IVPUSH 03/02/25 10:54 60 mg ONCE ONE Administration Medical Decision Making Medical Decision Making MDM Narrative: 49 yo female with PMH of gallstones, GERD, severe allergies for which she takes xyzal now here with another urticarial flare up she has no signs of oral or airway involvement, there is no secondary infection. I did talk to the patinet about getting some infl markers as well as RICHARD - she is aware and she notes she will use the patient portal and contact her PCP. I will start her on prednisone taper as well. Differential Diagnosis Differential Diagnoses: The differential diagnosis associated with the presentation includes chronic urticaria, autoimmune ds such as lupus, dermatomyositis Admission/Observation Consideration of admission/observation: Escalation of care including admission/observation considered no airway involvement can be managed as outpatient with prednisone taper Lab Data [facility] Lab Attestation statement: I reviewed the patient's lab results. Labs: Lab Results 03/02/25 Range/Units 11:53 ESR 33 H (0-20) MM/HR Hold Purple Top SEE NOTE Total Bilirubin 0.2 (0.0-1.0) mg/dL Direct Bilirubin < 0.2 (0.0-0.5) mg/dL AST 27 (5-31) U/L ALT 29 (0-31) U/L Alkaline Phosphatase 69 (39-117) U/L Total Creatine Kinase 62 (26-140) U/L C-Reactive Protein 1.63 H (< or = 0.50) mg/dL Total Protein 7.0 (6.5-8.0) g/dL Albumin 3.9 (3.5-5.0) g/dL TSH 1.32 (0.32-4.0) uIU/mL Independent Historian Clinical information obtained from an independent historian. History obtained from or confirmed by: Other (daughter) External Record Review External record reviewed: Outpatient record and Prior outpatient labs Prescription Management I considered prescription management with: Other Discharge Plan Discharge Clinical Impression: Urticaria Patient Disposition: Home, Self-Care Instructions: Urticaria (ED) Additional Instructions: there are many labs pending and you need to follow up with your primary care and the patient portal on these labs. These are outpatient labs as we discussed. You should continue your medications but I am going to start you on a prednisone taper take with food and plenty of water return for any worsening symptoms or concerns I would make sure you see a swim instructor and possibly a automotive leasing sales representative this seems potentially more inflammatory or autoimmune. Make sure you follow up. Prescriptions: New prednisone 10 mg tablet See Taper PO DAILY Qty: 30 0RF Taper: Prednisone 40 mg daily for 3 Days and 0 Hour 30 mg daily for 3 Days and 0 Hour 20 mg daily for 3 Days and 0 Hour 10 mg daily for 3 Days and 0 Hour No Action ondansetron 4 mg tablet,disintegrating 4 mg PO Q6-8H PRN (Reason: nausea and vomiting) Qty: 7 0RF prednisone 20 mg tablet See Rx Instructions .ROUTE .COMPLEX 12 Days Qty: 26 0RF Rx Instructions: 20 mg orally, Take 3 tablets for 5 days THEN; Take 2 tablets for 4 days THEN; Take 1 tablet for 3 days diazepam [Valium] 2 mg tablet 2 mg PO TID PRN (Reason: spasms) 2 Days Qty: 6 0RF naproxen 500 mg tablet 500 mg PO BID 5 Days Qty: 10 0RF lidocaine 5 % adhesive patch,medicated 1 patch topical DAILY Qty: 15 0RF Rx Instructions: leave on most painful area for up to 12 hrs hydrocortisone 1 % cream 1 appl topical BID PRN (Reason: vaginal irritation) Qty: 28.4 0RF sucralfate 1 gram tablet 1 g PO TID PRN (Reason: abdominal discomfort) Qty: 60 0RF cyclobenzaprine 10 mg tablet 10 mg PO TID PRN (Reason: muscle spasm) Qty: 14 0RF ibuprofen 400 mg tablet 400 mg PO Q6H PRN (Reason: pain) Qty: 14 0RF acetaminophen 500 mg capsule 1,000 mg PO Q8H PRN (Reason: fever or pain) Qty: 14 0RF loratadine 10 mg tablet 10 mg PO DAILY PRN (Reason: allergies) triamcinolone acetonide 0.1 % cream topical diphenhydramine HCl [Banophen] 25 mg capsule PO ergocalciferol (vitamin D2) 1,250 mcg (50,000 unit) capsule 1,250 mcg PO QWEEK lidocaine-prilocaine 2.5-2.5 % cream topical BID PRN (Reason: pain) naproxen 500 mg tablet 500 mg PO BID PRN (Reason: pain) cyclobenzaprine 5 mg tablet 5 mg PO BEDTIME PRN (Reason: neck pain) omeprazole 20 mg capsule,delayed release(DR/EC) 20 mg PO DAILY Qty: 30 3RF sennosides [Natural Senna Laxative] 8.6 mg tablet 17.2 mg PO BEDTIME Qty: 60 3RF Referrals: [facility] Rheumatology Service [Provider Group, Rheumatology] Referral Note: call to schedule Interventions: ED Discharge Assessment Last Done: 03/02/25 13:13 Discharge Date/Time: 03/02/25 13:14 Print Language: Lebanese
--- OUTSIDE RECORDS SUMMARY | 2025-03-02 11:55 | XMS_ITS ---
Author Organization [employer] Address [address] [facility] [address] [facility] [address] [place] [address] Care Team Providers Care Stone Breaker Name Role Phone Stacy Boyd MD Primary Care Provider + Mary Jo Palmer Unavailable CHW Complex Status:Outreach In Progress (Enrolling) Start date:03/01/2025 Enrollment reason:ADT Feed Overview CP Assigned Patient- Pt went to [facility] ED on 02/28/25. Case Team Name Relationship Phone Mary Jo Palmer(Responsible Staff) [phone] Continued Care and Services Coordination
--- OUTSIDE RECORDS SUMMARY | 2025-03-02 11:55 | XMS_ITS | Encounter Summary ---
Author Organization [employer] Address [address] [place] [address] Care Team Providers Care Digital Media Director Name Role Phone Stacy Boyd MD Primary Care Provider + Mary Jo Palmer Unavailable Reason for Visit * Reason Comments Care Coordination [facility] E D Follow up Encounter Details Date Type Department Care Team (Latest Contact Info) Description 03/01/2025 Patient Outreach [facility] MED & PEDS [address] [place], [place] [phone] Stacy Boyd MD [address] [place], [place] [phone] Care Coordination ([facility] ED Follow up) Social History Tobacco Use Types Packs/Day Years [...] Progress Notes * Mary Jo Palmer - 03/01/2025 8:41 AM EDT [facility] assigned patient visited [facility] ED on 02/28/25. ED visit note has been scanned into patient's chart. Notification sent to the Triage Nurse team to follow up with patient for ED status check and medication reconciliation. * Tomasa Alaniz RN - 03/01/2025 8:41 AM EDT Emergency Room Visit Date: 02/28/25 Facility: [facility] Diagnosis: Left sided abdominal pain Disposition: Discharged home Discharge summary in the chart: Yes Call to Lizzie Esteban for Community Photocomposing Keyboard Operator ER follow up and Medication reconciliation at [phone]. Patient Contacted: Yes. Patient Status: Improved Reports able to pickers material handlers rx for sucralfate And cyclobenzaprine. Pt states still taking amoxicillin prescribed in dental office. Pt reports sx much improved. Med Reconciliation was completed during call. Patient was educated on hours of operation. ER precautions were reviewed with patient. Patient advised to return call if symptoms do not improve or if having any new concerns. Patient agrees to above plan of care. documented in this encounter Miscellaneous Notes * Addendum Note - Tomasa Alaniz RN - 03/01/2025 8:41 AM EDTAddended by: TOMASA ALANIZ on: 03/01/2025 02:05 PM Modules accepted: Orders documented in this encounter Plan of Treatment Upcoming Encounters Date Type Department Care Team (Late st Contact Info) Description 2025 11:15 AM EST Office Visit [facility] MEDICINE [address] [place] [address] Stacy Boyd MD [address] [place] [address] documented as of this encounter Visit Diagnoses Not on filedocumented in this encounter Additional Health Concerns Assessment Noted Time PHQ-9 Depression Total Score: 0 09/15/19 24 9:28 AM EDT documented as of this encounter Care Teams Digital Media Director Relationship Specialty Start Date End Date Stacy Boyd MD [address] [place] [address] PCP - General Family Medicine 05/20/16 Mary Jo Palemr 03/01/25 Evelyne Pemberton Diesel Service ApprenticeBarrel Loader And Cleaner 12/15/24 documented as of this encounter
--- OUTSIDE RECORDS SUMMARY | 2025-03-02 11:55 | XMS_ITS | Clinical Summary ---
Author Organization [facility] ity Address [address] [place] [address] Care Team Providers Care Military Science Instructor Name Role Phone Unavailable Primary Care Provider [...]
--- OUTSIDE RECORDS SUMMARY | 2025-03-02 11:55 | XMS_ITS | Encounter Summary ---
Author Organization [employer] Address [address] [place] [address] Care Team Providers Care Infirmary Attendant Name Role Phone Stacy Boyd MD Primary Care Provider + Mary Jo Palmer Unavailable Encounter Details Date Type Department Care Team ([facility] st Contact Info) Description 03/01/2025 Patient Outreach [facility] [address] [place], [place] [phone] Stacy Boyd MD [address] [place], [place] [phone] Social History Tobacco Use Types Packs/Day Years [...] AM EST Office Visit [facility] [address] [place] [address] Stacy Boyd MD [address] [place] [address] documented as of this encounter Visit Diagnoses Not on filedocumented in this encounter Additional Health Concerns Assessment Noted Time PHQ-9 Depression Total Score: 0 09/15/19 24 9:28 AM EDT documented as of this encounter Care Teams Infirmary Attendant Relationship Specialty Start Date End Date Stacy Boyd MD [address] [place] [id number] PCP - General Family Medicine 05/20/16 Mary Jo Palmer 03/01/25 Evelyne Pemberton Title SpecialistFloor Finisher 12/15/24 documented as of this encounter
--- OUTSIDE RECORDS SUMMARY | 2025-03-02 11:55 | XMS_ITS | Encounter Summary ---
Author Organization [employer] Address [address] [place] [address] Care Team Providers Care Box Packer Name Role Phone Stacy Boyd MD Primary Care Provider + Mary Jo Palmer Unavailable Reason for Visit * Reason Comments Care Coordination CP Care Coordination Chart Review Encounter Details Date Type Department Care Team (Latest Contact Info) Description 03/01/2025 Patient Outreach [facility] MED & PEDS [address] [place] [address] Stacy Boyd MD [address] [place], [place] [phone] Care Coordination (CP Care Coordination Chart Review) Social History Tobacco Use Types Packs/Day Years [...] Notes * Mary Jo Palmer - 03/01/2025 8:37 AM EDT [facility] Coordinator, Mary Jo Palmer, performed chart review, as patient has experienced anADT event and has been identified as being engaged with a [facility] Program. Patient is assigned to CP Program ICP to Padding Machine Operator Niecy Stubbs. Patient visited [facility] ED on 02/28/25. Last appointment in PCP office on 02/07/25. Next appointment scheduled for 05/03/25. documented in this encounter Plan of Treatment Upcoming Encounters Date Type Department Care Team (Late st Contact Info) Description 2025 11:15 AM EST Office Visit [facility] [address] [place] [address] Stacy Boyd MD [address] [place], [place] [phone] documented as of this encounter Visit Diagnoses Not on filedocumented in this encounter Additional Health Concerns Assessment Noted Time PHQ-9 Depression Total Score: 0 09/15/19 24 9:28 AM EDT documented as of this encounter Care Teams Box Packer Relationship Specialty Start Date End Date Stacy Boyd MD [address] [place] [phone] PCP - General Family Medicine 05/20/16 Mary Jo Palmer 03/01/25 Evelyne Pemberton Wind Energy EngineerBalance Truing Inspector 12/15/24 documented as of this encounter
--- OUTSIDE RECORDS SUMMARY | 2025-03-02 11:55 | XMS_ITS | Encounter Summary ---
Author Organization [employer] Address [address] [facility] [address] [place] [address] Care Team Providers Care Tobacco Drummer Name Role Phone Stacy Boyd MD Primary Care Provider + Mary Jo Palmer Unavailable Mary Jo Palmer Unavailable Encounter Details Date Type Department Care Team (Late st Contact Info) Description 10/18/2022 Abstract [facility] [address] [place], [place] [phone] Maria Eugenia, Alba [address] [place] [address] Social History Tobacco Use Types Packs/Day Years [...] Description 2025 11:15 AM EST Office Visit [facility] [address] [place] [address] Stacy Boyd MD [address] [place], [place] [phone] documented as of this encounter Visit Diagnoses Not on filedocumented in this encounter Care Teams Tobacco Drummer Relationship Specialty Start Date End Date Satcy Boyd MD [address] [place], [place] [phone] PCP - General Family Medicine 05/20/16 Mary Jo Palmer 01/10/25 01/27/25 Mary Jo Palmer 03/01/25 Evelyne Pemberton Junk DealerPaper Cup Machine Tender 12/15/24 documented as of this encounter
--- OUTSIDE RECORDS SUMMARY | 2025-03-02 11:55 | XMS_ITS | Encounter Summary ---
Author Organization [employer] Address [address] [facility] [address] [place] [address] Care Team Providers Care Project Reservoir Engineer Name Role Phone Stacy Boyd MD Primary Care Provider + Mary Jo Palmer Unavailable Mary Jo Palmer Unavailable Encounter Details Date Type Department Care Team (Late st Contact Info) Description 10/04/2022 Abstract [facility] [address] [place], [place] [phone] Maira Eugenia, Alba [address] [place] [address] Social History Tobacco Use Types Packs/Day Years [...] Description 2025 11:15 AM EST Office Visit [facility] [address] [place] [address] Stacy Boyd MD [address] [place], [place] [phone] documented as of this encounter Visit Diagnoses Not on filedocumented in this encounter Care Teams Project Reservoir Engineer Relationship Specialty Start Date End Date Stacy Boyd MD [address] [place], [place] [phone] PCP - General Family Medicine 05/20/16 Mary Jo Palmer 01/10/25 01/27/25 Mary Jo Palmer 03/01/25 Evelyne Pemberton Cleaning CustodianEvs Manager 12/15/24 documented as of this encounter
--- OUTSIDE RECORDS SUMMARY | 2025-03-02 11:55 | XMS_ITS | Encounter Summary ---
Author Organization [employer] Address [address] [place] [address] Care Team Providers Care Intellectual Property Legal Assistant Name Role Phone Stacy Boyd MD Primary [...] 11:15 AM EST Office Visit [facility] [address] [place] [address] Stacy Boyd MD [address] [place] [address] documented as of this encounter Procedures Procedure Name Priority Date/Time Associated Diagnosis Comments CT ABDOMEN PELVIS W CONTRAST Routine 02/28/2025 3:40 PM EDT URINALYSIS, COMPLETE, WITH REFLEX TO CULTURE Routine 02/28/2025 10:55 AM EDT INFLUENZA A B2 ID NOW (KHAN) Routine 02/28/2025 10:31 AM EDT COVID-19 ID NOW (KHAN) Routine 02/28/2025 10:31 AM EDT CBC WITH AUTO DIFFERENTIAL Routine 02/28/2025 10:31 AM EDT SED RATE BY MODIFIED WESTERGREN Routine 02/28/2025 10:31 AM EDT C-REACTIVE PROTEIN Routine 02/28/2025 10 :31 AM EDT HCG, TOTAL, QN Routine 02/28/2025 10:31 AM EDT MAGNESIUM Routine 02/28/2025 10:31 AM EDT LIPASE Routine 02/28/2025 10:31 AM EDT COMPREHENSIVE METABOLIC PANEL Routine 02/28/2025 10:31 AM EDT documented in this encounter Results * CT Abdomen Pelvis w/ Contrast (02/28/2025 3:40 PM EDT) Anatomical Region Laterality Modality Body, Pelvis, Abdomen Computed T omography 02/28/2025 3:40 PM EDT Narrative 02/28/2025 4:06 PM EDT [place] [id number] [address] Scan Report Signed Patient: Lizzie Esteban MR#: [id number] : 1975 Acct:[id number] Age/Sex: 49 / F ADM Date: 02/28/25 Loc: HO.ED Attending Dr: Ordering Physician: Tito Bowen MD Date of Service: 02/28/25 Procedure(s): CT abdomen pelvis w IV con Accession Number(s): [id number] cc: Stacy Boyd MD; Tito Bowen MD Report Number: [id number]: Total DLP = 530.00 mGy-cm Reason for Exam: left sided abdo pain EXAMINATION: CT ABDOMEN AND PELVIS WITH CONTRAST CLINICAL INFORMATION: Left-sided abdominal pain COMPARISON: November 1923 TECHNIQUE: Multidetector volumetric images were obtained from the superior aspect of the liver through the pubic symphysis following administration 85 mL of Omnipaque 350 intravenous contrast. Sagittal and coronal reformatted images were obtained on the technologist's workstation. Oral contrast: No This CT examination was performed using dose optimization techniques as appropriate, variously including the following: *Automated exposure control *Adjustment of mA and/or kV according to patient size (this includes techniques or standardized protocols for targeted exams where dose is matched to indication/reason for exam; i.e. extremities or head) *Use of iterative reconstruction technique DLP: 530 mGy*cm FINDINGS: LUNG BASES: The visualized lung bases are unremarkable. LIVER, GALLBLADDER, AND BILIARY TREE: There is low attenuation is noted throughout the liver with focal sparing in the inferior right hepatic lobe. Faint hypodensity in the gallbladder is consistent with cholelithiasis. PANCREAS: Unremarkable. SPLEEN: Unremarkable. ADRENAL GLANDS: Unremarkable. KIDNEYS AND URETERS: The kidneys are normal in size, shape, and attenuation. No hydronephrosis, hydroureter, or calculi seen. No perinephric stranding. BLADDER: Unremarkable. GASTROINTESTINAL TRACT: The small and large bowel are unremarkable. The appendix is unremarkable. ABDOMINAL WALL: No significant hernia is appreciated. LYMPH NODES: Normal. VASCULAR: Unremarkable. PELVIC VISCERA: Uterus and ovaries are unremarkable. OSSEOUS STRUCTURES: Unremarkable. CT/CT abdomen pelvis w IV con IMPRESSION: Cholelithiasis. Hepatic steatosis. Fleischner guidelines were followed. Electronically signed by: Fabiano Nielson MD 02/28/2025 04:04 PM EDT Dictated By: Fabiano Nielson MD Signed By: <Electronically signed by Fabiano Nielson MD in OV> 02/28/25 1604 DD/ 1540 TD/TT: 02/28/25 1557 Thread Spinner: Procedure Note Donotuseinterpreter, Image - 02/28/[address] [place] [id number] [address] Scan Report Signed Patient: Lizzie Esteban LMR#: [id number] : 1975Acct:[id number] Age/Sex: 49 / FADM Date: 02/28/25 Loc: HO.ED Attending Dr: Ordering Physician: Tito Bowen MD Date of Service: 02/28/25 Procedure(s): CT abdomen pelvis w IV con Accession Number(s): [id number] cc: Stacy Boyd MD; Tito Bowen MD Report Number: [id number]: Total DLP = 530.00 mGy-cm Reason for Exam: left sided abdo pain EXAMINATION: CT ABDOMEN AND PELVIS WITH CONTRAST CLINICAL INFORMATION: Left-sided abdominal pain COMPARISON: November 1923 TECHNIQUE: Multidetector volumetric images were obtained from the superior aspect of the liver through the pubic symphysis following administration 85 mL of Omnipaque 350 intravenous contrast. Sagittal and coronal reformatted images were obtained on the technologist's workstation. Oral contrast: No This CT examination was performed using dose optimization techniques as appropriate, variously including the following: *Automated exposure control *Adjustment of mA and/or kV according to patient size (this includes techniques or standardized protocols for targeted exams where dose is matched to indication/reason for exam; i.e. extremities or head) *Use of iterative reconstruction technique DLP: 530 mGy*cm FINDINGS: LUNG BASES: The visualized lung bases are unremarkable. LIVER, GALLBLADDER, AND BILIARY TREE: There is low attenuation is noted throughout the liver with focal sparing in the inferior right hepatic lobe. Faint hypodensity in the gallbladder is consistent with cholelithiasis. PANCREAS: Unremarkable. SPLEEN: Unremarkable. ADRENAL GLANDS: Unremarkable. KIDNEYS AND URETERS: The kidneys are normal in size, shape, and attenuation. No hydronephrosis, hydroureter, or calculi seen. No perinephric stranding. BLADDER: Unremarkable. GASTROINTESTINAL TRACT: The small and large bowel are unremarkable. The appendix is unremarkable. ABDOMINAL WALL: No significant hernia is appreciated. LYMPH NODES: Normal. VASCULAR: Unremarkable. PELVIC VISCERA: Uterus and ovaries are unremarkable. OSSEOUS STRUCTURES: Unremarkable. CT/CT abdomen pelvis w IV con IMPRESSION: Cholelithiasis. Hepatic steatosis. Fleischner guidelines were followed. Electronically signed by: Fabiano Nielson MD 02/28/2025 04:04 PM EDT Dictated By: Fabiano Nielson MD Signed By: <Electronically signed by Fabiano Nielson MD in OV> 02/28/25 1604 DD/ 1540 TD/TT: 02/28/25 1557 Thread Spinner: [facility] External Provider IMG CT PROCEDURES Final Result * (ABNORMAL) Urinalysis, Complete, with Reflex to Culture (02/28/2025 10:55 AM EDT) Color Urine Yellow [facility] Appearance Urine Clear [facility] PH 5.5 5.0 - 9.0 [facility] Glucose Urine UA Negative Negative mg/dL [facility] Urine Blood Small (1+)(A) Negative [facility] Specific [place] - Urine 1.020 1.005 - 1.025 [facility] Urine Protein Negative Neg-Trace mg/dL [facility] Urine Ketones Negative Negative mg/dL [facility] Nitrite Urine Negative Negative [facility] Leukocyte Esterase Urine Negative Negative [facility] RBC Urine 0-2 0 - 2 /HPF [facility] Urine WBC 0-5 0 - 5 /HPF [facility] Urine Squamous Epithelial Cell 0-2 0 - 2 /HPF [facility] Urine Bacteria None Seen None Seen [facility] Hyaline Casts, Urine 0-2 0 - 2 /LPF [facility] 02/28/2025 10:5 5 AM EDT 02/28/2025 11:00 AM EDT Narrative [facility] - 02/28/2025 11:15 AM EDT [id number], Clean Catch us Generic External Data Provider LAB URINE ORDERAB LES Final Result [facility] [address] [place] [phone] * (ABNORMAL) Sed Rate by Modified [place] (02/28/2025 10:31 AM EDT) Erythrocyte Sedimentation Rate 27(H) 0 - 20 MM/HR [facility] Comment:Patients with polycy themia and many hemoglobin abnormalitiesmay have depressed sed rates whereas patients with anemiamay have elevated sed rates. 02/28/2025 10:3 1 AM EDT 02/28/2025 2:27 PM EDT us Generic External Data Provider LAB BLOOD ORDERAB LES Final Result Performing Organization Address [facility] Co de Phone Number [facility] [address] [place] [phone] * (ABNORMAL) C-reactive Protein (02/28/2025 10:31 AM EDT) C Reactive Protein 2.07(H) < or = 0.50 mg/dL [facility] 02/28/2025 10:3 1 AM EDT 02/28/2025 10:36 AM EDT us Generic External Data Provider LAB BLOOD ORDERAB LES Final Result Performing Organization Address [facility] de Phone Number [facility] [address] [place] [address] [phone] * hCG, Total, Quantitative (02/28/2025 10:31 AM EDT) HCG Quantitative <2 mIU/mL [facility] Comment:Weeks post LMP Appr oximate hCG(Last Menstrual Period) Range (mIU/ml)3 - 4 weeks 9 - 1304 - 5 weeks 75 - 2,6005 - 6 weeks 850 - 20,8006 - 7 weeks 4000 - 100,2007 - 12 weeks 11,500 - 289,35380 - 16 weeks 18,300 - 137,26400 - 29 weeks (2nd trimester) 1,400 - 53,73236 - 41 weeks (3rd trimester) 940 - 60,000The Khan B-hCG assay is used for the early detection ofpregnancy; it cannot be used to diagnose any conditionunrelated to . If a B-hCG level is not supportedby the clinical evidence, results should be confirmed by analternative method (qualitative urine hCG, for example). 02/28/2025 10:3 1 AM EDT 02/28/2025 10:36 AM EDT us Generic External Data Provider LAB BLOOD ORDERAB LES Final Result Performing Organization Address [facility] Co de Phone Number [facility] [address] [place] [address] [phone] * COVID-19 ID NOW (KHAN) (02/28/2025 10:31 AM EDT) IDNOW SERIAL# [id number] [facility] COVID-19 TEST Negative Negative [facility] COVID-19 NOTE See Note [facility] Comment: Results are for the identification of SARS-CoV2 RNA. TheSARS-CoV2 RNA is generally detectable in respiratory samplesduring the acute phase of infection. Positive results areindicative of the presence of SARS-CoV-2 RNA; clinicalcorrelation with patient history and other diagnosticinformation is necessary to determine patient infectionstatus. Positive results do not rule out bacterial infectionor co- infection with other viruses.Testing facilities within the [facility] and itsterritories are required to report all [...] LAB MOLECULAR ABDIAS GNOSTICS ORDERABLES Final Result [facility] [address] [place] [phone] * Influenza A B2 ID NOW (Khan) (02/28/2025 10:31 AM EDT) IDNOW SERIAL# [id number] [facility] Influenza A Negative Negative [facility] Influenza B2 Negative Negative [facility] Influenza A B2 Note See Note [facility] Comment:The Khan ID NOW In fluenza [...] GENERAL ORDERABLES Final Result Performing Organization Address [facility] Phone Number [facility] [address] [place] [address] [phone] * Lipase (02/28/2025 10:31 AM EDT) Lipase 21 8 - 78 U/L [facility] 02/28/2025 10:3 1 AM EDT 02/28/2025 10:36 AM EDT Generic External Data Provider LAB BLOOD ORDERAB LES Final Result Performing Organization Address [facility] Phone Number [facility] [address] [place] [address] [phone] * Magnesium (02/28/2025 10:31 AM EDT) Magnesium 1.8 1.6 - 2.6 mg/dL [facility] 02/28/2025 10:3 1 AM EDT 02/28/2025 10:36 AM EDT Generic External Data Provider LAB BLOOD ORDERAB LES Final Result [facility] [address] [place] [phone] * (ABNORMAL) Comprehensive Metabolic Panel (02/28/2025 10:31 AM EDT) Sodium 141 135 - 145 mmol/L [facility] Potassium 4.2 3.3 - 5.1 mmol/L [facility] Chloride 108 96 - 108 mmol/L [facility] Carbon Dioxide 28 22 - 29 mmol/L [facility] Anion Gap 9(L) 12 - 20 [facility] Urea Nitrogen (BUN) 9 9 - 16 mg/dL [facility] Creatinine, Serum 0.64 0.5 - 1.4 mg/dL [facility] Creatinine Clr Calc Pharmacy 102.6 [facility] Comment:Provided height and weight: 157.48 cm,74.4 kg.eGFR (calculated from the MDRD study equation) and eCrCl(calculated from the Cockcroft-Gault equation) are based ondifferent parameters and may not yield comparable results.If eCrCl result is absurd, please check patient'sheight/weight. Estimated Glomerular Filt Rate >60 [facility] Comment:Chronic Kidney Disea se: Estimated GFR < 60 mL/min/1.26z5Ayacbg Kidney Disease: Estimated GFR < 15 mL/min/1.73m2 Glucose 100 60 - 115 mg/dL [facility] Calcium 9.5 8.4 - 10.2 mg/dL [facility] Bilirubin, Total 0.6 0.0 - 1.0 mg/dL [facility] Aspartate Amino Transferase 32(H) 5 - 31 U/L [facility] Alanine Aminotransferase 38(H) 0 - 31 U/L [facility] Total Protein 7.2 6.5 - 8.0 g/dL [facility] Albumin Level 4.0 3.5 - 5.0 g/dL [facility] Alkaline Phosphatase 74 39 - 117 U/L [facility] 02/28/2025 10:3 1 AM EDT 02/28/2025 10:36 AM EDT us Generic External Data Provider LAB BLOOD ORDERAB LES Final Result [facility] [address] [place] [phone] * (ABNORMAL) CBC auto differential (02/28/2025 10:31 AM EDT) White Blood Count 8.9 4.8 - 10.8 X10*3/uL [facility] Red Blood Count 4.51 4.20 - 5.50 X10*6/uL [facility] Hemoglobin 12.0 12.0 - 16.0 g/dl [facility] Hematocrit 36.5(L) 37.0 - 47.0 % [facility] Mean Corpuscular Volume 80.9 80.0 - 98.0 fL [facility] Mean Corpuscular Hemoglobin 26.6(L) 27.0 - 33.0 pg [facility] Mean Corpuscular HGB Conc 32.9 31.0 - 35.0 g/dl [facility] Red Cell Distribution Width 13.1 11.0 - 16.0 % [facility] Platelet Count 262 160 - 400 X10*3/uL [facility] Mean Platelet Volume 10.6 9.4 - 12.3 fL [facility] Neutrophils Percent Auto 78.6(H) 45 - 73 % [facility] Imm Gran Pct Auto 0.2 0.0 - 0.4 % [facility] Lymphocytes Percent Auto 13.6(L) 20 - 40 % [facility] Monocytes Percent Auto 5.7 2 - 11 % [facility] Eosinophils Percent Auto 1.8 0 - 4 % [facility] Basophils Percent Auto 0.1 0 - 2 % [facility] NRBC Pct Auto 0.0 0.0 - 0.2 /100WBC [facility] Neutrophils Absolute Auto 7.0 2.0 - 8.3 x10*3/uL [facility] Imm Gran Abs Auto 0.02 0.00 - 0.03 X10*3/uL [facility] Lymphocytes Absolute Auto 1.2 1.2 - 4.9 X10*3/uL [facility] Monocytes Absolute Auto 0.5 0.1 - 1.2 X10*3/uL [facility] Eosinophils Absolute Auto 0.2 0.0 - 0.4 X10*3/uL [facility] Basophils Absolute Auto 0.0 0.0 - 0.2 X10*3/uL [facility] NRBC Abs Auto 0.000 0.0 - 0.012 X10*3/uL [facility] 02/28/2025 10:3 1 AM EDT 02/28/2025 10:36 AM EDT us Generic External Data Provider LAB BLOOD ORDERAB LES Final Result Performing Organization Address City/State/[facility] de Phone Number [facility] [address] [place] [phone] documented in this encounter Visit Diagnoses Not on filedocumented in this encounter Additional Health Concerns Assessment Noted Time PHQ-9 Depression Total Score: 0 09/15/19 24 9:28 AM EDT documented as of this encounter Care Teams Intellectual Property Legal Assistant Relationship Specialty Start Date End Date Stacy Boyd MD [address] [place] [phone] PCP - General Family Medicine 05/20/16 Evelyne Pemberton Briquette MolderManager Produce 12/15/24 documented as of this encounter
--- OUTSIDE RECORDS SUMMARY | 2025-03-02 11:55 | XMS_ITS | Clinical Summary ---
Author Organization [employer] Address [address] [facility] [address] [place] [address] Care Team Providers Care Manager Commodities Name Role Phone Stacy Boyd MD Primary Care Provider + Mary Jo Palmer Unavailable Allergies Active Allergy Reactions Criticality Noted Date Comments Sulfamethoxazole Rash Low 04/17/2021 Sulfamethoxazole-Trimethoprim 2022 Trimethoprim Rash Low 04/17/2021 Medications cyclobenzaprine (Flexeril) 5 MG tablet Take 1 tab orally at bedtime prn neck pain 15 tablet 4 Active Additional Information Patient not taking.Reported on 03/01/2025 diphenhydrAMINE (BENADryl) 25 MG capsuleIndicati ons:Urticaria 1-2 capsules by mouth as needed up to every 6 hours for rash, itching 45 capsule 5 Active levocetirizine (Xyzal) 5 MG tabletIndicatio ns:Urticaria/ 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 Active omeprazole (PriLOSEC) [address] capsule TAKE 1 CAPSULE BY MOUTH EVERY DAY 90 capsule 5 Active acetaminophen (Tylenol 8 Hour) 650 MG [...] days. 21 capsule 5 03/04/20 25 Active sucralfate (Carafate) 1 g tabletIndicatio ns:[facility] ER VISIT 02/28 Take 1 g by mouth if needed in the morning, at noon, and at bedtime. Active cyclobenzaprine (Flexeril) 10 MG tabletIndicatio ns:[facility] er visit 02/28 Take 5 mg by mouth if needed in the morning, at noon, and at bedtime for muscle spasms. Active clotrimazole-be tamethasone (Lotrisone) cream Apply topically 2 times daily for 28 days. 30 g 5 02/29/20 25 Additional Information Patient not taking.Reported on 03/01/2025 Active Problems Problem Noted Date Diagnosed Date [...] onset of symptoms and follow- up with fl Assessment & Plan (09/13/2024 11:11 AM EDT): [...] 9:38 AM EDT): I gave information about dayna's exercise and FU in PRN Closed fracture of forearm 09/25/2022 Assessment & Plan (09/26/2022 12:45 PM EDT): Resolved. No need for further fu will scheduled appointment for PAP smear with me Dental calculus 09/19/2022 Periodontal disease 09/19/2022 Gingival bleeding 09/19/2022 Localized gingival recession 09/19/2022 Sweating abnormality 06/21/2022 Urticaria 12/29/2017 Assessment & Plan (09/13/2024 11:12 AM EDT): On the right thigh, recurrent, mild. Call boring mill set up operator to restart medications as needed Assessment & Plan (08/19/2024 2:22 PM EST): Seen by boring mill set up operator already, OV note to follow, not available to me at this time. Doing well on Xyzal, use Benadryl as needed severe urticaria. Follow-up with boring mill set up operator Assessment & Plan (06/24/2024 2:11 PM EST): Will give med pack today and pt to continue on Zyrtec daily + Benadryl QHS PRN urticaria. Refer to boring mill set up operator. Order labs and FU with me in 1 month. Assessment & Plan (09/26/2022 12:45 PM EDT): Partially controlled. continue loratidine + benadryl FU with boring mill set up operator Vitamin D deficiency 09/16/2014 Assessment & [...] in case needs to come back to [facility] -also will hold on valacyclovir given no suspicion for herpes zoster and given already on day 7 of symptoms -so not indicated -advised to cover area and avoid sun exposure -pt has already schedule apt w her PCP for end of this month -can monitor rash then Colitis 09/25/2022 01/31/2025 Dizziness 06/21/2022 01/31/2025 Encounters Date Type Department Care Team Description 03/01/2025 Patient Outreach [facility] [address] [place] [address] Stacy Boyd MD Care Coordination ([facility] ED Follow up) 03/01/2025 Patient Outreach [facility] [address] [place] [address] Stacy Boyd MD Care Coordination (CP Care Coordination Chart Review) 03/01/2025 Patient Outreach [facility] MEDICINE [address] [place] [phone] Stacy Boyd MD 02/28/2025 Orders Only GENERIC EXTERNAL DATA DEPARTMENT Provider, Generic External Data 02/25/2025 1:00 PM EDT Office Visit [facility] ADULT DENTAL [address] [place] [phone] Javed Castillo DDS Dental caries (Primary Dx); Pain, dental; Periodontal disease 02/15/2025 Telephone [facility] MEDICINE [address] [place] [phone] Stacy Boyd MD April recall 01/31/2025 11:15 AM EDT Office Visit [address] [address] Stacy Boyd MD Dermatitis (Primary Dx); Subacute vaginitis; Herpes stomatitis 01/31/2025 Orders Only [address] [address] Stacy Boyd MD 01/31/2025 Travel 01/28/[address] [address] Stacy Boyd MD Chart Prep 01/27/2025 Patient Outreach [facility] [address] [place] [address] Stacy Boyd MD 01/21/2025 Patient Outreach [address] [address] Stacy Boyd MD Pre-visit Planning (SDOH screening completed on 07/28/2024) 01/14/2025 Orders Only GENERIC EXTERNAL DATA DEPARTMENT Provider, Generic External Data 01/11/2025 Patient Outreach [facility] [address] [place] [address] Stacy Boyd MD Care Coordination ([facility] ED F/U) 01/11/2025 Patient Outreach [facility] [address] [place] [address] Stacy Boyd MD Care Coordination (C3/CHW Chart Review) 01/10/2025 Patient Outreach [address] [address] Stacy Boyd MD 01/09/2025 Orders Only GENERIC EXTERNAL DATA DEPARTMENT Provider, Generic External Data 12/15/2024 Telephone [facility] [address] [place] [address] Stacy Boyd MD Care Coordination (ICP Care [...] Description 2025 11:15 AM EST Office Visit [facility] MEDICINE [address] [place] [address] Stacy Boyd MD [address] [place] [address] Health Maintenance Due Date Last Done Comments CT Colonography 1975 FIT DNA/Cologuard 1975 FIT 1975 FOBT 1975 Sigmoidoscopy 1975 Disability Screening 1975 Alcohol/Substance Use Screening 1989 Dental Prophylaxis 03/22/2023 09/19/2022 Dental X-Ray: Bitewings 07/18/2023 07/17/2022 Depression Screening 09/14/2024 09/15/2023, 09/15/19 Diagnostic Breast Imaging 09/29/20242023, 03/31/2024, 09/19/2023, Additional history exists COVID-19 Vaccine ( season) 2025 01/09/2022, 01/09/2022, 11/10/2020, Additional history exists Influenza Vaccine (#1) 2025 SDOH Screening 07/28/2025 07/28/2024 Family Planning (PISQ) 08/19/2025 08/19/2024 Dental Oral Exam 08/26/2025 02/25/2025, 07/17/2022 Tobacco Screening 02/25/2026 02/25/2025 Zoster Vaccines (1 of 2) 2027 Cervical Cancer Screening 12/12/2027 HPV/Cotest 12/12/2027 12/11/2022, 12/11/2022 Pap Smear 12/12/2027 12/11/2022, 11/15, 12/11/2022 Dental X-Ray: Full Mouth 02/27/2028 02/25/2025, 06/2022 Lipid Panel 06/25/2029 06/25/2024 DTaP/Tdap/Td Vaccines [...] TO CULTURE Routine 02/28/2025 10:55 AM EDT SED RATE BY MODIFIED WESTERGREN [...] Recently Relevant to Health Maintenance Results * CT Abdomen Pelvis w/ Contrast (02/28/2025 3:40 PM EDT) Anatomical Region Laterality Modality Body, Pelvis, Abdomen Computed T omography 02/28/2025 3:40 PM EDT Narrative 02/28/2025 4:06 PM EDT [address] [address] [address] Scan Report Signed Patient: Lizzie Esteban MR#: [id number] : 1975 Acct:[id number] Age/Sex: 49 / F ADM Date: 02/28/25 Loc: HO.ED Attending Dr: Ordering Physician: Tito Bowen MD Date of Service: 02/28/25 Procedure(s): CT abdomen pelvis w IV con Accession Number(s): [id number] cc: Stacy Boyd MD; Tito Bowen MD Report Number: [id number]: Total DLP = 530.00 mGy-cm Reason for [...] 02/28/25 1604 DD/ 1540 TD/TT: 02/28/25 1557 Inorganic Chemist: Procedure Note Donotuseinterpreter, Image - 02/28/[address] [address] [address] Scan Report Signed Patient: Lizzie Esteban LMR#: [id number] : 1975Acct:[id number] Age/Sex: 49 / FADM Date: 02/28/25 Loc: HO.ED Attending Dr: Ordering Physician: Tito Bowen MD Date of Service: 02/28/25 Procedure(s): CT abdomen pelvis w IV con Accession Number(s): [id number] cc: Stacy Boyd MD; Tito Bowen MD Report Number: [id number]: Total DLP = 530.00 mGy-cm Reason for [...] Fabiano Nielson MD 02/28/2025 04:04 PM EDT RP Dictated By: Fabiano Nielson MD Signed By: <Electronically signed by Fabiano Nielson MD in OV> 02/28/25 1604 DD/ 1540 TD/TT: 02/28/25 1557 Inorganic Chemist: [facility] External Provider IMG CT PROCEDURES Final Result * (ABNORMAL) Urinalysis, Complete, with Reflex to Culture (02/28/2025 10:55 AM EDT) Only the most recent of2 resultswithin the time period is included. Color Urine Yellow [facility] Appearance Urine Clear [facility] PH 5.5 5.0 - 9.0 [facility] Glucose Urine UA Negative Negative mg/dL [facility] Urine Blood Small (1+)(A) Negative [facility] Specific [place] - Urine 1.020 1.005 - 1.025 [facility] Urine Protein Negative Neg-Trace mg/dL [facility] Urine Ketones Negative Negative mg/dL [facility] Nitrite Urine Negative Negative [facility] Leukocyte Esterase Urine Negative Negative [facility] RBC Urine 0-2 0 - 2 /HPF [facility] Urine WBC 0-5 0 - 5 /HPF [facility] Urine Squamous Epithelial Cell 0-2 0 - 2 /HPF [facility] Urine Bacteria None Seen None Seen [facility] Hyaline Casts, Urine 0-2 0 - 2 /LPF [facility] 02/28/2025 10:5 5 AM EDT 02/28/2025 11:00 AM EDT Narrative [facility] - 02/28/2025 11:15 AM EDT [id number], Clean Catch Generic External Data Provider LAB URINE ORDERAB LES Final Result Performing Organization Address City/[facility]/ZIP Co de Phone Number [facility] [address] [place] [phone] * Influenza A B2 ID NOW (Khan) (02/28/2025 10:31 AM EDT) IDNOW SERIAL# [id number] [facility] Influenza A Negative Negative [facility] Influenza B2 Negative Negative [facility] Influenza A B2 Note See Note [facility] Comment:The Khan ID NOW In [...] EDT us Generic External Data Provider LAB MICROBIOLOGY - GENERAL ORDERABLES Final Result Performing Organization Address City/[facility]/ZIP Co de Phone Number [facility] [address] [place] [phone] * COVID-19 ID NOW (KHAN) (02/28/2025 10:31 AM EDT) IDNOW SERIAL# [id number] [facility] COVID-19 TEST Negative Negative [facility] COVID-19 NOTE See Note [facility] Comment: Results are for the identification of SARS-CoV2 RNA. TheSARS-CoV2 RNA is generally detectable in respiratory samplesduring the acute phase of infection. Positive results areindicative of the presence of SARS-CoV-2 RNA; clinicalcorrelation with patient history and other diagnosticinformation is necessary to determine patient infectionstatus. Positive results do not rule out bacterial infectionor co- infection with other viruses.Testing facilities within the [facility] and itsterritories are required to report [...] use by authorized laboratories.Testing performed on the [employer] ID NOW utilizing NAAT. 02/28/2025 10:3 1 AM EDT 02/28/2025 10:36 AM EDT us Generic External Data Provider LAB MOLECULAR ABDIAS GNOSTICS ORDERABLES Final Result [facility] [address] [place] [address] [phone] * (ABNORMAL) CBC auto differential (02/28/2025 10:31 AM EDT) White Blood Count 8.9 4.8 - 10.8 X10*3/uL [facility] Red Blood Count 4.51 4.20 - 5.50 X10*6/uL [facility] Hemoglobin 12.0 12.0 - 16.0 g/dl [facility] Hematocrit 36.5(L) 37.0 - 47.0 % [facility] Mean Corpuscular Volume 80.9 80.0 - 98.0 fL [facility] Mean Corpuscular Hemoglobin 26.6(L) 27.0 - 33.0 pg [facility] Mean Corpuscular HGB Conc 32.9 31.0 - 35.0 g/dl [facility] Red Cell Distribution Width 13.1 11.0 - 16.0 % [facility] Platelet Count 262 160 - 400 X10*3/uL [facility] Mean Platelet Volume 10.6 9.4 - 12.3 fL [facility] Neutrophils Percent Auto 78.6(H) 45 - 73 % [facility] Imm Gran Pct Auto 0.2 0.0 - 0.4 % [facility] Lymphocytes Percent Auto 13.6(L) 20 - 40 % [facility] Monocytes Percent Auto 5.7 2 - 11 % [facility] Eosinophils Percent Auto 1.8 0 - 4 % [facility] Basophils Percent Auto 0.1 0 - 2 % [facility] NRBC Pct Auto 0.0 0.0 - 0.2 /100WBC [facility] Neutrophils Absolute Auto 7.0 2.0 - 8.3 x10*3/uL [facility] Imm Gran Abs Auto 0.02 0.00 - 0.03 X10*3/uL [facility] Lymphocytes Absolute Auto 1.2 1.2 - 4.9 X10*3/uL [facility] Monocytes Absolute Auto 0.5 0.1 - 1.2 X10*3/uL [facility] Eosinophils Absolute Auto 0.2 0.0 - 0.4 X10*3/uL [facility] Basophils Absolute Auto 0.0 0.0 - 0.2 X10*3/uL [facility] NRBC Abs Auto 0.000 0.0 - 0.012 X10*3/uL [facility] 02/28/2025 10:3 1 AM EDT 02/28/2025 10:36 AM EDT us Generic External Data Provider LAB BLOOD ORDERAB LES Final Result Performing Organization Address City/State/[facility] de Phone Number [facility] [address] [place] [phone] * (ABNORMAL) Sed Rate by Modified Pachecoergren (02/28/2025 10:31 AM EDT) Erythrocyte Sedimentation Rate 27(H) 0 - 20 MM/HR [facility] Comment:Patients with polycy themia and many hemoglobin abnormalitiesmay have depressed sed rates whereas patients with anemiamay have elevated sed rates. 02/28/2025 10:3 1 AM EDT 02/28/2025 2:27 PM EDT Generic External Data Provider LAB BLOOD ORDERAB LES Final Result Performing Organization Address [facility] Co de Phone Number [facility] [address] [place] [phone] * (ABNORMAL) C-reactive Protein (02/28/2025 10:31 AM EDT) C Reactive Protein 2.07(H) < or = 0.50 mg/dL [facility] 02/28/2025 10:3 1 AM EDT 02/28/2025 10:36 AM EDT Generic External Data Provider LAB BLOOD ORDERAB LES Final Result Performing Organization Address [facility] de Phone Number [facility] [address] [place] [phone] * hCG, Total, Quantitative (02/28/2025 10:31 AM EDT) HCG Quantitative <2 mIU/mL [facility] Comment:Weeks post LMP Appro ximate hCG(Last Menstrual Period) Range (mIU/ml)3 - 4 weeks 9 - 1304 - 5 weeks 75 - 2,6005 - 6 weeks 850 - 20,8006 - 7 weeks 4000 - 100,2007 - 12 weeks 11,500 - 289,73574 - 16 weeks 18,300 - 137,62364 - 29 weeks (2nd trimester) 1,400 - 53,56575 - 41 weeks (3rd trimester) 940 - [...] ORDERAB LES Final Result Performing Organization Address [facility] de Phone Number [facility] [address] [place] [phone] * Magnesium (02/28/2025 10:31 AM EDT) Magnesium 1.8 1.6 - 2.6 mg/dL [facility] 02/28/2025 10:3 1 AM EDT 02/28/2025 10:36 AM EDT Generic External Data Provider LAB BLOOD ORDERAB LES Final Result Performing Organization Address [facility] de Phone Number [facility] [address] [place] [phone] * Lipase (02/28/2025 10:31 AM EDT) Lipase 21 8 - 78 U/L [facility] 02/28/2025 10:3 1 AM EDT 02/28/2025 10:36 AM EDT Generic External Data Provider LAB BLOOD ORDERAB LES Final Result Performing Organization Address [facility] Co de Phone Number [facility] [address] [place] [phone] * (ABNORMAL) Comprehensive Metabolic Panel (02/28/2025 10:31 AM EDT) Sodium 141 135 - 145 mmol/L [facility] Potassium 4.2 3.3 - 5.1 mmol/L [facility] Chloride 108 96 - 108 mmol/L [facility] Carbon Dioxide 28 22 - 29 mmol/L [facility] Anion Gap 9(L) 12 - 20 [facility] Urea Nitrogen (BUN) 9 9 - 16 mg/dL [facility] Creatinine, Serum 0.64 0.5 - 1.4 mg/dL [facility] Creatinine Clr Calc Pharmacy 102.6 [facility] Comment:Provided height and weight: 157.48 cm,74.4 kg.eGFR (calculated from the MDRD study equation) and eCrCl(calculated from the Cockcroft-Gault equation) are based ondifferent parameters and may not yield comparable results.If eCrCl result is absurd, please check patient'sheight/weight. Estimated Glomerular Filt Rate >60 [facility] Comment:Chronic Kidney Disea se: Estimated GFR < 60 mL/min/[id number] Kidney Disease: Estimated GFR < 15 mL/min/1.73m2 Glucose 100 60 - 115 mg/dL [facility] Calcium 9.5 8.4 - 10.2 mg/dL [facility] Bilirubin, Total 0.6 0.0 - 1.0 mg/dL [facility] Aspartate Amino Transferase 32(H) 5 - 31 U/L [facility] Alanine Aminotransferase 38(H) 0 - 31 U/L [facility] Total Protein 7.2 6.5 - 8.0 g/dL [facility] Albumin Level 4.0 3.5 - 5.0 g/dL [facility] Alkaline Phosphatase 74 39 - 117 U/L [facility] 02/28/2025 10:3 1 AM EDT 02/28/2025 10:36 AM EDT us Generic External Data Provider LAB BLOOD ORDERAB LES Final Result [facility] [address] [place] [phone] * Bacterial Vaginosis (01/31/2025 10:00 AM EDT) Only the most recent of2 resultswithin the time period is included. TRICHOMONAS VAGINALIS DETECTION BY PCR NOT DETECTED Not Detect [facility] BACTERIAL VAGINOSIS DETECTION BY PCR NEGATIVE Negative [facility] Comment:The BV organism targ ets [...] DETECTION BY PCR NOT DETECTED Not Detect [facility] Gissell glab krusei PCR NOT DETECTED Not Detect [facility] 01/31/2025 10:0 0 AM EDT 01/31/2025 7:44 PM EDT Stacy Boyd MD LAB MICROBIOLOGY - GENER AL ORDERABLES Final Result [facility] [address] [place] [phone] * Chlamydia/N. Gonorrhoeae RNA, TMA, Urogenitial (01/31/2025 10:00 AM EDT) CT PCR NOT DETECTED Not Detect. [facility] Comment:A not detected test result [...] psychologicalconsequences. NG PCR NOT DETECTED Not Detect. [facility] Comment:A not detected test result [...] MICROBIOLOGY - GENER AL ORDERABLES Final Result [facility] [address] [place] [phone] * Strep A Nucleic Acid (01/09/2025 10:34 AM EDT) IDNOW SERIAL# [id number] [facility] Strep A Nucleic Acid Negative Negative [facility] Comment:All test results mus t [...] GENERAL ORDERABLES Final Result Performing Organization Address [facility] de Phone Number [facility] [address] [place] [phone] * SARS-CoV-2 RNA, Influenza A/B, and RSV RNA, Ql NAAT (01/09/2025 10:34 AM EDT) Influenza A PCR NEGATIVE Negative [facility] Influenza B PCR NEGATIVE Negative [facility] Resp Syncy Virus RNA Qual PCR NEGATIVE Negative [facility] SARS COV2 PCR NEGATIVE Negative [facility] Comment:All test results mus t be [...] use by authorized laboratories.Testing performed on the [employer] GeneXpert utilizingreal-time RT-PCR.All SARS CoV2 and positive influenza A/B results arereported to [facility]. 01/09/2025 10:3 4 AM EDT 01/09/2025 10:37 AM EDT Generic External Data Provider LAB MICROBIOLOGY - GENERAL ORDERABLES Final Result Performing Organization Address [facility]/ZIP Co de Phone Number [facility] [address] [place] [phone] * (ABNORMAL) Lipid Panel with Reflex to Direct LDL (06/25/2024 9:18 AM EST) Triglycerides 77 <150 mg/dL [facility] Comment:Desirable Triglyceri de: less than 150 mg/dLBorderline High Triglyceride 150-199 mg/dLHigh Triglyceride: 200-499 mg/dLVery High Triglyceride: greater than or equal to 5OO mg/dL Cholesterol 214(H) <200 mg/dL [facility] Comment:Desirable Cholestero l: less than 200 mg/dLBorderline High Cholesterol: 200-239 mg/dLHigh Cholesterol: greater than 239 mg/dL LDL Cholesterol Calculated 141(H) <100 mg/dL [facility] Comment:Desirable LDL: less than 100 mg/dLNear Optimal/Above Optimal LDL: 110- 129 mg/dLBorderline High LDL: 130-159 mg/dLHigh LDL: 160-189 mg/dLVery High LDL: greater than or equal to 190 mg/dL HDL Cholesterol 58 >40 mg/dL [facility] Comment:Desirable HDL: great er than 40 mg/dL Note: This HDL assay may give artificially low results in patients with liver disease. Blood 06/25/2024 9:18 AM EST 06/25/2024 11:34 AM EST Stacy Boyd MD LAB BLOOD ORDERABLES Fin al Result Performing Organization Address City/[facility] Co de Phone Number [facility] [address] [place], [place] [phone] * Colonoscopy (05/04/2024) Colonoscopy Normal Normal [facility] Comment:benign polyp Stacy Boyd MD HEALTH MAINTENANCE Final Result Performing Organization Address [facility] Co de Phone Number [facility] [address] [place] [phone] * BI US Breast Limited Left (03/31/2024 11:15 AM EDT) Anatomical Region Laterality Modality Breast Left Ultrasound 03/31/2024 11:1 5 AM EDT Narrative 03/31/2024 12:26 PM EDT [facility] [address] [place] [address] Ultrasound Report Signed Patient: Lizzie Esteban MR#: [id number] : 1975 Acct:[id number] Age/Sex: 48 / F ADM Date: 03/31/24 Loc: HO.MAMMO Attending Dr: Stacy Boyd MD Ordering Physician: Stacy Boyd MD Date of Service: 03/31/24 Procedure(s): US breast LT limited mamm only Accession Number(s): [id number] cc: Stacy Boyd MD EXAMINATION: MM DIAGNOSTIC [...] 03/31/24 1223 DD/ 1115 TD/TT: 03/31/24 1127 Inorganic Chemist: Procedure Note Donotuseinterpreter, Image - 03/31/2024 [facility] [address] [place] [address] Ultrasound Report Signed Patient: Lizzie Esteban LMR#: [id number] : 1975Acct:[id number] Age/Sex: 48 / FADM Date: 03/31/24 Loc: HO.MAMMO Attending Dr: Stacy Boyd MD Ordering Physician: Stacy Boyd MD Date of Service: 03/31/24 Procedure(s): US breast LT limited mamm only Accession Number(s): [id number] cc: Stacy Boyd MD EXAMINATION: MM DIAGNOSTIC [...] 03/31/24 1223 DD/ 1115 TD/TT: 03/31/24 1127 Inorganic Chemist: Stacy Boyd MD IMG US PROCEDURES Final Result * Hepatitis Panel, General (03/19/2024 11:25 AM EDT) Hepatitis A IgM Nonreactive Nonreactive [facility] Comment:IgM antibodies to FUNES V not detected; does not exclude earlyacute or recovered HAV infection. ~Hepatitis B Surface Antibody NONREACTIVE Nonreactive [facility] Comment:Nonreactive: < 8.00 mIU/mL Hepatitis B Core Antibody Nonreactive Nonreactive [facility] Hepatitis C Antibody Nonreactive Nonreactive [facility] Comment:Antibodies to HCV no t detected; does not exclude early acuteHCV infection. Hepatitis B Surface Ag Negative Negative [facility] Blood 03/19/2024 11:2 5 AM EDT 03/19/2024 12:57 PM EDT us Stacy Boyd MD LAB BLOOD ORDERABLES Fin al Result [facility] [address] [place] [phone] * HIV-1/2 Antigen and Antibodies, Fourth Generation, with Reflexes (03/19/2024 11:25 AM EDT) HIV AB/AG Nonreactive Nonreactive [facility] Comment:HIV-1 p24 Ag and/or HIV-1/HIV-2 Ab not detected.A test result that is nonreactive does not exclude thepossibility of exposure to or infection with HIV-1 and/orHIV-2. Nonreactive results in this assay for individualswith prior exposure to HIV-1 and/or HIV-2 may be due toantigen and antibody levels that are below the limit ofdetection of this assay.The qianchengwuyounirollApp HIV Ag/Ab Combo assay result andsupplemental assay results should be interpreted inconjunction with the patient's clinical presentation,history and other laboratory results. If the results areinconsistent with clinical evidence, additional testing issuggested to confirm the result. Blood Venous blood specimen / Unknown 03/19/2024 11:25 AM EDT 03/19/2024 12:57 PM EDT us Stacy Byod MD LAB BLOOD ORDERABLES Fin al Result [facility] [address] [place] [phone] * Thinprep TIS PAP And HPV mRNA E6/E7 With Reflex To HPV 16,18/45 (12/11/2022 9:20 AM EDT) Clinical Information: Routine exam [facility] LMP: NONE GIVEN [facility] Prev. PAP: NONE GIVEN [facility] Prev. BX: NO [facility] SOURCE: None given [facility] Statement Of Adequacy: [facility] Comment: Satisfactory for evaluation. Endocervical/transformation zone component present. Interpretation/ Result: Negative for intraepithelial lesion or malignancy. [facility] COMMENT: This Pap test has been evaluated with computer assisted technology. [facility] Cytotechnologis t: [facility] Comment: BK,CT(ASCP) CT screening location: [address] (Always Message) [facility] Comment: EXPLANATORY NOTE: The Pap is a [...] HPV nRNA E6/E7 Not Detected Not Detected [facility] Comment: Methodology: Developer Advocate-Mediated Amplification This assay detects E6/E7 viral messenger RNA (mRNA) from 14 high-risk HPV types (16,18,31,33,35,39,45,51,52,56,58,59,66,68). Cervical sources are required for HPV testing. If a vaginal source from a patient who has had a total hysterectomy with removal of cervix was submitted, please contact the testing laboratory for alternative testing options. For additional information, please refer to http://education.viseto/faq/TEA617j2 (This link if provided for information/ educational purposes only.) Genital 12/11/2022 9:20 AM EDT 12/12/2022 1:15 AM EDT Stacy Boyd MD LAB PATHOLOGY ORDERABLES Final Result [address], [place] [phone] [facility] [address] [place] [phone] from Last 3 Months or Most Recently Relevant to Health Maintenance Insurance [address] [place], [place] [id number] [facility] C3 HSN [facility] STAND ADULT Care Teams Manager Commodities Relationship Specialty Start Date End Date Stacy Boyd MD [address] [place] [phone] PCP - General Family Medicine 05/20/16 Mary Jo Palmer 03/01/25 Evelyne Pemberton Health And Safety TechFamily Services Coordinator 12/15/24
--- OUTSIDE RECORDS SUMMARY | 2025-03-02 11:55 | XMS_ITS | Encounter Summary ---
Author Organization [employer] Address [address] [facility] 7t [place] [address] Care Team Providers Care Fan Runner Name Role Phone Stacy Boyd MD Primary Care Provider + Mary Jo Palmer Unavailable Mary Jo Palmer Unavailable Encounter Details Date Type Department Care Team (Late st Contact Info) Description 03/27/2023 Orders Only [facility] MEDICINE [address] [place] [address] Provider, MD Griselda Social History Tobacco Use [...] 2025 11:15 AM EST Office Visit [facility] MED[facility] [address] [place], [place] [phone] Stacy Boyd MD [address] [place] [address] [phone] documented as of this encounter Procedures Procedure Name Priority Date/Time Associated Diagnosis Comments US BREAST BIOPSY LEFT Routine 03/17/2023 documented in this encounter Results * US Breast Biopsy Left (03/17/2023) Anatomical Region Laterality Modality Ultrasound us Historical Provider MD TIDWELL US PROCEDURES Final R esult documented in this encounter Visit Diagnoses Not on filedocumented in this encounter Care Teams Fan Runner Relationship Specialty Start Date End Date Stacy Boyd MD [address] [place] [address] [phone] PCP - General Family Medicine 05/20/16 Mary Jo Palmer 01/10/25 01/27/25 Mary Jo Palmer 03/01/25 Evelyne Pemberton Harmonic AnalystOptometric Coordinator 12/15/24 documented as of this encounter
[2025-03-02 12:20] LABS: Alanine Aminotransferase 29 U/L (0-31); Albumin Level 3.9 g/dL (3.5-5.0); Alkaline Phosphatase 69 U/L (39-117); Aspartate Amino Transferase 27 U/L (5-31); Total Protein 7.0 g/dL (6.5-8.0)
[2025-03-02 13:13] VITALS: BP 121/83; PULSE 96; RESP 16; TEMP 36.4; O2SAT 97
[2025-03-04 10:44] LABS: Anti Nuclear Antibody Screen NEGATIVE (NEGATIVE)
== END 2025-03-02 13:14 | disposition home or self-care (01) ==
PROVIDERS: Emergency Provider Emergency Medicine; PCP Internal Medicine
DX: L50.0 Allergic urticaria (principal); Z79.899 Other long term (current) drug therapy
CPT/HCPCS: 36415; 80076; 82550; 84443; 85652; 86038; 86140; 86225; 96374; 96375; 99284; J1200; J2919

== ENCOUNTER 2025-04-05 12:59 | Outpatient (REF) | payer MEDICAID, SELFPAY ==
--- NOTE | ~2025-04-05 | US_ITS ---
EXAMINATION(S): 1. MM DIAGNOSTIC DIGITAL BREAST TOMOSYNTHESIS, BILATERAL 2. Targeted ultrasound of the left breast CLINICAL INFORMATION: Patient is status post left breast ultrasound-guided core biopsy of 3:00 retroareolar solid mass on March 17, 2023; pathology results showed fibroadenoma. Additional solid mass identified deeper at 3 o'clock position at 1 cm from the nipple has been followed up since February 2023. This is a one year follow-up of the additional smaller left breast mass from March 2024. COMPARISON: Comparison made to multiple prior, most recent March 31, 2024, and most remote January 10, 2023. TECHNIQUE: Digital breast tomosynthesis is performed in both the mediolateral oblique and craniocaudal views along with computer-aided detection (CAD). Synthesized 2D images are generated from the tomosynthesis. FINDINGS: BREAST COMPOSITION: There are scattered areas of fibroglandular density. RIGHT BREAST: Previously described grouped calcifications in the central breast middle depth are essentially unchanged from February 2023. No significant masses, suspicious calcifications or other abnormalities are seen. LEFT BREAST: Tissue marker from previous needle core biopsy. There is an approximately 0.7 cm solid mass in the central breast at approximately 3 cm from the nipple (MLO 30/86, CC 25/72), which is stable from March 2023 and correlates with the sonographic finding. No new masses, suspicious calcifications or other abnormalities are seen. Targeted ultrasound of the left breast was performed at the location of the previously described sonographic finding. It was difficult to evaluate the previously described lesion on today's examination. The previously described sonographic finding measures 0.5 cm x 0.4 cm x 0.2 cm at 3 o'clock position at 1 cm from the nipple. Prior measurements of 0.6 x 0.3 x 0.3 cm in March 2024. US/US Breast LT Limited Mamm Only IMPRESSION: RIGHT BREAST: Benign, no mammographic evidence of malignancy. Normal interval follow-up is recommended in 12 months. LEFT BREAST: 2 years stability of the solid mass at 3 o'clock position at 1 cm from the nipple, with benign sonographic features and similar to the biopsy proven fibroadenoma located superficially; at this point, it can be considered a benign finding and no further dedicated imaging follow-up required. Benign, no evidence of malignancy. Normal interval follow-up is recommended in 12 months. ASSESSMENT: BI-RADS: Category 2: Benign RECOMMENDATION: 1 year F/U Results were provided to the patient at time of visit by the technologist. This patient's information was entered into a reminder system with a target due date for their next mammogram. Electronically signed by: Ethan Chiu MD 04/05/2025 03:40 PM EDT
--- OUTSIDE RECORDS SUMMARY | 2025-04-05 16:39 | XMS_ITS | Encounter Summary ---
Author Organization [employer] Address [address] [facility] [address] 7[address] [place] [address] Care Team Providers Care Blasting Cap Assembler Name Role Phone Stacy Boyd MD Primary Care Provider + Encounter Details Date Type Department Care Team ([facility] st Contact Info) Description 04/05/2025 Orders Only [facility] MEDICINE [address] [place], [place] [phone] Stacy Boyd MD [address] [place], [place] [phone] Social History Tobacco Use Types Packs/Day Years [...] your housing situation today? I have melanie cuellra 04/02/[address] you li [...] Description 2025 11:15 AM EST Office Visit [address] [phone] Stacy Boyd MD [address] [place] [phone] 05/09/2025 2:30 PM EST Office Visit [facility] MED[facility] [address] [place] [phone] Stacy Boyd MD [address] [place] [phone] documented as of this encounter Procedures Procedure Name Priority Date/Time Associated Diagnosis Comments BI US BREAST LIMITED LEFT Routine 04/05/2025 1:37 PM EDT BI MAMMOGRAM DIAGNOSTIC TOMOSYNTHESIS BILATERAL Routine 04/05/2025 1:14 PM EDT documented in this encounter Results * BI US Breast Limited Left (04/05/2025 1:37 PM EDT) Anatomical Region Laterality Modality Breast Left Ultrasound 04/05/2025 1:37 PM EDT Narrative 04/05/2025 3:43 PM EDT [facility] [address] [place] [address] Ultrasound Report Signed Patient: Lizzie Esteban MR#: [id number] : 1975 Acct:[id number] Age/Sex: 49 / F ADM Date: 04/05/25 Loc: HO.MAMMO Attending Dr: Stacy Boyd MD Ordering Physician: Stacy Boyd MD Date of Service: 04/05/25 Procedure(s): US Breast LT Limited Mamm Only Accession Number(s): [id number] cc: Stacy Boyd MD Reason for Exam: LT BR 1 YR F/U US FOR DENSITY/ YEARLY EXAMINATION(S): 1. MM DIAGNOSTIC DIGITAL BREAST TOMOSYNTHESIS, BILATERAL 2. Targeted ultrasound of the left breast CLINICAL INFORMATION: Patient is status post left breast ultrasound-guided core biopsy of 3:00 retroareolar solid mass on March 17, 2023; pathology results showed fibroadenoma. Additional solid mass identified deeper at 3 o'clock position at 1 cm from the nipple has been followed up since February 2023. This is a one year follow-up of the additional smaller left breast mass from March 2024. COMPARISON: Comparison made to multiple prior, most recent March 31, 2024, and most remote January 10, 2023. TECHNIQUE: Digital breast tomosynthesis is performed in both the mediolateral oblique and craniocaudal views along with computer-aided detection (CAD). Synthesized 2D images are generated from the tomosynthesis. FINDINGS: BREAST COMPOSITION: There are scattered areas of fibroglandular density. RIGHT BREAST: Previously described grouped calcifications in the central breast middle depth are essentially unchanged from February 2023. No significant masses, suspicious calcifications or other abnormalities are seen. LEFT BREAST: Tissue marker from previous needle core biopsy. There is an approximately 0.7 cm solid mass in the central breast at approximately 3 cm from the nipple (MLO 30/86, CC 25/72), which is stable from March 2023 and correlates with the sonographic finding. No new masses, suspicious calcifications or other abnormalities are seen. Targeted ultrasound of the left breast was performed at the location of the previously described sonographic finding. It was difficult to evaluate the previously described lesion on today's examination. The previously described sonographic finding measures 0.5 cm x 0.4 cm x 0.2 cm at 3 o'clock position at 1 cm from the nipple. Prior measurements of 0.6 x 0.3 x 0.3 cm in March 2024. US/US Breast LT Limited Mamm Only IMPRESSION: RIGHT BREAST: Benign, no mammographic evidence of malignancy. Normal interval follow-up is recommended in 12 months. LEFT BREAST: 2 years stability of the solid mass at 3 o'clock position at 1 cm from the nipple, with benign sonographic features and similar to the biopsy proven fibroadenoma located superficially; at this point, it can be considered a benign finding and no further dedicated imaging follow-up required. Benign, no evidence of malignancy. Normal interval follow-up is recommended in 12 months. ASSESSMENT: BI-RADS: Category 2: Benign RECOMMENDATION: 1 year F/U Results were provided to the patient at time of visit by the technologist. This patient's information was entered into a reminder system with a target due date for their next mammogram. Electronically signed by: Ethan Chiu MD 04/05/2025 03:40 PM EDT Dictated By: Ethan Chiu MD Signed By: <Electronically signed by Ethan Chiu MD in OV> 04/05/25 1540 DD/ 1337 TD/TT: 04/05/25 1346 Communication Lecturer: Procedure Note Donotuseinterpreter, Image - 04/05/2025 [place] [facility] [address] [place] [address] Ultrasound Report Signed Patient: Lizzie Esteban LMR#: [id number] : 1975Acct:[id number] Age/Sex: 49 / FADM Date: 04/05/25 Loc: HO.MAMMO Attending Dr: Stacy Boyd MD Ordering Physician: Stacy Boyd MD Date of Service: 04/05/25 Procedure(s): US Breast LT Limited Mamm Only Accession Number(s): [id number] cc: Stacy Boyd MD Reason for Exam: LT BR 1 YR F/U US FOR DENSITY/ YEARLY EXAMINATION(S): 1. MM DIAGNOSTIC DIGITAL BREAST TOMOSYNTHESIS, BILATERAL 2. Targeted ultrasound of the left breast CLINICAL INFORMATION: Patient is status post left breast ultrasound-guided core biopsy of 3:00 retroareolar solid mass on March 17, 2023; pathology results showed fibroadenoma. Additional solid mass identified deeper at 3 o'clock position at 1 cm from the nipple has been followed up since February 2023. This is a one year follow-up of the additional smaller left breast mass from March 2024. COMPARISON: Comparison made to multiple prior, most recent March 31, 2024, and most remote January 10, 2023. TECHNIQUE: Digital breast tomosynthesis is performed in both the mediolateral oblique and craniocaudal views along with computer-aided detection (CAD). Synthesized 2D images are generated from the tomosynthesis. FINDINGS: BREAST COMPOSITION: There are scattered areas of fibroglandular density. RIGHT BREAST: Previously described grouped calcifications in the central breast middle depth are essentially unchanged from February 2023. No significant masses, suspicious calcifications or other abnormalities are seen. LEFT BREAST: Tissue marker from previous needle core biopsy. There is an approximately 0.7 cm solid mass in the central breast at approximately 3 cm from the nipple (MLO 30/86, CC 25/), which is stable from March 2023 and correlates with the sonographic finding. No new masses, suspicious calcifications or other abnormalities are seen. Targeted ultrasound of the left breast was performed at the location of the previously described sonographic finding. It was difficult to evaluate the previously described lesion on today's examination. The previously described sonographic finding measures 0.5 cm x 0.4 cm x 0.2 cm at 3 o'clock position at 1 cm from the nipple. Prior measurements of 0.6 x 0.3 x 0.3 cm in March 2024. US/US Breast LT Limited Mamm Only IMPRESSION: RIGHT BREAST: Benign, no mammographic evidence of malignancy. Normal interval follow-up is recommended in 12 months. LEFT BREAST: 2 years stability of the solid mass at 3 o'clock position at 1 cm from the nipple, with benign sonographic features and similar to the biopsy proven fibroadenoma located superficially; at this point, it can be considered a benign finding and no further dedicated imaging follow-up required. Benign, no evidence of malignancy. Normal interval follow-up is recommended in 12 months. ASSESSMENT: BI-RADS: Category 2: Benign RECOMMENDATION: 1 year F/U Results were provided to the patient at time of visit by the technologist. This patient's information was entered into a reminder system with a target due date for their next mammogram. Electronically signed by: Ethan Chiu MD 04/05/2025 03:40 PM EDT Workstation: [employer] Dictated By: Ethan Chiu MD Signed By: <Electronically signed by Ethan Chiu MD in OV> 04/05/25 1540 DD/ 1337 TD/TT: 04/05/25 1346 Communication Lecturer: us Stacy Boyd MD IMG US PROCEDURES Final Result * BI Mammogram Diagnostic Tomosynthesis Bilateral (04/05/2025 1:14 PM EDT) Anatomical Region Laterality Modality Breast Bilateral Mammography 04/05/2025 1:14 PM EDT Narrative 04/05/2025 3:43 PM EDT [facility] [address] [place] [address] Mammography Report Signed Patient: Lizzie Esteban MR#: [id number] : 1975 Acct:[id number] Age/Sex: 49 / F ADM Date: 04/05/25 Loc: HO.MAMMO Attending Dr: Stacy Boyd MD Ordering Physician: Stacy Boyd MD Results: 2Be nign Date of Service: 04/05/25 Follow Up: 1 Year From Orig inal Mammogram Procedure(s): MM tomosynthesis diagnostic BI Accession Number(s): [id number] cc: Stacy Boyd MD Reason For Exam: LT BR 1 YR F/U US FOR DENISTY/ YEARLY EXAMINATION(S): 1. MM DIAGNOSTIC DIGITAL BREAST TOMOSYNTHESIS, BILATERAL 2. Targeted ultrasound of the left breast CLINICAL INFORMATION: Patient is status post left breast ultrasound-guided core biopsy of 3:00 retroareolar solid mass on March 17, 2023; pathology results showed fibroadenoma. Additional solid mass identified deeper at 3 o'clock position at 1 cm from the nipple has been followed up since February 2023. This is a one year follow-up of the additional smaller left breast mass from March 2024. COMPARISON: Comparison made to multiple prior, most recent March 31, 2024, and most remote January 10, 2023. TECHNIQUE: Digital breast tomosynthesis is performed in both the mediolateral oblique and craniocaudal views along with computer-aided detection (CAD). Synthesized 2D images are generated from the tomosynthesis. FINDINGS: BREAST COMPOSITION: There are scattered areas of fibroglandular density. RIGHT BREAST: Previously described grouped calcifications in the central breast middle depth are essentially unchanged from February 2023. No significant masses, suspicious calcifications or other abnormalities are seen. LEFT BREAST: Tissue marker from previous needle core biopsy. There is an approximately 0.7 cm solid mass in the central breast at approximately 3 cm from the nipple (MLO 30/86, CC 25/72), which is stable from March 2023 and correlates with the sonographic finding. No new masses, suspicious calcifications or other abnormalities are seen. Targeted ultrasound of the left breast was performed at the location of the previously described sonographic finding. It was difficult to evaluate the previously described lesion on today's examination. The previously described sonographic finding measures 0.5 cm x 0.4 cm x 0.2 cm at 3 o'clock position at 1 cm from the nipple. Prior measurements of 0.6 x 0.3 x 0.3 cm in March 2024. MM/MM tomosynthesis diagnostic BI IMPRESSION: RIGHT BREAST: Benign, no mammographic evidence of malignancy. Normal interval follow-up is recommended in 12 months. LEFT BREAST: 2 years stability of the solid mass at 3 o'clock position at 1 cm from the nipple, with benign sonographic features and similar to the biopsy proven fibroadenoma located superficially; at this point, it can be considered a benign finding and no further dedicated imaging follow-up required. Benign, no evidence of malignancy. Normal interval follow-up is recommended in 12 months. ASSESSMENT: BI-RADS: Category 2: Benign RECOMMENDATION: 1 year F/U Results were provided to the patient at time of visit by the technologist. This patient's information was entered into a reminder system with a target due date for their next mammogram. Electronically signed by: Ethan Chiu MD 04/05/2025 03:40 PM EDT RP Workstation: [employer] Dictated By: Ethan Chiu MD Signed By: <Electronically signed by Ethan Chiu MD in OV> 04/05/25 1540 DD/ 1314 TD/TT: 04/05/25 1326 Communication Lecturer: Procedure Note Donotuseinterpreter, Image - 04/05/2025 [facility] [address] [place] [address] Mammography Report Signed Patient: Lizzie Esteban LMR#: [id number] : 1975Acct:[id number] Age/Sex: 49 / FADM Date: 04/05/25 Loc: HO.MAMMO Attending Dr: Stacy Boyd MD Ordering Physician: Stacy Boyd MDResults: 2Be nign Date of Service: 04/05/25Follow Up: 1 Year From Orig inal Mammogram Procedure(s): MM tomosynthesis diagnostic BI Accession Number(s): [id number] cc: Stacy Boyd MD Reason For Exam: LT BR 1 YR F/U US FOR DENISTY/ YEARLY EXAMINATION(S): 1. MM DIAGNOSTIC DIGITAL BREAST TOMOSYNTHESIS, BILATERAL 2. Targeted ultrasound of the left breast CLINICAL INFORMATION: Patient is status post left breast ultrasound-guided core biopsy of 3:00 retroareolar solid mass on March 17, 2023; pathology results showed fibroadenoma. Additional solid mass identified deeper at 3 o'clock position at 1 cm from the nipple has been followed up since February 2023. This is a one year follow-up of the additional smaller left breast mass from March 2024. COMPARISON: Comparison made to multiple prior, most recent March 31, 2024, and most remote January 10, 2023. TECHNIQUE: Digital breast tomosynthesis is performed in both the mediolateral oblique and craniocaudal views along with computer-aided detection (CAD). Synthesized 2D images are generated from the tomosynthesis. FINDINGS: BREAST COMPOSITION: There are scattered areas of fibroglandular density. RIGHT BREAST: Previously described grouped calcifications in the central breast middle depth are essentially unchanged from February 2023. No significant masses, suspicious calcifications or other abnormalities are seen. LEFT BREAST: Tissue marker from previous needle core biopsy. There is an approximately 0.7 cm solid mass in the central breast at approximately 3 cm from the nipple (MLO /, CC ), which is stable from March 2023 and correlates with the sonographic finding. No new masses, suspicious calcifications or other abnormalities are seen. Targeted ultrasound of the left breast was performed at the location of the previously described sonographic finding. It was difficult to evaluate the previously described lesion on today's examination. The previously described sonographic finding measures 0.5 cm x 0.4 cm x 0.2 cm at 3 o'clock position at 1 cm from the nipple. Prior measurements of 0.6 x 0.3 x 0.3 cm in March 2024. MM/MM tomosynthesis diagnostic BI IMPRESSION: RIGHT BREAST: Benign, no mammographic evidence of malignancy. Normal interval follow-up is recommended in 12 months. LEFT BREAST: 2 years stability of the solid mass at 3 o'clock position at 1 cm from the nipple, with benign sonographic features and similar to the biopsy proven fibroadenoma located superficially; at this point, it can be considered a benign finding and no further dedicated imaging follow-up required. Benign, no evidence of malignancy. Normal interval follow-up is recommended in 12 months. ASSESSMENT: BI-RADS: Category 2: Benign RECOMMENDATION: 1 year F/U Results were provided to the patient at time of visit by the technologist. This patient's information was entered into a reminder system with a target due date for their next mammogram. Electronically signed by: Ethan Chiu MD 04/05/2025 03:40 PM EDT Dictated By: Ethan Chiu MD Signed By: <Electronically signed by Ethan Chiu MD in OV> 04/05/25 1540 DD/ 1314 TD/TT: 04/05/25 1326 Communication Lecturer: Stacy Boyd MD IMG BI PROCEDURES Final Result documented in this encounter Visit Diagnoses Not on filedocumented in this encounter Additional Health Concerns Assessment Noted Time PHQ-9 Depression Total Score: 0 09/15/19 24 9:28 AM EDT documented as of this encounter Care Teams Blasting Cap Assembler Relationship Specialty Start Date End Date Stacy Boyd MD [address] [place] [phone] PCP - General Family Medicine 05/20/16 Evelyne Pemberton Ekg/Ecg TechnicianProfessor Of Apologetics 12/15/24 documented as of this encounter
--- OUTSIDE RECORDS SUMMARY | 2025-04-05 16:39 | XMS_ITS | Encounter Summary ---
Author Organization [employer] Address [address] [facility] [address] [place] [address] Care Team Providers Care Core Filer Name Role Phone Stacy Boyd MD Primary Care Provider + Mary Jo Palmer Unavailable Reason for Visit * Reason Onset Date Comments Dr. Castillo guest relations manager referral 03/03/2025 Encounter Details Date Type Department Care Team (Late st Contact Info) Description 03/03/2025 Telephone [facility] ADULT DENTAL [address] [place], [place] [phone] Javed Castillo, TUS [address] [place], [place] [phone] Dr. Castillo guest relations manager referral Social History Tobacco Use Types Packs/Day Years [...] encounter Miscellaneous Notes * Telephone Encounter - June Serrano - 03/15/2025 11:52 [address] EDT Message for Dr. Castillo Patient came in on 02/25 and states she found a guest relations manager office. She needs referral emailed to [email or web address] They are also rqusting the xrays. She was referred however per dental notes it would be up to patient where she went because she would have to find the office she wanted to go to. Sent to both Clinical and test desk supervisor * Telephone Encounter - June Serrano - 03/03/2025 3:20 PM EDT Patient states she received a list of guest relations manager on last visit 02/25 and non o the offices that she called has a guest relations manager on staff. She also contacted to see if they have a list and they provided royce with 4 names and also no guest relations manager on staff. Please advise patient as to where to go from here. documented in this encounter Plan of Treatment Upcoming Encounters Date Type Department Care Team (Late st Contact Info) Description 2025 11:15 AM EST Office Visit [facility] MEDICINE [address] [place] [address] [phone] Stacy Boyd MD [address] [place], [place] [phone] 05/09/2025 2:30 PM EST Office Visit [facility] MEDICINE [address] [place], [place] [phone] Stacy Boyd MD [address] [place], [place] [phone] documented as of this encounter Visit Diagnoses Not on filedocumented in this encounter Additional Health Concerns Assessment Noted Time PHQ-9 Depression Total Score: 0 09/15/19 24 9:28 AM EDT documented as of this encounter Care Teams Core Filer Relationship Specialty Start Date End Date Stacy Boyd MD [address] [place] [address] [phone] PCP - General Family Medicine 05/20/16 Mary Jo Palmer 03/01/25 03/18/25 Evelyne Pemberton Crop Production AdvisorOil Field Operator 12/15/24 documented as of this encounter
--- OUTSIDE RECORDS SUMMARY | 2025-04-05 16:39 | XMS_ITS | Encounter Summary ---
Author Organization [employer] Address [address] [facility] [address] [place] [address] Care Team Providers Care Smoking Tobacco Packer Hand Name Role Phone Stacy Boyd MD Primary Care Provider + Mary Jo Palmer Unavailable Mary Jo Palmer Unavailable Encounter Details Date Type Department Care Team (Late st Contact Info) Description 10/18/2022 Abstract [facility] [address] [place], [place] [phone] Maria Eugenia, Alba [address] [place] [address] Social History Tobacco Use Types Packs/Day Years [...] 11:15 AM EST Office Visit [facility] [address] [place] [address] Stacy Boyd MD [address] [place], [place] [phone] 05/09/2025 2:30 PM EST Office Visit [facility] [address] [place], [place] [phone] Stacy Boyd MD [address] [place], [place] [phone] documented as of this encounter Visit Diagnoses Not on filedocumented in this encounter Care Teams Smoking Tobacco Packer Hand Relationship Specialty Start Date End Date Stacy Boyd MD [address] [place], [place] [phone] PCP - General Family Medicine 05/20/16 Mary Jo Palmer 01/10/25 01/27/25 Mary Jo Palmer 03/01/25 03/18/25 Evelyne Pemberton HookmanPatient Accounts Specialist 12/15/24 documented as of this encounter
--- OUTSIDE RECORDS SUMMARY | 2025-04-05 16:39 | XMS_ITS | Encounter Summary ---
Author Organization [employer] Address [address] [facility] [address] [place] [address] Care Team Providers Care Stacker Attendant Name Role Phone Stacy Boyd MD Primary Care Provider + Mary Jo Palmer Unavailable Mary Jo Palmer Unavailable Encounter Details Date Type Department Care Team (Late st Contact Info) Description 10/04/2022 Abstract [facility] [address] [place], [place] [phone] Maria Eugenia, Alba [address] [place] [address] Social History Tobacco Use Types Packs/Day Years [...] 11:15 AM EST Office Visit [facility] [address] [place] [address] Stacy Boyd MD [address] [place], [place] [phone] 05/09/2025 2:30 PM EST Office Visit [facility] [address] [place], [place] [phone] Stacy Boyd MD [address] [place], [place] [phone] documented as of this encounter Visit Diagnoses Not on filedocumented in this encounter Care Teams Stacker Attendant Relationship Specialty Start Date End Date Stacy Boyd MD [address] [place], [place] [phone] PCP - General Family Medicine 05/20/16 Mary Jo Palmer 01/10/25 01/27/25 Mary Jo Palmer 03/01/25 03/18/25 Evelyne Pemberton Beam Builder HelperSupervisor Screen Making 12/15/24 documented as of this encounter
--- OUTSIDE RECORDS SUMMARY | 2025-04-05 16:39 | XMS_ITS | Clinical Summary ---
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 [...] for mild pain. 15 tablet 5 Active sucralfate (Carafate) 1 g tabletIndicatio ns:[facility] [place]28 Take 1 g by mouth if needed in the morning, at noon, and at bedtime. Active cyclobenzaprine (Flexeril) 10 MG tabletIndicatio ns:[facility] [place] visit 02/28 Take 5 mg by mouth if needed in the morning, at noon, and at bedtime for muscle spasms. Active Active Problems Problem Noted Date Diagnosed Date [...] onset of symptoms and follow- up with sd Assessment & Plan (09/13/2024 11:11 AM EDT): [...] On the right thigh, recurrent, mild. Call mailing section clerk to restart medications as needed Assessment & Plan (08/19/2024 2:22 PM EST): Seen by mailing section clerk already, OV note to follow, not available to me at this time. Doing well on Xyzal, use Benadryl as needed severe urticaria. Follow-up with mailing section clerk Assessment & Plan (06/24/2024 2:11 PM EST): Will give med pack today and pt to continue on Zyrtec daily + Benadryl QHS PRN urticaria. Refer to mailing section clerk. Order labs and FU with me in 1 month. Assessment & Plan (09/26/2022 12:45 PM EDT): Partially controlled. continue loratidine + benadryl FU with mailing section clerk Vitamin D deficiency 09/16/2014 Assessment & Plan (09/26/2022 12:46 PM EDT): Check vit d levels FU with me to discuss supplementation Recurrent major depressive episodes, moderate (C MS/HCC) 01/12/2013 Resolved Problems Problem Noted Date Diagnosed Date [...] in case needs to come back to [facility] -also will hold on valacyclovir given no suspicion for herpes zoster and given already on day 7 of symptoms -so not indicated -advised to cover area and avoid sun exposure -pt has already schedule apt w her PCP for end of this month -can monitor rash then Colitis 09/25/2022 01/31/2025 Dizziness 06/21/2022 01/31/2025 Encounters Date Type Department Care Team Description 04/05/2025 Orders Only [facility] [address] [place] [phone] Richard Boyd MD 03/18/2025 Patient Outreach [facility] [address] [place] [address] Richard Boyd MD 03/10/2025 2:30 PM EDT Telemedicine [facility] [address] [place] [address] Yani Jain, NORMA [facility] 03/10/2025 Travel 03/10/2025 Telephone [facility] [address] [place] [phone] 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 03/02/2025 Telephone [facility] [address] [place] [phone] Richard Boyd MD Referral 03/02/2025 Orders Only GENERIC EXTERNAL DATA DEPARTMENT Provider, Generic External Data 03/01/2025 Patient Outreach [facility] [address] [place] [address] Richard Boyd MD Care Coordination ([facility] ED Follow up) 03/01/2025 Patient Outreach [facility] [address] [place] [address] Richard Boyd MD Care Coordination (CP Care Coordination Chart Review) 03/01/2025 Patient Outreach [address] [address] Richard Boyd MD 02/28/2025 Orders Only GENERIC EXTERNAL DATA DEPARTMENT Provider, Generic External Data 02/25/2025 1:00 PM EDT Office Visit [facility] [address] [place] [phone] Javed Castillo DDS Dental caries (Primary Dx); Pain, dental; Periodontal disease; Advanced periodontitis 02/15/[address] [address] Richard Boyd MD April01/31/2025 11:15 AM EDT Office Visit [address] [address] Richard Boyd MD Dermatitis (Primary Dx); Subacute vaginitis; Herpes stomatitis 01/31/2025 Orders Only [address] [address] Richard Boyd MD 01/31/2025 Travel 01/28/[address] [address] Richard Boyd MD Chart Prep 01/27/2025 Patient Outreach [facility] [address] [place] [address] Richard Boyd MD 01/21/2025 Patient Outreach [address] [address] Richard Boyd MD Pre-visit Planning (SDOH screening completed on 07/28/2024) 01/14/2025 Orders Only GENERIC EXTERNAL DATA DEPARTMENT Provider, Generic External Data 01/11/2025 Patient Outreach [facility] [address] [place] [address] Richard Boyd MD Care Coordination ([facility] ED F/U) 01/11/2025 Patient Outreach [facility] [address] [place] [address] Richard Boyd MD Care Coordination (C3/CHW Chart Review) 01/10/2025 Patient Outreach [facility] [address] [place] [address] Richard Boyd MD 01/09/2025 Orders Only GENERIC EXTERNAL DATA DEPARTMENT Provider, Generic External Data from Last 3 Months Immunizations Immunization Administration [...] Description 2025 11:15 AM EST Office Visit [address] [address] Richard Boyd MD [address] [place] [address] 05/09/2025 2:30 PM EST Office Visit [address] [address] Richard Boyd MD [address] [place] [address] Health Maintenance Due Date Last Done Comments CT Colonography 1977 FIT DNA/Cologuard 1975 FIT 1975 FOBT 1975 Sigmoidoscopy 1975 Disability Screening 1977 Alcohol/Substance Use Screening 1989 Dental Prophylaxis 03/22/2023 09/19/2022 Dental X-Ray: Bitewings 07/18/2023 07/17/2022 Depression Screening 09/14/2024 09/15/2023, 09/15/19 24 COVID-19 Vaccine ( season) 2025 01/09/2022, 01/09/2022, 11/10/2020, Additional history exists Influenza Vaccine (#1) 2025 SDOH Screening 07/28/2025 07/28/2024 Family Planning (PISQ) 08/19/2025 08/19/2024 Dental Oral Exam 08/26/2025 02/25/2025, 07/17/2022 Tobacco Screening 02/25/2026 02/25/2025 Mammogram 04/05/2026 04/05/2025, 03/17, 03/31/2024, Additional history exists Zoster Vaccines (1 of 2) 2027 Cervical [...] TOMOSYNTHESIS BILATERAL Routine 04/05/2025 1:14 PM EDT HOLD LAVENDER - POSSIBLE HEMATOLOGY Routine 03/02/2025 11:53 AM EDT RICHARD SCREEN, IFA, W/REFL TITER AND PATTERN Routine 03/02/2025 11:53 AM EDT DNA (DS) ANTIBODY Routine 03/02/2025 11: 53 AM EDT SED RATE BY MODIFIED WESTERGREN Routine 03/02/2025 11:53 AM EDT TSH W/REFLEX TO FT4 Routine 03/02/2025 1 1:53 AM EDT C-REACTIVE PROTEIN Routine 03/02/2025 11 :53 AM EDT CREATINE KINASE, TOTAL Routine 11:53 AM EDT HEPATIC FUNCTION PANEL Routine 11:[address] ABDOMEN PELVIS W CONTRAST Routine 02/28/2025 [...] AM EST Urticaria HM COLONOSCOPY Routine 05/04/2024 HEPATITIS PANEL, GENERAL Routine 03/19/2024 11:25 AM [...] Recently Relevant to Health Maintenance Results * BI US Breast Limited Left (04/05/2025 1:37 PM EDT) Anatomical Region Laterality Modality Breast Left Ultrasound 04/05/2025 1:37 PM EDT Narrative 04/05/2025 3:43 PM EDT [facility] [address] [place], [place] [address] Ultrasound Report Signed Patient: Lizzie Esteban MR#: [id number] : 1975 Acct:[id number] Age/Sex: 49 / F ADM Date: 04/05/25 Loc: HO.MAMMO Attending Dr: Richard Boyd MD Ordering Physician: Richard Boyd MD Date of Service: 04/05/25 Procedure(s): US Breast LT Limited Mamm Only Accession Number(s): [id number] cc: Richard Boyd MD Reason for Exam: LT BR [...] cm from the nipple (MLO 30/86, CC /), which is stable from March 2023 and [...] Chiu MD 04/05/2025 03:40 PM EDT RP Dictated By: Ethan Chiu MD Signed By: <Electronically signed by Ethan Chiu MD in OV> 04/05/25 1540 DD/ 1337 TD/TT: 04/05/25 1346 Industrial Cafeteria Manager: Procedure Note Donotuseinterpreter, Image - 04/05/2025 [facility] [address] [place] [address] Ultrasound Report Signed Patient: Lizzie Esteban LMR#: [id number] : 1975Acct:[id number] Age/Sex: 49 / FADM Date: 04/05/25 Loc: HO.MAMMO Attending Dr: Richard Boyd MD Ordering Physician: Richard Boyd MD Date of Service: 04/05/25 Procedure(s): US Breast LT Limited Mamm Only Accession Number(s): [id number] cc: Richard Boyd MD Reason for Exam: LT BR [...] 04/05/25 1540 DD/ 1337 TD/TT: 04/05/25 1346 Industrial Cafeteria Manager: us Richard Boyd MD IMG US PROCEDURES Final Result * BI Mammogram Diagnostic Tomosynthesis Bilateral (04/05/2025 1:14 PM EDT) Anatomical Region Laterality Modality Breast Bilateral Mammography 04/05/2025 1:14 PM EDT Narrative 04/05/2025 3:43 PM EDT [facility] [place] [address] Mammography Report Signed Patient: Lizzie Esteban MR#: [id number] : 1975 Acct:[id number] Age/Sex: 49 / F ADM Date: 04/05/25 Loc: HO.MAMMO Attending Dr: Richard Boyd MD Ordering Physician: Richard Boyd MD Results: 2Be nign Date of Service: 04/05/25 Follow Up: 1 Year From Orig ina Mammogram Procedure(s): MM tomosynthesis diagnostic BI Accession Number(s): [id number] cc: Richard Boyd MD Reason For Exam: LT BR [...] 04/05/25 1540 DD/ 1314 TD/TT: 04/05/25 1326 Industrial Cafeteria Manager: Procedure Note Donotuseinterpreter, Image - 04/05/2025 [facility] [address] [place], [place] [address] Mammography Report Signed Patient: Lizzie Esteban LMR#: [id number] : 1975Acct:[id number] Age/Sex: 49 / FADM Date: 04/05/25 Loc: HO.MAMMO Attending Dr: Richard Boyd MD Ordering Physician: Richard Boyd MDResults: 2Be nign Date of Service: 04/05/25Follow Up: 1 Year From Orig ina Mammogram Procedure(s): MM tomosynthesis diagnostic BI Accession Number(s): [id number] cc: Richard Boyd MD Reason For Exam: LT BR [...] cm from the nipple (MLO 30/86, CC /), which is stable from March 2023 and [...] 04/05/25 1540 DD/ 1314 TD/TT: 04/05/25 1326 Industrial Cafeteria Manager: us Richard Boyd MD IMG BI PROCEDURES Final Result * Hold Lavender - Possible Hematology (03/02/2025 11:53 AM EDT) Hold Lavender - Possible Hematololgy SEE NOTE [facility] Comment:Specimen will be hel d untested for 8 hours. Call Hematologyif testing is desired. 03/02/2025 11:5 3 AM EDT 03/02/2025 11:58 AM EDT Generic External Data Provider HISTORICAL/NON OR DERABLE LABS Final Result Performing Organization Address [facility] Co de Phone Number [facility] [address] [place] [address] [phone] * TSH with Reflex to Free T4 (03/02/2025 11:53 AM EDT) TSH reflex Free T4 1.32 0.32 - 4.0 uIU/mL [facility] 03/02/2025 11:5 3 AM EDT 03/02/2025 11:57 AM EDT Generic External Data Provider LAB BLOOD ORDERAB LES Final Result Performing Organization Address [facility] de Phone Number [facility] [address] [place] [phone] * DNA (ds) Antibody (03/02/2025 11:53 AM EDT) Anti DNA DS Antibody 2 IU/mL [facility] Comment:IU/mL Interpretation < or = 4 Negative 5-9 Indeterminate > or = 10 PositiveTHIS TEST WAS PERFORMED AT:[facility] [address] [id number] WANG MD 03/02/2025 11:5 3 AM EDT 03/02/2025 11:57 AM EDT Generic External Data Provider LAB BLOOD ORDERAB LES Final Result Performing Organization Address [facility] Co de Phone Number [facility] [address] [place] [phone] * (ABNORMAL) Sed Rate by Modified Kalen (03/02/2025 11:53 AM EDT) Only the most recent of2 resultswithin the time period is included. Erythrocyte Sedimentation Rate 33(H) 0 - 20 MM/HR [facility] Comment:Patients with polycy themia and many hemoglobin abnormalitiesmay have depressed sed rates whereas patients with anemiamay have elevated sed rates. 03/02/2025 11:5 3 AM EDT 03/02/2025 11:57 AM EDT Generic External Data Provider LAB BLOOD ORDERAB LES Final Result Performing Organization Address [facility] Co de Phone Number [facility] [address] [place] [phone] * (ABNORMAL) C-reactive Protein (03/02/2025 11:53 AM EDT) Only the most recent of2 resultswithin the time period is included. C Reactive Protein 1.63(H) < or = 0.50 mg/dL [facility] 03/02/2025 11:5 3 AM EDT 03/02/2025 11:57 AM EDT [employer] External Data Provider LAB BLOOD ORDERAB LES Final Result Performing Organization Address [facility] de Phone Number [facility] [address] [place] [phone] * RICHARD Screen,IFA, with Reflex to Titer and Pattern (03/02/2025 11:53 AM EDT) Anti Nuclear Antibody Screen NEGATIVE NEGATIVE [facility] Comment:RICHARD IFA is a first l ine screen for detecting thepresence of up to approximately 150 autoantibodies invarious autoimmune diseases. A negative RICHARD IFA resultsuggests an RICHARD-associated autoimmune disease is notpresent at this time, but is not definitive. If thereis high clinical suspicion for Sjogren's syndrome,testing for anti-SS-A/Ro antibody should be considered.Anti-Alessia-1 antibody should be considered for clinicallysuspected inflammatory myopathies.AC-0: NegativeInternational Consensus on RICHARD Patterns(https://doi.org/10.1515/myqv-7598-6994)For additional information, please refer tohttp://education.Wikidata/faq/NDW311(This link is being provided for informational/educational purposes only.)THIS TEST WAS PERFORMED AT:[facility] [place] [id number] WANG MD RICHARD Titer TNP [facility] RICHARD Pattern TNP [facility] RICHARD TITER 2 (REF LAB) TNP [facility] RICHARD Pattern 2 TNP [facility] RICHARD TITER 3 [facility] RICHARD PATTERN 3 [facility] 03/02/2025 11:5 3 AM EDT 03/02/2025 11:57 AM EDT us Generic External Data Provider LAB BLOOD ORDERAB LES Final Result Performing Organization Address [facility]/ZIP Co de Phone Number [facility] [address] [place] [phone] * Creatine Kinase, Total (03/02/2025 11:53 AM EDT) Pathologist [facility] Creatine Kinase Total 62 26 - 140 U/L [facility] 03/02/2025 11:5 3 AM EDT 03/02/2025 11:57 AM EDT us Generic External Data Provider LAB BLOOD ORDERAB LES Final Result Performing Organization Address [facility] Co de Phone Number [facility] [address] [place] [phone] * Hepatic Function Panel (03/02/2025 11:53 AM EDT) Bilirubin, Total 0.2 0.0 - 1.0 mg/dL [facility] Bilirubin, Direct <0.2 0.0 - 0.5 mg/dL [facility] Aspartate Amino Transferase 27 5 - 31 U/L [facility] Alanine Aminotransferase 29 0 - 31 U/L [facility] Total Protein 7.0 6.5 - 8.0 g/dL [facility] Albumin Level 3.9 3.5 - 5.0 g/dL [facility] Alkaline Phosphatase 69 39 - 117 U/L [facility] 03/02/2025 11:5 3 AM EDT 03/02/2025 11:57 AM EDT us Generic External Data Provider LAB BLOOD ORDERAB LES Final Result Performing Organization Address City/State/[facility] Co de Phone Number [facility] [address] [place] [phone] * CT Abdomen Pelvis w/ Contrast (02/28/2025 3:40 PM EDT) Anatomical Region Laterality Modality Body, Pelvis, Abdomen Computed T omography 02/28/2025 3:40 PM EDT Narrative 02/28/2025 4:06 PM EDT [address] [address] [address] Scan Report Signed Patient: Lizzie Esteban MR#: [id number] : 1975 Acct:[id number] Age/Sex: 49 / F ADM Date: 02/28/25 Loc: .ED Attending Dr: Ordering Physician: Tito Bowen MD Date of Service: 02/28/25 Procedure(s): CT abdomen pelvis w IV con Accession Number(s): [id number] cc: Richard Boyd MD; Tito Bowen MD Report Number: [id number]: Total DLP = 530.00 mGy-cm Reason for [...] MD 02/28/2025 04:04 PM EDT Dictated By: Fabinao Nielson MD Signed By: <Electronically signed by Fabiano Nielson MD in OV> 02/28/25 1604 DD/ 1540 TD/TT: 02/28/25 1557 Industrial Cafeteria Manager: Procedure Note Donotuseinterpreter, Image - 02/28/[address] [address] [address] Scan Report Signed Patient: Lizzie Esteban LMR#: [id number] : 1975Acct:[id number] Age/Sex: 49 / FADM Date: 02/28/25 Loc: HO.ED Attending Dr: Ordering Physician: Tito Bowen MD Date of Service: 02/28/25 Procedure(s): CT abdomen pelvis w IV con Accession Number(s): [id number] cc: Richard Boyd MD; Tito Bowen MD Report Number: [id number]: Total DLP = 530.00 mGy-cm Reason for [...] 02/28/25 1604 DD/ 1540 TD/TT: 02/28/25 1557 Industrial Cafeteria Manager: [facility] External Provider IMG CT PROCEDURES Final Result * (ABNORMAL) Urinalysis, Complete, with Reflex to Culture (02/28/2025 10:55 AM EDT) Only the most recent of2 resultswithin the time period is included. Color Urine Yellow [facility] Appearance Urine Clear [facility] PH 5.5 5.0 - 9.0 [facility] Glucose Urine UA Negative Negative mg/dL [facility] Urine Blood Small (1+)(A) Negative [facility] Specific [place] - Urine 1.020 1.005 - 1.025 [facility] Urine Protein Negative Neg-Trace mg/dL [facility] Urine Ketones Negative Negative mg/dL [facility] Nitrite Urine Negative Negative [facility] Leukocyte Esterase Urine Negative Negative [facility] RBC Urine 0-2 0 - 2 /HPF [facility] Urine WBC 0-5 0 - 5 /HPF [facility] Urine Squamous Epithelial Cell 0-2 0 - 2 /HPF [facility] Urine Bacteria None Seen None Seen [facility] Hyaline Casts, Urine 0-2 0 - 2 /LPF [facility] 02/28/2025 10:5 5 AM EDT 02/28/2025 11:00 AM EDT Narrative [facility] - 02/28/2025 11:15 AM EDT [id number], Clean Catch Generic External Data Provider LAB URINE ORDERAB LES Final Result [facility] [address] [place] [address] [phone] * Influenza A B2 ID NOW (Khan) (02/28/2025 10:31 AM EDT) IDNOW SERIAL# [id number] [facility] Influenza A Negative Negative [facility] Influenza B2 Negative Negative [facility] Influenza A B2 Note See Note [facility] Comment:The Khan ID NOW In [...] LAB MICROBIOLOGY - GENERAL ORDERABLES Final Result [facility] [address] [place] [phone] * COVID-19 ID NOW (KHAN) (02/28/2025 10:31 AM EDT) IDNOW SERIAL# [id number] [facility] COVID-19 TEST Negative Negative [facility] COVID-19 NOTE See Note [facility] Comment: Results are for the identification of SARS-CoV2 RNA. TheSARS-CoV2 RNA is generally detectable in respiratory samplesduring the acute phase of infection. Positive results areindicative of the presence of SARS-CoV-2 RNA; clinicalcorrelation with patient history and other diagnosticinformation is necessary to determine patient infectionstatus. Positive results do not rule out bacterial infectionor co- infection with other viruses.Testing facilities within the [facility] and itsterritories are required to report all [...] use by authorized laboratories.Testing performed on the [employer] ID NOW utilizing NAAT. 02/28/2025 10:3 1 AM EDT 02/28/2025 10:36 AM EDT us Generic External Data Provider LAB MOLECULAR ABDIAS GNOSTICS ORDERABLES Final Result [facility] [address] [place] [phone] * (ABNORMAL) CBC auto differential (02/28/2025 10:31 AM EDT) White Blood Count 8.9 4.8 - 10.8 X10*3/uL [facility] Red Blood Count 4.51 4.20 - 5.50 X10*6/uL [facility] Hemoglobin 12.0 12.0 - 16.0 g/dl [facility] Hematocrit 36.5(L) 37.0 - 47.0 % [facility] Mean Corpuscular Volume 80.9 80.0 - 98.0 fL [facility] Mean Corpuscular Hemoglobin 26.6(L) 27.0 - 33.0 pg [facility] Mean Corpuscular HGB Conc 32.9 31.0 - 35.0 g/dl [facility] Red Cell Distribution Width 13.1 11.0 - 16.0 % [facility] Platelet Count 262 160 - 400 X10*3/uL [facility] Mean Platelet Volume 10.6 9.4 - 12.3 fL [facility] Neutrophils Percent Auto 78.6(H) 45 - 73 % [facility] Imm Gran Pct Auto 0.2 0.0 - 0.4 % [facility] Lymphocytes Percent Auto 13.6(L) 20 - 40 % [facility] Monocytes Percent Auto 5.7 2 - 11 % [facility] Eosinophils Percent Auto 1.8 0 - 4 % [facility] Basophils Percent Auto 0.1 0 - 2 % [facility] NRBC Pct Auto 0.0 0.0 - 0.2 /100WBC [facility] Neutrophils Absolute Auto 7.0 2.0 - 8.3 x10*3/uL [facility] Imm Gran Abs Auto 0.02 0.00 - 0.03 X10*3/uL [facility] Lymphocytes Absolute Auto 1.2 1.2 - 4.9 X10*3/uL [facility] Monocytes Absolute Auto 0.5 0.1 - 1.2 X10*3/uL [facility] Eosinophils Absolute Auto 0.2 0.0 - 0.4 X10*3/uL [facility] Basophils Absolute Auto 0.0 0.0 - 0.2 X10*3/uL [facility] NRBC Abs Auto 0.000 0.0 - 0.012 X10*3/uL [facility] 02/28/2025 10:3 1 AM EDT 02/28/2025 10:36 AM EDT us Generic External Data Provider LAB BLOOD ORDERAB LES Final Result [facility] [address] [place], [place] [phone] * hCG, Total, Quantitative (02/28/2025 10:31 AM EDT) HCG Quantitative <2 mIU/mL [facility] Comment:Weeks post LMP Appro ximate hCG(Last Menstrual Period) Range (mIU/ml)3 - 4 weeks 9 - 1304 - 5 weeks 75 - 2,6005 - 6 weeks 850 - 20,8006 - 7 weeks 4000 - 100,2007 - 12 weeks 11,500 - 289,42754 - 16 weeks 18,300 - 137,37703 - 29 weeks (2nd trimester) 1,400 - 53,70796 - 41 weeks (3rd trimester) 940 - [...] ORDERAB LES Final Result Performing Organization Address [facility] Co de Phone Number [facility] [address] [place] [phone] * Magnesium (02/28/2025 10:31 AM EDT) Magnesium 1.8 1.6 - 2.6 mg/dL [facility] 02/28/2025 10:3 1 AM EDT 02/28/2025 10:36 AM EDT Generic External Data Provider LAB BLOOD ORDERAB LES Final Result Performing Organization Address [facility] de Phone Number [facility] [address] [place] [phone] * Lipase (02/28/2025 10:31 AM EDT) Lipase 21 8 - 78 U/L [facility] 02/28/2025 10:3 1 AM EDT 02/28/2025 10:36 AM EDT Generic External Data Provider LAB BLOOD ORDERAB LES Final Result Performing Organization Address [facility] de Phone Number [facility] [address] [place] [phone] * (ABNORMAL) Comprehensive Metabolic Panel (02/28/2025 10:31 AM EDT) Sodium 141 135 - 145 mmol/L [facility] Potassium 4.2 3.3 - 5.1 mmol/L [facility] Chloride 108 96 - 108 mmol/L [facility] Carbon Dioxide 28 22 - 29 mmol/L [facility] Anion Gap 9(L) 12 - 20 [facility] Urea Nitrogen (BUN) 9 9 - 16 mg/dL [facility] Creatinine, Serum 0.64 0.5 - 1.4 mg/dL [facility] Creatinine Clr Calc Pharmacy 102.6 [facility] Comment:Provided height and weight: 157.48 cm,74.4 kg.eGFR (calculated from the MDRD study equation) and eCrCl(calculated from the Cockcroft-Gault equation) are based ondifferent parameters and may not yield comparable results.If eCrCl result is absurd, please check patient'sheight/weight. Estimated Glomerular Filt Rate >60 [facility] Comment:Chronic Kidney Disea se: Estimated GFR < 60 mL/min/1.02e2Mjtfcq Kidney Disease: Estimated GFR < 15 mL/min/1.73m2 Glucose 100 60 - 115 mg/dL [facility] Calcium 9.5 8.4 - 10.2 mg/dL [facility] Bilirubin, Total 0.6 0.0 - 1.0 mg/dL [facility] Aspartate Amino Transferase 32(H) 5 - 31 U/L [facility] Alanine Aminotransferase 38(H) 0 - 31 U/L [facility] Total Protein 7.2 6.5 - 8.0 g/dL [facility] Albumin Level 4.0 3.5 - 5.0 g/dL [facility] Alkaline Phosphatase 74 39 - 117 U/L [facility] 02/28/2025 10:3 1 AM EDT 02/28/2025 10:36 AM EDT us Generic External Data Provider LAB BLOOD ORDERAB LES Final Result [facility] [address] [place] [phone] * Bacterial Vaginosis (01/31/2025 10:00 AM EDT) Only the most recent of2 resultswithin the time period is included. TRICHOMONAS VAGINALIS DETECTION BY PCR NOT DETECTED Not Detect [facility] BACTERIAL VAGINOSIS DETECTION BY PCR NEGATIVE Negative [facility] Comment:The BV organism targ ets [...] DETECTION BY PCR NOT DETECTED Not Detect [facility] Gissell glab krusei PCR NOT DETECTED Not Detect [facility] 01/31/2025 10:0 0 AM EDT 01/31/2025 7:44 PM EDT Richard Boyd MD LAB MICROBIOLOGY - GENER AL ORDERABLES Final Result [facility] [address] [place] [phone] * Chlamydia/N. Gonorrhoeae RNA, TMA, Urogenitial (01/31/2025 10:00 AM EDT) CT PCR NOT DETECTED Not Detect. [facility] Comment:A not detected test result [...] psychologicalconsequences. NG PCR NOT DETECTED Not Detect. [facility] Comment:A not detected test result [...] AM EDT 01/31/2025 7:44 PM EDT us Richard Boyd MD LAB MICROBIOLOGY - GENER AL ORDERABLES Final Result Performing Organization Address City/[facility] Co de Phone Number [facility] [address] [place] [phone] * Strep A Nucleic Acid (01/09/2025 10:34 AM EDT) IDNOW SERIAL# [id number] [facility] Strep A Nucleic Acid Negative Negative [facility] Comment:All test results mus t be correlated with clinical findings.This test has not been evaluated for monitoring treatment ofinfection.Additional follow-up testing using the culture method isrequired if the result is negative and clinical symptomspersist, or in the event of an acute rheumatic feveroutbreak. 01/09/2025 10:3 4 AM EDT 01/09/2025 10:37 AM EDT us Generic External Data Provider LAB MICROBIOLOGY - GENERAL ORDERABLES Final Result Performing Organization Address [facility] Co de Phone Number [facility] [address] [place] [phone] * SARS-CoV-2 RNA, Influenza A/B, and RSV RNA, Ql NAAT (01/09/2025 10:34 AM EDT) Influenza A PCR NEGATIVE Negative [facility] Influenza B PCR NEGATIVE Negative [facility] Resp Syncy Virus RNA Qual PCR NEGATIVE Negative [facility] SARS COV2 PCR NEGATIVE Negative [facility] Comment:All test results mus t [...] use by authorized laboratories.Testing performed on the [employer]OTA GeneXpert utilizingreal-time RT-PCR.All SARS CoV2 and positive influenza A/B results arereported to [facility]. 01/09/2025 10:3 4 AM EDT 01/09/2025 10:37 AM EDT us Generic External Data Provider LAB MICROBIOLOGY - GENERAL ORDERABLES Final Result [facility] [address] [place] [phone] * (ABNORMAL) Lipid Panel with Reflex to Direct LDL (06/25/2024 9:18 AM EST) Triglycerides 77 <150 mg/dL [facility] Comment:Desirable Triglyceri de: less than 150 mg/dLBorderline High Triglyceride 150-199 mg/dLHigh Triglyceride: 200-499 mg/dLVery High Triglyceride: greater than or equal to 5OO mg/dL Cholesterol 214(H) <200 mg/dL [facility] Comment:Desirable Cholestero l: less than 200 mg/dLBorderline High Cholesterol: 200-239 mg/dLHigh Cholesterol: greater than 239 mg/dL LDL Cholesterol Calculated 141(H) <100 mg/dL [facility] Comment:Desirable LDL: less than 100 mg/dLNear Optimal/Above Optimal LDL: 110- 129 mg/dLBorderline High LDL: 130-159 mg/dLHigh LDL: 160-189 mg/dLVery High LDL: greater than or equal to 190 mg/dL HDL Cholesterol 58 >40 mg/dL [facility] Comment:Desirable HDL: great er than 40 mg/dL Note: This HDL assay may give artificially low results in patients with liver disease. Blood 06/25/2024 9:18 AM EST 06/25/2024 11:34 AM EST Richard Boyd MD LAB BLOOD ORDERABLES Fin al Result Performing Organization Address [facility] Co de Phone Number [facility] [address] [place] [phone] * Hm Colonoscopy (05/04/2024) Colonoscopy Normal Normal [facility] Comment:benign polyp Richard Boyd MD HEALTH MAINTENANCE Final Result Performing Organization Address [facility] Co de Phone Number [facility] [address] [place] [phone] * Hepatitis Panel, General (03/19/2024 11:25 AM EDT) Hepatitis A IgM Nonreactive Nonreactive [facility] Comment:IgM antibodies to FUNES V not detected; does not exclude earlyacute or recovered HAV infection. ~Hepatitis B Surface Antibody NONREACTIVE Nonreactive [facility] Comment:Nonreactive: < 8.00 mIU/mL Hepatitis B Core Antibody Nonreactive Nonreactive [facility] Hepatitis C Antibody Nonreactive Nonreactive [facility] Comment:Antibodies to HCV no t detected; does not exclude early acuteHCV infection. Hepatitis B Surface Ag Negative Negative [facility] Blood 03/19/2024 11:2 5 AM EDT 03/19/2024 12:57 PM EDT us Richard Boyd MD LAB BLOOD ORDERABLES Fin al Result Performing Organization Address [facility] Co de Phone Number [facility] [address] [place] [phone] * HIV-1/2 Antigen and Antibodies, Fourth Generation, with Reflexes (03/19/2024 11:25 AM EDT) HIV AB/AG Nonreactive Nonreactive [facility] Comment:HIV-1 p24 Ag and/or HIV-1/HIV-2 Ab not detected.A test result that is nonreactive does not exclude thepossibility of exposure to or infection with HIV-1 and/orHIV-2. Nonreactive results in this assay for individualswith prior exposure to HIV-1 and/or HIV-2 may be due toantigen and antibody levels that are below the limit ofdetection of this assay.The Ideal Me HIV Ag/Ab Combo assay result andsupplemental assay results should be interpreted inconjunction with the patient's clinical presentation,history and other laboratory results. If the results areinconsistent with clinical evidence, additional testing issuggested to confirm the result. Blood Venous blood specimen / Unknown 03/19/2024 11:25 AM EDT 03/19/2024 12:57 PM EDT Richard Boyd MD LAB BLOOD ORDERABLES Fin al Result Performing Organization Address [facility] Co de Phone Number [facility] [address] [place] [phone] * Thinprep TIS PAP And HPV mRNA E6/E7 With Reflex To HPV 16,18/45 (12/11/2022 9:20 AM EDT) Clinical Information: Routine exam [facility] LMP: NONE GIVEN [facility] Prev. PAP: NONE GIVEN [facility] Prev. BX: NO [facility] SOURCE: None given [facility] Statement Of Adequacy: [facility] Comment: Satisfactory for evaluation. Endocervical/transformation zone component present. Interpretation/ Result: Negative for intraepithelial lesion or malignancy. [facility] COMMENT: This Pap test has been evaluated with computer assisted technology. [employer] [facility] [employer] [facility] Cytotechnologis t: [facility] [facility] [employer] Comment: BK,CT(ASCP) CT screening location: [address] (Always Message) [facility] Comment: EXPLANATORY NOTE: The Pap is a [...] HPV nRNA E6/E7 Not Detected Not Detected [facility] Comment: Methodology: Cake Knocker-Mediated Amplification This assay detects E6/E7 viral messenger RNA (mRNA) from 14 high-risk HPV types (16,18,31,33,35,39,45,51,52,56,58,59,66,68). Cervical sources are required for HPV testing. If a vaginal source from a patient who has had a total hysterectomy with removal of cervix was submitted, please contact the testing laboratory for alternative testing options. For additional information, please refer to http://education.Nitch/faq/RKU272m5 (This link if provided for information/ educational purposes only.) Genital 12/11/2022 9:20 AM EDT 12/12/2022 1:15 AM EDT us Richard Boyd MD LAB PATHOLOGY ORDERABLES Final Result [address], [place] [phone] [facility] [employer] [address] [place] [phone] from Last 3 Months or Most Recently Relevant [place] [id number] [facility] C3 HSN [employer] DENTAL-[facility] MEDICAID STAND ADULT Care Teams Coil Cutter Relationship Specialty Start Date End Date Richard Boyd MD [address] [place] [phone] PCP - General Family Medicine 05/20/16 Evelyne Pemberton Production WelderPhysical Therapy Aide 12/15/24
--- OUTSIDE RECORDS SUMMARY | 2025-04-05 16:39 | XMS_ITS | Encounter Summary ---
Author Organization [employer] [facility] [employer] Address [address] [place] [address] Care Team Providers Care Evp Operations Name Role Phone Stacy Boyd MD Primary Care Provider + Mary Jo Palmer Unavailable Mary Jo Palmer Unavailable Encounter Details Date Type Department Care Team (Late st Contact Info) Description 03/27/2023 Orders Only [facility] [address] [place] [address] Provider, MD Griselda Social History Tobacco Use [...] Description 2025 11:15 AM EST Office Visit [address] [address] Stacy Boyd MD [address] [place] [phone] 05/09/2025 2:30 PM EST Office Visit [address] [address] Stacy Boyd MD [address] [place] [phone] documented as of this encounter Procedures Procedure Name Priority Date/Time Associated Diagnosis Comments US BREAST BIOPSY LEFT Routine 03/17/2023 documented in this encounter Results * US Breast Biopsy Left (03/17/2023) Anatomical Region Laterality Modality Ultrasound us Historical Provider MD T[facility] US PROCEDURES Final R esult documented in this encounter Visit Diagnoses Not on filedocumented in this encounter Care Teams Evp Operations Relationship Specialty Start Date End Date Stacy Boyd MD [address] [place] [phone] PCP - General Family Medicine 05/20/16 Mary Jo Palmer 01/10/25 01/27/25 Mary Jo Palmer 03/01/25 03/18/25 Evelyne Pemberton Touring Production ManagerInfantryman 12/15/24 documented as of this encounter
== END 2025-04-05 13:00 | disposition home or self-care (01) ==
LOC: HO.MAMMO 12:59
PROVIDERS: PCP Internal Medicine; Visit Provider Internal Medicine
DX: R92.2 Inconclusive mammogram (principal)
CPT/HCPCS: 76642; 77062; 77066

== ENCOUNTER → 2025-04-05 13:00 | Outpatient (BNV) | payer MEDICAID, SELFPAY | PROVIDERS: PCP Internal Medicine; Visit Provider Radiology Body Imaging | DX: R92.8 Other abnormal and inconclusive findings on diagnostic imaging of breast (principal); N63.42 Unspecified lump in left breast, subareolar | CPT/HCPCS: 76642; 77062; 77066 ==

== ENCOUNTER 2025-05-05 11:41 | Emergency (ER) | payer MEDICAID, SELFPAY ==
--- NOTE | ~2025-05-05 | CT_ITS ---
EXAMINATION: CT ABDOMEN AND PELVIS WITHOUT CONTRAST CLINICAL INFORMATION: Right flank pain, microhematuria COMPARISON: 02/28/2025 TECHNIQUE: Multidetector volumetric imaging was performed from the superior aspect of the liver through the pubic symphysis. Sagittal and coronal reformatted images were obtained on the technologist's workstation. This CT examination was performed using dose optimization techniques as appropriate, variously including the following: *Automated exposure control *Adjustment of mA and/or kV according to patient size (this includes techniques or standardized protocols for targeted exams where dose is matched to indication/reason for exam; i.e. extremities or head) *Use of iterative reconstruction technique FINDINGS: LUNG BASES: The visualized lung bases are unremarkable. LIVER, GALLBLADDER, AND BILIARY TREE: Geographic fatty changes are present in the liver with areas of sparing are seen in the posterior right hepatic lobe. Layering calcified stones are again seen in the gallbladder. No gallbladder wall thickening or pericholecystic fluid is identified. The bile ducts to not appear dilated. PANCREAS: Unremarkable. SPLEEN: Unremarkable. ADRENAL GLANDS: Unremarkable. KIDNEYS AND URETERS: The kidneys are normal in size, shape, and attenuation. No hydronephrosis, hydroureter, or calculi seen. No perinephric stranding. BLADDER: Stable phlebolith is identified posterior to the right side of the bladder. There is no bladder wall thickening or stones within the bladder. GASTROINTESTINAL TRACT: The small and large bowel are unremarkable. The appendix is unremarkable. ABDOMINAL WALL: No significant hernia is appreciated. LYMPH NODES: Normal. VASCULAR: Mild multifocal vascular calcifications are present. PELVIC VISCERA: Bilateral ovarian cysts are present consistent with mature follicles. Uterus is within normal limits. OSSEOUS STRUCTURES: Unremarkable. CT/CT abdomen pelvis wo IV con IMPRESSION: Stable cholelithiasis. Stable hepatic steatosis. Mature ovarian follicles are present bilaterally. Fleischner guidelines were followed. Electronically signed by: Fabiano Nielson MD 05/05/2025 01:48 PM [facility]
[2025-05-05 11:44] VITALS: BP 161/70; PULSE 75; RESP 18; TEMP 36.2; O2SAT 99; BMI 30.3
--- NOTE | 2025-05-05 11:48 | ED.GENADULT ---
HPI - General Adult General Chief complaint: Abdominal Pain Stated complaint: Back Pain Time Seen by Provider: 05/05/25 13:03 Source: patient and family Mode of arrival: ambulatory Limitations: no limitations History of Present Illness ED Provider: DR. Davenport HPI narrative: a 50-year-old female came in for evaluation of 2 day off bilateral flank pain radiates to the suprapubic area, pain is getting worse and more persistent, no clear aggravating factor, no clear relieving factor, no dysuria no frequency urination, no blood in the urine, no history of back injury or heavy lifting, intra-abdominal surgery significant for tubal ligation, had a normal bowel movement this morning passing flatus normally. no weakness, no numbness, no urinary or stool incontinence. Related Data Home Medications ?Medication ?Instructions ?Recorded ?Confirmed diphenhydramine HCl 25 mg capsule mg PO 12/09/23 05/17/24 (Banophen) ergocalciferol (vitamin D2) 1,250 1,250 mcg PO QWEEK 12/09/23 05/17/24 mcg (50,000 unit) capsule loratadine 10 mg tablet 10 mg PO DAILY PRN allergies 12/09/23 05/17/24 triamcinolone acetonide 0.1 % appl topical 12/09/23 05/17/24 topical cream cyclobenzaprine 5 mg tablet 5 mg PO BEDTIME PRN neck pain 02/03/24 05/17/24 lidocaine-prilocaine 2.5 %-2.5 % topical BID PRN pain 02/03/24 05/17/24 topical cream naproxen 500 mg tablet 500 mg PO BID PRN pain 02/03/24 05/17/24 Previous Rx's ?Medication ?Instructions ?Recorded ondansetron 4 mg disintegrating 4 mg PO Q6-8H PRN nausea and 12/04/23 tablet vomiting #7 tabs omeprazole 20 mg capsule,delayed 20 mg PO DAILY #30 caps 02/03/24 release sennosides 8.6 mg tablet (Natural 17.2 mg (2 x 8.6 mg) PO BEDTIME 02/03/24 Senna Laxative) constipation #60 tabs prednisone 20 mg tablet See Rx Instructions .Route 06/12/24 .COMPLEX 12 days #26 tabs diazepam 2 mg tablet (Valium) 2 mg PO TID PRN spasms 2 days #6 12/05/24 tabs lidocaine 5 % topical patch 1 patch topical DAILY #15 ea 12/05/24 naproxen 500 mg tablet 500 mg PO BID 5 days #10 tabs 12/05/24 hydrocortisone 1 % topical cream 1 appl topical BID PRN vaginal 01/14/25 irritation #28.4 grams acetaminophen 500 mg capsule 1,000 mg (2 x 500 mg) PO Q8H PRN 02/28/25 fever or pain #14 caps cyclobenzaprine 10 mg tablet 10 mg PO TID PRN muscle spasm #14 02/28/25 tabs ibuprofen 400 mg tablet 400 mg PO Q6H PRN pain #14 tabs 02/28/25 sucralfate 1 gram tablet 1 g PO TID PRN abdominal 02/28/25 discomfort #60 tabs diphenhydramine HCl 25 mg capsule 25 mg PO TID PRN itching #21 caps 03/02/25 (Benadryl) famotidine 40 mg tablet (Pepcid) 40 mg PO DAILY 7 days #7 tabs 03/02/25 prednisone 10 mg tablet See Taper PO DAILY #30 tabs 03/02/25 cyclobenzaprine 10 mg tablet 10 mg PO TID PRN muscle spasm #14 05/05/25 tabs ibuprofen 600 mg tablet 600 mg PO Q8H PRN pain #14 tabs 05/05/25 Allergies Allergy/AdvReac Type Severity Reaction Status Date / Time sulfamethoxazole (From Allergy Unknown LIP Verified 05/05/25 11:47 BACTRIM) SWELLING trimethoprim (From BACTRIM) Allergy Unknown LIP Verified 05/05/25 11:47 SWELLING Review of Systems Review of Systems: All other systems are reviewed and are negative Constitutional: Reports as per HPI and Reports no additional constitutional complaints Eyes: Reports as per HPI and Reports no additional eye complaints Reports system reviewed and no additional complaints, except as documented Cardiovascular: Reports as per HPI and Reports no additional cardiovascular complaints Respiratory: Reports as per HPI and Reports no additional respiratory complaints Gastrointestinal: Reports as per HPI and Reports no additional gastrointestinal complaints Genitourinary: Reports no additional female genitourinary complaints Musculoskeletal: Reports no additional musculoskeletal complaints Skin/Breast: Reports system reviewed and no additional complaints, except as docu Psychiatric: Reports no additional psychiatric complaints Endocrine: Reports no additional endocrine complaints Hematologic/Lymphatic: Reports no additional hematologic/lymphatic complaints Allergic/Immunologic: Reports no additional allergic/immunologic complaints Reports system reviewed and no additional complaints, except as documented and Reports Abnormal speech present [facility] Past Medical History Medical History Cholelithiasis Hx of fracture of forearm Surgical History History of tubal ligation Social History Social History Current occupational status: employed 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 Blood pressure elevated. Heart rate normal. Respiratory rate normal. Temperature normal. Oxygen saturation normal. Appearance: Alert. Oriented X3. No acute distress. Head: Normal external exam. Normocephalic. Atraumatic. No Romero signs noted. No raccoon eyes noted Eyes: PERRLA. EOMI. Conjunctiva and sclera normal. Eyelids normal. ENT: TM's Normal. Pharynx normal. Uvula midline. Moist mucous membranes. No trismus noted. No drooling noted. No muffled voice noted. Neck: Normal inspection. Neck supple. FROM. No adenopathy. Thyroid Normal. No meningeal signs. No neck mass noted. CVS: Normal heart rate and rhythm. Heart sound normal. No murmurs noted. Pulses normal throughout. Respiratory: No respiratory distress. Painless inspiration. Breath sounds normal. No wheezes/rales/rhonchi noted. Chest nontender. No accessory muscle usage noted or decreased air movement noted. Abdomen: Soft and nontender. Bowel sounds normal in all 4 quadrants. No distention noted. No organomegaly noted. No visible injury noted. Back: Bilateral CVA tenderness. Full range of motion noted. Skin: Skin warm and dry. Normal skin color. Normal skin turgor. No rashes/lesions/lacerations noted. Extremities: No lower extremity edema. Extremities exhibit normal range of motion. Extremities nontender. Neuro: Oriented X 3. Cranial nerve exam: II-XII are grossly intact No motor deficit. No sensory deficit. Reflexes normal. Course Course Course Narrative: RME: 50-year-old female presents to ED for flank back pain radiating to the abdomen. Patient states history of gallstones. Patient states nausea or vomiting. 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 CT abdomen and pelvis reveals no obstructive kidney stones, UA except for some blood is unremarkable with negative test, CT abdomen pelvis his otherwise negative for acute intra-abdominal pathology, labs are unremarkable. As discussed with the patient need to rest for 2 days will discharge with muscle relaxant and Tylenol. Time: 15:43 Medications Administered Discontinued Medications Generic Name Dose Route Start Last Admin Trade Name Freq PRN Reason Stop Dose Admin Sodium Chloride 1,000 mls @ 999 mls/hr 05/05/25 13:10 05/05/25 13:41 Ns IV 05/05/25 14:10 999 mls/hr .Q1H1M ONE Administration Ketorolac Tromethamine 15 mg 05/05/25 13:10 05/05/25 13:39 Ketorolac Tromethamine 15 Mg/Ml Vial IVPUSH 05/05/25 13:11 15 mg ONCE ONE Administration Morphine Sulfate 1 mg 05/05/25 13:10 05/05/25 13:37 Morphine Sulfate 4 Mg/Ml Cartridge IVPUSH 05/05/25 13:11 1 mg ONCE ONE Administration Protocol Ondansetron HCl 4 mg 05/05/25 13:53 05/05/25 13:55 Ondansetron Odt 4 Mg Tab.Rapdis TRANSLINGU 05/05/25 13:54 4 mg ONCE ONE Administration Medical Decision Making Differential Diagnosis Differential Diagnoses: The differential diagnosis associated with the presentation includes ( Obstructive kidney stone, pyelonephritis, UTI, colitis, pancreatitis, diverticulitis, myofascial back pain.) Admission/Observation Consideration of admission/observation: Escalation of care including admission/observation considered Lab Data MDM Lab Attestation statement: I reviewed the patient's lab results. 05/05/25 11:56 05/05/25 11:57 Labs: Lab Results 11/20/25 11/20/25 Range/Units 11:56 11:57 WBC 8.6 (4.8-10.8) X10*3/uL RBC 4.81 (4.20-5.50) X10*6/uL Hgb 12.7 (12.0-16.0) g/dl Hct 39.6 (37.0-47.0) % MCV 82.3 (80.0-98.0) fL MCH 26.4 L (27.0-33.0) pg MCHC 32.1 (31.0-35.0) g/dl RDW 14.0 (11.0-16.0) % Plt Count 305 (160-400) X10*3/uL MPV 10.4 (9.4-12.3) fL Immature Gran % (Auto) 0.0 (0.0-0.4) % Neut % (Auto) 68.1 (45-73) % Lymph % (Auto) 22.1 (20-40) % Nash % (Auto) 8.6 (2-11) % Eos % (Auto) 1.1 (0-4) % Baso % (Auto) 0.1 (0-2) % Lymph # (Auto) 1.9 (1.2-4.9) X10*3/uL Nash # (Auto) 0.7 (0.1-1.2) X10*3/uL Eos # (Auto) 0.1 (0.0-0.4) X10*3/uL Baso # (Auto) 0.0 (0.0-0.2) X10*3/uL Abs Immat Gran (auto) 0.00 (0.00-0.03) X10*3/uL Absolute Neuts (auto) 5.8 (2.0-8.3) x10*3/uL Absolute Nucleated RBC 0.000 (0.0-0.012) X10*3/uL Nucleated RBC % (auto) 0.0 (0.0-0.2) /100WBC Sodium 140 (135-145) mmol/L Potassium 4.1 (3.3-5.1) mmol/L Chloride 111 H (96-108) mmol/L Carbon Dioxide 23 (22-29) mmol/L Anion Gap 10 L (12-20) BUN 11 (9-16) mg/dL Creatinine 0.64 (0.5-1.4) mg/dL Estim Creat Clear Calc 101.9 Estimated GFR > 60 Random Glucose 98 (60-115) mg/dL Calcium 9.4 (8.4-10.2) mg/dL Total Bilirubin 0.4 (0.0-1.0) mg/dL AST 26 (5-31) U/L ALT 31 (0-31) U/L Alkaline Phosphatase 67 (39-117) U/L Total Protein 7.6 (6.5-8.0) g/dL Albumin 4.3 (3.5-5.0) g/dL Lipase 30 (8-78) U/L Beta HCG, Quant < 2 mIU/mL Urine Color Yellow Urine Appearance Clear Urine pH 5.0 (5.0-9.0) Ur Specific [place] >= 1.030 H (1.005-1.025) Urine Protein Negative (Neg-Trace) mg/dL Urine Glucose (UA) Negative (Negative) mg/dL Urine Ketones Negative (Negative) mg/dL Urine Blood Moderate (2+) H (Negative) Urine Nitrite Negative (Negative) Ur Leukocyte Esterase Negative (Negative) Urine RBC 6-10 H (0-2) /HPF Urine WBC 0-5 (0-5) /HPF Ur Squamous Epith Cells 6-10 (0-2) /HPF Urine Bacteria 1+ (None Seen) Hyaline Casts 0-2 (0-2) /LPF Urine Test NEGATIVE (NEGATIVE) Independent Interpretation I performed an independent interpretation of an: CT Scan ( Abdomen pelvis:Stable cholelithiasis. Stable hepatic steatosis. Mature ovarian follicles are present bilaterally. ) Radiology Impression Discussion of test interpretation with radiology: I have reviewed the radiologist's reading. Discharge Plan Discharge Clinical Impression: Myofascial low back pain Patient Disposition: Home, Self-Care Instructions: Acute Low Back Pain (ED) Prescriptions: New ibuprofen 600 mg tablet 600 mg PO Q8H PRN (Reason: pain) Qty: 14 0RF cyclobenzaprine 10 mg tablet 10 mg PO TID PRN (Reason: muscle spasm) Qty: 14 0RF No Action ondansetron 4 mg tablet,disintegrating 4 mg PO Q6-8H PRN (Reason: nausea and vomiting) Qty: 7 0RF prednisone 20 mg tablet See Rx Instructions .ROUTE .COMPLEX 12 Days Qty: 26 0RF Rx Instructions: 20 mg orally, Take 3 tablets for 5 days THEN; Take 2 tablets for 4 days THEN; Take 1 tablet for 3 days diazepam [Valium] 2 mg tablet 2 mg PO TID PRN (Reason: spasms) 2 Days Qty: 6 0RF naproxen 500 mg tablet 500 mg PO BID 5 Days Qty: 10 0RF lidocaine 5 % adhesive patch,medicated 1 patch topical DAILY Qty: 15 0RF Rx Instructions: leave on most painful area for up to 12 hrs prednisone 10 mg tablet See Taper PO DAILY Qty: 30 0RF Taper: Prednisone 40 mg daily for 3 Days and 0 Hour 30 mg daily for 3 Days and 0 Hour 20 mg daily for 3 Days and 0 Hour 10 mg daily for 3 Days and 0 Hour diphenhydramine HCl [Benadryl] 25 mg capsule 25 mg PO TID PRN (Reason: itching) Qty: 21 0RF famotidine [Pepcid] 40 mg tablet 40 mg PO DAILY 7 Days Qty: 7 0RF hydrocortisone 1 % cream 1 appl topical BID PRN (Reason: vaginal irritation) Qty: 28.4 0RF sucralfate 1 gram tablet 1 g PO TID PRN (Reason: abdominal discomfort) Qty: 60 0RF cyclobenzaprine 10 mg tablet 10 mg PO TID PRN (Reason: muscle spasm) Qty: 14 0RF ibuprofen 400 mg tablet 400 mg PO Q6H PRN (Reason: pain) Qty: 14 0RF acetaminophen 500 mg capsule 1,000 mg PO Q8H PRN (Reason: fever or pain) Qty: 14 0RF loratadine 10 mg tablet 10 mg PO DAILY PRN (Reason: allergies) triamcinolone acetonide 0.1 % cream topical diphenhydramine HCl [Banophen] 25 mg capsule PO ergocalciferol (vitamin D2) 1,250 mcg (50,000 unit) capsule 1,250 mcg PO QWEEK lidocaine-prilocaine 2.5-2.5 % cream topical BID PRN (Reason: pain) naproxen 500 mg tablet 500 mg PO BID PRN (Reason: pain) cyclobenzaprine 5 mg tablet 5 mg PO BEDTIME PRN (Reason: neck pain) omeprazole 20 mg capsule,delayed release(DR/EC) 20 mg PO DAILY Qty: 30 3RF sennosides [Natural Senna Laxative] 8.6 mg tablet 17.2 mg PO BEDTIME Qty: 60 3RF Referrals: Stacy Boyd MD [Primary Care Provider, Internal Medicine] Stand Alone Forms: Work/School Release Discharge Date/Time: 05/05/25 16:18 Print Language: Kazakh
[2025-05-05 12:03] LABS: MANUAL DIFF FLAG NO
[2025-05-05 12:05] LABS: Hematocrit 39.6 % (37.0-47.0); Hemoglobin 12.7 g/dl (12.0-16.0); Imm Gran Abs Auto 0.00 X10*3/uL (0.00-0.03); Imm Gran Pct Auto 0.0 % (0.0-0.4); Lymphocytes Absolute Auto 1.9 X10*3/uL (1.2-4.9); Mean Corpuscular HGB Conc 32.1 g/dl (31.0-35.0); Mean Corpuscular Hemoglobin 26.4 pg (27.0-33.0); Mean Corpuscular Volume 82.3 fL (80.0-98.0); NRBC Abs Auto 0.000 X10*3/uL (0.0-0.012); NRBC Pct Auto 0.0 /100WBC (0.0-0.2); Platelet Count 305 X10*3/uL (160-400); Red Blood Count 4.81 X10*6/uL (4.20-5.50); White Blood Count 8.6 X10*3/uL (4.8-10.8)
[2025-05-05 12:06] LABS: Appearance Urine Clear; Glucose Urine UA Negative (Negative); PH 5.0 (5.0-9.0); Specific Gravity - Urine >= 1.030 (1.005-1.025); UMIC TRIGGER UACC YES
[2025-05-05 12:09] LABS: UPreg QC Valid YES
[2025-05-05 12:29] LABS: Alanine Aminotransferase 31 U/L (0-31); Albumin Level 4.3 g/dL (3.5-5.0); Alkaline Phosphatase 67 U/L (39-117); Anion Gap 10 (12-20); Aspartate Amino Transferase 26 U/L (5-31); Blood Urea Nitrogen 11 mg/dL (9-16); Calcium 9.4 mg/dL (8.4-10.2); Carbon Dioxide 23 mmol/L (22-29); Chloride 111 mmol/L (96-108); Creatinine Clr Calc Pharmacy 101.9; Estimated Glomerular Filt Rate > 60; Lipase 30 U/L (8-78); Potassium 4.1 mmol/L (3.3-5.1); Sodium 140 mmol/L (135-145); Total Protein 7.6 g/dL (6.5-8.0)
[2025-05-05 16:18] VITALS: BP 131/76; PULSE 79; RESP 18; O2SAT 98
== END 2025-05-05 16:18 | disposition home or self-care (01) ==
PROVIDERS: Physician Assistant; Emergency Provider Emergency Medicine; PCP Internal Medicine
DX: M79.18 Myalgia, other site (principal); M54.50 Low back pain, unspecified; R10.A0 Flank pain, unspecified side; R31.29 Other microscopic hematuria
CPT/HCPCS: 36415; 74176; 80053; 81001; 81025; 83690; 84702; 85025; 96361; 96374; 96375; 99283; 99284; J1885; J2270

== ENCOUNTER → 2025-05-05 13:08 | Outpatient (BNV) | payer MEDICAID, SELFPAY | PROVIDERS: Emergency Provider Emergency Medicine; PCP Internal Medicine; Visit Provider Radiology Diagnostic Radiology | DX: K80.20 Calculus of gallbladder without cholecystitis without obstruction (principal); K76.0 Fatty (change of) liver, not elsewhere classified; N83.01 Follicular cyst of right ovary; N83.02 Follicular cyst of left ovary | CPT/HCPCS: 74176 ==